=== PATIENT | male | born 1975 | race Caucasian/White ===

== ENCOUNTER → 2019-06-20 17:19 | Outpatient (CLI) | payer BC, SELFPAY ==
[2019-06-20 17:47] LABS: Basophils % 0.6 % (0.1-2.0); Eosinophils # 0.1 K/mm3 (0.0-0.4); Eosinophils % 1.3 % (0.1-12.0); Hematocrit 49.1 % (42.0-52.0); Hemoglobin 16.2 g/dL (14.1-18.0); Lymphocytes # 1.6 K/mm3 (0.7-4.5); Lymphocytes % 22.2 % (10-50); Mean Corpuscular Hemoglobin 30.7 pg (27.0-31.2); Mean Corpuscular Volume 93.1 fl (80-94); Mean Platelet Volume 8.1 fl (7.4-10.4); Monocytes # 0.3 K/mm3 (0.1-1.0); Monocytes % 3.6 % (1.7-9.3); Neutrophils # 5.3 K/mm3 (1.8-7.8); Neutrophils % 72.4 % (37.0-80.0); Platelet Count 306 K/mm3 (142-424); Red Blood Count 5.27 M/mm3 (4.60-6.20); Red Cell Distribution Width 12.4 % (11.5-17.5); White Blood Count 7.3 K/mm3 (4.8-10.8)
[2019-06-20 19:05] LABS: Glucose 86 mg/dL (74-106); Sodium 136 mmol/L (136-145)
[2019-06-20 19:19] LABS: Alanine Aminotransferase 36 U/L (12-78); Albumin Level 4.7 gm/dL (3.4-5.0); Albumin/Globulin Ratio 1.4 (1.1-1.8); Anion Gap 14.4 mEq/L (5-15); Aspartate Amino Transferase 16 U/L (15-37); Bilirubin,Total 0.4 mg/dL (0.2-1.0); Blood Urea Nitrogen 16 mg/dL (7-18); Calcium 9.2 mg/dL (8.5-10.1); Carbon Dioxide 27 mmol/L (21.0-32.0); Chloride 99 mmol/L (98-107); Chol/HDL Ratio 5.6 (1-3.5); Cholesterol 230 mg/dL (140-200); Creatinine,Serum 1.17 mg/dL (0.70-1.30); Estimated Glomerular Filt Rate 68 ml/min (>60); GFR (African American) 83 ML/MIN (>60); Globulin 3.4 gm/dl (1.3-3.2); HDL Cholesterol 41 mg/dL (27-67); LDL Cholesterol 135 mg/dL (0-130); Potassium 4.4 mmoL/L (3.5-5.1); Thyroid Stimulating Hormone 1.28 uIU/ml (0.358-3.740); Total Protein,Serum 8.1 gm/dL (6.4-8.2); Triglycerides 268 mg/dL (30-200); VLDL Cholesterol 54 mg/dL (0-40)
[2019-06-20 19:36] LABS: Alkaline Phosphatase 73 U/L (46-116); Free T4 (Free Thyroxine) 1.04 ng/dl (0.76-1.46)
== END ==
PROVIDERS: Visit Provider Emergency Medicine
DX: R53.83 Other fatigue (principal); Z79.899 Other long term (current) drug therapy
CPT/HCPCS: 80053; 80061; 82652; 84439; 84443; 85025

== ENCOUNTER → 2019-07-24 10:19 | Outpatient (CLI) | payer BC, SELFPAY ==
[2019-07-24 10:25] LABS: MANUAL DIFFERENTIAL MANUAL DIFFERENTIAL (MANUAL DIFF)
[2019-07-24 11:02] LABS: Basophils # 0.1 K/mm3 (0-0.2); Basophils % 0.7 % (0.1-2.0); Eosinophils # 0.1 K/mm3 (0.0-0.4); Eosinophils % 1.9 % (0.1-12.0); Hematocrit 43.8 % (42.0-52.0); Hemoglobin 14.6 g/dL (14.1-18.0); Lymphocytes # 1.5 K/mm3 (0.7-4.5); Lymphocytes % 19.8 % (10-50); Mean Corpuscular HGB Conc 33.4 g/dL (31.8-35.4); Mean Corpuscular Hemoglobin 31.2 pg (27.0-31.2); Mean Corpuscular Volume 93.6 fl (80-94); Monocytes # 0.4 K/mm3 (0.1-1.0); Monocytes % 5.2 % (1.7-9.3); Neutrophils # 5.4 K/mm3 (1.8-7.8); Neutrophils % 72.5 % (37.0-80.0); Platelet Count 256 K/mm3 (142-424); Red Blood Count 4.68 M/mm3 (4.60-6.20); Red Cell Distribution Width 13.6 % (11.5-17.5); White Blood Count 7.4 K/mm3 (4.8-10.8)
[2019-07-24 12:12] LABS: Eosinophils % 1 % (0-3); Lymphocytes % 14 % (10-50); Monocytes % 9 % (2-9); Neutrophils % 76 % (42-76); Platelet Estimate Normal; RBC Morphology Normal; Total Cells Counted 100
[2019-07-26 18:10] LABS: Testosterone, Total, LC/MS 321.2 ng/dL (264.0-916.0); Testosterone,Free 10.2 pg/mL (6.8-21.5)
== END ==
PROVIDERS: Visit Provider Urology
DX: R79.89 Other specified abnormal findings of blood chemistry (principal)
CPT/HCPCS: 36415; 84402; 84403; 85007; 85014; 85018; 85048; 85049

== ENCOUNTER → 2019-07-28 10:04 | Outpatient (POV) | payer BC, SELFPAY ==
[2019-07-28 10:22] VITALS: BP 138/83; PULSE 86; RESP 18; O2SAT 99; BMI 31.4
--- NOTE | 2019-07-28 12:58 | HMH.PMCON ---
Assessment and Plan (1) DDD (degenerative disc disease), thoracic Current visit: No Status: Chronic Category: Medical Code(s): M51.34 - Other intervertebral disc degeneration, thoracic region - Assessment and plan all Dx Assessment and Plan for all problems:: We will order an updated MRI to determine pathology. He has been instructed to call the office if he has any issues prior to his next appointment. At his next appointment we will go over his MRI. Dr. Thurman has reviewed this note and agrees with this plan of care. This note was dictated using voice recognition software and may contain errors or omissions HPI - Data of Consult Consult date: 07/28/19 Requesting Physician: Belia Schaeffer APRN Primary Care Provider: Kelechi So MD - Consult Narrative Reason for consult: Thoracic back pain History of present illness: Mr. Wesley is a 44 year old male who presents today to discuss his thoracic back pain. Patient has had quite a lot of back pain for quite some time. He was seen in [place] [facility] over 10 years ago where he states he got an RFA. He states it was extremely painful and did not return. Patient does not have a recent MRI. Patient states that the pain radiates into his chest and into his sternum. Patient states is burning and aching in nature. Patient has done physical therapy in the past. Patient has tried and failed medication therapies as well. Has had this pain for over a year. CC: Belia Schaeffer APRN [facility] History I have reviewed the patient's past medical history: Yes Medical History: Reports:: Anxiety, Depression, Gastroesophageal Reflux Disease(GERD), Hyperlipidemia, Hypertension *Have you ever received a pneumonia vaccine?: Yes *Have you received a flu vaccine this season?: Yes Other Medical History: Reports: Arthritis, Other Other Surgeries: Yes: No Previous Surgery Amputation: No Fractures: No - *Social History Smoking Status: Never smoker Alcohol Intake: never Substance Use Type: former substance user *Occupational Status:: other Housing: house Household Members: other *Travel in the last 8 weeks: None - Psychiatric History Pschychiatric History:: Reports:: Anxiety, Depression Family Hx:: Unable to obtain Review of Systems - Review of Systems ROS General: no recent weight change, no fever, no sleep disturbances Respiratory: no cough, no shortness of air, no recurring pulmonary infections Cardiovascular/Peripheral Vascular: No chest pain, No palpitations, no edema, no shortness of breath. Gastrointestinal: no new onset incontinence, normal bowel movements reported Genitourinary: no new onset incontinence Musculoskeletal: Back pain Psychiatric: normal mood/ affect Neurological: [denies new onset weakness in extremities], [denies new onset balance issues] Meds Home Medications Medication Instructions Recorded Confirmed Type bupropion HCl 150 mg 24 hr tablet, 450 mg PO DAILY #90 tab 06/20/19 07/24/19 Rx extended release gabapentin 800 mg tablet 800 mg PO QID #120 tab 06/20/19 07/24/19 Rx quetiapine 300 mg tablet 300 mg PO QHS #30 tab 06/20/19 07/24/19 Rx omeprazole 20 mg capsule,delayed 20 mg PO DAILY #90 cap 06/23/19 07/24/19 Rx release atorvastatin 10 mg tablet 10 mg PO DAILY #90 tab 06/30/19 07/24/19 Rx bupropion HCl 300 mg 24 hr tablet, 300 mg PO DAILY tab 07/14/19 07/24/19 History extended release Allergies Allergy/AdvReac Type Severity Reaction Status Date / Time SULFA (SULFONAMIDE) Allergy Severe Rash Uncoded 07/24/19 09:54 Objective Vital signs: Pulse Resp BP Pulse Ox 86 18 138/83 99 07/28/19 10:22 07/28/19 10:22 07/28/19 10:22 07/28/19 10:22 Narrative: Physical Exam General: Alert and oriented x3, no acute distress, pleasant and cooperative, [on room air] Lungs: Resps E/U, Symmetrical chest expansion, Eyes: PERRL Musculoskeletal: Flexion and extension of thoracic spine s
== END ==
PROVIDERS: PCP Emergency Medicine; Visit Provider Clinical Nurse Specialist Family Health
DX: M51.34 Other intervertebral disc degeneration, thoracic region (principal)
CPT/HCPCS: 99202

== ENCOUNTER → 2019-08-06 12:39 | Outpatient (CLI) | payer BC, SELFPAY ==
--- NOTE | 2019-08-06 12:42 | MR_ITS ---
PROCEDURE: MR THORACIC SPINE WO CON CLINICAL INDICATION: BACK PAIN Mid and low back pain COMPARISON: No exams were available for comparison TECHNIQUE: Routine multiplanar multi echo sequences are performed without gadolinium enhancement. FINDINGS: There is normal alignment. No fracture or dislocation is evident. No significant degenerative change. There is slight decrease in height anteriorly of T11 but no abnormal bone marrow signal intensity consistent with chronic or developmental change. There is slight decrease in the disc space at T4-T5 and T5-T6 and T6-T7. There is small right paracentral disc protrusion at T7-T8 with minimal flattening of the cord at this area. The spinal cord has an unremarkable appearance. Incidental note is made of bilateral renal cysts. There is a left paravertebral osteophyte at T10-T11. IMPRESSION: Small right paracentral disc protrusion at T7-T8 with minimal flattening of the cord at this level. Mild degenerative changes Dictated by: Tom Mendez MD 08/07/2019 11:15 Electronically signed by Tom Mendez MD in [place] 08/07/2019 11:15
== END ==
PROVIDERS: PCP Emergency Medicine; Visit Provider Clinical Nurse Specialist Family Health
DX: M54.6 Pain in thoracic spine (principal)
CPT/HCPCS: 72146

== ENCOUNTER → 2019-08-19 10:36 | Outpatient (POV) | payer BC, SELFPAY ==
[2019-08-19 10:46] VITALS: BP 175/78; PULSE 78; RESP 18; O2SAT 99; BMI 31.8
--- NOTE | 2019-08-19 10:57 | HMH.PAINSOAP ---
[facility] Pain Management SOAP Note Subjective:: Patient is a pleasant 44-year-old white male who presents today for follow-up. Patient had an MRI of his thoracic spine which showed a bulging disc at the T7-T8 level. It is also shows a flattening of the spinal cord in this area. We discussed options including surgical consultation and epidural injections. Patient is interested in trying an epidural injection prior to making any decisions. I do believe that would be beneficial he is not on any blood thinners. Patient has tried and failed anti-inflammatories. He rates his pain today a 7 out of 10. ROS General: no recent weight change, no fever, no sleep disturbances Respiratory: no cough, no shortness of air, no recurring pulmonary infections Cardiovascular/Peripheral Vascular: No chest pain, No palpitations, no edema, no shortness of breath. Gastrointestinal: no new onset incontinence, normal bowel movements reported Genitourinary: no new onset incontinence Musculoskeletal: Thoracic back pain Psychiatric: normal mood/ affect Neurological: [denies new onset weakness in extremities], [denies new onset balance issues] Objective:: Physical Exam General: Alert and oriented x3, no acute distress, pleasant and cooperative, [on room air] Lungs: Resps E/U, Symmetrical chest expansion, Eyes: PERRL Musculoskeletal: Flexion and extension of thoracic spine somewhat guarded secondary to pain, deep tendon reflexes normal, strength in upper and lower extremities [5/5], antalgic gait noted Neurological: speech clear, electronic publications specialist equal, no gross sensory deficits Assessment:: Degenerative disc disease thoracic spine with bulging disc and radiculopathy Plan:: We will set up a T7-T8 thoracic epidural steroid injection for the patient. Given his symptomology I do believe it would be beneficial. We will give him some Flexeril 10 mg 1 p.o. 3 times daily just [address] Thurman has reviewed this note and agrees with this plan of care. This note was dictated using voice recognition software and may contain errors or omissions [facility] History I have reviewed the patient's past medical history: Yes Medical History: Reports:: Anxiety, Depression, Gastroesophageal Reflux Disease(GERD), Hyperlipidemia, Hypertension *Have you ever received a pneumonia vaccine?: Yes *Have you received a flu vaccine this season?: Yes Other Medical History: Reports: Arthritis, Other Other Surgeries: Yes: No Previous Surgery Amputation: No Fractures: No - *Social History Smoking Status: Never smoker Alcohol Intake: never Substance Use Type: former substance user *Occupational Status:: other Housing: house Household Members: other *Travel in the last 8 weeks: None - Psychiatric History Pschychiatric History:: Reports:: Anxiety, Depression Family Hx:: No significant family history
== END ==
PROVIDERS: PCP Emergency Medicine; Visit Provider Clinical Nurse Specialist Family Health
DX: M51.14 Intervertebral disc disorders with radiculopathy, thoracic region (principal)
CPT/HCPCS: 99212

== ENCOUNTER 2019-09-12 10:03 | Day surgery (SDC) | payer BC, SELFPAY ==
[2019-09-12 10:23] VITALS: BP 155/98; PULSE 75; RESP 18; TEMP 36.6; O2SAT 96; BMI 31.8
[2019-09-12 10:45] VITALS: BP 132/84; PULSE 73; RESP 18; O2SAT 98
[2019-09-12 10:46] VITALS: BP 135/87; PULSE 75; RESP 18; O2SAT 98
--- NOTE | 2019-09-12 10:55 | HMH.PMPROC ---
- Procedure Date: 09/12/19 Time: 10:55 Anesthesiologist:: Atul Thurman MD Complications:: None Pre-procedure Diagnosis:: Degenerative disc disease of the thoracic spine with bulging disc and thoracic radiculopathy symptoms Post-procedure Diagnosis:: Same Indications for Procedure:: This patient is a pleasant 44-year-old white male who we have been treating for mid back pain with thoracic radiculopathy symptoms. He does have a bulging disc at T7-T8. He has severe pain in his mid back which goes up into his neck. Also it radiates between his shoulder blades. We will plan on a thoracic epidural steroid injection today to see if this will help with his pain symptoms. He has severe pain which is affecting activities of daily living. Is affecting his functionality. We will do an injection today to keep him out of the emergency room and off oral opioids. Procedure Details:: Thoracic epidural steroid injection Form consent was obtained and the risk and benefits of the procedure were explained to the patient. Patient was taken to the procedure room. The back was prepped using ChloraPrep. The skin and subcutaneous tissues were anesthetized using lidocaine. A 17-gauge epidural needle was inserted and advanced into the T7-T8 interspace. After confirmation of needle placement in the epidural space with dye we injected 2 mL lidocaine 1.5% and Depo-Medrol 80 mg into the lumbar epidural space. Patient tolerated the procedure well with no complications. Plan and Disposition:: We will follow-up with him in 2 weeks. Will reevaluate symptoms at that time.
[2019-09-12 11:01] VITALS: BP 160/95; PULSE 75; RESP 18; O2SAT 96
== END 2019-09-12 11:02 | disposition home or self-care (01) ==
LOC: SC.PAINP 10:04
PROVIDERS: PCP Emergency Medicine; Visit Provider Anesthesiology
DX: M51.14 Intervertebral disc disorders with radiculopathy, thoracic region (principal); Z79.899 Other long term (current) drug therapy; Z88.2 Allergy status to sulfonamides
CPT/HCPCS: 62321; J1040; Q9966

== ENCOUNTER → 2019-09-29 12:55 | Outpatient (POV) | payer BC, SELFPAY ==
[2019-09-29 13:09] VITALS: BP 157/98; PULSE 85; RESP 18; TEMP 36.8; O2SAT 99; BMI 31.4
--- NOTE | 2019-09-29 14:28 | HMH.PAINSOAP ---
[facility] Pain Management SOAP Note Subjective:: Patient is a 44-year-old white male who we are treating for generalized pain along with significant thoracic radiculopathy. Patient states he has had back problems since he was 18. Patient is frustrated today because he states he does not know what is wrong with him. 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 Patient has tested negative for rheumatoid arthritis. Patient has not been tested for any kind of infectious diseases such as Lyme disease. Patient states that every joint in his body hurts he has swelling. Patient has quite a bit of thoracic pain radiating into his intercostal areas. Patient had a thoracic epidural which he stated felt like it just missed the loren . Patient states it would have been better if it was more angled to the right. Patient and I talked about transforaminal epidural injections this may be of benefit to him however I do feel that potentially there is more to explore in regards to his pain what is seen on his MRI. I discussed with him that we could start doing physical therapy to strengthen his core muscles and help alleviate some of his lower back pain I also discussed the potential neurological and rheumatological consultation. If this is not beneficial to him he may benefit from some cognitive behavioral therapy. Patient's not on any anticoagulation therapy. ROS General: no recent weight change, no fever, no sleep disturbances Respiratory: no cough, no shortness of air, no recurring pulmonary infections Cardiovascular/Peripheral Vascular: No chest pain, No palpitations, no edema, no shortness of breath. Gastrointestinal: no new onset incontinence, normal bowel movements reported Genitourinary: no new onset incontinence Musculoskeletal: Back pain, generalized joint pain Psychiatric: Anxious Neurological: [denies new onset weakness in extremities], [denies new onset balance issues] Objective:: Physical Exam General: Alert and oriented x3, no acute distress, pleasant and cooperative, [on room air] Lungs: Resps E/U, Symmetrical chest expansion, Eyes: PERRL Musculoskeletal: Flexion and extension of thoracic spine somewhat guarded secondary to pain, deep tendon reflexes normal, strength in upper and lower extremities [5/5], [abnormal gait noted] Neurological: speech clear, ticket worker equal, no gross sensory deficits Assessment:: Degenerative disc disease thoracic spine with thoracic radiculopathy, generalized joint pain Plan:: We will schedule a rightT7-T8 transforaminal injection for the patient to see if this is beneficial. We will also set him up with physical therapy for core strengthening we will also set him up with a consultation to a animal behaviourist and a neurologist. We specifically discussed risk factors for Covid-19 including age, heart or lung disease, diabetes, immunosuppression and travel. We also discussed that NSAIDs may worsen Covid-19 infection symptoms and that they should not be used to treat Covid-19 symptoms. Patient was also informed that corticosteroids in any form oral or injectable will decrease immune response and may increase risk of Covid-[address] Thurman has reviewed this patient's chart and this note and agrees with plan of care. Patient has been instructed to call the office if they have any issues prior to the next appointment. [facility] History I have reviewed the patient's past medical history: Yes Medical History: Reports:: Anxiety, Depression, Gastroesophageal Reflux Disease(GERD), Hyperlipidemia, Hypertension Denies:: Cancer, Diabetes Mellitus Type 2, Seizures *Have you ever received a pneumonia vaccine?: Yes *Have you received a flu vaccine this season?: Yes Other Medical History: Reports: Arthritis, Other Other Surgeries: Yes: No Previous Surgery Amputation: No Fractures: No - *Social History Smoking Status: Never smoker Alcoho
== END ==
PROVIDERS: PCP Emergency Medicine; Visit Provider Clinical Nurse Specialist Family Health
DX: M51.14 Intervertebral disc disorders with radiculopathy, thoracic region (principal); M25.50 Pain in unspecified joint
CPT/HCPCS: 99212

== ENCOUNTER → 2019-10-06 10:09 | Outpatient (CLI) | payer BC, SELFPAY ==
[2019-10-07 08:56] LABS: Covid-19 Nasal PCR Sendout Lex NOT DETECTED
--- NOTE | 2019-10-07 09:52 | PC.NURSE ---
Attempted to reach patient on both phone numbers listed, no answer, no voicemail set up. Did notify ELDA Murillo in pain management of negative results, and that pt was attempted to be reached.
== END ==
PROVIDERS: Visit Provider Anesthesiology
DX: Z03.818 Encounter for observation for suspected exposure to other biological agents ruled out (principal)
CPT/HCPCS: U0003

== ENCOUNTER 2019-10-06 14:00 | Outpatient (RCR) | payer BC, SELFPAY | END 2019-10-06 14:05 | disposition home or self-care (01) | LOC: PT 14:00 | PROVIDERS: Visit Provider Clinical Nurse Specialist Family Health | DX: M54.5 Low back pain (principal) | CPT/HCPCS: 97010; 97012; 97014; 97033; 97110; 97140; 97163; G0283 ==

== ENCOUNTER 2019-10-08 07:45 | Day surgery (SDC) | payer BC, SELFPAY ==
[2019-10-08 11:19] VITALS: BP 174/84; PULSE 82; RESP 18; TEMP 36.9; O2SAT 99; BMI 31.4
--- NOTE | 2019-10-08 11:54 | P.PCN_ITS ---
- Procedure Date: 10/08/19 Time: 11:55 Anesthesiologist:: Atul Thurman MD Complications:: None Pre-procedure Diagnosis:: Degenerative disc disease of thoracic spine with thoracic radiculopathy symptoms to the right side Post-procedure Diagnosis:: Same Indications for Procedure:: Patient is a pleasant 44-year-old white male who we are treating for mid back pain with thoracic radiculopathy symptoms to the right. Most of his pain is in the mid back radiating to the right. We will do an epidural steroid injection directed towards the right to see if this will help with his pain symptoms. Because of the risk of pneumothorax we will not do a transforaminal epidural steroid injection. Procedure Details:: Thoracic epidural steroid injection under fluoroscopy Informed consent was obtained risk and benefits of the procedure were explained to the patient. Patient was taken to the procedure room. Back was prepped using ChloraPrep. The skin and subcutaneous tissues were anesthetized using lidocaine. I placed a 17-gauge epidural needle and advanced into the T7-T8 interspace. After confirmation of needle placement in the epidural space at T7- T8 towards the right with dye. We injected 2 mL's lidocaine 1.5% and Depo- Medrol 80 mg into the epidural space. Patient tolerated the procedure well with no complications. Plan and Disposition:: We will follow-up with him in 2 weeks. Will reevaluate his symptoms at that time.
[2019-10-08 11:57] VITALS: BP 165/85; PULSE 85; RESP 18; TEMP 36.6
[2019-10-08 11:58] VITALS: BP 165/89; PULSE 89; RESP 18
[2019-10-08 12:08] VITALS: BP 169/97; PULSE 76; RESP 18; O2SAT 99
== END 2019-10-08 12:10 | disposition home or self-care (01) ==
LOC: SC.PAINP 07:47
PROVIDERS: PCP Emergency Medicine; Visit Provider Anesthesiology
DX: M51.14 Intervertebral disc disorders with radiculopathy, thoracic region (principal)
CPT/HCPCS: 62321; J1040; Q9966

== ENCOUNTER → 2019-10-20 14:29 | Outpatient (POV) | payer BC, SELFPAY ==
[2019-10-20 14:46] VITALS: BP 178/93; PULSE 101; RESP 18; TEMP 36.8; O2SAT 99; BMI 32.1
--- NOTE | 2019-10-21 08:22 | HMH.PAINSOAP ---
[facility] Pain Management SOAP Note Subjective:: Patient is a pleasant 44-year-old white male who we are treating for mid back pain with thoracic radiculopathy symptoms to the right. Patient states that after his second thoracic epidural steroid injection he did much better. Patient states he can tell the doctor Cuca was able to angle the medication to the right side. Patient states that he is having continual joint pain. He is not on any anti-inflammatories. We discussed a vehicle assembly inspector at his last visit he is going to pursue this. Patient states he has had all the symptoms since he was a child ROS General: no recent weight change, no fever, no sleep disturbances Respiratory: no cough, no shortness of air, no recurring pulmonary infections Cardiovascular/Peripheral Vascular: No chest pain, No palpitations, no edema, no shortness of breath. Gastrointestinal: no new onset incontinence, normal bowel movements reported Genitourinary: no new onset incontinence Musculoskeletal: Back pain Psychiatric: Anxious Neurological: [denies new onset weakness in extremities], [denies new onset balance issues] Objective:: Physical Exam General: Alert and oriented x3, no acute distress, pleasant and cooperative, [on room air] Lungs: Resps E/U, Symmetrical chest expansion, Eyes: PERRL Musculoskeletal: Flexion and extension of thoracic spine somewhat guarded secondary to pain, deep tendon reflexes normal, strength in upper and lower extremities [5/5], normal gait noted Neurological: speech clear, lease picker equal, no gross sensory deficits Assessment:: Degenerative disc disease thoracic spine thoracic radiculopathy. Plan:: We will repeat his T7-T8 epidural steroid injection. We will also start him on diclofenac 75 mg 1 p.o. twice daily. I will follow-up with him after this reassess his symptoms at that time he has been instructed to call the office if he has any issues prior to his next appointment. Dr. Thurman has reviewed this note and agrees with this plan of care. This note was dictated using voice recognition software and may contain errors or omissions [facility] History I have reviewed the patient's past medical history: Yes Medical History: Reports:: Anxiety, Depression, Gastroesophageal Reflux Disease(GERD), Hyperlipidemia, Hypertension, MRSA Denies:: Cancer, Diabetes Mellitus Type 1, Diabetes Mellitus Type 2, Seizures *Have you ever received a pneumonia vaccine?: Yes *Have you received a flu vaccine this season?: Yes Other Medical History: Reports: Arthritis, Other Other Surgeries: Yes: No Previous Surgery Amputation: No Fractures: No - *Social History Smoking Status: Current some day smoker Alcohol Intake: never Substance Use Type: former substance user *Occupational Status:: other Housing: house Household Members: other *Travel in the last 8 weeks: None - Psychiatric History Pschychiatric History:: Reports:: Anxiety, Depression Family Hx:: No significant family history
== END ==
PROVIDERS: PCP Emergency Medicine; Visit Provider Clinical Nurse Specialist Family Health
DX: M51.14 Intervertebral disc disorders with radiculopathy, thoracic region (principal)
CPT/HCPCS: 99212

== ENCOUNTER 2019-12-12 09:14 | Day surgery (SDC) | payer BC, SELFPAY ==
[2019-12-12 09:37] VITALS: BP 153/65; PULSE 90; RESP 18; TEMP 37; O2SAT 98; BMI 30.7
[2019-12-12 10:04] VITALS: BP 108/80; PULSE 77; RESP 18
[2019-12-12 10:06] VITALS: BP 110/82; PULSE 75; RESP 18; O2SAT 99
--- NOTE | 2019-12-12 10:13 | HMH.PMPROC ---
- Procedure Date: 12/12/19 Time: 10:13 Anesthesiologist:: Atul Thurman MD Complications:: None Pre-procedure Diagnosis:: Degenerative disc disease of the thoracic spine with thoracic radiculopathy Post-procedure Diagnosis:: Same Indications for Procedure:: Patient is a pleasant 44-year-old white male who we are treating for mid back pain with thoracic radiculopathy symptoms to the right. He has had 2 thoracic epidural steroid injections. This is given him good relief however temporary. He presents for a third thoracic epidural steroid injection today. Most of his pain is in the cervical thoracic region with radiation to the right. Procedure Details:: Thoracic epidural Informed consent was obtained and the risk and benefits of the procedure was explained to the patient. Patient was taken to the procedure room. The back was prepped using ChloraPrep. C-arm fluoroscopy was used to view the thoracic spine. The skin and subcutaneous tissues were anesthetized using lidocaine. I placed a 17-gauge Touhy epidural needle into the T7-T8 interspace. I advanced using [id number] to air and fluoroscopic guidance until the epidural space was reached. Confirmation of needle placement in the epidural space was with dye. After this we injected 1 mL lidocaine 1.5% and Depo-Medrol 80 mg. The patient tolerated the procedure well with no complication. Plan and Disposition:: We will follow-up with him in 2 weeks. We will reevaluate his symptoms. Given his symptomology in the cervical thoracic region with radiation to the right I believe he would be a good candidate for spinal cord stimulator trial. I believe he would benefit from a [employer] system with DTM stimulation. Leads need to be in the lower cervical upper thoracic region to help with cervical thoracic pain.
[2019-12-12 10:20] VITALS: BP 149/95; PULSE 74; RESP 18; O2SAT 98
== END 2019-12-12 10:20 | disposition home or self-care (01) ==
LOC: SC.PAINP 09:15
PROVIDERS: PCP Emergency Medicine; Visit Provider Anesthesiology
DX: M51.14 Intervertebral disc disorders with radiculopathy, thoracic region (principal); I10 Essential (primary) hypertension; E11.9 Type 2 diabetes mellitus without complications; K21.9 Gastro-esophageal reflux disease without esophagitis; F41.9 Anxiety disorder, unspecified; F32.9 Major depressive disorder, single episode, unspecified; G43.909 Migraine, unspecified, not intractable, without status migrainosus; Z79.899 Other long term (current) drug therapy
CPT/HCPCS: 62321; J1040; Q9966

== ENCOUNTER → 2019-12-29 11:18 | Outpatient (POV) | payer BC, SELFPAY ==
[2019-12-29 11:42] VITALS: BP 144/88; PULSE 85; RESP 18; TEMP 36.9; O2SAT 98; BMI 30.7
--- NOTE | 2019-12-29 12:09 | HMH.PAINSOAP ---
[facility] Pain Management SOAP Note Subjective:: Patient is a 44-year-old white male who presents today for follow-up after a thoracic epidural at T7-T8. Patient says his pain is a 7 out of 10 today. He has had 2 thoracic epidural steroid injections in the past which have given him good relief, however temporary. His last injection was his third injection and he says that it did give him relief for only 2 days. He says he did get approximately 60% relief with the injection. Patient did discuss with Dr. Thurman at the previous visit undergoing [employer] DTM stimulation, however, the patient says that he would like to undergo a lumbar MRI before proceeding with implanted device. He says that he has pain in his neck and his low back. He says that he has not had any imaging of his lumbar spine. Patient says that he would also like to proceed with possible injective therapy in his lumbar spine before undergoing implanted devices. The patient is asking for an anti-inflammatory as well as muscle relaxer today. He says these have given him relief in the past. Review of Systems General: No recent weight changes, no fever, no sleep disturbances Respiratory: No cough, no shortness of air, no recurring pulmonary infections Cardiovascular/peripheral vascular: No chest pain, no palpitations, no edema, no shortness of breath Gastrointestinal: No new onset incontinence, normal bowel movements reported Genitourinary: No new onset incontinence Musculoskeletal: Back pain, mid back pain, low back pain Psychiatric: Normal mood/affect Neurological: [Denies weakness in extremities], [denies balance issues] Objective:: Physical exam General: Alert and oriented x3, no acute distress, pleasant and cooperative, [on room air] Lungs: Respirations even and unlabored, symmetrical chest expansion Eyes: PERRL Musculoskeletal: Flexion and extension of cervical, thoracic, lumbar spine somewhat guarded secondary to pain, deep tendon reflexes normal, strength in upper and lower extremities [5/5], normal gait noted Neurological: Speech clear, triage nurse equal, no gross sensory deficit Assessment:: Degenerative disc disease sick spine with thoracic radiculopathy symptoms, neck pain, low back pain, bilateral leg pain Plan:: We will proceed with an MRI of his lumbar spine. Patient would prefer to have imaging before proceeding with any further care. We will order him Flexeril 10 mg 1 tab p.o. 3 times daily. We will also order him diclofenac 5 mg 1 tablet p.o. twice daily. He says he is taking high doses of ibuprofen. I have educated him thoroughly that he cannot continue other anti-inflammatories. Patient does need to review his other medications with his primary care provider before proceeding with the anti-inflammatories. Patient says that he will discuss it with his primary care provider. We will see him back in the clinic after his MRI discuss further plan of care. He has been instructed to contact clinic if he has any concerns before his next appointment. The patient and I specifically discussed risk factors for COVID19. These risks include, but are not limited to age greater than 60, heart or lung disease, diabetes, immunosuppression, and travel. We also discussed NSAIDs may worsen COVID19 infection or symptoms. Patient should not use NSAIDs to treat COVID19 signs or symptoms. Patient was also informed that any type of corticosteroid of any form (oral or injection) will decrease the patient's immune system response and may increase the likelihood of COVID19 infection [address] symptoms[address] Thurman has reviewed this note and agrees with this plan of care. This note was dictated using voice recognition software and make contain errors or omissions. [facility] History I have reviewed the patient's past medical history: Yes Medical History: Reports:: Anxiety, Depression, Gastroesophageal Reflux Disease(GERD), Hyperlipidemia, Hypertension Denies:: Cancer, Diabetes Mellitus Type 1,
== END ==
PROVIDERS: PCP Emergency Medicine; Visit Provider Clinical Nurse Specialist Family Health
DX: M51.14 Intervertebral disc disorders with radiculopathy, thoracic region (principal); M54.2 Cervicalgia; M54.5 Low back pain; M79.605 Pain in left leg; M79.604 Pain in right leg
CPT/HCPCS: 99212

== ENCOUNTER → 2020-01-02 09:27 | Outpatient (CLI) | payer BC, SELFPAY ==
--- NOTE | 2020-01-02 09:30 | MR_ITS ---
PROCEDURE: MR LUMBAR SPINE WO CON CLINICAL INDICATION: BACK PAIN Bilateral low back pain, bilateral leg pain COMPARISON: And numbness TECHNIQUE: Standard multiplanar multiecho sequences are performed without contrast. 3-D MIP and myelographic images are also rendered and reviewed FINDINGS: There is straightening of the lumbar lordosis. The spinal cord ends at the T12-L1 level. L1-L2: Unremarkable. L2-L3: Unremarkable. L3-L4: Minimal bulging disc with mild facet and ligamentum hypertrophy with mild bilateral lateral recess and foraminal narrowing. L4-5: Mild concentric bulging disc with mild to moderate facet and ligamentum hypertrophy with mild bilateral lateral recess narrowing left greater than right and mild to moderate left foraminal narrowing and mild right foraminal narrowing. L5-S1: Mild concentric bulging disc with a small broad based central disc protrusion which is very slightly eccentric toward the left along with [id number] facet and ligamentum hypertrophy. There is mild left lateral recess narrowing, mild to moderate right foraminal narrowing, [id number] left foraminal narrowing. Incidental note is made of multiple renal cysts which are incompletely imaged. IMPRESSION: 1. L3-L4: Minimal bulging disc with mild facet and ligamentum hypertrophy with mild bilateral lateral recess and foraminal narrowing. The 2. L4-5: Mild concentric bulging disc with mild to moderate facet and ligamentum hypertrophy with mild bilateral lateral recess narrowing left greater than right and mild to moderate left foraminal narrowing and mild right foraminal narrowing. 3. L5-S1: Mild concentric bulging disc with a small broad based central disc protrusion which is very slightly eccentric toward the left along with lhvq-yv-[id number] facet and ligamentum hypertrophy. There is mild left lateral recess narrowing, mild to moderate right foraminal narrowing, [id number] left foraminal narrowing. 4. No extruded herniated disc or canal stenosis Dictated by: Tom Mendez MD 01/05/2020 09:49 Electronically signed by Tom Mendez MD in [place] 01/05/2020 09:49
== END ==
PROVIDERS: PCP Emergency Medicine; Visit Provider Clinical Nurse Specialist Family Health
DX: M54.5 Low back pain (principal)
CPT/HCPCS: 72148; 76376

== ENCOUNTER → 2020-01-08 13:55 | Outpatient (POV) | payer BC, SELFPAY ==
[2020-01-08 14:08] VITALS: BP 125/61; PULSE 85; RESP 18; O2SAT 99; BMI 31.5
--- NOTE | 2020-01-08 15:15 | HMH.PAINSOAP ---
[facility] Pain Management SOAP Note Subjective:: Patient is a 44-year-old white male who presents today for follow-up after an MRI. His been treated for neck, mid back pain, and low back pain with radiation into his bilateral lower extremities. He has undergone epidural steroid injections. Patient says the relief he does get is only temporary. He says he gets approximately 3% % relief with these injections. He says he only gets up to 2 days of relief. He complains of pain into his bilateral shoulders as well as his mid back and low back area. He says that it causes him to have difficulty with breathing due to the pain. Patient is very anxious during his assessment today. He does admit that he has a history of severe anxiety and does see a psychiatrist for his anxiety. Patient says he has had the pain for many years and has not gotten any relief. He also reports to be having temperature changes and color changes to his right lower extremity. He says this is new onset for him. He says that the injections do not relieve this symptom. Patient has tried physical therapy with no relief. He has also tried ice and heat therapies and has taken diclofenac with no relief. He is asking for different type of anti-inflammatory to see if this can give him some relief. He says he has taken prednisone in the past which did not give him relief. He rates his pain an 8 out of 10 today. Review of Systems General: No recent weight changes, no fever, no sleep disturbances Respiratory: No cough, no shortness of air, no recurring pulmonary infections Cardiovascular/peripheral vascular: No chest pain, no palpitations, no edema, no shortness of breath Gastrointestinal: No new onset incontinence, normal bowel movements reported Genitourinary: No new onset incontinence Musculoskeletal: Intermittent neck pain, intermittent mid back pain, chronic low back pain with numbness and tingling in his bilateral lower extremities with temperature and color changes Psychiatric: Normal mood/affect Neurological: [Denies weakness in extremities], [denies balance issues] Objective:: Physical exam General: Alert and oriented x3, no acute distress, pleasant and cooperative, [on room air] Lungs: Respirations even and unlabored, symmetrical chest expansion Eyes: PERRL Musculoskeletal: Flexion and extension of lumbar spine somewhat guarded secondary to pain, deep tendon reflexes normal, strength in upper and lower extremities [5/5], [abnormal gait noted] Neurological: Speech clear, sampler tester equal, no gross sensory deficit Assessment:: Degenerative disc disease lumbar spine with lumbar radiculopathy symptoms, degenerative disc disease thoracic spine with thoracic radiculopathy symptoms, neck pain Plan:: Patient I did discuss his MRI today. Patient has undergone a psychological evaluation and was deemed an appropriate candidate for implanted devices. Currently seeking approval for spinal cord stimulator with [employer]. Given his symptoms and his imaging, the patient would likely benefit from spinal cord stimulation. We will plan to see the patient back in the clinic for his spinal cord stimulator trial to reassess his symptoms. He is not on any anticoagulation therapy. The patient has tried and failed conservative therapies of physical therapy, injections, ice and heat and anti-inflammatories. I have advised him to stop taking diclofenac and we will place him on Mobic 7.5 mg 1 tablet p.o. daily. Patient is now having autonomic symptoms of his lower extremities. Patient has been instructed to contact the clinic if he has any concerns before his spinal cord stimulator trial. The patient and I specifically discussed risk factors for COVID19. These risks include, but are not limited to age greater than 60, heart or lung disease, diabetes, immunosuppression, and travel. We also discussed NSAIDs may worsen COVID19 infection or symptoms. Patient should not use NSAIDs to treat COVI
== END ==
PROVIDERS: PCP Emergency Medicine; Visit Provider Clinical Nurse Specialist Family Health
DX: M51.16 Intervertebral disc disorders with radiculopathy, lumbar region (principal); M51.14 Intervertebral disc disorders with radiculopathy, thoracic region; M54.2 Cervicalgia
CPT/HCPCS: 99212

== ENCOUNTER 2020-01-23 12:32 | Emergency (ER) | payer BC, SELFPAY ==
[2020-01-23 12:34] VITALS: BP 146/98; PULSE 90; RESP 18; TEMP 36.6; O2SAT 95; BMI 30.7
--- NOTE | 2020-01-23 13:11 | HMH.EDGENADL ---
ED Disposition Clinical Impression: Cutaneous abscess Qualifiers: Site of cutaneous abscess: buttock Qualified Code(s): L02.31 - Cutaneous abscess of buttock Disposition: Home, Self-Care Condition on Discharge: Good Instructions: DI for Incision and Drainage of a Skin Abscess, DI for Skin Abscess Additional Instructions: Additional instructions for ABSCESS: Day one and two: Remove the bandage and shower the area, leaving the packing in place. Gently blot dry. Apply a bandage. Day three: Follow-up with primary care physician on 01/26/2020 as already scheduled. Have packing removed at that time and have culture results checked. Return to the emergency department if increasing pain, swelling, redness, red streaks or fever greater than 101 degrees. Prescriptions: clindamycin HCL [Clindamycin HCl 300mg Cap] 300 mg PO Q6 #28 cap Transmission Status: Pending to [facility] Referrals: Kelechi So MD [Primary Care Provider] - - Critical Care Critical Care Time: No Attestation: On 01/23/20, the high probability of a clinically significant, sudden or life threatening deterioration of the following system(s) required my full and direct attention, intervention and personal management. The time I documented below is in addition to time spent performing reported procedures but includes the following listed in this critical care notation. Medical Decision Making - Denis Inquiry Pt receiving controlled substance: No Denis was queried for this patient: Yes Reference #:: [id number] Comment: 45 norco on 01/12/20 Vital Signs: 01/23/20 12:34 Temperature 98 F Temperature Source Oral Pulse Rate [Right] 90 Respiratory Rate 18 Blood Pressure [Right Arm] 146/98 H Blood Pressure Mean [Right Arm] 114 02 Sat by Pulse Oximetry 95 Orders (Tests/Meds): ED MEDICATIONS Discontinued Medications Generic Name Dose Route Start Last Admin Trade Name Freq PRN Reason Stop Dose Admin Lidocaine/Epinephrine 10 ml 01/23/20 13:33 01/23/20 13:35 Lidocaine 1% W/Epi 1:100,000 20ml Vial SQ 01/23/20 13:34 10 ml ONCE ONE Administration General Adult HPI - General Chief complaint: Skin/Abscess/Foreign Body Stated complaint: right side boil Time Seen by Provider: 01/23/20 13:11 Mode of Arrival: Ambulatory Limitations: No Limitations Description of Symptoms (Recalled from ER Triage Doc. by RN): States he has a boil on his right buttocks, denies fever or drainage from the area. - History of Present Illness HPI narrative: Complains of a boil on his right buttock for a month. He poked it once with a needle and got a small amount of pus out. No fever or drainage. He gives himself injections of testosterone in his buttocks, thinks this is a possible source of infection. - Related Data Home Medications Medication Instructions Recorded Confirmed anastrozole 1 mg tablet 1 mg PO ONCE tab 08/15/19 01/12/20 polyethylene glycol 3350 17 17 g PO DAILY g 08/15/19 01/12/20 gram/dose oral powder testosterone cypionate 200 mg/mL 200 mg IM QWEEK ml 08/15/19 01/12/20 intramuscular oil Cyclobenzaprine HCl [Flexeril 10mg 10 mg PO TID 09/12/19 01/12/20 tablet] buPROPion HCL [Bupropion Xl] 450 mg PO DAILY 09/12/19 01/12/20 Diclofenac Sodium [Diclofenac 75mg 75 mg PO BID 12/12/19 01/12/20 Tab] Omeprazole See Rx Instructions .ROUTE .COMPLEX 12/12/19 01/12/20 Previous Rx's Medication Instructions Recorded gabapentin 800 mg tablet 800 mg PO QID #120 tab 11/12/19 tadalafil 20 mg tablet 20 mg PO DAILY PRN #14 tab 11/12/19 bupropion HCl 300 mg 24 hr tablet, 300 mg PO DAILY #90 tab 12/04/19 extended release atorvastatin 10 mg tablet 10 mg PO DAILY #90 tab 12/25/19 Meloxicam 7.5 mg PO DAILY 30 Days #30 tab 01/08/20 hydrocodone 5 mg-acetaminophen 325 1 tab PO TID #45 tab 01/12/20 mg tablet quetiapine 300 mg tablet See Rx Instructions .ROUTE 01/12/20 .COMPLEX #90 unspecified clindamycin HC
[2020-01-23 14:05] VITALS: BP 145/87; PULSE 89; RESP 17; TEMP 36.8; O2SAT 100
== END 2020-01-23 14:06 | disposition home or self-care (01) ==
PROVIDERS: Emergency Provider Emergency Medicine; PCP Emergency Medicine
DX: L02.31 Cutaneous abscess of buttock (principal); F41.8 Other specified anxiety disorders; E78.5 Hyperlipidemia, unspecified; K21.9 Gastro-esophageal reflux disease without esophagitis; I10 Essential (primary) hypertension
CPT/HCPCS: 10060; 87070; 87077; 87186; 87205; 96372; 99282

== ENCOUNTER → 2020-01-29 11:00 | Outpatient (CLI) | payer BC, SELFPAY ==
[2020-01-29 11:17] LABS: Basophils % 0.6 % (0.1-2.0); Eosinophils # 0.2 K/mm3 (0.0-0.4); Eosinophils % 3.4 % (0.1-12.0); Hematocrit 44.5 % (42.0-52.0); Lymphocytes # 1.7 K/mm3 (0.7-4.5); Lymphocytes % 33.6 % (10-50); Mean Corpuscular Hemoglobin 32.7 pg (27.0-31.2); Mean Corpuscular Volume 90.8 fl (80-94); Mean Platelet Volume 7.7 fl (7.4-10.4); Monocytes # 0.2 K/mm3 (0.1-1.0); Neutrophils # 2.9 K/mm3 (1.8-7.8); Neutrophils % 58.3 % (37.0-80.0); Platelet Count 190 K/mm3 (142-424); Red Cell Distribution Width 12.6 % (11.5-17.5)
[2020-01-29 12:27] LABS: Alanine Aminotransferase 31 U/L (12-78); Albumin Level 4.6 g/dl (3.5-5.0); Alkaline Phosphatase 62 U/L (38-126); Aspartate Amino Transferase 43 U/L (17-59); Bilirubin,Direct 0.1 mg/dl (0.0-0.4); Bilirubin,Indirect 0.5 mg/dL (0.0-0.9); Bilirubin,Total 0.6 mg/dl (0.2-1.3); Bilirubin,Unconjugated 0.5 mg/dL (0.0-1.1); Total Protein,Serum 7.3 g/dl (6.3-8.2)
[2020-01-30 10:26] LABS: Estradiol 24.3 pg/mL (7.6-42.6)
[2020-02-01 11:03] LABS: Testosterone, Total, LC/MS 727.6 ng/dL (264.0-916.0); Testosterone,Free 13.9 pg/mL (6.8-21.5)
== END ==
PROVIDERS: Visit Provider Urology
DX: E34.9 Endocrine disorder, unspecified (principal)
CPT/HCPCS: 36415; 80076; 82670; 84402; 84403; 85025

== ENCOUNTER → 2020-02-12 09:17 | Outpatient (CLI) | payer BC, SELFPAY ==
[2020-02-12 10:12] LABS: Basophils # 0.1 K/mm3 (0-0.2); Basophils % 0.9 % (0.1-2.0); Eosinophils # 0.2 K/mm3 (0.0-0.4); Eosinophils % 3.8 % (0.1-12.0); Hematocrit 47.4 % (42.0-52.0); Hemoglobin 17.2 g/dL (14.1-18.0); Lymphocytes % 34.7 % (10-50); Mean Corpuscular HGB Conc 36.4 g/dL (31.8-35.4); Mean Corpuscular Hemoglobin 32.6 pg (27.0-31.2); Mean Corpuscular Volume 89.8 fl (80-94); Mean Platelet Volume 8.1 fl (7.4-10.4); Monocytes # 0.4 K/mm3 (0.1-1.0); Monocytes % 6.3 % (1.7-9.3); Neutrophils # 3.1 K/mm3 (1.8-7.8); Neutrophils % 54.4 % (37.0-80.0); Platelet Count 220 K/mm3 (142-424); Red Blood Count 5.29 M/mm3 (4.60-6.20); Red Cell Distribution Width 12.8 % (11.5-17.5); White Blood Count 5.7 K/mm3 (4.8-10.8)
[2020-02-12 10:49] LABS: Chloride 105 mmol/L (98-107)
[2020-02-12 10:50] LABS: Potassium 4.9 mmoL/L (3.5-5.1); Sodium 141 mmol/L (136-145)
[2020-02-12 10:53] LABS: Anion Gap 14.9 mEq/L (5-15); Blood Urea Nitrogen 23 mg/dl (9-20); Calcium 9.7 mg/dl (8.4-10.2); Carbon Dioxide 26 mmol/L (22.0-30.0); Estimated Glomerular Filt Rate 66 ml/min (>60); GFR (African American) 80 ML/MIN (>60); Glucose 86 mg/dl (74-100)
[2020-02-12 11:48] LABS: Coronavirus 19 IgG Antibody Negative (Negative); Coronavirus 19 IgM Antibody Negative (Negative)
== END ==
PROVIDERS: Visit Provider Clinical Nurse Specialist Family Health
DX: Z01.818 Encounter for other preprocedural examination (principal); Z01.84 Encounter for antibody response examination
CPT/HCPCS: 36415; 80048; 85025; 86328

== ENCOUNTER 2020-02-13 09:45 | Day surgery (SDC) | payer BC, SELFPAY ==
[2020-02-11 12:29] VITALS: BMI 31.4
[2020-02-13] VITALS (7 sets, daily range): BP systolic 119–138; BP diastolic 57–90; PULSE 82–95; RESP 18; TEMP 36.6–36.8; O2SAT 92–95
--- NOTE | 2020-02-13 10:34 | HMH.ANESCL ---
[facility] Anesthesia Checklist - Structural Data Admitted From: Home Planned Operative Procedure/s: nerve stim trial Consent for Planned Operative Procedure(s) Verified: Yes - Additional verifications Anesthesia Reactions: No Hx Blood Transfusions: No - Airway Assessment C-Spine Mobility Assessed: Yes TMJ Mobility Assessed: Yes Dentition: Good Dentition - Neurological Assessment Level of Consciousness: Awake, Alert, Appropriate - Anesthesia Plan Anesthesia Risk discussed: Yes Anesthesia Plan: Verified ASA Class: II Anesthesia Type: MAC [facility] History I have reviewed the patient's past medical history: Yes Medical History: Reports:: Anxiety, Depression, Gastroesophageal Reflux Disease(GERD), Hyperlipidemia, Hypertension Denies:: Cancer, Diabetes Mellitus Type 1, Diabetes Mellitus Type 2, Internal Pacemaker, MRSA, Seizures *Have you ever received a pneumonia vaccine?: No *Have you received a flu vaccine this season?: No Other Medical History: Reports: Arthritis, Other Anesthesia experience/problems:: none Other Surgeries: Yes: No Previous Surgery. No: Pacemaker Amputation: No Fractures: No - *Social History Last grade of school completed: 5th or 6th Smoking Status: Never smoker Tobacco Type: cigarettes # Packs/Day (cigarettes): 1 Alcohol Intake: never Substance Use Type: former substance user *Occupational Status:: other Housing: house Household Members: other *Travel in the last 8 weeks: None - Psychiatric History Pschychiatric History:: Reports:: Anxiety, Depression Family Hx:: No significant family history
--- NOTE | 2020-02-13 13:58 | HMH.OPNOTE ---
Date of procedure: 02/13/20 Surgeon:: Atul Thurman MD
--- NOTE | 2020-02-13 14:00 | HMH.OPNOTE ---
Date of procedure: 02/13/20 Pre-op Diagnosis:: Degenerative disc disease of lumbar spine with lumbar radiculopathy symptoms Post-op Diagnosis:: Same Procedure performed:: Spinal cord stimulator trial with epidural lead placement x2 Surgeon:: Atul Thurman MD PHOTOGRAPHER:: Carlos Ga Anesthesia: MAC Estimated blood loss (mL): 1 Clinical Note:: This patient is a pleasant 44-year-old white male who we are treating for low back pain with lumbar radiculopathy symptoms. He is failed all previous conservative therapy including physical therapy, injections, oral medications. He only has temporary relief. He does have some temperature changes and color changes in his right lower extremity. He has CRPS type II symptoms with autonomic symptoms. We will do a spinal cord stimulator trial with epidural lead placement x2 today. He is also had a successful psychological evaluation. Operative findings:: None Operative note:: Informed consent was obtained and the risk and benefits of the procedure was explained to the patient. The patient was taken to the operating room placed prone on the procedure table. The patient was prepped and draped in sterile fashion. C-arm fluoroscopy was used to view the lumbar spine. The skin and subcutaneous tissues were anesthetized using lidocaine. A 17-gauge epidural needle was inserted and advanced into the L2-L3 interspace. After confirmation of needle placement in the epidural space stimulating lead was inserted and advanced very easily to the T8-T9 interspace. Lead placement was checked in AP and lateral views. A second needle was then inserted and advanced again into the L2-L3 interspace. Again after confirmation of needle placement in the epidural space a stimulator lead was inserted and advanced again very easily to the T9-T10 interspace. Both of these leads were staggered. Again this lead was checked in AP and lateral views. The needles and stylets were removed. The leads were secured in place. The patient was taken to recovery in stable condition. Patient tolerated the procedure well with no complications. Patient was programmed by the [employer] kiosk sales representative with good relief of pain symptoms. Patient was placed on DTM programming Patient was discharged home neurologically intact and with good relief of pain symptoms. Plan and disposition: We will follow-up with this patient in 3 days for reprogramming. We will follow-up in 1 week for lead pull. If the patient has any problems or questions they are to call us in the pain clinic. Condition: stable Disposition: PACU Complications:: None
== END 2020-02-13 14:40 | disposition home or self-care (01) ==
LOC: OR 09:46
PROVIDERS: PCP Emergency Medicine; Visit Provider Anesthesiology
PROC: (CPT 63650; principal; 2020-02-13 11:00)
DX: M51.16 Intervertebral disc disorders with radiculopathy, lumbar region (principal); I10 Essential (primary) hypertension; E78.5 Hyperlipidemia, unspecified; F41.9 Anxiety disorder, unspecified; F32.9 Major depressive disorder, single episode, unspecified; K21.9 Gastro-esophageal reflux disease without esophagitis; M19.90 Unspecified osteoarthritis, unspecified site; F19.11 Other psychoactive substance abuse, in remission; Z88.2 Allergy status to sulfonamides; Z79.899 Other long term (current) drug therapy
CPT/HCPCS: 63650 ×2; 96374; C1897; J3370

== ENCOUNTER → 2020-02-19 13:23 | Outpatient (POV) | payer BC, SELFPAY ==
[2020-02-19 13:39] VITALS: BP 132/77; PULSE 74; RESP 18; TEMP 36.8; O2SAT 98; BMI 30.7
--- NOTE | 2020-02-19 14:49 | HMH.PAINSOAP ---
[facility] Pain Management SOAP Note Subjective:: Patient is a 44-year-old male who presents today for follow-up. He is being treated for chronic low back pain with lumbar radiculopathy symptoms as well as CRPS type II symptoms in his right lower extremity. Patient has been undergoing a spinal cord stimulator trial with [employer]. Patient is here today to have the leads removed and discuss a further plan of care. Patient says he did not get any relief during the trial. Patient is erratic during the conversation today. He is profusely sweating and is having difficulty concentrating during the conversation. Patient appears to be very nervous. He says that his pain is severe today. He says it is worse during the trial of than before undergoing the trial. He rates his pain a 9 out of 10. Patient says that he has been started on oral medications by his primary care provider and is not interested in pursuing spinal cord stimulation. Patient says he is willing, however, to undergo further injective therapy if Dr. thurman does deem this as appropriate. He would like to see Dr. spann at his next visit to discuss a further plan of care. Patient says his pain is in his low back with radiation into his lower extremities worse in the right leg. Review of Systems General: No recent weight changes, no fever, no sleep disturbances Respiratory: No cough, no shortness of air, no recurring pulmonary infections Cardiovascular/peripheral vascular: No chest pain, no palpitations, no edema, no shortness of breath Gastrointestinal: No new onset incontinence, normal bowel movements reported Genitourinary: No new onset incontinence Musculoskeletal: Low back pain, bilateral lower extremity pain worse in the right leg with autonomic changes to the right leg Psychiatric: Normal mood/affect Neurological: [Denies weakness in extremities], [denies balance issues] Objective:: Physical exam General: Alert and oriented x3, no acute distress, pleasant and cooperative, [on room air] Lungs: Respirations even and unlabored, symmetrical chest expansion Eyes: PERRL Musculoskeletal: Flexion and extension of lumbar spine somewhat guarded secondary to pain, deep tendon reflexes normal, strength in upper and lower extremities [5/5], [abnormal gait noted] Neurological: Speech clear, package line relief operator equal, no gross sensory deficit Assessment:: Degenerative disc disease lumbar spine with lumbar radiculopathy symptoms, CRPS type II right lower extremity Plan:: Unfortunately, the patient did not get any relief during the spinal cord stimulator trial. He does not want to proceed with implant. He would like to discuss a further plan of care with Dr. Thurman specifically. Patient says he is willing to continue with injective therapy. Dr. So has given the patient oral medications at this time which seem to be beneficial for his pain. We will schedule him to follow-up with Dr. NICOLE You. He has been instructed to contact the clinic if he has any concerns before his next appointment. The patient and I specifically discussed risk factors for COVID19. These risks include, but are not limited to age greater than 60, heart or lung disease, diabetes, immunosuppression, and travel. We also discussed NSAIDs may worsen COVID19 infection or symptoms. Patient should not use NSAIDs to treat COVID19 signs or symptoms. Patient was also informed that any type of corticosteroid of any form (oral or injection) will decrease the patient's immune system response and may increase the likelihood of COVID19 [address] Thurman has reviewed this note and agrees with this plan of care. This note was dictated using voice recognition software and make contain errors or omissions. [facility] History I have reviewed the patient's past medical history: Yes Medical History: Reports:: Anxiety, Depression, Gastroesophageal Reflux Disease(GERD), Hyperlipidemia, Hypertension Denies:: Cancer, Diabetes Mellitus Type 1, Di
== END ==
PROVIDERS: PCP Emergency Medicine; Visit Provider Clinical Nurse Specialist Family Health
DX: M51.16 Intervertebral disc disorders with radiculopathy, lumbar region (principal); G57.71 Causalgia of right lower limb
CPT/HCPCS: 99212

== ENCOUNTER 2020-03-09 11:08 | Emergency (ER) | payer BC, SELFPAY ==
[2020-03-09 11:38] VITALS: BP 144/74; PULSE 87; RESP 19; TEMP 36.8; O2SAT 98; BMI 31.4
--- NOTE | 2020-03-09 11:45 | HMH.EDUTC ---
[facility] [place] Disposition Clinical Impression: Low back pain Qualifiers: Chronicity: acute Back pain laterality: right Sciatica presence: with sciatica Sciatica laterality: sciatica of right side Qualified Code(s): M54.41 - Lumbago with sciatica, right side Disposition: Home, Self-Care Condition on Discharge: Good Instructions: Low Back Pain, DI for Low Back Pain Additional Instructions: Go home and rest. No heavy lifting. No twisting. Take the oral medications as directed. Don't start the oral steroids (medrol dose pack) until tomorrow, since you had the shots in here today. Follow up with your regular doctor. GO TO THE ER FOR ANY WORSENING SYMPTOMS OR CONCERN, ESPECIALLY BOWEL OR BLADDER ISSUES, SADDLE AREA NUMBNESS, FEVER, ETC Prescriptions: methylPREDNISolone [Medrol] 4 mg PO DIRECTED 6 Days #21 tab.ds.pk Transmission Status: Received by [facility] Referrals: Kelechi So MD [Primary Care Provider] - Time of Disposition: 12:30 Medical Decision Making - Medical Records Medical records reviewed: No: I reviewed the patient's medical records. - Denis Inquiry Pt receiving controlled substance: No Vital Signs: 03/09/20 11:38 03/09/20 12:32 Temperature 98.2 F 98.2 F Temperature Source Oral Pulse Rate 87 Pulse Rate [Right Brachial] 87 Respiratory Rate 19 19 Blood Pressure 144/74 H Blood Pressure [Right Arm] 144/74 H Blood Pressure Mean [Right Arm] 97 Blood Pressure Source [Right Arm] Automatic Cuff Blood Pressure Position [Right Arm] Sitting 02 Sat by Pulse Oximetry 98 Oxygen Delivery Method Room Air Orders (Tests/Meds): ED MEDICATIONS Discontinued Medications Generic Name Dose Route Start Last Admin Trade Name Freq PRN Reason Stop Dose Admin Ketorolac Tromethamine 60 mg 03/09/20 11:50 03/09/20 12:03 Ketorolac 60mg/2ml Vial IM 03/09/20 11:51 60 mg ONCE ONE Administration Methylprednisolone Sodium Succinate 125 mg 03/09/20 11:50 03/09/20 12:03 Methylprednisolone Sod Succ 125mg Vial IM 03/09/20 11:51 125 mg ONCE ONE Administration [facility] [place] HPI - General Stated complaint: AO 03/09/20 back pain Time Seen by Provider: 03/09/20 11:45 Mode of Arrival: Ambulatory Source of Information: Patient Limitations: No Limitations Description of Symptoms (Recalled from Triage Doc. by RN): PATIENT C/O LOWER BACK PAIN AFTER INJURING IT TURNING TO GET SOMETHING OUT OF THE FRIDGE HEENT Symptoms (Recalled from RN notes): No Resp Symptoms (Recalled from RN notes): No Skin Symptoms (Recalled from RN notes): No MS Symptoms (Recalled from RN notes): Yes Functional Status (Recalled from RN notes): WNL - History of Present Illness Provider Complaint: He c/o low back pain since yesterday. He has a history of back pain. He denies any recent injury. - Related Data Home Medications Medication Instructions Recorded Confirmed anastrozole 1 mg tablet 1 mg PO ONCE tab 08/15/19 02/23/20 polyethylene glycol 3350 17 17 g PO DAILY g 08/15/19 02/23/20 gram/dose oral powder testosterone cypionate 200 mg/mL 200 mg IM QWEEK ml 08/15/19 02/23/20 intramuscular oil Cyclobenzaprine HCl [Flexeril 10mg 10 mg PO TID 09/12/19 02/23/20 tablet] buPROPion HCL [Bupropion Xl] 450 mg PO DAILY 09/12/19 02/23/20 Atorvastatin Calcium [Lipitor 10mg 10 mg PO DAILY 02/13/20 02/23/20 Tab] Meloxicam 7.5 mg PO DAILY 02/13/20 02/23/20 Quetiapine Fumarate See Rx Instructions .ROUTE .COMPLEX 02/13/20 02/23/20 Previous Rx's Medication Instructions Recorded tadalafil 20 mg tablet 20 mg PO DAILY PRN #14 tab 11/12/19 gabapentin 800 mg tablet 800 mg PO QID #120 tab 02/18/20 bupropion HCl 300 mg 24 hr tablet, 300 mg PO DAILY #90 tab 02/23/20 extended release hydrocodone 10 mg-acetaminophen 1 tab PO TID PRN #90 tab 02/23/20 325 mg tablet omeprazole 20 mg capsule,delayed See Rx Instructions .ROUTE 02/23/20 release .COMPLEX #90 cap methylPREDNISolone [Medrol] 4 mg PO
[2020-03-09 12:32] VITALS: BP 144/74; PULSE 87; RESP 19; TEMP 36.8; O2SAT 98
== END 2020-03-09 12:35 | disposition home or self-care (01) ==
PROVIDERS: Emergency Provider Nurse Practitioner Family; PCP Emergency Medicine
DX: M54.41 Lumbago with sciatica, right side (principal); F41.8 Other specified anxiety disorders; K21.9 Gastro-esophageal reflux disease without esophagitis; E78.5 Hyperlipidemia, unspecified; I10 Essential (primary) hypertension; Z79.899 Other long term (current) drug therapy; Z88.2 Allergy status to sulfonamides
CPT/HCPCS: 96372; 99202

== ENCOUNTER 2020-04-06 11:45 | Emergency (ER) | payer BC, SELFPAY ==
[2020-04-06 12:05] VITALS: BP 145/85; PULSE 90; RESP 20; TEMP 36.7; O2SAT 96; BMI 30.7
--- NOTE | 2020-04-06 13:27 | HMH.EDUTC ---
[facility] [place] Impression: Abscess or cellulitis of chest wall Laceration of toe Qualifiers: Encounter type: initial encounter Toe: lesser toe Damage to nail status: without damage Foreign body presence: without foreign body Laterality: left Qualified Code(s): S91.115A - Laceration without foreign body of left lesser toe(s) without damage to nail, initial encounter Disposition: Home, Self-Care Condition on Discharge: Good Instructions: How to Care for a Laceration After Repair, DI for Laceration Repair Additional Instructions: Keep the wound clean and dry. Keep a dressing on it if you aregoing to be getting it dirty. Watch the for signs of infection, such as redness, swelling, drainage, fever. etc. Take tylenol or ibuprofen for pain. Follow up with your regular doctor. Return in 10 days to have the sutures removed. GO TO THE ER FOR ANY WORSENING SYMPTOMS OR CONCERNS. WATCH THE WOUND CLOSELY FOR ANY SIGNS OF INFECTION. THE TIPS OF TOES DON'T GET THE BEST BLOOD FLOW USUALLY, SO THEY CAN GET INFECTED EASILY. MAKE SURE YOU LOOK AT THE WOUND AT LEAST ONCE A DAY TO CHECK FOR WORSENING REDNESS, DRAINAGE, SWELLING, ETC. IF YOU HAVE ANY CONCERNS, PLEASE RETURN HERE OR GO TO YOUR REGULAR DOCTOR Prescriptions: Doxycycline Hyclate [Doxycycline 100mg Capsule] 100 mg PO Q12 10 Days #20 cap Transmission Status: Received by [facility] cephALEXin [Keflex 500mg Cap] 500 mg PO Q6H 10 Days #40 cap Transmission Status: Received by [facility] Referrals: Kelechi So MD [Primary Care Provider] - Time of Disposition: 13:34 Medical Decision Making - Medical Records Medical records reviewed: No: I reviewed the patient's medical records. - Denis Inquiry Pt receiving controlled substance: No Vital Signs: 04/06/20 12:05 04/06/20 13:32 Temperature 98.1 F 98.1 F Temperature Source Oral Pulse Rate 90 Pulse Rate [Right Brachial] 90 Respiratory Rate 20 20 Blood Pressure 145/85 H Blood Pressure [Right Arm] 145/85 H Blood Pressure Mean [Right Arm] 105 Blood Pressure Source [Right Arm] Automatic Cuff Blood Pressure Position [Right Arm] Sitting 02 Sat by Pulse Oximetry 96 Oxygen Delivery Method Room Air Orders (Tests/Meds): ED MEDICATIONS Discontinued Medications Generic Name Dose Route Start Last Admin Trade Name Adia PRN Reason Stop Dose Admin Ceftriaxone Sodium 1 gm 04/06/20 12:58 04/06/20 13:04 Ceftriaxone 1gm Vial IM 04/06/20 12:59 1 gm ONCE ONE Administration Protocol Lidocaine HCl 0 ml 04/06/20 12:58 04/06/20 13:04 Lidocaine 1% 5ml Pf Vial IM 04/06/20 12:59 2.1 ml ONCE ONE Administration Tetanus/Reduced Diphtheria/Acell Pertussis 0.5 ml 04/06/20 12:42 04/06/20 12:57 Tet/Diphth/Pert-Adult 0.5ml Syringe IM 04/06/20 12:43 0.5 ml .ONCE ONE Administration [facility] [place] - General Stated complaint: AO 04/05/20 lt foot lac Time Seen by Provider: 04/06/20 12:10 Mode of Arrival: Ambulatory Source of Information: Patient Limitations: No Limitations Description of Symptoms (Recalled from Triage Doc. by RN): PATIENT C/O LACERATION TO SECOND LEFT TOE AFTER KICKING AN AX YESTERDAY. ALSO C/O KNOT TO LEFT CHEST HEENT Symptoms (Recalled from RN notes): No Resp Symptoms (Recalled from RN notes): No Skin Symptoms (Recalled from RN notes): Yes MS Symptoms (Recalled from RN notes): No Functional Status (Recalled from RN notes): WNL - History of Present Illness Provider Complaint: He states that he got out of bed this morning and accidentily stepped on an axe that he had been sharpening last night. He has a laceration on the bottom on his 2nd toe on his left foot. He is not sure if his tetanus immunization is up to date. - Related Data Home Medications Medication Instructions Recorded Confirmed anastrozole 1 mg tablet 1 mg PO ONCE tab 08/15/19 03/19/20 polyethylene glycol 3350 17 17 g PO DAILY g 08/15/19 1
[2020-04-06 13:32] VITALS: BP 145/85; PULSE 90; RESP 20; TEMP 36.7; O2SAT 96
== END 2020-04-06 13:40 | disposition home or self-care (01) ==
PROVIDERS: Emergency Provider Nurse Practitioner Family; PCP Emergency Medicine
DX: S91.115A Laceration without foreign body of left lesser toe(s) without damage to nail, initial encounter (principal); L02.213 Cutaneous abscess of chest wall; W22.8XXA Striking against or struck by other objects, initial encounter; Y92.017 Garden or yard in single-family (private) house as the place of occurrence of the external cause; Z23 Encounter for immunization; F41.8 Other specified anxiety disorders; I10 Essential (primary) hypertension; E78.5 Hyperlipidemia, unspecified; K21.9 Gastro-esophageal reflux disease without esophagitis; Z79.899 Other long term (current) drug therapy
CPT/HCPCS: 12002; 90471; 90715; 96372; 99202

== ENCOUNTER → 2020-07-16 16:05 | Outpatient (CLI) | payer BC, SELFPAY ==
[2020-07-16 16:39] LABS: Basophils % 0.4 % (0.1-2.0); Eosinophils # 0.1 K/mm3 (0.0-0.4); Eosinophils % 1.1 % (0.1-12.0); Hemoglobin 14.7 g/dL (14.1-18.0); Lymphocytes # 1.5 K/mm3 (0.7-4.5); Lymphocytes % 25.7 % (10-50); Mean Corpuscular HGB Conc 33.5 g/dL (31.8-35.4); Mean Corpuscular Hemoglobin 30.6 pg (27.0-31.2); Mean Corpuscular Volume 91.3 fl (80-94); Mean Platelet Volume 8.2 fl (7.4-10.4); Monocytes # 0.4 K/mm3 (0.1-1.0); Neutrophils # 3.9 K/mm3 (1.8-7.8); Neutrophils % 66.8 % (37.0-80.0); Platelet Count 203 K/mm3 (142-424); Red Blood Count 4.82 M/mm3 (4.60-6.20); Red Cell Distribution Width 13.1 % (11.5-17.5); White Blood Count 5.8 K/mm3 (4.8-10.8)
[2020-07-16 17:11] LABS: Alanine Aminotransferase 42 U/L (12-78); Albumin Level 4.4 g/dl (3.5-5.0); Alkaline Phosphatase 56 U/L (38-126); Aspartate Amino Transferase 48 U/L (17-59); Bilirubin,Direct 0.1 mg/dl (0.0-0.4); Bilirubin,Indirect 0.3 mg/dL (0.0-0.9); Bilirubin,Total 0.4 mg/dl (0.2-1.3); Bilirubin,Unconjugated 0.3 mg/dL (0.0-1.1); Total Protein,Serum 7.3 g/dl (6.3-8.2)
[2020-07-20 15:37] LABS: Testosterone, Total, LC/MS 938.4 ng/dL (264.0-916.0); Testosterone,Free 22.6 pg/mL (6.8-21.5)
== END ==
PROVIDERS: Visit Provider Urology
DX: R79.89 Other specified abnormal findings of blood chemistry (principal)
CPT/HCPCS: 36415; 80076; 84402; 84403; 85025

== ENCOUNTER → 2020-08-19 14:55 | Outpatient (CLI) | payer BC, SELFPAY ==
[2020-08-19 16:18] LABS: Coronavirus 19 IgG Antibody Negative (Negative); Coronavirus 19 IgM Antibody Negative (Negative)
== END ==
PROVIDERS: Visit Provider Urology
DX: Z01.818 Encounter for other preprocedural examination (principal); Z30.2 Encounter for sterilization; Z20.822 Contact with and (suspected) exposure to COVID-19
CPT/HCPCS: 86328

== ENCOUNTER 2020-08-20 07:53 | Day surgery (SDC) | payer BC, SELFPAY ==
[2020-08-19 14:22] VITALS: BMI 30.4
[2020-08-20 08:23] VITALS: BP 146/89; PULSE 95; RESP 18; TEMP 36.3; O2SAT 97
[2020-08-20 10:00] VITALS: BP 158/77; PULSE 72; RESP 18; TEMP 36.4; O2SAT 97
--- NOTE | 2020-08-20 14:10 | P.OP_ITS ---
Date of procedure: 08/20/20 Pre-op Diagnosis:: Sterilization Post-op Diagnosis:: Sterilization Procedure performed:: Vasectomy Surgeon:: Tra Mead MD Anesthesia: local Estimated blood loss (mL): 1 Clinical Note:: 45-year-old white male presents for sterilization under local anesthetic today. Previous consultation has been performed and we went over the postoperative in structions again today prior to procedure. Operative findings:: Scrotal exam normal, testicles within normal limits. Procedure went well without complication Operative note:: Patient taken to the vasectomy suite after informed consent was obtained. On the stretcher he was prepped and draped in the standard surgical fashion. Scrotal examination was performed and there is no evidence of abnormalities. The left vas was palpated and brought up gently to the midline raphae. Local anesthetic was placed under the skin and in and around the left vas and in the line of incision. Incision was then made for 2 cm in the midline raphae. The vas was grasped with a tenaculum and brought up through the incision. The basal sheath was incised and the vas proper was dissected from its investing tissue. 1 clip was placed distally and 2 clips were placed proximally. A 1 cm segment was excised and the ends of the vas were cauterized. Hemostasis achieved of the surrounding structures and the vas was dropped back into the hemiscrotum. The identical procedure was performed on the patient's right side. The right side was brought up through the same midline incision. The right side went uneventfully as well. The right vas was dropped back into the hemiscrotum and a 3-0 chromic placed in the skin to close the incision in a horizontal mattress fashion. Compression dressing applied. Patient tolerated procedure well there were no complications. Condition: stable Disposition: same day Specimens:: Vas segments were removed but not sent Complications:: None
== END 2020-08-20 10:20 | disposition home or self-care (01) ==
LOC: OUTP 07:54
PROVIDERS: PCP Emergency Medicine; Visit Provider Urology
PROC: (CPT 55250; principal; 2020-08-20 09:00)
DX: Z30.2 Encounter for sterilization (principal); E29.1 Testicular hypofunction; F41.9 Anxiety disorder, unspecified; K21.9 Gastro-esophageal reflux disease without esophagitis; I10 Essential (primary) hypertension; E78.5 Hyperlipidemia, unspecified; R56.9 Unspecified convulsions; Z88.2 Allergy status to sulfonamides
CPT/HCPCS: 55250

== ENCOUNTER 2020-09-27 22:12 | Emergency (ER) | payer BC, SELFPAY ==
[2020-09-27 22:32] VITALS: BP 169/89; PULSE 121; RESP 18; TEMP 36.7; O2SAT 97; BMI 29.8
--- NOTE | 2020-09-27 22:45 | HMH.EDWNDL ---
ED Disposition Clinical Impression: Laceration of finger Qualifiers: Encounter type: initial encounter Finger: middle finger Damage to nail status: without damage Foreign body presence: without foreign body Laterality: left Qualified Code(s): S61.213A - Laceration without foreign body of left middle finger without damage to nail, initial encounter Disposition: Home, Self-Care Condition on Discharge: Good Instructions: DI for Laceration Repair Additional Instructions: sutures out 10 days and recheck if needed Referrals: Kelechi So MD [Primary Care Provider] - - Critical Care Critical Care Time: No Attestation: On 09/27/20, the high probability of a clinically significant, sudden or life threatening deterioration of the following system(s) required my full and direct attention, intervention and personal management. The time I documented below is in addition to time spent performing reported procedures but includes the following listed in this critical care notation. Medical Decision Making - Medical Records Medical records reviewed: Yes: I reviewed the patient's medical records. - Denis Inquiry Pt receiving controlled substance: No Vital Signs: 09/27/20 22:32 Temperature 98.1 F Temperature Source Oral Pulse Rate [Right Brachial] 121 H Respiratory Rate 18 Blood Pressure [Right Arm] 169/89 H Blood Pressure Mean [Right Arm] 115 Blood Pressure Source [Right Arm] Automatic Cuff Blood Pressure Position [Right Arm] Sitting 02 Sat by Pulse Oximetry 97 Oxygen Delivery Method Room Air Wound/Laceration HPI - General Chief Complaint: Wound/Laceration Stated Complaint: AO cut L finger on razor Time Seen by Provider: 09/27/20 22:40 Mode of Arrival: Family Vehicle Source of Information: Patient, Medical Record Limitations: No Limitations Description of Symptoms (Recalled from ER Triage Doc. by RN): laceration to middle finger from a material cutter - History of Present Illness HPI narrative: laceration lt middle finger with carpet knife Onset (ago): hour(s) Extremity Location: Left: hand Place: home Patient tetanus UTD: Yes Context: sharp object use Associated symptoms: none - Related Data Home Medications Medication Instructions Recorded Confirmed anastrozole 1 mg tablet 1 mg PO ONCE tab 08/15/19 09/27/20 testosterone cypionate 200 mg/mL 200 mg IM QWEEK ml 08/15/19 09/27/20 intramuscular oil Acyclovir [Zovirax 400mg tablet] 400 mg PO BID 08/19/20 09/27/20 Atorvastatin Calcium [Lipitor 10mg See Rx Instructions .ROUTE .COMPLEX 08/19/20 09/27/20 Tab] Omeprazole See Rx Instructions .ROUTE .COMPLEX 08/19/20 09/27/20 Quetiapine Fumarate See Rx Instructions .ROUTE .COMPLEX 08/19/20 09/27/20 buPROPion HCL [Wellbutrin XL] See Rx Instructions .ROUTE .COMPLEX 08/19/20 09/27/20 Mupirocin [Centany] 1 applic TOPICAL BID 09/27/20 09/27/20 lisinopriL [Lisinopril] See Rx Instructions .ROUTE .COMPLEX 09/27/20 09/27/20 tadalafiL [Alyq] See Rx Instructions .ROUTE .COMPLEX 09/27/20 09/27/20 Previous Rx's Medication Instructions Recorded gabapentin 800 mg tablet 800 mg PO QID #120 tab 04/21/20 hydrocodone 10 mg-acetaminophen 1 tab PO TID PRN #90 tab 04/21/20 325 mg tablet cyclobenzaprine 10 mg tablet 10 mg PO TID #90 tab 06/30/20 Allergies Allergy/AdvReac Type Severity Reaction Status Date / Time Sulfa (Sulfonamide Allergy Verified 08/19/20 14:27 Antibiotics) [facility] History - Hepatitis A Screen Drug use history?: No High risk sexual behaviors?: No History of sexually transmitted infection?: No Currently employed?: No Childcare worker?: No Do you have indoor plumbing?: Yes Do you have electricity?: Yes Attestation statement:: This patient has been screened for Hepatitis A risk factors. I have reviewed the patient's past medical history: Yes Medical History: Reports:: Anxiety, Depression, Gastroesophageal Reflux Disease(GERD), Hyperlipidemia, Hypertension, MRSA Denies:
[2020-09-27 23:11] VITALS: BP 134/98; PULSE 118; RESP 18; TEMP 36.7; O2SAT 99
== END 2020-09-27 23:13 | disposition home or self-care (01) ==
PROVIDERS: Emergency Provider Emergency Medicine; PCP Emergency Medicine
DX: S61.213A Laceration without foreign body of left middle finger without damage to nail, initial encounter (principal); W26.0XXA Contact with knife, initial encounter; Y92.9 Unspecified place or not applicable; I10 Essential (primary) hypertension; F41.8 Other specified anxiety disorders; K21.9 Gastro-esophageal reflux disease without esophagitis; E78.5 Hyperlipidemia, unspecified
CPT/HCPCS: 12001; 99282

== ENCOUNTER 2020-10-24 19:05 | Emergency (ER) | payer SELFPAY ==
[2020-10-24] VITALS (7 sets, daily range): BP systolic 114–146; BP diastolic 75–106; PULSE 81–111; RESP 16–20; TEMP 36.8–37.3; O2SAT 95–98; BMI 27.8
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
--- NOTE | 2020-10-24 21:23 | PC.NURSE ---
MD So on the phone with
--- NOTE | 2020-10-24 21:35 | PC.NURSE ---
MD So s/w Dr. Crouch at
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
--- NOTE | 2020-10-24 22:07 | PC.NURSE ---
called report to ER charge nurse, Dami Valencia RN
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
== END 2020-10-24 22:46 | disposition short-term general hospital (02) ==
PROVIDERS: Emergency Provider Emergency Medicine; PCP Emergency Medicine
DX: S12.100A Unspecified displaced fracture of second cervical vertebra, initial encounter for closed fracture (principal); V43.52XA Car driver injured in collision with other type car in traffic accident, initial encounter; Y92.413 State road as the place of occurrence of the external cause
CPT/HCPCS: 70450; 71045; 72125; 72128; 72131; 96365; 96366; 96375; 99291; J2405

== ENCOUNTER → 2020-11-10 13:26 | Outpatient (CLI) | payer BC, SELFPAY ==
[2020-11-10 17:14] LABS: Amphetamine/Metha Screen,Urine Negative ng/ml (<1000); Barbiturates Screen,Urine Negative ng/ml (<200)
[2020-11-10 17:16] LABS: Benzodiazepines Screen,Urine Negative ng/ml (<200)
[2020-11-10 17:17] LABS: Cannabinoid Screen,Urine Negative ng/ml (<50); Cocaine Screen,Urine Negative ng/ml (<300)
[2020-11-10 17:18] LABS: Methadone Screen,Urine Negative ng/ml (<300)
[2020-11-10 17:19] LABS: Opiate Screen,Urine Positive ng/ml (<300); Phencyclidine Screen,Urine Negative ng/ml (<25)
== END ==
PROVIDERS: Visit Provider Emergency Medicine
DX: Z79.899 Other long term (current) drug therapy (principal)
CPT/HCPCS: 80305

== ENCOUNTER 2020-12-02 16:08 | Outpatient (RCR) | payer BC, SELFPAY | END 2020-12-02 16:10 | disposition home or self-care (01) | LOC: PT 16:08 | PROVIDERS: PCP Emergency Medicine; Visit Provider Orthopaedic Surgery | DX: M54.6 Pain in thoracic spine (principal); M54.5 Low back pain | CPT/HCPCS: 97010; 97014; 97140; 97163; G0283 ==

== ENCOUNTER → 2020-12-13 12:43 | Outpatient (CLI) | payer BC, SELFPAY ==
[2020-12-13 13:17] LABS: Basophils % 0.3 % (0.1-2.0); Eosinophils # 0.1 K/mm3 (0.0-0.4); Eosinophils % 0.8 % (0.1-12.0); Hematocrit 45.6 % (42.0-52.0); Hemoglobin 16.1 g/dL (14.1-18.0); Lymphocytes % 12.7 % (10-50); Mean Corpuscular HGB Conc 35.3 g/dL (31.8-35.4); Mean Corpuscular Hemoglobin 31.9 pg (27.0-31.2); Mean Corpuscular Volume 90.3 fl (80-94); Mean Platelet Volume 7.9 fl (7.4-10.4); Monocytes # 0.3 K/mm3 (0.1-1.0); Monocytes % 3.4 % (1.7-9.3); Neutrophils # 6.2 K/mm3 (1.8-7.8); Neutrophils % 82.9 % (37.0-80.0); Platelet Count 248 K/mm3 (142-424); Red Blood Count 5.05 M/mm3 (4.60-6.20); White Blood Count 7.5 K/mm3 (4.8-10.8)
[2020-12-13 14:08] LABS: Prothrombin Time 10.7 seconds (10.1-12.5)
[2020-12-13 18:00] LABS: Alanine Aminotransferase 45 U/L (12-78); Albumin Level 4.6 g/dl (3.5-5.0); Albumin/Globulin Ratio 1.6 (1.1-1.8); Alkaline Phosphatase 58 U/L (38-126); Anion Gap 17.2 mEq/L (5-15); Aspartate Amino Transferase 47 U/L (17-59); Bilirubin,Total 0.5 mg/dl (0.2-1.3); Blood Urea Nitrogen 23 mg/dl (9-20); Calcium 9.1 mg/dl (8.4-10.2); Carbon Dioxide 26 mmol/L (22.0-30.0); Chloride 104 mmol/L (98-107); Estimated Glomerular Filt Rate 66 ml/min (>60); GFR (African American) 80 ML/MIN (>60); Globulin 2.8 g/dL (1.3-3.2); Glucose 88 mg/dl (74-100); Potassium 4.2 mmoL/L (3.5-5.1); Sodium 143 mmol/L (136-145); Total Protein,Serum 7.4 g/dl (6.3-8.2)
[2020-12-14 06:05] LABS: Hep A Ab, IgM Negative (Negative); Hepatitis B Core Antibody IgM Negative (Negative); Hepatitis B Surface Antigen Negative (Negative); Hepatitis C Antibody <0.1 s/co ratio (0.0-0.9)
== END ==
PROVIDERS: Visit Provider Surgery
DX: Z01.812 Encounter for preprocedural laboratory examination (principal); Z11.52 Encounter for screening for COVID-19; K40.90 Unilateral inguinal hernia, without obstruction or gangrene, not specified as recurrent
CPT/HCPCS: 36415; 80053; 80074; 85025; 85610; U0003

== ENCOUNTER 2020-12-14 07:17 | Day surgery (SDC) | payer BC, SELFPAY ==
[2020-12-08 15:51] VITALS: BMI 29.2
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
[2020-12-14 07:43] VITALS: BP 175/100; PULSE 94; RESP 18; TEMP 36.6; O2SAT 99
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
== END 2020-12-14 08:16 | disposition home or self-care (01) ==
LOC: OR 07:18
PROVIDERS: PCP Emergency Medicine; Visit Provider Surgery
PROC: (CPT 49650; principal; 2020-12-14 08:30)
DX: K40.90 Unilateral inguinal hernia, without obstruction or gangrene, not specified as recurrent (principal); Z53.8 Procedure and treatment not carried out for other reasons
CPT/HCPCS: 49650; 96374

== ENCOUNTER → 2021-01-10 14:30 | Outpatient (CLI) | payer BC, SELFPAY ==
[2021-01-15 04:02] LABS: Testosterone, Total, LC/MS 1197.5 ng/dL (264.0-916.0); Testosterone,Free 26.2 pg/mL (6.8-21.5)
== END ==
PROVIDERS: Visit Provider Urology
DX: Z01.812 Encounter for preprocedural laboratory examination (principal); Z11.52 Encounter for screening for COVID-19; R97.20 Elevated prostate specific antigen [PSA]
CPT/HCPCS: 36415; 84402; 84403; U0003

== ENCOUNTER 2021-01-11 06:38 | Day surgery (SDC) | payer BC, SELFPAY ==
[2021-01-07 14:52] VITALS: BMI 29.2
[2021-01-11] VITALS (12 sets, daily range): BP systolic 118–179; BP diastolic 57–98; PULSE 80–97; RESP 12–18; TEMP 36.2–43; O2SAT 96–99
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
--- NOTE | 2021-01-11 09:26 | P.PN_ITS ---
[facility] Anesthesia Checklist - Structural Data Admitted From: Home Planned Operative Procedure/s: bilat inguinal hernia rpr Consent for Planned Operative Procedure(s) Verified: Yes - Additional verifications Anesthesia Reactions: Yes (PT STATES HE WAKE UP PULLING STUFF OFF) Hx Blood Transfusions: No Blood Transfusion Reaction: No - Airway Assessment C-Spine Mobility Assessed: Yes TMJ Mobility Assessed: Yes Dentition: Good Dentition - Neurological Assessment Level of Consciousness: Awake, Alert, Appropriate - Anesthesia Plan Anesthesia Risk discussed: Yes Anesthesia Plan: Verified ASA Class: II Anesthesia Type: General [facility] History I have reviewed the patient's past medical history: Yes Medical History: Reports:: Anxiety, Asthma, Depression, Gastroesophageal Reflux Disease(GERD), Hyperlipidemia, Hypertension, MRSA, Renal Disease Denies:: Cancer, Chronic Obstructive Pulmonary Disease (COPD), Diabetes Mellitus Type 1, Diabetes Mellitus Type 2, Internal Pacemaker, Seizures *Have you ever received a pneumonia vaccine?: No *Have you received a flu vaccine this season?: No Other Medical History: Reports: Arthritis, Other. Denies: Blood Transfusion Reaction Anesthesia experience/problems:: none Other Surgeries: Yes: No Previous Surgery. No: Pacemaker Amputation: No Fractures: No - *Social History Last grade of school completed: 5th or 6th Smoking Status: Never smoker # Packs/Day (cigarettes): 1 Alcohol Intake: never Substance Use Type: former substance user *Occupational Status:: disabled Housing: house Household Members: spouse *Travel in the last 8 weeks: None - Psychiatric History Pschychiatric History:: Reports:: Anxiety, Depression Family Hx:: No significant family history
--- NOTE | 2021-01-11 09:27 | P.PN_ITS ---
[facility] Anesthesia Record Part I Intake, IV Amount: 2,000 Estimated blood loss (mL): 0 Urine output (mL): 400 Blood Pressure: 175/86 SaO2: 96 Pulse Rate: 94 Respiratory Rate: 12 Temperature: 97.8 F Patient is:: Awake, Stable Stable to PACU at:: 09:25
[2021-01-11 09:35] LABS: Microscopic,Cath URINE MICROSCOPIC (MICROSCOPIC)
[2021-01-11 09:58] LABS: Appearance,Urine/Cath CLEAR (Clear); Bilirubin,Cath Negative (Negative); Blood, Urine/Cath Negative (Negative); Color,Urine/Cath YELLOW (Yellow); Glucose,Urine/Cath (UA) Negative (Negative); Ketones,Urine/Cath Negative (Negative); Leukocyte Esterase,Cath Negative (Negative); Nitrate,Cath Negative (Negative); PH,Urine/Cath 5.5 (5.0-8.5); Protein,Urine/Cath Negative (Negative); Urobilinogen,Cath 0.2 EU/dl (0.2)
[2021-01-11 10:25] LABS: RBC,Urine/Cath Occasional # /hpf (0-3); Squamous Epithelial Ur./Cath Occasional #/hpf (0-5)
--- NOTE | 2021-01-11 12:00 | SUR.PHASEI ---
0925- pt to pacu via stretcher. Report received from Tyra DHALIWAL and Aziza SCHROEDER. Pt is sleeping comfortably in bed. Difficulty arousing. Pt stated pre op I have a lot of trouble when waking up . Respirations are easy and unlabored.VSS. 0930-pt awake but not alert. Eyes will open but dilated. Pt twitches arms and legs. Tyra DHALIWAL and Arthur SCHROEDER @ bs. No new orders received. 0940-Pt continues to twitch in bed. Pt is arousable but not alert. Opening eyes and looking around but not awake. VSS. 0945-Pt arousing and more of pt baseline. Talking and able to answer comands. VSS.
[2021-01-12 11:02] VITALS: BP 118/57; PULSE 91; TEMP 36.4
--- NOTE | 2021-01-12 11:02 | HMH.ANESII ---
[facility] Anesthesia Record Part II Discharge Time: 10:00 Destination: Surgical Day Care (OP Surgery) PACU nurse assessment reviewed?: Yes Patient Condition:: Good Anesthesia Complications:: None Swallowing reflex intact?: Yes Cyanosis?: No Blood Pressure: 118/57 Pulse Rate: 91 Temperature: 97.6 F Mental Status: Alert & Oriented Pain level:: 0 Nausea and/or vomitting:: None Intake, IV Amount: 0
== END 2021-01-11 10:47 | disposition home or self-care (01) ==
LOC: OR 06:40
PROVIDERS: PCP Emergency Medicine; Visit Provider Surgery
PROC: (CPT 49650; principal; 2021-01-11 07:30)
DX: K40.20 Bilateral inguinal hernia, without obstruction or gangrene, not specified as recurrent (principal); K66.0 Peritoneal adhesions (postprocedural) (postinfection); M51.34 Other intervertebral disc degeneration, thoracic region; F31.89 Other bipolar disorder; F41.9 Anxiety disorder, unspecified; J45.909 Unspecified asthma, uncomplicated; F32.9 Major depressive disorder, single episode, unspecified; K21.9 Gastro-esophageal reflux disease without esophagitis; E78.5 Hyperlipidemia, unspecified; I10 Essential (primary) hypertension; Z86.14 Personal history of Methicillin resistant Staphylococcus aureus infection; N28.9 Disorder of kidney and ureter, unspecified
CPT/HCPCS: 49650; 81001; 96374; C1781; J2405; J2710

== ENCOUNTER → 2021-01-21 15:32 | Outpatient (CLI) | payer BC, SELFPAY ==
[2021-01-21 17:15] LABS: Amphetamine/Metha Screen,Urine Negative ng/ml (<1000); Barbiturates Screen,Urine Negative ng/ml (<200)
[2021-01-21 17:16] LABS: Benzodiazepines Screen,Urine Negative ng/ml (<200); Cannabinoid Screen,Urine Negative ng/ml (<50)
[2021-01-21 17:17] LABS: Cocaine Screen,Urine Negative ng/ml (<300)
[2021-01-21 17:18] LABS: Methadone Screen,Urine Negative ng/ml (<300); Opiate Screen,Urine Positive ng/ml (<300)
[2021-01-21 17:19] LABS: Phencyclidine Screen,Urine Negative ng/ml (<25)
== END ==
PROVIDERS: Visit Provider Emergency Medicine
DX: Z79.899 Other long term (current) drug therapy (principal)
CPT/HCPCS: 80305

== ENCOUNTER 2021-01-29 19:18 | Emergency (ER) | payer BC, SELFPAY ==
[2021-01-29 19:21] VITALS: BP 158/85; PULSE 101; RESP 16; TEMP 37.2; O2SAT 98; BMI 29.9
[2021-01-29 21:03] LABS: Basophils % 0.3 % (0.1-2.0); Eosinophils % 0.4 % (0.1-12.0); Hematocrit 42.2 % (42.0-52.0); Hemoglobin 14.6 g/dL (14.1-18.0); Lymphocytes # 1.1 K/mm3 (0.7-4.5); Lymphocytes % 13.9 % (10-50); Mean Corpuscular HGB Conc 34.5 g/dL (31.8-35.4); Mean Corpuscular Hemoglobin 32.2 pg (27.0-31.2); Mean Corpuscular Volume 93.2 fl (80-94); Mean Platelet Volume 7.7 fl (7.4-10.4); Monocytes # 0.4 K/mm3 (0.1-1.0); Monocytes % 5.4 % (1.7-9.3); Neutrophils # 6.4 K/mm3 (1.8-7.8); Platelet Count 235 K/mm3 (142-424); Red Blood Count 4.53 M/mm3 (4.60-6.20); Red Cell Distribution Width 12.7 % (11.5-17.5); White Blood Count 8.1 K/mm3 (4.8-10.8)
[2021-01-29 21:05] LABS: Chloride 103 mmol/L (98-107); Potassium 4.1 mmoL/L (3.5-5.1); Sodium 140 mmol/L (136-145)
[2021-01-29 21:08] LABS: Anion Gap 14.1 mEq/L (5-15); Blood Urea Nitrogen 23 mg/dl (9-20); Calcium 9.3 mg/dl (8.4-10.2); Carbon Dioxide 27 mmol/L (22.0-30.0); Creatinine Clearance Estimated 109 mL/min (50-200); Estimated Glomerular Filt Rate 66 ml/min (>60); GFR (African American) 80 ML/MIN (>60); Glucose 109 mg/dl (74-100)
--- NOTE | 2021-01-29 21:09 | CT_ITS ---
PROCEDURE INFORMATION: Exam: CT Abdomen And Pelvis With Contrast Exam date and time: 01/29/2021 9:09 PM Age: 45 years old Clinical indication: Pain; Other: Inguinal lt side knot; Prior surgery; Surgery date: 1-6 months; Surgery type: 3 weeks ago inguinal hernia repair; Patient HX: PT felt pulling and C/O of a lt knot above pubic region TECHNIQUE: Imaging protocol: Computed tomography of the abdomen and pelvis with contrast. Radiation optimization: All CT scans at this facility use at least one of these dose optimization techniques: automated exposure control; mA and/or kV adjustment per patient size (includes targeted exams where dose is matched to clinical indication); or iterative reconstruction. Contrast material: ISOVUE; Contrast volume: 75 ml; Contrast route: IV; COMPARISON: CT LUMBAR SPINE WO CON 10/24/2020 7:49 PM FINDINGS: Lungs: Bibasilar dependent changes. Liver: No suspicious mass. Gallbladder and bile ducts: No calcified stones. No ductal dilation. Pancreas: No ductal dilation. No peripancreatic inflammatory changes. Spleen: Unremarkable. Adrenal glands: No mass. Kidneys and ureters: Bilateral renal cysts and too small to characterize hypodensities. No hydronephrosis. Stomach and bowel: Large amount of stool in the colon. Nonobstructive bowel gas pattern. Appendix: Unremarkable appendix. Intraperitoneal space: No free air. No ascites. Vasculature: No abdominal aortic aneurysm. Lymph nodes: No enlarged lymph nodes. Urinary bladder: Unremarkable as visualized. Reproductive: The prostate is prominent in size. The patient is probably status post vasectomy. Bones/joints: No suspicious osseous lesion. No acute fracture. Soft tissues: Minimally prominent left inguinal canal containing small amount of fluid. IMPRESSION: Minimally prominent left inguinal canal containing small amount of fluid. No acute findings otherwise. COMMENTS: Consistent with the [employer]'s Incidental Findings Committee white paper (J Am Cassie Radiol 2018): Any incidental renal lesion less than 1 cm or classified as too small to characterize, or any incidental cystic renal lesion characterized as simple-appearing, is likely benign. No follow-up imaging is recommended for these lesions per consensus recommendations based on imaging criteria.
[2021-01-29 21:28] VITALS: BP 129/78; PULSE 102; O2SAT 94
[2021-01-29 21:30] VITALS: BP 130/68; PULSE 85; O2SAT 97
[2021-01-29 22:00] VITALS: BP 122/70; PULSE 84; O2SAT 96
[2021-01-29 22:30] VITALS: BP 131/63; PULSE 87; O2SAT 96
[2021-01-30] VITALS: PULSE 94; O2SAT 95
--- NOTE | 2021-01-30 00:35 | HMH.EDGENADL ---
ED Disposition Clinical Impression: Inguinal bulge Disposition: Home, Self-Care Condition on Discharge: Good Instructions: DI for Chronic Pain -- Adult Referrals: Kelechi So MD [Primary Care Provider] - - Critical Care Critical Care Time: No Attestation: On 01/29/21, the high probability of a clinically significant, sudden or life threatening deterioration of the following system(s) required my full and direct attention, intervention and personal management. The time I documented below is in addition to time spent performing reported procedures but includes the following listed in this critical care notation. Medical Decision Making - Denis Inquiry Pt receiving controlled substance: No Vital Signs: 01/29/21 19:21 01/29/21 21:28 01/29/21 21:30 Temperature 99.0 F Temperature Source Oral Pulse Rate 102 H 85 Pulse Rate [Left Radial] 101 H Respiratory Rate 16 Blood Pressure 129/78 130/68 Blood Pressure [Right Arm] 158/85 H Blood Pressure Mean [Right Arm] 109 Blood Pressure Source [Right Arm] Automatic Cuff Blood Pressure Position [Right Arm] Sitting 02 Sat by Pulse Oximetry 98 94 L 97 Oxygen Delivery Method Room Air 01/29/21 22:00 01/29/21 22:30 01/30/21 00:00 Temperature Temperature Source Pulse Rate 84 87 94 H Pulse Rate [Left Radial] Respiratory Rate Blood Pressure 122/70 131/63 Blood Pressure [Right Arm] Blood Pressure Mean [Right Arm] Blood Pressure Source [Right Arm] Blood Pressure Position [Right Arm] 02 Sat by Pulse Oximetry 96 96 95 Oxygen Delivery Method 01/30/21 01:03 Temperature 98.3 F Temperature Source Temporal Artery Scan Pulse Rate 20 L Pulse Rate [Left Radial] Respiratory Rate 16 Blood Pressure 126/83 Blood Pressure [Right Arm] Blood Pressure Mean [Right Arm] Blood Pressure Source [Right Arm] Blood Pressure Position [Right Arm] 02 Sat by Pulse Oximetry Oxygen Delivery Method Room Air - Lab Data Lab Results 01/29/21 20:47: WBC 8.1, RBC 4.53 L, Hgb 14.6, Hct 42.2, MCV 93.2, MCH 32.2 H, MCHC 34.5, RDW 12.7, Plt Count 235, MPV 7.7, Neut % (Auto) 80.0, Lymph % (Auto) 13.9, [place] % (Auto) 5.4, Eos % (Auto) 0.4, Baso % (Auto) 0.3, Neut # (Auto) 6.4, Lymph # (Auto) 1.1, [place] # (Auto) 0.4, Eos # (Auto) 0.0, Baso # (Auto) 0.0 01/29/21 20:47: Sodium 140, Potassium 4.1, Chloride 103, Carbon Dioxide 27, Anion Gap 14.1, BUN 23 H, Creatinine 1.20, Estimated Creat Clear 109, Estimated GFR 66, Est GFR ( Amer) 80, Glucose 109 H, Calcium 9.3 Result diagrams: 01/29/21 20:47 01/29/21 20:47 Orders (Tests/Meds): ED MEDICATIONS Discontinued Medications Generic Name Dose Route Start Last Admin Trade Name Freq PRN Reason Stop Dose Admin Iopamidol 75 ml 01/29/21 23:22 01/29/21 23:23 Iopamidol-370 (76%);100ml Bottle IV 01/29/21 23:23 75 ml ONCE ONE Administration Morphine Sulfate 4 mg 01/29/21 21:10 01/29/21 21:25 Morphine 4mg/Ml Syringe IV 01/29/21 21:11 4 mg ONCE ONE Administration Ondansetron HCl 4 mg 01/29/21 21:23 01/29/21 21:25 Ondansetron 4mg/2ml Vial IV 01/29/21 21:24 4 mg ONCE ONE Administration Sodium Chloride 10 ml 01/29/21 23:22 01/29/21 23:23 Sodium Chloride 0.9% 10ml Syr (Rad Only) IV 02/28/21 23:21 10 ml NEEDED PRN Administration Maintain IV Site Medical Decision Narrative: Patient is a 45-year-old male presented to the emergency department for pain. Differential diagnosis includes incarcerated hernia, strangulated hernia, appendicitis, gastritis, among others. Given the CBC, CMP were ordered, CT abdomen pelvis with contrast was ordered to further assess for the patient's inguinal pain. Patient was given morphine, Zofran and fluids. CBC and CMP were not significantly altered. Patient UA was not consistent with a urinary tract infection. CT of the abdomen pelvis showed mild amount of fluid, but no bowel in the inguinal canal, patient had imp
[2021-01-30 01:03] VITALS: BP 126/83; PULSE 20; RESP 16; TEMP 36.8; O2SAT 98
== END 2021-01-30 01:07 | disposition home or self-care (01) ==
PROVIDERS: Emergency Provider Emergency Medicine; PCP Emergency Medicine
DX: R19.09 Other intra-abdominal and pelvic swelling, mass and lump (principal); R10.32 Left lower quadrant pain; I10 Essential (primary) hypertension; E78.5 Hyperlipidemia, unspecified; F41.8 Other specified anxiety disorders; K21.9 Gastro-esophageal reflux disease without esophagitis; Z79.899 Other long term (current) drug therapy
CPT/HCPCS: 74177; 80048; 85025; 96374; 96375; 99283; J2405; Q9967

== ENCOUNTER 2021-04-16 19:52 | Emergency (ER) | payer BC, SELFPAY ==
[2021-04-16 20:00] VITALS: BP 136/91; PULSE 101; RESP 19; TEMP 37; O2SAT 99; BMI 28.5
--- NOTE | 2021-04-16 20:20 | HMH.EDUTC ---
[facility] Disposition Clinical Impression: Impetigo Disposition: Home, Self-Care Condition on Discharge: Good Instructions: DI for Impetigo Additional Instructions: contact precautions wash with soap and water take all antibiotics do not use peroxide return if worsen or do not improve Prescriptions: Amoxicillin [Amoxicillin 500mg Tab] 500 mg PO BID 10 Days #20 tab Transmission Status: Pending to [facility] Mupirocin [Bactroban 2% Ointment 22gm tube] 1 applicatio TP BID 14 Days #1 gm Transmission Status: Pending to [facility] Referrals: Kelechi So MD [Primary Care Provider] - Time of Disposition: 20:26 Medical Decision Making - Denis Inquiry Pt receiving controlled substance: No Orders (Tests/Meds): ED MEDICATIONS Discontinued Medications Generic Name Dose Route Start Last Admin Trade Name Freq PRN Reason Stop Dose Admin Amoxicillin 500 mg 04/16/21 20:19 Amoxicillin 500mg Capsule PO 04/16/21 20:20 ONCE ONE [facility] HPI - General Chief complaint: Urgent Treatment Center Stated complaint: face rash Time Seen by Provider: 04/16/21 20:20 Mode of Arrival: Ambulatory Source of Information: Patient Limitations: No Limitations - History of Present Illness Provider Complaint: 46 yr old male presnets for scab areas and open sores that have crusted over after the pus pocket opens for 4 days. pt states he has tried everything and they keep spreading - Related Data Home Medications Medication Instructions Recorded Confirmed anastrozole 1 mg tablet 1 mg PO ONCE tab 08/15/19 02/04/21 testosterone cypionate 200 mg/mL 200 mg IM QWEEK ml 08/15/19 02/04/21 intramuscular oil Previous Rx's Medication Instructions Recorded gabapentin 800 mg tablet 800 mg PO QID #120 tab 04/21/20 atorvastatin 10 mg tablet 10 mg PO DAILY #90 tab 01/21/21 cyclobenzaprine 10 mg tablet 10 mg PO TID #90 tab 01/21/21 lisinopril 10 mg tablet See Rx Instructions .ROUTE 01/21/21 .COMPLEX #90 tab loratadine-pseudoephedrine ER 10 1 tab PO DAILY #30 tab 01/21/21 mg-240 mg tablet,extended [id number] omeprazole 20 mg capsule,delayed See Rx Instructions .ROUTE 01/21/21 release .COMPLEX #90 cap quetiapine 300 mg tablet See Rx Instructions .ROUTE 01/21/21 .COMPLEX #90 tab tadalafil (pulm. hypertension) 20 See Rx Instructions .ROUTE 01/21/21 mg tablet (pulmonary hypertension) .COMPLEX #30 tab prednisone 20 mg tablet 20 mg PO BID #10 tab 01/28/21 acyclovir 400 mg tablet 400 mg PO BID 15 Days #30 tab 02/10/21 bupropion HCl 300 mg 24 hr tablet, See Rx Instructions .ROUTE 04/05/21 extended release .COMPLEX #90 tab Amoxicillin [Amoxicillin 500mg Tab] 500 mg PO BID 10 Days #20 tab 04/16/21 Mupirocin [Bactroban 2% Ointment 1 applicatio TP BID 14 Days #1 gm 04/16/21 22gm tube] Allergies Allergy/AdvReac Type Severity Reaction Status Date / Time Sulfa (Sulfonamide Allergy Severe low WBCs Verified 02/04/21 14:04 Antibiotics) [facility] History - Hepatitis A Screen Attestation statement:: This patient has been screened for Hepatitis A risk factors. I have reviewed the patient's past medical history: Yes Medical History: Reports:: Anxiety, Asthma, Depression, Gastroesophageal Reflux Disease(GERD), Hyperlipidemia, Hypertension, MRSA, Renal Disease Denies:: Cancer, Chronic Obstructive Pulmonary Disease (COPD), Diabetes Mellitus Type 1, Diabetes Mellitus Type 2, Internal Pacemaker, Seizures Other Medical History: Reports: Arthritis, Other. Denies: Blood Transfusion Reaction Other Surgeries: Yes: No Previous Surgery, Hernia Repair. No: Pacemaker Amputation: No Fractures: No - Social History Smoking Status: Never smoker # Packs/Day (cigarettes): 1 Alcohol Intake: never Substance Use Type: denies use Occupational Status: disabled Housing: house Household Members: spouse - Psychiatric History Pschychiatric History:: Reports:: Anxiety, Depression Family Hx:: No significan
[2021-04-16 20:28] VITALS: BP 136/91; PULSE 101; RESP 19; TEMP 37; O2SAT 99
== END 2021-04-16 20:32 | disposition home or self-care (01) ==
PROVIDERS: Emergency Provider Nurse Practitioner Family; PCP Emergency Medicine
DX: L01.00 Impetigo, unspecified (principal); K21.9 Gastro-esophageal reflux disease without esophagitis; F41.8 Other specified anxiety disorders; E78.5 Hyperlipidemia, unspecified; Z79.899 Other long term (current) drug therapy
CPT/HCPCS: 99202; G0463

== ENCOUNTER 2021-05-15 10:36 | Emergency (ER) | payer BC, SELFPAY ==
[2021-05-15 12:00] VITALS: BP 149/98; PULSE 121; RESP 21; TEMP 37; O2SAT 97; BMI 29.8
--- NOTE | 2021-05-15 12:18 | HMH.EDUTC ---
[facility] [place] Impression: Low back pain Qualifiers: Chronicity: unspecified Back pain laterality: unspecified Sciatica presence: without sciatica Qualified Code(s): M54.50 - Low back pain, unspecified Disposition: Home, Self-Care Condition on Discharge: Good Additional Instructions: *Ibuprofen kaur 6 hours with meal as needed for pain/inflammation if your doctor has said you can take it *Remember you had a Toradol shot in the clinic today, which is similar to Motrin so do not take any for the next 8hrs *Not additional anti-inflammatory like motrin, aleve, advil with the above amount of ibuprofen. You can still take Tylenol every 4 hours as needed if you need something else for pain Take your prescribed pain medication as prescribed *Ice 20 minutes every 2 hours for the first 48 hours after the initial injury followed by moist heat every 20 minutes 3-4 times a day to affected area *Muscle relaxer every 8 hours as needed for muscle spasms but remember, it WILL cause drowsiness You cannot take it and drive, operate machinery or care for small children. *Keep this area active, no movement leads to more stiffness, However take it easy and avoid heavy lifting pushing or pulling *Follow up with you family doctor if no improvement for further treatment Prescriptions: Cyclobenzaprine HCl [Flexeril 10mg tablet] 10 mg PO Q8HP PRN #30 tab PRN Reason: Muscle Spasm Transmission Status: Pending to [facility] methylPREDNISolone [Medrol 4mg tab] 4 mg PO DIRECTED #21 tab Transmission Status: Pending to [facility] Referrals: Kelechi So MD [Primary Care Provider] - As needed Time of Disposition: 12:37 Medical Decision Making - Denis Inquiry Pt receiving controlled substance: No Denis was queried for this patient: No Vital Signs: 05/15/21 12:00 Temperature 98.6 F Temperature Source Oral Pulse Rate [Right Brachial] 121 H Respiratory Rate 21 Blood Pressure [Right Arm] 149/98 H Blood Pressure Mean [Right Arm] 115 Blood Pressure Source [Right Arm] Automatic Cuff Blood Pressure Position [Right Arm] Sitting 02 Sat by Pulse Oximetry 97 Oxygen Delivery Method Room Air Medical Decision Narrative: Medication discussed with pharmacy [facility] [place] - General Stated complaint: lower back pain, no accident Time Seen by Provider: 05/15/21 12:18 Mode of Arrival: Ambulatory Source of Information: Patient Limitations: No Limitations Description of Symptoms (Recalled from Triage Doc. by RN): PATIENT C/O LOWER BACK PAIN SINCE SUNDAY AFTER PICKING UP A DOG. HE REPORTS HISTORY OF BACK PAIN, BUT STATES IT GOT WORSE ON SUNDAY HEENT Symptoms (Recalled from RN notes): No Resp Symptoms (Recalled from RN notes): No Skin Symptoms (Recalled from RN notes): No MS Symptoms (Recalled from RN notes): Yes Functional Status (Recalled from RN notes): WNL - History of Present Illness Provider Complaint: Patient states that he bent over a few days ago and threw his back out States that he has chronic lower back issues States that he has tried over the counter medication and it hasnt helped and had a few flexeril left and has taken them but now he is out Denies loss of control of bowel or bladder and denies falling - Related Data Home Medications Medication Instructions Recorded Confirmed anastrozole 1 mg tablet 1 mg PO ONCE tab 08/15/19 02/04/21 testosterone cypionate 200 mg/mL 200 mg IM QWEEK ml 08/15/19 02/04/21 intramuscular oil Previous Rx's Medication Instructions Recorded gabapentin 800 mg tablet 800 mg PO QID #120 tab 04/21/20 atorvastatin 10 mg tablet 10 mg PO DAILY #90 tab 01/21/21 cyclobenzaprine 10 mg tablet 10 mg PO TID #90 tab 01/21/21 lisinopril 10 mg tablet See Rx Instructions .ROUTE 01/21/21 .COMPLEX #90 tab quetiapine 300 mg tablet See Rx Instructions .ROUTE 01/21/21 .COMPLEX #90 tab tadalafil (pulm. hypertension) 20 See Rx Instructions .ROUTE 01/21/21 mg tablet (pulmonary hypertens
[2021-05-15 12:43] VITALS: BP 149/98; PULSE 121; RESP 21; TEMP 37; O2SAT 97
== END 2021-05-15 12:47 | disposition home or self-care (01) ==
PROVIDERS: Emergency Provider Nurse Practitioner; PCP Emergency Medicine
DX: M54.50 Low back pain, unspecified (principal); X50.0XXA Overexertion from strenuous movement or load, initial encounter; Y92.9 Unspecified place or not applicable; F41.8 Other specified anxiety disorders; K21.9 Gastro-esophageal reflux disease without esophagitis; I10 Essential (primary) hypertension; E78.5 Hyperlipidemia, unspecified
CPT/HCPCS: 96372; 99202; G0463

== ENCOUNTER 2021-05-20 13:11 | Emergency (ER) | payer BC, SELFPAY ==
--- NOTE | 2021-05-20 13:38 | PC.NURSE ---
went out to check on pt he has two puncture wounds from a dog bite pt in no distress , bleeding controlled
[2021-05-20 15:27] VITALS: BP 0/0; PULSE 0; RESP 0; TEMP -17.7; TEMP 0
--- NOTE | 2021-05-20 15:28 | PC.NURSE ---
Went to lobby to get pt, not present in lobby
== END 2021-05-20 15:31 | disposition left against medical advice (07) ==
PROVIDERS: Emergency Provider Emergency Medicine; PCP Emergency Medicine
DX: Z53.21 Procedure and treatment not carried out due to patient leaving prior to being seen by health care provider (principal); S61.432A Puncture wound without foreign body of left hand, initial encounter; W54.0XXA Bitten by dog, initial encounter
CPT/HCPCS: 99211

== ENCOUNTER → 2021-07-14 14:18 | Outpatient (CLI) | payer BC, SELFPAY ==
[2021-07-14 14:24] LABS: MANUAL DIFFERENTIAL MANUAL DIFFERENTIAL (MANUAL DIFF)
[2021-07-14 15:01] LABS: Basophils % 0.5 % (0.1-2.0); Eosinophils # 0.1 K/mm3 (0.0-0.4); Eosinophils % 1.1 % (0.1-12.0); Hematocrit 48.3 % (42.0-52.0); Hemoglobin 16.3 g/dL (14.1-18.0); Lymphocytes # 1.4 K/mm3 (0.7-4.5); Lymphocytes % 14.8 % (10-50); Mean Corpuscular HGB Conc 33.8 g/dL (31.8-35.4); Mean Corpuscular Hemoglobin 31.9 pg (27.0-31.2); Mean Corpuscular Volume 94.4 fl (80-94); Mean Platelet Volume 7.6 fl (7.4-10.4); Monocytes # 0.4 K/mm3 (0.1-1.0); Monocytes % 4.1 % (1.7-9.3); Neutrophils # 7.6 K/mm3 (1.8-7.8); Neutrophils % 79.6 % (37.0-80.0); Platelet Count 286 K/mm3 (142-424); Red Blood Count 5.12 M/mm3 (4.60-6.20); Red Cell Distribution Width 12.6 % (11.5-17.5); White Blood Count 9.5 K/mm3 (4.8-10.8)
[2021-07-14 17:35] LABS: Lymphocytes % 16 % (10-50); Monocytes % 1 % (2-9); Neutrophils % 81 % (42-76); Platelet Estimate Normal; RBC Morphology Normal; Total Cells Counted 100
[2021-07-14 17:37] LABS: Alanine Aminotransferase 110 U/L (12-78); Alkaline Phosphatase 48 U/L (38-126); Aspartate Amino Transferase 152 U/L (17-59); Bilirubin,Direct 0.2 mg/dl (0.0-0.4); Bilirubin,Indirect 0.4 mg/dL (0.0-0.9); Bilirubin,Total 0.6 mg/dl (0.2-1.3); Bilirubin,Unconjugated 0.4 mg/dL (0.0-1.1); Total Protein,Serum 7.2 g/dl (6.3-8.2)
[2021-07-22 19:17] LABS: Testosterone, Total, LC/MS 904.2 ng/dL (264.0-916.0); Testosterone,Free 21.9 pg/mL (6.8-21.5)
== END ==
PROVIDERS: PCP Emergency Medicine; Visit Provider Urology
DX: E29.1 Testicular hypofunction (principal)
CPT/HCPCS: 36415; 80076; 84402; 84403; 85007; 85014; 85018; 85048; 85049

== ENCOUNTER → 2021-07-21 10:30 | Outpatient (CLI) | payer BC, SELFPAY | PROVIDERS: PCP Emergency Medicine; Visit Provider Student in an Organized Health Care Education/Training Program | DX: G47.33 Obstructive sleep apnea (adult) (pediatric) (principal); R06.83 Snoring | CPT/HCPCS: 95806 ==

== ENCOUNTER → 2021-09-24 13:58 | Outpatient (CLI) | payer BC, SELFPAY ==
--- NOTE | 2021-09-24 14:40 | ECG_ITS ---
APPROVED REPORT Exam: Resting ECG HR:93 bpm ECG Measurements Heart Rate 93 AXES ME 136 P 59 QRSd 89 QRS 56 QT 314 T 51 QTc 365 Conclusion SINUS RHYTHM INDETERMINATE AXIS NORMAL ECG UNCONFIRMED REPORT Electronically signed by : Lobito Soto MD 09/25/2021 15:11:07
[2021-09-24 15:40] LABS: Basophils # 0.1 K/mm3 (0-0.2); Basophils % 1.9 % (0.1-2.0); Eosinophils # 0.1 K/mm3 (0.0-0.4); Eosinophils % 1.9 % (0.1-12.0); Hematocrit 49.1 % (42.0-52.0); Hemoglobin 16.6 g/dL (14.1-18.0); Lymphocytes # 1.5 K/mm3 (0.7-4.5); Lymphocytes % 20.5 % (10-50); Mean Corpuscular HGB Conc 33.8 g/dL (31.8-35.4); Mean Corpuscular Hemoglobin 32.1 pg (27.0-31.2); Monocytes # 0.4 K/mm3 (0.1-1.0); Monocytes % 5.6 % (1.7-9.3); Neutrophils % 70.2 % (37.0-80.0); Platelet Count 290 K/mm3 (142-424); Red Blood Count 5.17 M/mm3 (4.60-6.20); Red Cell Distribution Width 13.4 % (11.5-17.5); White Blood Count 7.1 K/mm3 (4.8-10.8)
[2021-09-24 15:47] LABS: Chloride 106 mmol/L (98-107)
[2021-09-24 15:48] LABS: Potassium 3.9 mmoL/L (3.5-5.1); Sodium 140 mmol/L (136-145)
[2021-09-24 15:50] LABS: Blood Urea Nitrogen 29 mg/dl (9-20); Estimated Glomerular Filt Rate 66 ml/min (>60); GFR (African American) 80 ML/MIN (>60)
[2021-09-24 15:51] LABS: Anion Gap 13.9 mEq/L (5-15); Calcium 9.1 mg/dl (8.4-10.2); Carbon Dioxide 24 mmol/L (22.0-30.0); Glucose 80 mg/dl (74-100)
== END ==
PROVIDERS: PCP Emergency Medicine; Visit Provider Student in an Organized Health Care Education/Training Program
DX: Z01.818 Encounter for other preprocedural examination (principal); Z11.52 Encounter for screening for COVID-19; R07.0 Pain in throat; G47.33 Obstructive sleep apnea (adult) (pediatric)
CPT/HCPCS: 36415; 80048; 85025; 93005; C9803; U0003; U0005

== ENCOUNTER 2021-09-27 08:09 | Day surgery (SDC) | payer BC, SELFPAY ==
[2021-09-22 10:55] VITALS: BMI 31.4
[2021-09-27] VITALS (13 sets, daily range): BP systolic 129–171; BP diastolic 72–105; PULSE 66–90; RESP 12–22; TEMP 36.4–38; O2SAT 93–100
--- NOTE | 2021-09-27 11:39 | P.PN_ITS ---
[facility] Anesthesia Checklist - Patient Identification Patient Identification: Arm Band - Structural Data Admitted From: Home Planned Operative Procedure/s: Tonsillectomy, Uvulopalatopharyngoplasty Consent for Planned Operative Procedure(s) Verified: Yes Verified Documents: Surgical Consent, History and Physical - NPO Status Verified Time NPO: 00:00 - Additional verifications Anesthesia Reactions: Yes (PT STATES HE WAKE UP PULLING STUFF OFF) Hx Blood Transfusions: No Blood Transfusion Reaction: No - Airway Assessment C-Spine Mobility Assessed: Yes (mp1) TMJ Mobility Assessed: Yes Dentition: Good Dentition - Neurological Assessment Level of Consciousness: Awake, Alert - Anesthesia Plan Anesthesia Risk discussed: Yes Anesthesia Plan: Verified ASA Class: II Anesthesia Type: General [facility] History I have reviewed the patient's past medical history: Yes Medical History: Reports:: Anxiety, Asthma, Depression, Gastroesophageal Reflux Disease(GERD), Hyperlipidemia, Hypertension, MRSA, Renal Disease, Seizures Denies:: Cancer, Chronic Obstructive Pulmonary Disease (COPD), Diabetes Mellitus Type 1, Diabetes Mellitus Type 2, Internal Pacemaker *Have you ever received a pneumonia vaccine?: No *Have you received a flu vaccine this season?: No Other Medical History: Reports: Arthritis, Other. Denies: Blood Transfusion Reaction Anesthesia experience/problems:: nac Other Surgeries: Yes: Hernia Repair. No: Pacemaker Amputation: No Fractures: No - *Social History Last grade of school completed: 5th or 6th Smoking Status: Never smoker # Packs/Day (cigarettes): 1 Alcohol Intake: never Substance Use Type: denies use *Occupational Status:: unemployed Housing: house Household Members: spouse *Travel in the last 8 weeks: None - Psychiatric History Pschychiatric History:: Reports:: Anxiety, Depression Family Hx:: Cancer, Coronary Artery Disease, Kidney Disease
--- NOTE | 2021-09-27 14:34 | HMH.OPNOTE ---
Date of procedure: 09/27/21 Pre-op Diagnosis:: Obstructive sleep apnea Post-op Diagnosis:: same Procedure performed:: tonsillectomy, uvulopalatalpharyngoplasty Surgeon:: Bruce Reno MD Anesthesia: SYBIL Estimated blood loss (mL): 10 Operative findings:: 2+ tonsils enlarged uvula Operative note:: Patient was brought to the OR in a supine position and general anesthesia was induced. Patient was prepped and draped in usual fashion. He was suspended with a Alyce Abiodun mouthgag. Palate was elevated with a red rubber catheter. Mirror examination revealed no significant adenoid tissue. Patient had 2+ endophytic tonsils bilaterally. There is no palatal cleft. First starting on the right and then on the left his tonsils were excised with Bovie cautery. Hemostasis was then achieved with suction cautery. I then turned towards the palatoplasty portion of the procedure. 2% lidocaine with epinephrine 1-100,000 was injected into the soft palate. Patient had a very thickened and elongated uvula. The distal third of it was truncated. I then excised the mucosa from the inferior aspect of the distal soft palate/uvula. I debulked a significant amount of minor salivary tissue that was causing the uvula/palate to be hypertrophied. I then sutured anterior and laterally the edges of the truncated uvula back onto the soft palate with a series of Vicryl and chromic sutures in a AP palatoplasty fashion. I then reapproximated his tonsillar pillars in the superior half. I then examined again with the adenoid mirror and it did appear he had reasonable closure of his palate against the posterior oropharyngeal wall. His mouth were then irrigated out. Stomach was suctioned with an OG tube. Marcaine so tonsils were placed in the remaining tonsillar fossa's for topical anesthetic. Condition: stable Disposition: PACU Complications:: none
--- NOTE | 2021-09-27 14:54 | P.PN_ITS ---
[facility] Anesthesia Record Part I Intake, IV Amount: 1,500 Estimated blood loss (mL): 0 Urine output (mL): 0 Blood Pressure: 130/85 SaO2: 98 Pulse Rate: 90 Respiratory Rate: 12 Temperature: 98.4 F Patient is:: Awake, Stable Stable to PACU at:: 14:45
--- NOTE | 2021-09-28 08:11 | HMH.ANESII ---
[facility] Anesthesia Record Part II Discharge Time: 15:25 Destination: Home PACU nurse assessment reviewed?: Yes Patient Condition:: Good Anesthesia Complications:: None Swallowing reflex intact?: Yes Cyanosis?: No Blood Pressure: 171/103 Pulse Rate: 81 Temperature: 98.4 F Mental Status: Alert & Oriented Pain level:: 10 Nausea and/or vomitting:: None Intake, IV Amount: 0
[2021-09-28 08:12] VITALS: BP 171/103; PULSE 81; TEMP 36.9
== END 2021-09-27 16:45 | disposition home or self-care (01) ==
LOC: OR 08:10
PROVIDERS: PCP Emergency Medicine; Visit Provider Student in an Organized Health Care Education/Training Program
PROC: (CPT 42145; principal; 2021-09-27 09:15)
DX: G47.33 Obstructive sleep apnea (adult) (pediatric) (principal); J35.1 Hypertrophy of tonsils; K13.79 Other lesions of oral mucosa; J45.909 Unspecified asthma, uncomplicated; K21.9 Gastro-esophageal reflux disease without esophagitis; E78.5 Hyperlipidemia, unspecified; I10 Essential (primary) hypertension; R56.9 Unspecified convulsions; F41.9 Anxiety disorder, unspecified; F32.A Depression, unspecified; Z86.14 Personal history of Methicillin resistant Staphylococcus aureus infection
CPT/HCPCS: 42145; 42826; J2405; J2710

== ENCOUNTER 2021-09-29 16:59 | Emergency (ER) | payer BC, SELFPAY ==
[2021-09-29 17:01] VITALS: BP 161/100; PULSE 114; RESP 20; TEMP 36.6; O2SAT 96; BMI 31.5
--- NOTE | 2021-09-29 17:01 | PC.NURSE ---
ELDA Hidalgo at
--- NOTE | 2021-09-29 17:04 | PC.NURSE ---
ED MD at
--- NOTE | 2021-09-29 17:14 | HMH.EDGENADL ---
ED Disposition Clinical Impression: Post-operative pain Disposition: Home, Self-Care Condition on Discharge: Good Instructions: DI for Postoperative Pain Additional Instructions: follow up ENT as scheduled, return here for worse Referrals: Kelechi So MD [Primary Care Provider] - - Critical Care Critical Care Time: No Attestation: On 09/29/21, the high probability of a clinically significant, sudden or life threatening deterioration of the following system(s) required my full and direct attention, intervention and personal management. The time I documented below is in addition to time spent performing reported procedures but includes the following listed in this critical care notation. Medical Decision Making - Medical Records Medical records reviewed: Yes: I reviewed the patient's medical records. - Denis Inquiry Pt receiving controlled substance: No Vital Signs: 09/29/21 17:01 09/29/21 17:49 09/29/21 18:10 Temperature 97.9 F Temperature Source Oral Pulse Rate 100 H 98 H Pulse Rate [Radial] 114 H Respiratory Rate 20 Blood Pressure 140/91 H 134/81 Blood Pressure [Right Arm] 161/100 H Blood Pressure Mean [Right Arm] 120 Blood Pressure Source Automatic Cuff Automatic Cuff Blood Pressure Position Sitting Sitting Blood Pressure Position [Right Arm] Sitting 02 Sat by Pulse Oximetry 96 94 L 93 L Oxygen Delivery Method Room Air Room Air Room Air - Lab Data Lab Results 09/29/21 17:25: WBC 10.9 H, RBC 4.97, Hgb 16.2, Hct 46.4, MCV 93.3, MCH 32.5 H, MCHC 34.9, RDW 13.1, Plt Count 241, MPV 8.1, Neut % (Auto) 92.6 H, Lymph % (Auto) 4.4 L, [place] % (Auto) 2.2, Eos % (Auto) 0.4, Baso % (Auto) 0.4, Neut # (Auto) 10.1 H, Lymph # (Auto) 0.5 L, [place] # (Auto) 0.2, Eos # (Auto) 0.0, Baso # (Auto) 0.0, Total Counted 100, Neutrophils % (Manual) 94 H, Lymphocytes % (Manual) 4 L, Monocytes % (Manual) 2, Platelet Estimate Normal, RBC Morphology Normal 09/29/21 17:25: Sodium 137, Potassium 4.5, Chloride 102, Carbon Dioxide 25, Anion Gap 14.5, BUN 27 H, Creatinine 1.10, Estimated Creat Clear 121, Estimated GFR 73, Est GFR ( Amer) 88, Glucose 143 H, Calcium 9.5, Total Bilirubin 0.6, AST 30, ALT 37, Alkaline Phosphatase 66, Total Protein 7.1, Albumin 4.4, Globulin 2.7, Albumin/Globulin Ratio 1.6 Result diagrams: 09/29/21 17:25 09/29/21 17:25 Orders (Tests/Meds): ED MEDICATIONS Generic Name Dose Route Start Last Admin Trade Name Freq PRN Reason Stop Dose Admin Lactated Ringer's 1,000 mls @ 999 mls/hr 09/29/21 17:15 09/29/21 17:42 Lactated Ringer's 1000 Ml Bag IV 09/29/21 18:15 999 mls/hr .Q1H1M MARTHA Administration Discontinued Medications Generic Name Dose Route Start Last Admin Trade Name Freq PRN Reason Stop Dose Admin Hydromorphone HCl 0.5 mg 09/29/21 17:41 09/29/21 17:42 Hydromorphone 2mg/Ml Syringe IV 09/29/21 17:42 0.5 mg ONCE ONE Administration Metoprolol Tartrate 50 mg 09/29/21 17:13 09/29/21 18:19 Metoprolol Tartrate 50mg Tablet PO 09/29/21 17:14 Not Given ONCE ONE Medical Decision Narrative: 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[employer] ENT says to reassure pt , take pain meds, f/u in office General Adult HPI - General Stated complaint: throat Surg [id number] Time Seen by Provider: 09/29/21 17:14 - History of Present Illness HPI narrative: 2 days post op soft palate/uvula surgery, now with pain not resolved, hoarse voice, concerned about sutures coming out Onset (ago): day(s) Radiation: non-radiation Severity: moderate Severity scale (1-10): 8 Quality: aching Consistency: constant Relieving factors: none Exacerbating factors: none Associated symptoms: denies other symptoms - Related Data Home Medications Medication Instructions Recorded Confirmed anastrozole 1 mg tablet 1 mg PO ONCE tab 08/15/19 09/22/21 testosterone cypionate 200 mg/mL 200 mg IM QWEEK ml 08/15/19 09/22/21 intramuscular oil hydrocodone 10 mg-acetaminophen 1 ta
--- NOTE | 2021-09-29 17:41 | PC.NURSE ---
Dr. Katz on phone with Dr. Roque who is rayon winder for ENT with Dr. Armando michele
[2021-09-29 17:46] LABS: Basophils % 0.4 % (0.1-2.0); Chloride 102 mmol/L (98-107); Eosinophils % 0.4 % (0.1-12.0); Hematocrit 46.4 % (42.0-52.0); Hemoglobin 16.2 g/dL (14.1-18.0); Lymphocytes # 0.5 K/mm3 (0.7-4.5); Lymphocytes % 4.4 % (10-50); Mean Corpuscular HGB Conc 34.9 g/dL (31.8-35.4); Mean Corpuscular Hemoglobin 32.5 pg (27.0-31.2); Mean Corpuscular Volume 93.3 fl (80-94); Mean Platelet Volume 8.1 fl (7.4-10.4); Monocytes # 0.2 K/mm3 (0.1-1.0); Monocytes % 2.2 % (1.7-9.3); Neutrophils # 10.1 K/mm3 (1.8-7.8); Neutrophils % 92.6 % (37.0-80.0); Platelet Count 241 K/mm3 (142-424); Potassium 4.5 mmoL/L (3.5-5.1); Red Blood Count 4.97 M/mm3 (4.60-6.20); Red Cell Distribution Width 13.1 % (11.5-17.5); Sodium 137 mmol/L (136-145); White Blood Count 10.9 K/mm3 (4.8-10.8)
[2021-09-29 17:49] VITALS: BP 140/91; PULSE 100; O2SAT 94
[2021-09-29 17:49] LABS: Alanine Aminotransferase 37 U/L (12-78); Albumin Level 4.4 g/dl (3.5-5.0); Albumin/Globulin Ratio 1.6 (1.1-1.8); Alkaline Phosphatase 66 U/L (38-126); Anion Gap 14.5 mEq/L (5-15); Aspartate Amino Transferase 30 U/L (17-59); Bilirubin,Total 0.6 mg/dl (0.2-1.3); Blood Urea Nitrogen 27 mg/dl (9-20); Carbon Dioxide 25 mmol/L (22.0-30.0); Creatinine Clearance Estimated 121 mL/min (50-200); Estimated Glomerular Filt Rate 73 ml/min (>60); GFR (African American) 88 ML/MIN (>60); Globulin 2.7 g/dL (1.3-3.2); Total Protein,Serum 7.1 g/dl (6.3-8.2)
[2021-09-29 17:50] LABS: Calcium 9.5 mg/dl (8.4-10.2); Glucose 143 mg/dl (74-100)
[2021-09-29 17:52] LABS: MANUAL DIFFERENTIAL MANUAL DIFFERENTIAL (MANUAL DIFF)
--- NOTE | 2021-09-29 17:52 | PC.NURSE ---
Dr. Katz speaking with patient at
[2021-09-29 18:10] VITALS: BP 134/81; PULSE 98; O2SAT 93
[2021-09-29 18:13] LABS: Lymphocytes % 4 % (10-50); Monocytes % 2 % (2-9); Neutrophils % 94 % (42-76); Platelet Estimate Normal; RBC Morphology Normal; Total Cells Counted 100
[2021-09-29 18:31] VITALS: BP 134/75; PULSE 88; RESP 16; TEMP 36.6; O2SAT 98
== END 2021-09-29 18:32 | disposition home or self-care (01) ==
PROVIDERS: Emergency Provider Emergency Medicine; PCP Emergency Medicine
DX: G89.18 Other acute postprocedural pain (principal); I10 Essential (primary) hypertension; K21.9 Gastro-esophageal reflux disease without esophagitis; E78.5 Hyperlipidemia, unspecified; N28.9 Disorder of kidney and ureter, unspecified; M19.90 Unspecified osteoarthritis, unspecified site; G40.909 Epilepsy, unspecified, not intractable, without status epilepticus; J45.909 Unspecified asthma, uncomplicated; F32.A Depression, unspecified; F41.9 Anxiety disorder, unspecified; Z79.52 Long term (current) use of systemic steroids; Z79.899 Other long term (current) drug therapy; Z88.2 Allergy status to sulfonamides; Z82.49 Family history of ischemic heart disease and other diseases of the circulatory system; Z80.9 Family history of malignant neoplasm, unspecified; Z84.1 Family history of disorders of kidney and ureter
CPT/HCPCS: 80053; 85007; 85025; 96361; 96374; 96375; 99284

== ENCOUNTER 2021-11-11 21:21 | Emergency (ER) | payer BC, SELFPAY ==
[2021-11-11 21:22] VITALS: BP 148/105; PULSE 94; RESP 22; TEMP 37.3; O2SAT 100; BMI 30.7
--- NOTE | 2021-11-11 21:30 | HMH.EDGENADL ---
ED Disposition Clinical Impression: Viral URI with cough Disposition: Home, Self-Care Condition on Discharge: Good Instructions: Cough Additional Instructions: Continue to do [id number] treatments with the exception of the cough medicine prescribed. You should not drive or operate machinery with this medication as it can make you very drowsy. Follow-up with your primary care or return to the ER for any new or worsening symptoms. Use the albuterol inhaler provided every 4 hours 4 puffs for shortness of breath. Prescriptions: Promethazine/Dextromethorphan [Promethazine-Dm Solution] 10 ml PO Q8 PRN 4 Days #120 ml PRN Reason: Cough Transmission Status: Pending to [facility] Referrals: Kelechi So MD [Primary Care Provider] - - Critical Care Critical Care Time: No Attestation: On 11/11/21, the high probability of a clinically significant, sudden or life threatening deterioration of the following system(s) required my full and direct attention, intervention and personal management. The time I documented below is in addition to time spent performing reported procedures but includes the following listed in this critical care notation. Medical Decision Making - Medical Records Medical records reviewed: Yes: I reviewed the patient's medical records. - Denis Inquiry Pt receiving controlled substance: No Vital Signs: 11/11/21 21:22 11/11/21 22:00 Temperature 99.1 F Temperature Source Oral Pulse Rate 91 H Pulse Rate [Right] 94 H Respiratory Rate 22 Blood Pressure 176/110 H Blood Pressure [Right Arm] 148/105 H Blood Pressure Mean [Right Arm] 119 Blood Pressure Source [Right Arm] Automatic Cuff 02 Sat by Pulse Oximetry 100 97 Oxygen Delivery Method Room Air - Lab Data Lab Results 11/11/21 21:45: SARS-CoV-2 (PCR) Not detected, Influenza A Untype (PCR) Not detected, Influenza Type B (PCR) Not detected Orders (Tests/Meds): ED MEDICATIONS Discontinued Medications Generic Name Dose Route Start Last Admin Trade Name Freq PRN Reason Stop Dose Admin Albuterol Sulfate 4 puff 11/11/21 21:38 11/11/21 21:49 Albuterol-Hfa 90mcg/Puff Inhaler 8gm IH 11/11/21 21:39 4 puff ONCE ONE Administration Benzonatate 100 mg 11/11/21 21:38 11/11/21 21:45 Benzonatate 100mg Capsule PO 11/11/21 21:39 100 mg ONCE ONE Administration Miscellaneous 1 unit 11/11/21 21:37 11/11/21 21:49 Aerochamber/Optihaler MC 11/11/21 21:38 1 unit ONCE ONE Administration - Radiology Data #1 Image(s): Chest Image Reviewed: Yes I have reviewed radiologist's interpretation Preliminary Findings: Normal/NAD Medical Decision Narrative: 46-year-old male who presents with symptoms of a viral upper respiratory infection. Mild coughing morning productive cough consistent with postnasal drainage. He does have a history of asthma and is mildly prolonged was given an albuterol inhaler 4 puffs and will take the remainder of the inhaler at home. Tested for flu and COVID which were negative. He is not hypoxic and examination stable and well-appearing and will be discharged home in good condition. General Adult HPI - General Stated complaint: SOB,Cough,congestion,CHEATHAM Time Seen by Provider: 11/11/21 21:30 Mode of Arrival: Ambulatory Source of Information: Patient - History of Present Illness HPI narrative: 46-year-old male who presents with 5 days of sinus congestion with significant postnasal drainage. Patient starting to feel shortness of breath particularly in the mornings when he wakes up with significant coughing. He does have a distant asthma history but has not been on medication for years. He denies fevers chills or body aches and states that cough is only productive in the mornings. He is use Mucinex as well as other [id number] Medications. - Related Data Home Medications Medication Instructions Recorded Confirmed testosterone cypionate 200 mg/mL 200
--- NOTE | 2021-11-11 21:31 | XR_ITS ---
PROCEDURE INFORMATION: Exam: XR Chest Exam date and time: 11/11/2021 9:42 PM Age: 46 years old Clinical indication: Cough and shortness of breath; Additional info: Dyspnea, cough, congestion TECHNIQUE: Imaging protocol: XR of the chest. Views: 1 view. COMPARISON: CR XR CHEST PORTABLE 10/24/2020 9:50 PM FINDINGS: Lungs: No consolidation. Pleural spaces: No pneumothorax. Heart/Mediastinum: No cardiomegaly. Bones/joints: No acute abnormality. IMPRESSION: No acute findings.
[2021-11-11 21:47] LABS: Coronavirus 19, PCR Not Detected (NotDetected); Influenza A, PCR Not Detected (NotDetected); Influenza B, PCR Not Detected (NotDetected)
[2021-11-11 22:00] VITALS: BP 176/110; PULSE 91; O2SAT 97
[2021-11-11 22:24] VITALS: BP 158/96; PULSE 91; RESP 20; TEMP 37.1; O2SAT 100
== END 2021-11-11 22:32 | disposition home or self-care (01) ==
PROVIDERS: Emergency Provider Student in an Organized Health Care Education/Training Program; PCP Emergency Medicine
DX: J06.9 Acute upper respiratory infection, unspecified (principal); Z79.899 Other long term (current) drug therapy; Z88.2 Allergy status to sulfonamides; J44.9 Chronic obstructive pulmonary disease, unspecified; K21.9 Gastro-esophageal reflux disease without esophagitis; F41.9 Anxiety disorder, unspecified; E78.5 Hyperlipidemia, unspecified; I10 Essential (primary) hypertension; N28.9 Disorder of kidney and ureter, unspecified; F32.A Depression, unspecified; R56.9 Unspecified convulsions; Z86.14 Personal history of Methicillin resistant Staphylococcus aureus infection
CPT/HCPCS: 71045; 94640; 99283; C9803; U0003; U0005

== ENCOUNTER 2021-11-17 20:20 | Emergency (ER) | payer OTHER, BC, SELFPAY ==
[2021-11-17 20:22] VITALS: BP 146/98; PULSE 103; RESP 19; TEMP 36.7; O2SAT 97; BMI 27.8
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
--- NOTE | 2021-11-17 20:35 | PC.NURSE ---
Pt changed into dry gown, non-skid socks, and dry sheets.
[2021-11-17 20:41] LABS: Basophils # 0.1 K/mm3 (0-0.2); Basophils % 1.4 % (0.1-2.0); Eosinophils # 0.1 K/mm3 (0.0-0.4); Eosinophils % 1.7 % (0.1-12.0); Hematocrit 47.2 % (42.0-52.0); Hemoglobin 16.5 g/dL (14.1-18.0); Lymphocytes # 1.9 K/mm3 (0.7-4.5); Lymphocytes % 23.2 % (10-50); Mean Corpuscular Volume 91.4 fl (80-94); Monocytes # 0.5 K/mm3 (0.1-1.0); Monocytes % 6.1 % (1.7-9.3); Neutrophils # 5.6 K/mm3 (1.8-7.8); Neutrophils % 67.7 % (37.0-80.0); Platelet Count 340 K/mm3 (142-424); Red Blood Count 5.17 M/mm3 (4.60-6.20); White Blood Count 8.3 K/mm3 (4.8-10.8)
[2021-11-17 20:45] LABS: Microscopic, Urine URINE MICROSCOPIC (MICROSCOPIC)
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
[2021-11-17 20:49] LABS: Alanine Aminotransferase 66 U/L (12-78); Albumin Level 4.5 g/dl (3.5-5.0); Albumin/Globulin Ratio 1.5 (1.1-1.8); Alkaline Phosphatase 68 U/L (38-126); Anion Gap 15.9 mEq/L (5-15); Aspartate Amino Transferase 48 U/L (17-59); Bilirubin,Total 0.4 mg/dl (0.2-1.3); Blood Urea Nitrogen 24 mg/dl (9-20); Calcium 9.3 mg/dl (8.4-10.2); Carbon Dioxide 24 mmol/L (22.0-30.0); Chloride 103 mmol/L (98-107); Creatinine Clearance Estimated 101 mL/min (50-200); Estimated Glomerular Filt Rate 66 ml/min (>60); GFR (African American) 80 ML/MIN (>60); Globulin 3.1 g/dL (1.3-3.2); Glucose 90 mg/dl (74-100); Potassium 3.9 mmoL/L (3.5-5.1); Sodium 139 mmol/L (136-145); Total Protein,Serum 7.6 g/dl (6.3-8.2)
[2021-11-17 20:52] LABS: Appearance,Urine CLEAR (Clear); Bilirubin,Urine Negative (Negative); Blood, Urine Negative (Negative); Color,Urine YELLOW (Yellow); Glucose,Urine (UA) Negative (Negative); Ketones,Urine Negative (Negative); Leukocyte Esterase,Urine Negative (Negative); Nitrate,Urine Negative (Negative); PH,Urine 7.5 (5.0-8.5); Protein,Urine Negative (Negative); Specific Gravity, Urine 1.015 (1.005-1.030); Urobilinogen,Urine 0.2 EU/dl (0.2)
[2021-11-17 20:54] LABS: C-Reactive Protein 3.1 mg/L (0-4)
[2021-11-17 21:08] LABS: Procalcitonin 0.079 ng/mL (0.0-2.0)
[2021-11-17 21:16] LABS: Bacteria,Urine Trace /lpf
[2021-11-17 21:31] VITALS: BP 148/96; PULSE 90; O2SAT 97
[2021-11-17 21:33] LABS: Erythrocyte Sedimentation Rate 30 mm/hr (0-15)
[2021-11-17 22:12] VITALS: BP 154/85; PULSE 87; RESP 20; TEMP 36.8; O2SAT 98
== END 2021-11-17 22:18 | disposition home or self-care (01) ==
PROVIDERS: Emergency Provider Emergency Medicine; PCP Emergency Medicine
DX: S16.1XXA Strain of muscle, fascia and tendon at neck level, initial encounter (principal); S39.012A Strain of muscle, fascia and tendon of lower back, initial encounter; I10 Essential (primary) hypertension; N28.9 Disorder of kidney and ureter, unspecified; K21.9 Gastro-esophageal reflux disease without esophagitis; E78.5 Hyperlipidemia, unspecified; M19.90 Unspecified osteoarthritis, unspecified site; G40.909 Epilepsy, unspecified, not intractable, without status epilepticus; J45.909 Unspecified asthma, uncomplicated; F41.9 Anxiety disorder, unspecified; Z79.52 Long term (current) use of systemic steroids; Z79.899 Other long term (current) drug therapy; Z88.2 Allergy status to sulfonamides; Z86.14 Personal history of Methicillin resistant Staphylococcus aureus infection; Z82.49 Family history of ischemic heart disease and other diseases of the circulatory system; Z84.1 Family history of disorders of kidney and ureter; Z80.9 Family history of malignant neoplasm, unspecified; V48.0XXA Car driver injured in noncollision transport accident in nontraffic accident, initial encounter; Y92.410 Unspecified street and highway as the place of occurrence of the external cause
CPT/HCPCS: 70450; 71045; 72125; 72128; 72131; 72170; 80053; 81001; 84145; 85025; 85651; 86140; 96361; 96374; 99285

== ENCOUNTER → 2022-01-12 15:06 | Outpatient (CLI) | payer BC, SELFPAY ==
[2022-01-12 15:11] LABS: MANUAL DIFFERENTIAL MANUAL DIFFERENTIAL (MANUAL DIFF)
[2022-01-12 16:20] LABS: Basophils # 0.1 K/mm3 (0-0.2); Basophils % 0.7 % (0.1-2.0); Eosinophils # 0.3 K/mm3 (0.0-0.4); Eosinophils % 3.6 % (0.1-12.0); Hematocrit 50.7 % (42.0-52.0); Hemoglobin 16.5 g/dL (14.1-18.0); Lymphocytes # 1.4 K/mm3 (0.7-4.5); Lymphocytes % 18.4 % (10-50); Mean Corpuscular HGB Conc 32.5 g/dL (31.8-35.4); Mean Corpuscular Hemoglobin 31.3 pg (27.0-31.2); Mean Corpuscular Volume 96.4 fl (80-94); Mean Platelet Volume 8.1 fl (7.4-10.4); Monocytes # 0.4 K/mm3 (0.1-1.0); Monocytes % 5.4 % (1.7-9.3); Neutrophils # 5.4 K/mm3 (1.8-7.8); Neutrophils % 71.9 % (37.0-80.0); Platelet Count 223 K/mm3 (142-424); Red Blood Count 5.26 M/mm3 (4.60-6.20); Red Cell Distribution Width 13.5 % (11.5-17.5); White Blood Count 7.5 K/mm3 (4.8-10.8)
[2022-01-12 16:50] LABS: Alanine Aminotransferase 36 U/L (12-78); Albumin Level 4.2 g/dl (3.5-5.0); Alkaline Phosphatase 71 U/L (38-126); Aspartate Amino Transferase 33 U/L (17-59); Bilirubin,Direct 0.2 mg/dl (0.0-0.4); Bilirubin,Indirect 0.1 mg/dL (0.0-0.9); Bilirubin,Total 0.3 mg/dl (0.2-1.3); Bilirubin,Unconjugated 0.1 mg/dL (0.0-1.1); Total Protein,Serum 6.8 g/dl (6.3-8.2)
[2022-01-12 19:07] LABS: Eosinophils % 3 % (0-3); Lymphocytes % 20 % (10-50); Monocytes % 4 % (2-9); Neutrophils % 73 % (42-76); Platelet Estimate Normal; RBC Morphology Normal; Total Cells Counted 100
[2022-01-18 11:23] LABS: Testosterone, Total, LC/MS 904.5 ng/dL (264.0-916.0)
== END ==
PROVIDERS: PCP Emergency Medicine; Visit Provider Urology
DX: E29.1 Testicular hypofunction (principal)
CPT/HCPCS: 36415; 80076; 84402; 84403; 85007; 85014; 85018; 85048; 85049

== ENCOUNTER 2022-02-05 15:08 | Emergency (ER) | payer BC, SELFPAY ==
[2022-02-05 16:20] VITALS: BP 186/107; PULSE 105; RESP 20; TEMP 36.7; O2SAT 98; BMI 27.8
--- NOTE | 2022-02-05 16:37 | EXP.UTC ---
Discharge Plan Disposition Patient Disposition: Home, Self-Care Condition: Good Prescriptions Prescriptions: New methylprednisolone [Medrol (Chema)] 4 mg tablets,dose pack See Rx Instructions .Route .COMPLEX 6 Days Qty: 21 0RF Rx Instructions: taper pack; No Action testosterone cypionate 200 mg/mL oil 200 mg IM QWEEK gabapentin 800 mg tablet 800 mg PO QID Qty: 120 0RF bupropion HCl 300 mg tablet extended release 24 hr See Rx Instructions .Route .COMPLEX Qty: 90 0RF Rx Instructions: TAKE 1 TABLET BY MOUTH ONCE DAILY FOR DEPRESSION lisinopril 10 mg tablet See Rx Instructions .Route .COMPLEX Qty: 90 0RF Rx Instructions: TAKE ONE TABLET BY MOUTH EVERY DAY omeprazole 20 mg capsule,delayed release(DR/EC) See Rx Instructions .Route .COMPLEX Qty: 90 0RF Rx Instructions: TAKE 1 CAPSULE BY MOUTH ONCE DAILY FOR ACID REFLUX quetiapine 300 mg tablet See Rx Instructions .Route .COMPLEX Qty: 90 0RF Rx Instructions: TAKE ONE TABLET BY MOUTH AT BEDTIME FOR ANXIETY tadalafil (pulm. hypertension) 20 mg tablet See Rx Instructions .Route .COMPLEX Qty: 30 0RF Rx Instructions: TAKE ONE TABLET BY MOUTH EVERY DAY NEEDED 30 MINUTES BEFORE SEXUAL ACTIVITY testosterone cypionate 200 mg/mL oil 200 mg IM WEEKLY Qty: 4 2RF methylprednisolone [Medrol (Chema)] 4 mg tablets,dose pack See Rx Instructions PO PER PKG DIR Qty: 21 0RF Rx Instructions: PO PER PKG DIR loratadine-pseudoephedrine [Allergy Relief,Nasal Decongest] 10-240 mg tablet extended release 24 hr See Rx Instructions .ROUTE .COMPLEX Qty: 30 0RF Dose Instruction: TAKE ONE TABLET BY MOUTH EVERY DAY Rx Instructions: TAKE ONE TABLET BY MOUTH EVERY DAY cyclobenzaprine 10 MG tablet 10 mg PO Q8HP PRN (Reason: Muscle Spasm) Qty: 30 0RF ondansetron HCl 4 MG tablet 4 mg PO TIDP PRN (Reason: Nausea) Qty: 10 0RF lidocaine HCl 15 ML/UDC solution 5 ml MM TID PRN (Reason: Sore Throat) Qty: 100 1RF Rx Instructions: swish and spit 5 ml three times a day oxycodone 10 MG tablet 10 mg PO TID Referrals Follow up/Referrals: Kelechi So MD [Primary Care Provider] - See instructions Activity Restrictions/Add. Instructions Additional Instructions/Restrictions: Start oral steriods tomorrow Continue taking your prescribed medications as prescribed Return if needed Straight to ER if any life threatening symptoms Clinical Impressions Clinical Impression: Low back pain Discharge ED Provider: Sandra Ghotra [facility] HPI General Stated complaint: Back pain Time Seen by Provider: 02/05/22 16:37 History of Present Illness Provider Complaint: Patient states that he has chronic back pain States that he has been taking his pain meds like he is prescribed and when this happens he has to come in and get a steriod shot and some oral steriods to help clear it up States that today he felt it coming on so he wanted to come in and get a shot of steriod and some oral to help denies loss of control of bowel or bladder Related Data Home Medications Medication Instructions Recorded Confirmed testosterone cypionate 200 mg/mL 200 mg IM QWEEK Supplement 08/15/19 01/12/22 intramuscular oil oxycodone 10 mg tablet 10 mg PO TID pain clinic 11/11/21 01/12/22 Previous Rx's Medication Instructions Recorded gabapentin 800 mg tablet 800 mg PO QID Pain #120 tabs 04/21/20 cyclobenzaprine 10 mg tablet 10 mg PO Q8HP PRN Muscle Spasm #30 05/15/21 tabs lidocaine HCl 2 % mucosal solution 5 ml mucous membrane TID PRN Sore 09/27/21 Throat #100 mL ondansetron HCl 4 mg tablet 4 mg PO TIDP PRN Nausea #10 tabs 09/27/21 bupropion HCl 300 mg 24 hr tablet, See Rx Instructions .Route 12/06/21 extended release .COMPLEX mood #90 tabs lisinopril 10 mg tablet See Rx Instructions .Route 12/06/21 .COMPLEX bp #90 tabs omeprazole 20 mg capsule,delayed See Rx Instructions .Route 0
[2022-02-05 17:06] VITALS: BP 186/107; PULSE 105; RESP 20; TEMP 36.7; O2SAT 98
== END 2022-02-05 17:09 | disposition home or self-care (01) ==
PROVIDERS: Emergency Provider Nurse Practitioner; PCP Emergency Medicine
DX: M54.50 Low back pain, unspecified (principal)
CPT/HCPCS: 96372; 99212; G0463

== ENCOUNTER 2022-06-26 18:05 | Emergency (ER) | payer BC, SELFPAY ==
--- NOTE | 2022-06-26 18:44 | EXP.UTC ---
Discharge Plan Disposition Patient Disposition: Home, Self-Care Condition: Good Prescriptions Prescriptions: New mupirocin 2 % ointment 1 applic topical TID 7 Days Qty: 22 0RF doxycycline hyclate [doxycycline hyclate] 100 mg capsule 100 mg PO Q12 10 Days Qty: 20 0RF prednisone [prednisone] 20 mg tablet 20 mg PO BID 5 Days Qty: 10 0RF hydroxyzine pamoate [Vistaril] 25 mg capsule 25 mg PO TID PRN (Reason: itching) Qty: 20 0RF No Action testosterone cypionate 200 mg/mL oil 200 mg IM QWEEK gabapentin 800 mg tablet 800 mg PO QID Qty: 120 0RF methocarbamol 750 mg tablet 750 mg PO Q8H lisinopril 10 mg tablet See Rx Instructions .Route .COMPLEX Qty: 90 0RF Rx Instructions: TAKE ONE TABLET BY MOUTH EVERY DAY testosterone cypionate 200 mg/mL oil 200 mg IM WEEKLY Qty: 4 2RF quetiapine 300 mg tablet See Rx Instructions .ROUTE .COMPLEX Qty: 90 0RF Dose Instruction: TAKE ONE TABLET BY MOUTH AT BEDTIME FOR ANXIETY Rx Instructions: TAKE ONE TABLET BY MOUTH AT BEDTIME FOR ANXIETY bupropion HCl 300 mg tablet extended release 24 hr See Rx Instructions .ROUTE .COMPLEX Qty: 90 0RF Dose Instruction: TAKE 1 TABLET BY MOUTH ONCE DAILY FOR DEPRESSION Rx Instructions: TAKE 1 TABLET BY MOUTH ONCE DAILY FOR DEPRESSION prednisone 20 mg tablet See Rx Instructions .Route .COMPLEX Qty: 15 0RF Rx Instructions: Take 1 tablet twice daily for 5 days, then Take 1 tablet daily for 5 days; tadalafil (pulm. hypertension) 20 mg tablet See Rx Instructions .ROUTE .COMPLEX Qty: 30 0RF Dose Instruction: TAKE ONE TABLET BY MOUTH EVERY DAY NEEDED 30 MINUTES BEFORE SEXUAL ACTIVITY Rx Instructions: TAKE ONE TABLET BY MOUTH EVERY DAY NEEDED 30 MINUTES BEFORE SEXUAL ACTIVITY omeprazole 20 mg capsule,delayed release(DR/EC) See Rx Instructions .ROUTE .COMPLEX Qty: 90 0RF Dose Instruction: TAKE 1 CAPSULE BY MOUTH ONCE DAILY FOR ACID REFLUX Rx Instructions: TAKE 1 CAPSULE BY MOUTH ONCE DAILY FOR ACID REFLUX Allergy Relief,Nasal Decongest 10-240 mg tablet extended release 24 hr See Rx Instructions .ROUTE .COMPLEX Qty: 30 0RF Dose Instruction: TAKE 1 TABLET BY MOUTH ONCE DAILY Rx Instructions: TAKE 1 TABLET BY MOUTH ONCE DAILY ondansetron HCl 4 MG tablet 4 mg PO TIDP PRN (Reason: Nausea) Qty: 10 0RF oxycodone 10 MG tablet 10 mg PO TID Referrals Follow up/Referrals: Kelechi So MD [Primary Care Provider] - See instructions Activity Restrictions/Add. Instructions Additional Instructions/Restrictions: Take the medications as directed. Use the topical mupirocin (bactroban) as directed. Follow up with your regular doctor. GO TO THE ER FOR ANY WORSENING SYMPTOMS Clinical Impressions Clinical Impression: Folliculitis Instructions Patient Instructions: Folliculitis, DI for Folliculitis Discharge ED Provider: Daniel Lomax [facility] General Stated complaint: sores on face Time Seen by Provider: 06/26/22 18:44 History of Present Illness Provider Complaint: He states that for the past 1 week he has developed scabbed areas Related Data Home Medications Medication Instructions Recorded Confirmed testosterone cypionate 200 mg/mL 200 mg IM QWEEK Supplement 08/15/19 01/12/22 intramuscular oil oxycodone 10 mg tablet 10 mg PO TID pain clinic 11/11/21 01/12/22 methocarbamol 750 mg tablet 750 mg PO Q8H 05/09/22 Previous Rx's Medication Instructions Recorded gabapentin 800 mg tablet 800 mg PO QID Pain #120 tabs 04/21/20 ondansetron HCl 4 mg tablet 4 mg PO TIDP PRN Nausea #10 tabs 09/27/21 lisinopril 10 mg tablet See Rx Instructions .Route 12/06/21 .COMPLEX bp #90 tabs testosterone cypionate 200 mg/mL 200 mg IM WEEKLY #4 mL 02/09/22 intramuscular oil quetiapine 300 mg tablet See Rx Instructions .Route 04/03/22 .COMPLEX #90 tabs bupropion HCl 300 mg
[2022-06-26 18:45] VITALS: BP 149/91; PULSE 86; RESP 20; TEMP 36.7; O2SAT 96; BMI 29.9
[2022-06-26 19:37] VITALS: BP 149/91; PULSE 86; RESP 20; TEMP 36.7; O2SAT 96
== END 2022-06-26 19:37 | disposition home or self-care (01) ==
PROVIDERS: Emergency Provider Nurse Practitioner Family; PCP Emergency Medicine
DX: L73.8 Other specified follicular disorders; B95.7 Other staphylococcus as the cause of diseases classified elsewhere; Z16.11 Resistance to penicillins
CPT/HCPCS: 87070; 87077; 87186; 87205; 99212; 99213; G0463

== ENCOUNTER 2022-07-16 23:53 | Emergency (ER) | payer BC, SELFPAY ==
[2022-07-16 23:54] VITALS: BP 152/86; PULSE 78; RESP 17; TEMP 36.8; O2SAT 99; BMI 29.2
[2022-07-17 01:00] LABS: Basophils # 0.1 K/mm3 (0-0.2); Basophils % 0.7 % (0.1-2.0); Chloride 102 mmol/L (98-107); Eosinophils # 0.1 K/mm3 (0.0-0.4); Hematocrit 49.1 % (42.0-52.0); Hemoglobin 16.8 g/dL (14.1-18.0); Lymphocytes # 1.5 K/mm3 (0.7-4.5); Lymphocytes % 23.3 % (10-50); Mean Corpuscular HGB Conc 34.1 g/dL (31.8-35.4); Mean Corpuscular Hemoglobin 30.7 pg (27.0-31.2); Mean Platelet Volume 7.3 fl (7.4-10.4); Monocytes # 0.4 K/mm3 (0.1-1.0); Monocytes % 5.7 % (1.7-9.3); Neutrophils # 4.5 K/mm3 (1.8-7.8); Neutrophils % 68.3 % (37.0-80.0); Platelet Count 245 K/mm3 (142-424); Potassium 4.1 mmoL/L (3.5-5.1); Red Blood Count 5.46 M/mm3 (4.60-6.20); Sodium 137 mmol/L (136-145); White Blood Count 6.5 K/mm3 (4.8-10.8)
[2022-07-17 01:02] LABS: Blood Urea Nitrogen 28 mg/dl (9-20); Creatinine Clearance Estimated 114 mL/min (50-200); Estimated Glomerular Filt Rate 72 ml/min (>60); GFR (African American) 88 ML/MIN (>60)
[2022-07-17 01:03] LABS: Alanine Aminotransferase 46 U/L (12-78); Albumin Level 4.5 g/dl (3.5-5.0); Albumin/Globulin Ratio 1.6 (1.1-1.8); Alkaline Phosphatase 52 U/L (38-126); Anion Gap 8.1 mEq/L (5-15); Aspartate Amino Transferase 64 U/L (17-59); Bilirubin,Total 0.6 mg/dl (0.2-1.3); Calcium 9.1 mg/dl (8.4-10.2); Carbon Dioxide 31 mmol/L (22.0-30.0); Globulin 2.8 g/dL (1.3-3.2); Glucose 115 mg/dl (74-100); Total Protein,Serum 7.3 g/dl (6.3-8.2)
[2022-07-17 01:08] LABS: C-Reactive Protein 0.8 mg/L (0-4)
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
[2022-07-17 01:35] LABS: Erythrocyte Sedimentation Rate 4 mm/hr (0-15)
[2022-07-17 01:43] VITALS: BP 135/86; PULSE 78; RESP 18; TEMP 36.6; O2SAT 99
[2022-07-17 03:08] LABS: Procalcitonin 0.058 ng/mL (0.0-2.0)
== END 2022-07-17 01:43 | disposition home or self-care (01) ==
PROVIDERS: Emergency Provider Emergency Medicine; PCP Emergency Medicine
DX: L03.211 Cellulitis of face (principal); L03.221 Cellulitis of neck; F41.8 Other specified anxiety disorders; J45.909 Unspecified asthma, uncomplicated; K21.9 Gastro-esophageal reflux disease without esophagitis; E78.5 Hyperlipidemia, unspecified; I10 Essential (primary) hypertension; G43.909 Migraine, unspecified, not intractable, without status migrainosus; F17.210 Nicotine dependence, cigarettes, uncomplicated
CPT/HCPCS: 80053; 84145; 85025; 85651; 86140; 96365; 99285

== ENCOUNTER 2022-08-14 15:09 | Emergency (ER) | payer BC, SELFPAY ==
[2022-08-14 15:20] VITALS: BP 135/81; PULSE 94; RESP 18; TEMP 37.1; O2SAT 98; BMI 27.8
--- NOTE | 2022-08-14 15:47 | EXP.UTC ---
Discharge Plan Disposition Patient Disposition: Home, Self-Care Condition: Good Prescriptions Prescriptions: New prednisone 20 mg tablet 20 mg PO BID 5 Days Qty: 10 0RF No Action testosterone cypionate 200 mg/mL oil 200 mg IM QWEEK gabapentin 800 mg tablet 800 mg PO QID Qty: 120 0RF methocarbamol 750 mg tablet 750 mg PO Q8H lisinopril 10 mg tablet See Rx Instructions .Route .COMPLEX Qty: 90 0RF Rx Instructions: TAKE ONE TABLET BY MOUTH EVERY DAY testosterone cypionate 200 mg/mL oil 200 mg IM WEEKLY Qty: 4 2RF prednisone 20 mg tablet See Rx Instructions .Route .COMPLEX Qty: 15 0RF Rx Instructions: Take 1 tablet twice daily for 5 days, then Take 1 tablet daily for 5 days; tadalafil (pulm. hypertension) 20 mg tablet See Rx Instructions .ROUTE .COMPLEX Qty: 30 0RF Dose Instruction: TAKE ONE TABLET BY MOUTH EVERY DAY NEEDED 30 MINUTES BEFORE SEXUAL ACTIVITY Rx Instructions: TAKE ONE TABLET BY MOUTH EVERY DAY NEEDED 30 MINUTES BEFORE SEXUAL ACTIVITY omeprazole 20 mg capsule,delayed release(DR/EC) See Rx Instructions .ROUTE .COMPLEX Qty: 90 0RF Dose Instruction: TAKE 1 CAPSULE BY MOUTH ONCE DAILY FOR ACID REFLUX Rx Instructions: TAKE 1 CAPSULE BY MOUTH ONCE DAILY FOR ACID REFLUX Allergy Relief,Nasal Decongest 10-240 mg tablet extended release 24 hr See Rx Instructions .ROUTE .COMPLEX Qty: 30 0RF Dose Instruction: TAKE 1 TABLET BY MOUTH ONCE DAILY Rx Instructions: TAKE 1 TABLET BY MOUTH ONCE DAILY bupropion HCl 300 mg tablet extended release 24 hr See Rx Instructions .ROUTE .COMPLEX Qty: 90 0RF Dose Instruction: TAKE 1 TABLET BY MOUTH ONCE DAILY FOR DEPRESSION Rx Instructions: TAKE 1 TABLET BY MOUTH ONCE DAILY FOR DEPRESSION quetiapine 300 mg tablet See Rx Instructions .ROUTE .COMPLEX Qty: 90 0RF Dose Instruction: TAKE ONE TABLET BY MOUTH AT BEDTIME FOR ANXIETY Rx Instructions: TAKE ONE TABLET BY MOUTH AT BEDTIME FOR ANXIETY methylprednisolone [Medrol (Chema)] 4 mg tablets,dose pack See Rx Instructions PO PER PKG DIR Qty: 21 0RF Rx Instructions: PO PER PKG DIR ondansetron HCl 4 MG tablet 4 mg PO TIDP PRN (Reason: Nausea) Qty: 10 0RF oxycodone 10 MG tablet 10 mg PO TID mupirocin 2 % ointment 1 applic topical TID 7 Days Qty: 22 0RF doxycycline hyclate [doxycycline hyclate] 100 mg capsule 100 mg PO Q12 10 Days Qty: 20 0RF prednisone [prednisone] 20 mg tablet 20 mg PO BID 5 Days Qty: 10 0RF hydroxyzine pamoate [Vistaril] 25 mg capsule 25 mg PO TID PRN (Reason: itching) Qty: 20 0RF minocycline 100 mg Capsule 100 mg PO BID Qty: 20 0RF clindamycin HCl 300 mg capsule 300 mg PO Q8H 10 Days Qty: 30 0RF Referrals Follow up/Referrals: Kelechi So MD [Primary Care Provider] - See instructions Activity Restrictions/Add. Instructions Additional Instructions/Restrictions: Start Oral steriods tomorrow Follow up with your Family Doctor if no improvement or any worsening of symptoms Return if needed Straight to ER if any life threatening symptoms Clinical Impressions Clinical Impression: Back pain Qualifiers: Back pain location: back pain in unspecified location Back pain laterality: unspecified Instructions Patient Instructions: DI for Chronic Pain -- Adult, DI for Muscle Spasm Discharge ED Provider: Sandra Ghotra [facility] General Stated complaint: Back pain, no accident Mode of Arrival: Ambulatory Source of Information: Patient Limitations: No Limitations Time Seen by Provider: 08/14/22 15:47 Description of Symptoms (Recalled from Triage Doc. by RN): PATIENT C/O BACK PAIN X 4 DAYS, NO KNOWN INJURY. HEENT Symptoms (Recalled from RN notes): No Resp Symptoms (Recalled from RN notes): No Skin Symptoms (Recalled from RN notes): No MS Symptoms (Recalled from RN notes): Yes Functional Status (Recalled fr
[2022-08-14 16:35] VITALS: BP 128/74; PULSE 66; RESP 17; TEMP 36.6
== END 2022-08-14 16:38 | disposition home or self-care (01) ==
PROVIDERS: Emergency Provider Nurse Practitioner; PCP Emergency Medicine
DX: M62.830 Muscle spasm of back (principal); M54.50 Low back pain, unspecified
CPT/HCPCS: 96372; 99212; 99214; G0463

== ENCOUNTER 2022-09-24 13:09 | Emergency (ER) | payer OTHER, SELFPAY ==
[2022-09-24] VITALS (7 sets, daily range): BP systolic 130–168; BP diastolic 75–102; PULSE 74–89; RESP 18–20; TEMP 36.7–36.8; O2SAT 95–100; BMI 27.8
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
--- NOTE | 2022-09-24 13:25 | PC.NURSE ---
PT TO CT
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
--- NOTE | 2022-09-24 14:10 | PC.NURSE ---
Cervical CT reported to be negative. CCollar removed at this time
--- NOTE | 2022-09-24 14:50 | PC.NURSE ---
DR NGUYEN AT BEDSIDE TO UPDATE PT
--- NOTE | 2022-09-24 15:18 | PC.NURSE ---
PT MEDICATED PER EMAR, WATER GIVEN. CALL LIGHT WITHIN REACH. NO NEEDS AT THIS TIME
== END 2022-09-24 15:55 | disposition home or self-care (01) ==
PROVIDERS: Emergency Provider Emergency Medicine; PCP Emergency Medicine
DX: S16.1XXA Strain of muscle, fascia and tendon at neck level, initial encounter; F17.200 Nicotine dependence, unspecified, uncomplicated; V49.40XA Driver injured in collision with unspecified motor vehicles in traffic accident, initial encounter; S06.0X9A Concussion with loss of consciousness of unspecified duration, initial encounter
CPT/HCPCS: 70450; 71045; 72125; 72128; 72131; 72170; 96374; 96375; 99284; 99285; J2405

== ENCOUNTER 2022-10-05 11:05 | Outpatient (RCR) | payer OTHER, SELFPAY ==
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
== END 2022-10-05 11:10 | disposition home or self-care (01) ==
LOC: PT 11:05
PROVIDERS: Visit Provider Emergency Medicine
DX: M54.2 Cervicalgia (principal); M54.50 Low back pain, unspecified; V89.2XXA Person injured in unspecified motor-vehicle accident, traffic, initial encounter
CPT/HCPCS: 97163

== ENCOUNTER → 2022-10-05 14:21 | Outpatient (CLI) | payer OTHER, SELFPAY ==
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
== END ==
LOC: RAD 14:21
PROVIDERS: PCP Emergency Medicine; Visit Provider Emergency Medicine
DX: M54.2 Cervicalgia (principal); M54.50 Low back pain, unspecified; V89.2XXA Person injured in unspecified motor-vehicle accident, traffic, initial encounter
CPT/HCPCS: 72141; 72148; 76376

== ENCOUNTER → 2022-10-17 14:47 | Outpatient (CLI) | payer OTHER, SELFPAY ==
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
== END ==
LOC: RAD 14:47
PROVIDERS: PCP Emergency Medicine; Visit Provider Emergency Medicine
DX: M25.552 Pain in left hip (principal); M54.9 Dorsalgia, unspecified; M54.50 Low back pain, unspecified; V89.2XXA Person injured in unspecified motor-vehicle accident, traffic, initial encounter
CPT/HCPCS: 72146; 73721

== ENCOUNTER 2022-11-12 14:32 | Emergency (ER) | payer BC, SELFPAY ==
[2022-11-12 14:55] VITALS: BP 149/96; PULSE 91; RESP 18; TEMP 37.1; O2SAT 98; BMI 24.3
--- NOTE | 2022-11-12 15:20 | EXP.UTC ---
Discharge Plan Disposition Patient Disposition: Home, Self-Care Condition: Good Prescriptions Prescriptions: New cephalexin [cephalexin] 500 mg tablet 500 mg PO BID 7 Days Qty: 14 0RF mupirocin 2 % ointment 1 applic topical BID 7 Days Qty: 22 1RF No Action methylprednisolone [Medrol (Chema)] 4 mg tablets,dose pack See Rx Instructions PO PER PKG DIR Qty: 21 0RF Rx Instructions: PO PER PKG DIR lidocaine 5 % adhesive patch,medicated 1 patch topical DAILY Qty: 30 0RF Rx Instructions: leave on most painful area for up to 12 hrs diclofenac sodium 1 % gel 2 g topical QID Qty: 100 0RF Rx Instructions: apply to single elbow, wrist or hand; for hand includes palm/fingers/back of hand gabapentin 800 mg tablet 800 mg PO QID Qty: 120 0RF methocarbamol 750 mg tablet 750 mg PO Q8H hydrocodone-acetaminophen 10-325 mg tablet 1 tab PO anastrozole 1 mg tablet 1 mg PO lidocaine 5 % adhesive patch,medicated 1 patch topical DAILY Qty: 30 0RF Rx Instructions: leave on most painful area for up to 12 hrs diclofenac sodium 1 % gel 2 g topical QID Qty: 100 0RF Rx Instructions: apply to single elbow, wrist or hand; for hand includes palm/fingers/back of hand bupropion HCl 450 mg tablet extended release 24 hr See Rx Instructions .ROUTE .COMPLEX Qty: 90 0RF Dose Instruction: TAKE 1 TABLET BY MOUTH ONCE DAILY FOR DEPRESSION Rx Instructions: TAKE 1 TABLET BY MOUTH ONCE DAILY FOR DEPRESSION quetiapine 400 mg tablet 400 mg PO DAILY Qty: 90 0RF tadalafil (pulm. hypertension) 20 mg tablet See Rx Instructions .ROUTE .COMPLEX Qty: 30 0RF Dose Instruction: TAKE ONE TABLET BY MOUTH EVERY DAY NEEDED 30 MINUTES BEFORE SEXUAL ACTIVITY Rx Instructions: TAKE ONE TABLET BY MOUTH EVERY DAY NEEDED 30 MINUTES BEFORE SEXUAL ACTIVITY omeprazole 20 mg capsule,delayed release(DR/EC) See Rx Instructions .ROUTE .COMPLEX Qty: 90 0RF Dose Instruction: TAKE 1 CAPSULE BY MOUTH ONCE DAILY FOR ACID REFLUX Rx Instructions: TAKE 1 CAPSULE BY MOUTH ONCE DAILY FOR ACID REFLUX Allergy Relief,Nasal Decongest 10-240 mg tablet extended release 24 hr See Rx Instructions .ROUTE .COMPLEX Qty: 30 0RF Dose Instruction: TAKE 1 TABLET BY MOUTH ONCE DAILY Rx Instructions: TAKE 1 TABLET BY MOUTH ONCE DAILY lisinopril 10 mg tablet See Rx Instructions .Route .COMPLEX Qty: 90 0RF Rx Instructions: TAKE ONE TABLET BY MOUTH EVERY DAY testosterone cypionate 200 mg/mL oil 200 mg IM WEEKLY Qty: 4 2RF hydroxyzine pamoate [Vistaril] 25 mg capsule 25 mg PO TID PRN (Reason: itching) Qty: 20 0RF Referrals Follow up/Referrals: Kelechi So MD [Primary Care Provider] - See instructions Activity Restrictions/Add. Instructions Additional Instructions/Restrictions: do not scratch areas wash with soap and water apply cream follow up with pcp Clinical Impressions Clinical Impression: Impetigo Instructions Patient Instructions: DI for Impetigo Discharge ED Provider: Kapil ([facility] [place] General Stated complaint: Rash on neck and face Mode of Arrival: Ambulatory Source of Information: Patient Limitations: No Limitations Time Seen by Provider: 11/12/22 15:20 Description of Symptoms (Recalled from Triage Doc. by RN): PATIENT C/O ITCHY SORES ALL OVER BODY HEENT Symptoms (Recalled from RN notes): No Resp Symptoms (Recalled from RN notes): No Skin Symptoms (Recalled from RN notes): Yes MS Symptoms (Recalled from RN notes): No Functional Status (Recalled from RN notes): WNL History of Present Illness Provider Complaint: 47 yr old male presents for sores. pt states it started 4 days ago with a sun burn and he started scratching it. pt states that he scratched it so hard he left open sores. pt states they seem to be spreading Related Data Home Medications Medication Instruc
[2022-11-12 15:32] VITALS: BP 149/96; PULSE 91; RESP 18; TEMP 37.1; O2SAT 98
== END 2022-11-12 15:37 | disposition home or self-care (01) ==
PROVIDERS: Emergency Provider Nurse Practitioner Family; PCP Emergency Medicine
DX: L01.00 Impetigo, unspecified (principal); F17.210 Nicotine dependence, cigarettes, uncomplicated; I10 Essential (primary) hypertension; E78.5 Hyperlipidemia, unspecified; J45.909 Unspecified asthma, uncomplicated; K21.9 Gastro-esophageal reflux disease without esophagitis; F41.9 Anxiety disorder, unspecified; F32.A Depression, unspecified
CPT/HCPCS: 99212; 99214; G0463

== ENCOUNTER 2022-11-23 17:00 | Outpatient (RCR) | payer OTHER, SELFPAY ==
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
== END 2022-11-23 17:05 | disposition home or self-care (01) ==
LOC: PT 17:00
PROVIDERS: PCP Emergency Medicine; Visit Provider Emergency Medicine
DX: M54.9 Dorsalgia, unspecified (principal); M54.6 Pain in thoracic spine
CPT/HCPCS: 97010; 97110; 97163

== ENCOUNTER 2022-12-13 09:59 | Emergency (ER) | payer BC, SELFPAY ==
[2022-12-13 10:10] VITALS: BP 152/90; PULSE 91; RESP 18; TEMP 36.7; O2SAT 98; BMI 27.1
--- NOTE | 2022-12-13 10:25 | EXP.UTC ---
Discharge Plan Disposition Patient Disposition: Home, Self-Care Condition: Good Prescriptions Prescriptions: New prednisone [prednisone] 20 mg tablet 20 mg PO BID 5 Days Qty: 10 0RF No Action methylprednisolone [Medrol (Chema)] 4 mg tablets,dose pack See Rx Instructions PO PER PKG DIR Qty: 21 0RF Rx Instructions: PO PER PKG DIR lidocaine 5 % adhesive patch,medicated 1 patch topical DAILY Qty: 30 0RF Rx Instructions: leave on most painful area for up to 12 hrs diclofenac sodium 1 % gel 2 g topical QID Qty: 100 0RF Rx Instructions: apply to single elbow, wrist or hand; for hand includes palm/fingers/back of hand gabapentin 800 mg tablet 800 mg PO QID Qty: 120 0RF methocarbamol 750 mg tablet 750 mg PO Q8H hydrocodone-acetaminophen 10-325 mg tablet 1 tab PO anastrozole 1 mg tablet 1 mg PO bupropion HCl 450 mg tablet extended release 24 hr See Rx Instructions .ROUTE .COMPLEX Qty: 90 0RF Dose Instruction: TAKE 1 TABLET BY MOUTH ONCE DAILY FOR DEPRESSION Rx Instructions: TAKE 1 TABLET BY MOUTH ONCE DAILY FOR DEPRESSION quetiapine 400 mg tablet 400 mg PO DAILY Qty: 90 0RF omeprazole 20 mg capsule,delayed release(DR/EC) See Rx Instructions .ROUTE .COMPLEX Qty: 90 0RF Dose Instruction: TAKE 1 CAPSULE BY MOUTH ONCE DAILY FOR ACID REFLUX Rx Instructions: TAKE 1 CAPSULE BY MOUTH ONCE DAILY FOR ACID REFLUX lisinopril 10 mg tablet See Rx Instructions .Route .COMPLEX Qty: 90 0RF Rx Instructions: TAKE ONE TABLET BY MOUTH EVERY DAY testosterone cypionate 200 mg/mL oil 200 mg IM WEEKLY Qty: 4 2RF Allergy Relief,Nasal Decongest 10-240 mg tablet extended release 24 hr See Rx Instructions .ROUTE .COMPLEX Qty: 30 0RF Dose Instruction: TAKE 1 TABLET BY MOUTH ONCE DAILY Rx Instructions: TAKE 1 TABLET BY MOUTH ONCE DAILY tadalafil (pulm. hypertension) 20 mg tablet See Rx Instructions .ROUTE .COMPLEX Qty: 30 0RF Dose Instruction: TAKE ONE TABLET BY MOUTH EVERY DAY NEEDED 30 MINUTES BEFORE SEXUAL ACTIVITY Rx Instructions: TAKE ONE TABLET BY MOUTH EVERY DAY NEEDED 30 MINUTES BEFORE SEXUAL ACTIVITY hydroxyzine pamoate [Vistaril] 25 mg capsule 25 mg PO TID PRN (Reason: itching) Qty: 20 0RF cephalexin [cephalexin] 500 mg tablet 500 mg PO BID 7 Days Qty: 14 0RF mupirocin 2 % ointment 1 applic topical BID 7 Days Qty: 22 1RF Referrals Follow up/Referrals: Kelechi So MD [Primary Care Provider] - See instructions Activity Restrictions/Add. Instructions Additional Instructions/Restrictions: Start oral steriods tomorrow *Ibuprofen kaur 6 hours with meal as needed for pain/inflammation *Remember you had a Toradol shot in the clinic today, which is similar to Motrin so do not take any for the next 8-10 hours *Not additional anti-inflammatory like motrin, aleve, advil with the above amount of ibuprofen. You can still take Tylenol every 4 hours as needed if you need something else for pain *Ice 20 minutes every 2 hours for the first 48 hours after the initial injury followed by moist heat every 20 minutes 3-4 times a day to affected area *Muscle relaxer as prescribed as needed for muscle spasms but remember, it WILL cause drowsiness You cannot take it and drive, operate machinery or care for small children. *Keep this area active, no movement leads to more stiffness, However take it easy and avoid heavy lifting pushing or pulling *Follow up with you family doctor if no improvement for further treatment Clinical Impressions Clinical Impression: Back pain Qualifiers: Back pain location: back pain in unspecified location Chronicity: chronic Back pain laterality: unspecified Qualified Code(s): M54.9 - Dorsalgia, unspecified Instructions Patient Instructions: DI for Low Back Pain, DI for Chronic Pain -- Adult, DI for Thoracic Back Pain Discharge ED Pro
[2022-12-13 10:34] VITALS: BP 152/90; PULSE 91; RESP 18; TEMP 36.7; O2SAT 98
== END 2022-12-13 10:50 | disposition home or self-care (01) ==
PROVIDERS: Emergency Provider Nurse Practitioner; PCP Emergency Medicine
DX: M54.9 Dorsalgia, unspecified (principal); F17.210 Nicotine dependence, cigarettes, uncomplicated; I10 Essential (primary) hypertension; E78.5 Hyperlipidemia, unspecified; J45.909 Unspecified asthma, uncomplicated; F41.9 Anxiety disorder, unspecified; F32.A Depression, unspecified
CPT/HCPCS: 96372; 99212; 99214; G0463

== ENCOUNTER → 2022-12-25 08:54 | Outpatient (CLI) | payer BC, SELFPAY ==
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
== END ==
PROVIDERS: PCP Emergency Medicine; Visit Provider Specialist
DX: G44.309 Post-traumatic headache, unspecified, not intractable (principal); V89.2XXA Person injured in unspecified motor-vehicle accident, traffic, initial encounter
CPT/HCPCS: 70553; 95806; A9576

== ENCOUNTER 2023-02-26 19:15 | Emergency (ER) | payer BC, SELFPAY ==
[2023-02-26 19:20] VITALS: BP 136/89; PULSE 96; RESP 18; TEMP 36.6; O2SAT 100; BMI 27.1
[2023-02-26 19:34] VITALS: BP 136/89; PULSE 96; RESP 18; TEMP 36.6; O2SAT 100
--- NOTE | 2023-02-26 19:46 | EXP.UTC ---
Discharge Plan Disposition Patient Disposition: Home, Self-Care Condition: Good Prescriptions Prescriptions: New minocycline 100 mg capsule 100 mg PO Q12H 10 Days Qty: 20 0RF clindamycin HCl 300 mg capsule 300 mg PO TID 10 Days Qty: 30 0RF mupirocin 2 % ointment 1 applic topical TID 14 Days Qty: 22 1RF Rx Instructions: apply to lesions as directed ondansetron 4 mg tablet,disintegrating 4 mg PO Q8H PRN (Reason: nausea and vomiting) Qty: 6 0RF No Action lidocaine 5 % adhesive patch,medicated 1 patch topical DAILY Qty: 30 0RF Rx Instructions: leave on most painful area for up to 12 hrs gabapentin 800 mg tablet 800 mg PO QID Qty: 120 0RF methocarbamol 750 mg tablet 750 mg PO Q8H anastrozole 1 mg tablet 1 mg PO .COMPLEX Rx Instructions: 1 mg orally weekly; hydrocodone-acetaminophen 10-325 mg tablet 1 tab PO QID Nurtec ODT 75 mg tablet,disintegrating 75 mg PO Q OTHER DAY testosterone cypionate 200 mg/mL oil 200 mg IM WEEKLY Qty: 4 2RF Allergy Relief,Nasal Decongest 10-240 mg tablet extended release 24 hr See Rx Instructions .ROUTE .COMPLEX Qty: 30 0RF Dose Instruction: TAKE 1 TABLET BY MOUTH ONCE DAILY Rx Instructions: TAKE 1 TABLET BY MOUTH ONCE DAILY tadalafil (pulm. hypertension) 20 mg tablet See Rx Instructions .ROUTE .COMPLEX Qty: 30 0RF Dose Instruction: TAKE ONE TABLET BY MOUTH EVERY DAY NEEDED 30 MINUTES BEFORE SEXUAL ACTIVITY Rx Instructions: TAKE ONE TABLET BY MOUTH EVERY DAY NEEDED 30 MINUTES BEFORE SEXUAL ACTIVITY omeprazole 20 mg capsule,delayed release(DR/EC) See Rx Instructions .ROUTE .COMPLEX Qty: 90 0RF Dose Instruction: TAKE 1 CAPSULE BY MOUTH ONCE DAILY FOR ACID REFLUX Rx Instructions: TAKE 1 CAPSULE BY MOUTH ONCE DAILY FOR ACID REFLUX bupropion HCl 300 mg tablet extended release 24 hr See Rx Instructions .ROUTE .COMPLEX Qty: 90 0RF Dose Instruction: TAKE 1 TABLET ONCE DAILY FOR DEPRESSION WITH 150MG TABLET TO EQUAL 450MG DAILY Rx Instructions: TAKE 1 TABLET ONCE DAILY FOR DEPRESSION WITH 150MG TABLET TO EQUAL 450MG DAILY quetiapine 400 mg tablet See Rx Instructions .ROUTE .COMPLEX Qty: 90 0RF Dose Instruction: TAKE 1 TABLET BY MOUTH ONCE DAILY Rx Instructions: TAKE 1 TABLET BY MOUTH ONCE DAILY Referrals Follow up/Referrals: Kelechi So MD [Primary Care Provider] - See instructions Activity Restrictions/Add. Instructions Additional Instructions/Restrictions: *Start antibiotic(s) immediately and be sure to take as ordered for the FULL length of time although you may be feeling better or start to see improvement in the next 24-48 hours *Monitor closely. Outlined redness so that you can monitor easier. Follow up immediately for new or worsening symptoms including but not limited to redness, swelling, streaking from site fever or chills. *Use topical medication as prescribed *Never squeeze or pop these on your own. and do not pick at sores Seek immediate medical attention next time this occurs *Monitor Temp. Tylenol every 4 hours as needed and ibuprofen every 6 hours as needed (as long as your primary care doctor has told you that it is ok to take both. For fever, aches, pain. ER if no less that 101 despite Tylenol and ibuprofen ?Follow up with your family doctor/primary care physician in the next 48-72 hours if no improvement Straight to ER if any worsening of symptoms Clinical Impressions Clinical Impression: Cellulitis Qualifiers: Site of cellulitis: unspecified site Qualified Code(s): L03.90 - Cellulitis, unspecified Instructions Patient Instructions: Cellulitis, Clindamycin, Minocycline Discharge ED Provider: Sandra Ghotra [facility] General Stated complaint: staff infection Mode of Arrival: Ambulatory Source of Information: Patient Limitations: No Limitations Time Seen by Provider: 02/26/23
== END 2023-02-26 20:22 | disposition home or self-care (01) ==
PROVIDERS: Emergency Provider Nurse Practitioner; PCP Emergency Medicine
DX: L03.114 Cellulitis of left upper limb (principal); L03.113 Cellulitis of right upper limb; L03.115 Cellulitis of right lower limb; L03.116 Cellulitis of left lower limb; B96.89 Other specified bacterial agents as the cause of diseases classified elsewhere; F17.210 Nicotine dependence, cigarettes, uncomplicated; J45.909 Unspecified asthma, uncomplicated; I10 Essential (primary) hypertension; E78.5 Hyperlipidemia, unspecified; K21.9 Gastro-esophageal reflux disease without esophagitis; F41.9 Anxiety disorder, unspecified; F32.A Depression, unspecified
CPT/HCPCS: 87070; 87077; 87186; 87205; 99212; 99214; G0463

== ENCOUNTER → 2023-03-06 14:56 | Outpatient (CLI) | payer BC, SELFPAY | PROVIDERS: PCP Emergency Medicine; Visit Provider Specialist | DX: R13.10 Dysphagia, unspecified (principal) ==

== ENCOUNTER → 2023-03-13 11:10 | Outpatient (CLI) | payer BC, SELFPAY ==
--- NOTE | 2023-03-13 11:12 | FL_ITS ---
FINAL REPORT CLINICAL HISTORY: . 149.04 DAP 1.31 time dyspagia FINDINGS: MODIFIED BARIUM SWALLOW History: Dysphagia. FINDINGS: Fluoroscopy was provided for the speech pathologist to evaluate the swallowing mechanism. The patient was given several different consistencies of barium while the swallow was visualized fluoroscopically. The report of the speech pathologist should be consulted prior to making dietary decisions. Fluoro time: 11 minute 31 seconds DAP: 149.04 uGy.m2 IMPRESSION: Modified barium swallow under fluoroscopic guidance. Please see the report of the speech pathologist for more detail. Films reviewed , interpreted and dictated by Dr. Gutierrez. Transcribed by Rodrick Adhikari PA-C. Reviewed, Interpreted and Dictated by Bryant Gutierrez III, MD Transcribed by JANELLE Thibodeaux Authenticated and [facility]
--- NOTE | 2023-03-13 13:22 | HMH.SLMBS2 ---
Speech & Language Evaluation Speech/Language Mod Barium Swallow Start: 03/13/23 13:08 Freq: once Status: Complete Protocol: Document 03/13/23 13:08 JUANA (Rec: 03/13/23 13:22 JUANA [id number]) General Information General Current Food Consistancy Regular,Thin Liquids Dentition Good Dentition Oxygen Status Room Air Patient Orientation Person,Place,Time,Situation Ability to Follow Directions Excellent Communication Ability No Impairment Voice Voice Quality Normal Voice Pitch Normal Voice Loudness Normal MBS Recommendations Diet Dietary Recommendations Regular,Thin Liquids Treatment/Strategies Strategy/Precaution Recommend Sitting Upright (90 deg), Double Swallow,Small Bites and Sips,Alternate Liquids/Solids Referrals/Other Recommended Referrals ENT Consult Mod Barium Swallow Impressions Summary and Impressions Oral Phase Summary Oral prepatory and oral transit phases of the swallow appear to be WFL. Mr. Wesley demonstrates adequate mastication, manipulation, and transfer of all bolus consistencies within the oral phase. His primary concern reported during patient interview was feeling dry foods getting stuck and difficulty breathing. Pharyngeal Phase Impression Mild Impairment Pharyngeal Phase Summary There was noted to a mild impairment to the pharyngeal phase of Mr. Wesley's swallow 2 ' trace residue found in the valleculae with consecutive sips of a thin liquid with a straw, which led to trace penetration which was cleared with a prompted cough. During mechanical soft and regular solid trials there was jewel residual found in the vallecular space which required a subsequent effortful swallow to clear, this residual was also found to be cleared when given a puree or liquid wash of solids . During trials of solids ( m
== END ==
PROVIDERS: PCP Emergency Medicine; Visit Provider Specialist
DX: R13.10 Dysphagia, unspecified (principal); G47.33 Obstructive sleep apnea (adult) (pediatric)
CPT/HCPCS: 70371; 92611

== ENCOUNTER → 2023-04-09 15:07 | Outpatient (CLI) | payer BC, SELFPAY ==
--- NOTE | 2023-04-09 15:32 | XR_ITS ---
FINAL REPORT CLINICAL HISTORY: Nocturnal hypoxia COMPARISON: 09/24/2022 FINDINGS: 2 views of the chest were obtained . The heart is normal in size. The mediastinum is within normal limits. Nodular density is seen projecting over a mid thoracic vertebral body which may be within the left lower lobe. Lungs are otherwise clear. There is no effusion or pneumothorax. Osseous structures are unremarkable. IMPRESSION: Possible left lower lobe nodule. Recommend short-term follow-up or chest CT for further evaluation. Reviewed, Interpreted and Dictated by Ayana Bangura MD Transcribed by Dee Celis Authenticated and [facility]
== END ==
PROVIDERS: PCP Emergency Medicine; Visit Provider Specialist
DX: G47.34 Idiopathic sleep related nonobstructive alveolar hypoventilation (principal); Z72.0 Tobacco use
CPT/HCPCS: 71046

== ENCOUNTER → 2023-04-24 08:06 | Outpatient (CLI) | payer BC, SELFPAY ==
--- NOTE | 2023-04-24 | CA_ITS ---
APPROVED REPORT Exam: Exercise Treadmill Technologist: Talisha Nogueira Ht: 6 ft 0 in Wt: 198 lbs BSA: 2.12 m2 HR: 85 bpm BP: 160/97 mmHg Rhythm: NSR Indications: Chest pain, Shortness of Air Medical History Medications: Omeprazole,,,,, Lidocaine,,,,, Gabapentin,,,,, Famotidine,,,,, BuPROPION,,,,, Quetiapine,,,,, Methocarbamol,,,,, ONdansetron,,,,, ANASTROZOLE,,,,, TAdalafil,,,,, Hydrocodone-Acetaminophen,,,,, Testosterone Cypionate,,,,, Stress Test Details Test: Andrés HR Resting HR: 96 bpm Max Heart Rate (APMHR): 174 bpm Max HR Achieved: 169 bpm Target HR (85% APMHR): 148 bpm % of APMHR: 97 Recovery HR: 118 bpm HR response to stress: Normal HR response to stress BP Resting BP: 160.0/97.0 mmHg Max BP: 180.0/92.0 mmHg Recovery BP: 131.0/82.0 mmHg BP response to stress: Normal blood pressure response to stress. ECG Resting ECG: Sinus rhythm Stress EC.[address] depression Arrhythmia: None Recovery ECG: Return to baseline within 3 minutes of recovery Recovery Arrhythmia: None Clinical Exercise duration: 11:31 min Highest Stage Achieved: Exercise capacity: 12.8 METs Overall Exercise Capacity for Age: Average Stress ECG Conclusion The patient was able to exercise for a total of 11 minutes, 31 seconds. He achieved a total of 12.8 METS. He has average exercise capacity compared to age and sex matched peers. He has normal HR and BP response to exercise. Symptoms: Dyspnea, Chest pressure Arrhythmias/Ectopy: None ST-T Changes: 0.[address] depression. Conclusion: Average exercise capacity. Normal EKG response to exercise. Myoview images reported separately. Test Summary REST . . . . . . . Sitting REST 03:13 0.0 0.0 96 . 160/ 97 . . Stage 1 01:00 10.0 1.7 102 . . . . Stage 1 02:00 10.0 1.7 107 . . . . Stage 1 03:00 10.0 1.7 112 . 155/ 80 . . Stage 2 01:00 12.0 2.5 115 . . . . Stage 2 02:00 12.0 2.5 124 . . . . Stage 2 03:00 12.0 2.5 122 . 170/ 90 . . Stage 3 01:00 14.0 3.4 136 . . . . Stage 3 02:00 14.0 3.4 135 . . . . Stage 3 03:00 14.0 3.4 138 . 180/ 92 . . Stage 4 01:00 16.0 4.2 153 . . . . Stage 4 . . . . . . . Myoview Injected Stage 4 02:00 16.0 4.2 161 . . . . Stage 4 02:31 16.0 4.2 167 . . . Stop exercise at 11:31 RECOVERY 01:00 0.0 0.0 155 . 150/ 87 . . RECOVERY 02:00 0.0 0.0 140 . 150/ 87 . . RECOVERY 03:00 0.0 0.0 132 . 150/ 87 . . RECOVERY 04:00 0.0 0.0 125 . 155/ 87 . . RECOVERY 05:00 0.0 0.0 126 . 162/ 81 . . RECOVERY 06:00 0.0 0.0 118 . 143/ 80 . . RECOVERY 07:00 0.0 0.0 122 . 143/ 80 . . RECOVERY 07:28 0.0 0.0 117 . 131/ 82 . . Electronically signed by : Alida Escalante MD 04/25/2023 12:37:41
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
[2023-04-24 11:30] VITALS: PULSE 83; PULSE 90
== END ==
PROVIDERS: PCP Emergency Medicine; Visit Provider Nurse Practitioner Family
DX: R06.02 Shortness of breath (principal); R07.9 Chest pain, unspecified
CPT/HCPCS: 78452; 93017; 93018; 94060; 94640; 94726; 94727; 94729; A9502

== ENCOUNTER 2023-05-22 14:18 | Emergency (ER) | payer BC, SELFPAY ==
[2023-05-22 15:05] VITALS: BP 147/95; PULSE 103; RESP 18; TEMP 36.9; O2SAT 97; BMI 27.8
--- NOTE | 2023-05-22 16:02 | EXP.UTC ---
Discharge Plan Disposition Patient Disposition: Home, Self-Care Condition: Good Prescriptions Prescriptions: New methylprednisolone [Medrol (Chema)] 4 mg tablets,dose pack See Rx Instructions .ROUTE .COMPLEX 6 Days Qty: 21 0RF Rx Instructions: 4 mg orally ;Medrol dose taper chema No Action lidocaine 5 % adhesive patch,medicated 1 patch topical DAILY Qty: 30 0RF Rx Instructions: leave on most painful area for up to 12 hrs gabapentin 800 mg tablet 800 mg PO QID Qty: 120 0RF methocarbamol 750 mg tablet 750 mg PO Q8H anastrozole 1 mg tablet 1 mg PO .COMPLEX Rx Instructions: 1 mg orally weekly; hydrocodone-acetaminophen 10-325 mg tablet 1 tab PO QID famotidine 20 mg tablet 40 mg PO HS Qty: 30 2RF omeprazole 20 mg capsule,delayed release(DR/EC) 40 mg PO DAILY Qty: 90 0RF testosterone cypionate 200 mg/mL oil 200 mg IM WEEKLY Qty: 4 2RF tadalafil 20 mg tablet See Rx Instructions .ROUTE .COMPLEX Qty: 30 0RF Dose Instruction: TAKE ONE TABLET BY MOUTH EVERY DAY NEEDED 30 MINUTES BEFORE SEXUAL ACTIVITY Rx Instructions: TAKE ONE TABLET BY MOUTH EVERY DAY NEEDED 30 MINUTES BEFORE SEXUAL ACTIVITY lorata-dine D 10-240 mg tablet extended release 24 hr See Rx Instructions .ROUTE .COMPLEX Qty: 30 0RF Dose Instruction: TAKE 1 TABLET BY MOUTH ONCE DAILY Rx Instructions: TAKE 1 TABLET BY MOUTH ONCE DAILY bupropion HCl 300 mg tablet extended release 24 hr See Rx Instructions .ROUTE .COMPLEX Qty: 90 0RF Dose Instruction: TAKE 1 TABLET ONCE DAILY FOR DEPRESSION WITH 150MG TABLET TO EQUAL 450MG DAILY Rx Instructions: TAKE 1 TABLET ONCE DAILY FOR DEPRESSION WITH 150MG TABLET TO EQUAL 450MG DAILY quetiapine 400 mg tablet See Rx Instructions .ROUTE .COMPLEX Qty: 90 0RF Dose Instruction: TAKE 1 TABLET BY MOUTH ONCE DAILY Rx Instructions: TAKE 1 TABLET BY MOUTH ONCE DAILY Referrals Follow up/Referrals: Sae Winchester DO [Primary Care Provider] - See instructions Clinical Impressions Clinical Impression: Back pain Qualifiers: Back pain location: thoracic back pain Chronicity: acute Back pain laterality: bilateral Qualified Code(s): M54.6 - Pain in thoracic spine Instructions Patient Instructions: DI for Chronic Pain -- Adult, DI for Thoracic Back Pain Discharge ED Provider: Kayleigh Sharma [facility] HPI General Stated complaint: back pain Mode of Arrival: Ambulatory Source of Information: Patient Limitations: No Limitations Time Seen by Provider: 05/22/23 16:02 Description of Symptoms (Recalled from Triage Doc. by RN): Pts states back is inflamed and hurting he comes once a month for shots to help the pain . HEENT Symptoms (Recalled from RN notes): Yes Resp Symptoms (Recalled from RN notes): No Skin Symptoms (Recalled from RN notes): No MS Symptoms (Recalled from RN notes): No Functional Status (Recalled from RN notes): n/a History of Present Illness Provider Complaint: Pt relates that he has DDD and will have to come in for shots about monthly. He states that he typically gets a steroid shot and an anti-inflammatory and reports his last was 2 months ago. He reports going to the pain clinic for her regular medication. Related Data Home Medications Medication Instructions Recorded Confirmed methocarbamol 750 mg tablet 750 mg PO Q8H 05/09/22 05/22/23 anastrozole 1 mg tablet 1 mg PO .COMPLEX 12/18/22 05/22/23 hydrocodone 10 mg-acetaminophen 1 tab PO QID 12/18/22 05/22/23 325 mg tablet Previous Rx's Medication Instructions Recorded gabapentin 800 mg tablet 800 mg PO QID Pain #120 tabs 04/21/20 testosterone cypionate 200 mg/mL 200 mg IM WEEKLY #4 mL 02/09/22 intramuscular oil lidocaine 5 % topical patch 1 patch topical DAILY #30 ea 11/01/22 tadalafil 20 mg tablet See Rx Instructions .Route 03/21/23 .COMPLEX #30 tabs loratadine-pseudoephedrine ER 10 See Rx Instructions .
[2023-05-22 16:51] VITALS: BP 147/95; PULSE 103; RESP 18; TEMP 36.9; O2SAT 97
== END 2023-05-22 16:51 | disposition home or self-care (01) ==
PROVIDERS: Emergency Provider Nurse Practitioner Family; PCP Internal Medicine
DX: M54.6 Pain in thoracic spine (principal); F17.210 Nicotine dependence, cigarettes, uncomplicated; K21.9 Gastro-esophageal reflux disease without esophagitis; I10 Essential (primary) hypertension; E78.5 Hyperlipidemia, unspecified; J45.909 Unspecified asthma, uncomplicated
CPT/HCPCS: 96372; 99212; 99214; G0463

== ENCOUNTER 2023-09-10 16:43 | Emergency (ER) | payer BC, SELFPAY ==
[2023-09-10 16:43] VITALS: BP 160/105; PULSE 105; RESP 18; TEMP 36.6; O2SAT 96; BMI 27.1
--- NOTE | 2023-09-10 16:48 | ED_ITS ---
<Statement entered by Nina Calvert MD - 09/10/23 22:23> I was consulted by the CHINMAY, and we discussed the complexity of the problems being addressed. I approved the treatment and management plan for this patient's care in the emergency department, thus performing a substantive portion of the medical decision making. Nina Calvert MD, RADHA, FACEP Discharge Plan Disposition Patient Disposition: Home, Self-Care Condition: Good Prescriptions Prescriptions: New ciprofloxacin HCl [Cipro] 500 mg tablet 500 mg PO BID Qty: 20 0RF doxycycline hyclate 100 mg tablet 100 mg PO BID 10 Days Qty: 20 0RF No Action lidocaine 5 % adhesive patch,medicated 1 patch topical DAILY Qty: 30 0RF Rx Instructions: leave on most painful area for up to 12 hrs gabapentin 800 mg tablet 800 mg PO QID Qty: 120 0RF methocarbamol 750 mg tablet 750 mg PO Q8H anastrozole 1 mg tablet 1 mg PO .COMPLEX Rx Instructions: 1 mg orally weekly; hydrocodone-acetaminophen 10-325 mg tablet 1 tab PO QID famotidine 20 mg tablet 40 mg PO HS Qty: 30 2RF omeprazole 20 mg capsule,delayed release(DR/EC) 40 mg PO DAILY Qty: 90 0RF testosterone cypionate 200 mg/mL oil 200 mg IM WEEKLY Qty: 4 2RF lorata-dine D 10-240 mg tablet extended release 24 hr See Rx Instructions .ROUTE .COMPLEX Qty: 30 0RF Dose Instruction: TAKE 1 TABLET BY MOUTH ONCE DAILY Rx Instructions: TAKE 1 TABLET BY MOUTH ONCE DAILY quetiapine 400 mg tablet See Rx Instructions .ROUTE .COMPLEX Qty: 90 0RF Dose Instruction: TAKE 1 TABLET BY MOUTH ONCE DAILY Rx Instructions: TAKE 1 TABLET BY MOUTH ONCE DAILY tadalafil 20 mg tablet See Rx Instructions .ROUTE .COMPLEX Qty: 30 0RF Dose Instruction: TAKE ONE TABLET BY MOUTH EVERY DAY NEEDED 30 MINUTES BEFORE SEXUAL ACTIVITY Rx Instructions: TAKE ONE TABLET BY MOUTH EVERY DAY NEEDED 30 MINUTES BEFORE SEXUAL ACTIVITY bupropion HCl 150 mg tablet extended release 24 hr See Rx Instructions .ROUTE .COMPLEX Qty: 90 0RF Dose Instruction: TAKE 1 TABLET ONCE DAILY FOR DEPRESSION WITH 300MG TABLET TO EQUAL 450MG DAILY Rx Instructions: TAKE 1 TABLET ONCE DAILY FOR DEPRESSION WITH 300MG TABLET TO EQUAL 450MG DAILY methylprednisolone [Medrol (Chema)] 4 mg tablets,dose pack See Rx Instructions .ROUTE .COMPLEX 6 Days Qty: 21 0RF Rx Instructions: 4 mg orally ;Medrol dose taper chema Referrals Follow up/Referrals: Russell Baker APRN [Primary Care Provider] - See instructions Activity Restrictions/Add. Instructions Additional Instructions/Restrictions: Please take all of your antibiotics as prescribed. Follow-up with your PCP or return to ER for any redness, drainage, swelling, change in sensation or increasing pain. Clinical Impressions Clinical Impression: Puncture wound of skin from metal nail Discharge ED Provider: Nina Calvert General Adult HPI General Chief complaint: Wound/Laceration Stated complaint: step of nail with left foot Time Seen by Provider: 09/10/23 16:48 History of Present Illness HPI narrative: Patient presents for evaluation after stepping on a nail just prior to arrival. Patient states that he stepped on a nail that was nail through a piece of wood. He was wearing rubber soled shoes. He did not see in which direction that the nail punctured his foot but entered at the medial aspect of the left first MCP joint proximal to the joint. Patient states that the nail was yonatan . Related Data Home Medications Medication Instructions Recorded Confirmed methocarbamol 750 mg tablet 750 mg PO Q8H 05/09/22 05/22/23 anastrozole 1 mg tablet 1 mg PO .COMPLEX 12/18/22 05/22/23 hydrocodone 10 mg-acetaminophen 1 tab PO QID 12/18/22 05/22/23 325 mg tablet Previous Rx's Medication Instructions Recorded gabapentin 800 mg tablet 800 mg PO QID Pain #120 tabs 04/21/20 testosterone cypionate 200 mg/mL 200 mg IM WEEKLY #4 mL 02/09/22 intramuscular oil lidocaine 5 % topical patch 1 patch topical DAILY #30 ea 11/01/22 loratadine-pseudoephedrine ER 10 See Rx Instructions .Route 03/29/23 mg-240 mg tablet,extended .COMPLEX #30 tabs [id number] (lorata-dine D) famotidine 20 mg tablet 40 mg (2 x 20 mg) PO HS #30 tabs 04/04/23 omeprazole 20 mg capsule,delayed 40 mg (2 x 20 mg) PO DAILY #90 caps 04/04/23 release quetiapine 400 mg tablet See Rx Instructions .Route 04/18/23 .COMPLEX #90 tabs methylprednisolone 4 mg tablets in See Rx Instructions .Route 05/22/23 a dose pack (Medrol (Chema)) .COMPLEX 6 days #21 tabs tadalafil 20 mg tablet See Rx Instructions .Route 08/14/23 .COMPLEX #30 tabs bupropion HCl 150 mg 24 hr tablet, See Rx Instructions .Route 09/06/23 extended release .COMPLEX #90 tabs ciprofloxacin HCl 500 mg tablet 500 mg PO BID #20 tabs 09/10/23 (Cipro) doxycycline hyclate 100 mg tablet 100 mg PO BID 10 days #20 tabs 09/10/23 Allergies Allergy/AdvReac Type Severity Reaction Status Date / Time Sulfa (Sulfonamide Allergy Severe low WBCs Verified 05/22/23 15:35 Antibiotics) [facility] Disclaimer: The information contained in this section may have been updated after the patient was seen, as this information can be updated by other users. Medical History Anxiety Asthma Depression History of gastroesophageal reflux (GERD) Hyperlipidemia Hypertension Migraine Family History Other Cancer FHx: mental illness Heart attack Stroke Social History Smoking Status: Never smoker alcohol intake: never substance use type: denies use current occupational status: unemployed Travel in the last 8 weeks: None household members: significant other housing: house marital status: single current occupational exposures/hazards: No caffeine: Yes ROS Obtained: Yes Systems reviewed as appropriate & no additional complaints except as documented Physical Exam General General appearance: alert and in no apparent distress Respiratory Respiratory exam: Present normal lung sounds bilaterally; Absent respiratory distress Cardiovascular Cardiovascular exam: Present regular rate and normal rhythm Neurological Exam Neurological exam: Present alert and oriented X3 Other Other exam information: Patient has a puncture wound at the lateral aspect of the left foot just proximal to the MCP joint. No bony deformity noted. No hematoma noted. Patient is neurovascular intact distally. Patient is actively bleeding. Medical Decision Making Medical Records Medical records reviewed: Yes I reviewed the patient's medical records. Denis Inquiry Pt receiving controlled substance: No Vital Signs: 09/10/23 16:43 Temperature 97.8 F Temperature Source Oral Pulse Rate [Radial] 105 H Respiratory Rate 18 Blood Pressure [Right Arm] 160/105 H Blood Pressure Mean [Right Arm] 123 Blood Pressure Source [Right Arm] Automatic Cuff Blood Pressure Position [Right Arm] Sitting 02 Sat by Pulse Oximetry 96 Oxygen Delivery Method Room Air Orders (Tests/Meds): ED MEDICATIONS Generic Name Dose Route Start Last Admin Trade Name Freq PRN Reason Stop Dose Admin Doxycycline Hyclate 100 mg 09/10/23 17:15 Doxycycline Hycl 100 Mg Tablet PO 09/10/23 17:16 ONCE ONE Discontinued Medications Generic Name Dose Route Start Last Admin Trade Name Freq PRN Reason Stop Dose Admin Acetaminophen 1,000 mg 09/10/23 16:56 Acetaminophen 500mg Tab PO 09/10/23 16:57 ONCE ONE Ketorolac Tromethamine 30 mg 09/10/23 16:56 Ketorolac 30mg/Ml Vial IM 09/10/23 16:57 ONCE ONE Levofloxacin 750 mg 09/10/23 16:54 Levofloxacin 750 Mg Tablet PO 09/10/23 16:55 ONCE ONE ORDERS Category Date Time Status Foot XR left 2 views [XR foot LT 2V] Stat Exams 09/10/23 16:50 Ordered Medical Decision Narrative: In summary patient is a 48-year-old male who presents to the emergency department for evaluation of tapping on a yonatan nail. Patient is hemodynamically stable upon arrival, afebrile. Physical exam is remarkable for puncture wound proximal to the MCP joint medially of the left foot. No bony deformity noted or palpated. Differential diagnosis includes fracture versus joint involvement versus neurovascular injury versus tendinous injury etc. Initial workup will be conducted with plain film x-rays. Initial interventions include irrigation and scrubbing of the wound aggressively, Toradol and Tylenol, Levaquin, and doxycycline. Initial workup reviewed by me shows BMI informal interpretation no acute fracture. Given this appropriate for discharge with prescriptions for Cipro and doxycycline. Risk of worsening infection explained to the patient including osteomyelitis. Patient verbalized understanding and agreement. Critical Care Critical Care Time Critical Care Time: No
--- NOTE | 2023-09-10 16:50 | XR_ITS ---
PROCEDURE INFORMATION: Exam: XR Left Foot Exam date and time: 09/10/2023 4:54 PM Age: 48 years old Clinical indication: Injury or trauma; Other: Stepped on nail; Puncture; Foot; Left; With foreign body; Additional info: Bird nail puncture to first mcp TECHNIQUE: Imaging protocol: Radiologic exam of the left foot. Views: 1 or 2 views. COMPARISON: No relevant prior studies available. FINDINGS: Bones/joints: Normal. No acute fracture identified. No foreign body evident. Soft tissues: Normal. IMPRESSION: No acute findings.
--- NOTE | 2023-09-10 17:00 | PC.NURSE ---
RAD at BS
[2023-09-10] MEDS: levoFLOXacin 750 MG TABLET PO (17:11)
[2023-09-10] MEDS: KETOROLAC 30MG/ML VIAL 30 MG IM (17:11)
[2023-09-10] MEDS: DOXYCYCLINE HYCL 100 MG TABLET PO (17:11)
[2023-09-10] MEDS: ACETAMINOPHEN 500MG TAB 1000 MG PO (17:11)
--- NOTE | 2023-09-10 17:14 | PC.NURSE ---
Jose M MCMAHON at BS to update pt on POC
[2023-09-10 17:23] VITALS: BP 160/105; PULSE 105; RESP 18; TEMP 36.6; O2SAT 96
== END 2023-09-10 17:24 | disposition home or self-care (01) ==
PROVIDERS: Emergency Provider Student in an Organized Health Care Education/Training Program; PCP Nurse Practitioner Family
DX: S91.332A Puncture wound without foreign body, left foot, initial encounter (principal); I10 Essential (primary) hypertension; E78.5 Hyperlipidemia, unspecified; K21.9 Gastro-esophageal reflux disease without esophagitis; W45.0XXA Nail entering through skin, initial encounter
CPT/HCPCS: 73620; 96372; 99283

== ENCOUNTER 2023-10-02 14:00 | Emergency (ER) | payer BC, SELFPAY ==
[2023-10-02 14:10] VITALS: BP 145/84; PULSE 89; RESP 18; TEMP 36.8; O2SAT 97; BMI 27.8
--- NOTE | 2023-10-02 14:18 | ED_ITS ---
Discharge Plan Disposition Patient Disposition: Home, Self-Care Condition: Good Prescriptions Prescriptions: New clindamycin HCl 300 mg capsule 300 mg PO Q8H Qty: 30 0RF methylprednisolone 4 mg Tablets,Dose Pack 4 mg PO DIRECTED 6 Days Qty: 21 0RF Rx Instructions: Take 1 pack as directed for 6 days No Action lidocaine 5 % adhesive patch,medicated 1 patch topical DAILY Qty: 30 0RF Rx Instructions: leave on most painful area for up to 12 hrs bupropion HCl 300 mg tablet extended release 24 hr PO lisinopril 10 mg tablet 10 mg PO DAILY Qty: 30 2RF famotidine 40 mg tablet 40 mg PO DAILY Qty: 90 2RF lorata-dine D 10-240 mg tablet extended release 24 hr See Rx Instructions .ROUTE .COMPLEX Qty: 30 3RF Dose Instruction: TAKE 1 TABLET BY MOUTH ONCE DAILY Rx Instructions: TAKE 1 TABLET BY MOUTH ONCE DAILY quetiapine 400 mg tablet See Rx Instructions .ROUTE .COMPLEX Qty: 90 2RF Dose Instruction: TAKE 1 TABLET BY MOUTH ONCE DAILY Rx Instructions: TAKE 1 TABLET BY MOUTH ONCE DAILY gabapentin 800 mg tablet 800 mg PO QID Qty: 120 0RF methocarbamol 750 mg tablet 750 mg PO Q8H anastrozole 1 mg tablet 1 mg PO .COMPLEX Rx Instructions: 1 mg orally weekly; hydrocodone-acetaminophen 10-325 mg tablet 1 tab PO QID omeprazole 20 mg capsule,delayed release(DR/EC) 40 mg PO DAILY Qty: 90 0RF testosterone cypionate 200 mg/mL oil 200 mg IM WEEKLY Qty: 4 2RF tadalafil 20 mg tablet See Rx Instructions .ROUTE .COMPLEX Qty: 30 0RF Dose Instruction: TAKE ONE TABLET BY MOUTH EVERY DAY NEEDED 30 MINUTES BEFORE SEXUAL ACTIVITY Rx Instructions: TAKE ONE TABLET BY MOUTH EVERY DAY NEEDED 30 MINUTES BEFORE SEXUAL ACTIVITY bupropion HCl 150 mg tablet extended release 24 hr See Rx Instructions .ROUTE .COMPLEX Qty: 90 0RF Dose Instruction: TAKE 1 TABLET ONCE DAILY FOR DEPRESSION WITH 300MG TABLET TO EQUAL 450MG DAILY Rx Instructions: TAKE 1 TABLET ONCE DAILY FOR DEPRESSION WITH 300MG TABLET TO EQUAL 450MG DAILY ciprofloxacin HCl [Cipro] 500 mg tablet 500 mg PO BID Qty: 20 0RF doxycycline hyclate 100 mg tablet 100 mg PO BID 10 Days Qty: 20 0RF Referrals Follow up/Referrals: Klaber,Russell, STORE DETECTIVE [Primary Care Provider] - See instructions Activity Restrictions/Add. Instructions Additional Instructions/Restrictions: Drink plenty of fluids. Take tylenol or ibuprofen for pain or fever. Take the medications as directed. Follow up with your regular doctor. GO TO THE ER FOR ANY WORSENING SYMPTOMS Clinical Impressions Clinical Impression: Folliculitis Instructions Patient Instructions: Clindamycin, Methylprednisolone, Folliculitis, DI for Folliculitis Discharge ED Provider: Daniel Lomax [facility] [place] HPI General Stated complaint: possible skin infection on chest Time Seen by Provider: 10/02/23 14:18 History of Present Illness Provider Complaint: He states that he has multiple scabbed areas on his chest and abdomen. These symptoms began around 4 days ago. He denies any fever/chills. He denies that he is a diabetic Related Data Home Medications Medication Instructions Recorded Confirmed methocarbamol 750 mg tablet 750 mg PO Q8H 05/09/22 09/13/23 anastrozole 1 mg tablet 1 mg PO .COMPLEX 12/18/22 09/13/23 hydrocodone 10 mg-acetaminophen 1 tab PO QID 12/18/22 09/13/23 325 mg tablet bupropion HCl 300 mg 24 hr tablet, mg PO 09/13/23 09/13/23 extended release Previous Rx's Medication Instructions Recorded gabapentin 800 mg tablet 800 mg PO QID Pain #120 tabs 04/21/20 testosterone cypionate 200 mg/mL 200 mg IM WEEKLY #4 mL 02/09/22 intramuscular oil lidocaine 5 % topical patch 1 patch topical DAILY #30 ea 11/01/22 omeprazole 20 mg capsule,delayed 40 mg (2 x 20 mg) PO DAILY #90 caps 04/04/23 release tadalafil 20 mg tablet See Rx Instructions .Route 08/14/23 .COMPLEX #30 tabs bupropion HCl 150 mg 24 hr tablet, See Rx Instructions .Route 09/06/23 extended release .COMPLEX #90 tabs ciprofloxacin HCl 500 mg tablet 500 mg PO BID #20 tabs 09/10/23 (Cipro) doxycycline hyclate 100 mg tablet 100 mg PO BID 10 days #20 tabs 09/10/23 famotidine 40 mg tablet 40 mg PO DAILY #90 tabs 09/13/23 lisinopril 10 mg tablet 10 mg PO DAILY #30 tabs 09/13/23 loratadine-pseudoephedrine ER 10 See Rx Instructions .Route 09/13/23 mg-240 mg tablet,extended .COMPLEX #30 tabs [id number] (lorata-dine D) quetiapine 400 mg tablet See Rx Instructions .Route 09/13/23 .COMPLEX #90 tabs clindamycin HCl 300 mg capsule 300 mg PO Q8H #30 caps 10/02/23 methylprednisolone 4 mg tablets in 4 mg PO DIRECTED 6 days #21 tabs 10/02/23 a dose pack Allergies Allergy/AdvReac Type Severity Reaction Status Date / Time Sulfa (Sulfonamide Allergy Severe low WBCs Verified 10/02/23 14:31 Antibiotics) [facility] Disclaimer: The information contained in this section may have been updated after the patient was seen, as this information can be updated by other users. Medical History (Updated 10/02/23 @ 14:57 by Daniel Lomax APRN) Depression Anxiety History of gastroesophageal reflux (GERD) Migraine Asthma Hyperlipidemia Family History Other Cancer FHx: mental illness Heart attack Stroke Social History Smoking Status: Never smoker alcohol intake: never substance use type: denies use current occupational status: unemployed Travel in the last 8 weeks: None household members: significant other housing: house marital status: single current occupational exposures/hazards: No caffeine: Yes ROS Obtained: Yes All systems reviewed & no additional complaints except as documented Constitutional Constitutional: Denies chills and Denies fever(s) Eyes Eyes: Denies eye discharge ENT Ears, Nose, Mouth, and Throat: Denies dizziness, Denies otalgia and Denies sore throat Cardiovascular Cardiovascular: Denies chest pain Respiratory Respiratory: Denies shortness of breath, Denies chest congestion, Denies cough, Denies stridor and Denies wheezing Gastrointestinal Gastrointestingal: Denies nausea or vomiting Musculoskeletal Musculoskeletal: Reports system reviewed and no additional complaints, except as documented and Denies arthralgias Integumentary/Breasts Skin/Breast: Reports as per HPI, Reports redness and Reports rash Neurologic Neurologic: Denies dizziness and Denies paresthesias Allergic/Immunologic Allergic/Immunologic: Denies wheezing Physical Exam General General appearance: alert and in no apparent distress Head Head exam: atraumatic, normocephalic and normal inspection Eye Eye exam: Present normal appearance, PERRL and EOMI ENT ENT exam: Present normal exam, normal oropharynx, mucous membranes moist, TM's normal bilaterally and normal external ear exam Neck Neck exam: Present normal inspection, full ROM and trachea midline; Absent meningismus or lymphadenopathy Chest Chest inspection: Present normal inspection and symmetric chest wall rise; Absent tenderness Respiratory Respiratory exam: Present normal lung sounds bilaterally; Absent respiratory distress Cardiovascular Cardiovascular exam: Present regular rate and normal rhythm; Absent JVD Abdominal Exam Abdominal exam: Present soft and normal bowel sounds; Absent distention, tenderness or guarding Extremities Exam Extremities exam: Present normal inspection, full ROM and normal capillary refill; Absent calf tenderness Back Exam Back exam: Present normal inspection; Absent tenderness Neurological Exam Neurological exam: Present alert and oriented X3 Psychiatric Psychiatric exam: Present normal affect and normal mood Skin Skin exam: Present other (He has multiple small crusted lesions on his abdomen and chest. there is some mild erythema noted, no induration, no drainage.) Lymphatic Lymphatic Findings: no adenopathy Medical Decision Making Medical Records Medical records reviewed: No I reviewed the patient's medical records. Denis Inquiry Pt receiving controlled substance: No
[2023-10-02 15:02] VITALS: BP 145/84; PULSE 89; RESP 18; TEMP 36.8; O2SAT 97
== END 2023-10-02 15:02 | disposition home or self-care (01) ==
PROVIDERS: Emergency Provider Nurse Practitioner Family; PCP Nurse Practitioner Family
DX: L73.9 Follicular disorder, unspecified (principal)
CPT/HCPCS: 99212; 99214; G0463

== ENCOUNTER 2023-10-20 19:05 | Emergency (ER) | payer BC, SELFPAY ==
[2023-10-20 19:17] VITALS: BP 125/92; PULSE 100; RESP 18; TEMP 37.1; O2SAT 98; BMI 26.4
--- NOTE | 2023-10-20 19:32 | PC.NURSE ---
md at bedside at this time
--- NOTE | 2023-10-20 19:33 | XR_ITS ---
PROCEDURE INFORMATION: Exam: XR right Hand Exam date and time: 10/20/2023 7:34 PM Age: 48 years old Clinical indication: Injury or trauma; Other: Sharp object puncture; Hand; Right; Additional info: R hypothenar trauma TECHNIQUE: Imaging protocol: Radiologic exam of the left hand. Views: 3 or more views. Total images: 3 COMPARISON: No relevant prior studies available. FINDINGS: Bones/joints: No acute fracture or joint dislocation. No concerning bone lesions or calcifications. Joint spaces are well maintained. Soft tissues: No radiopaque foreign body. Suspect mild soft tissue swelling hypothenar region. IMPRESSION: 1. No acute osseous abnormality. 2. No radiopaque foreign body. 3. Mild soft tissue swelling hypothenar region.
--- NOTE | 2023-10-20 19:35 | ED_ITS ---
Discharge Plan Disposition Patient Disposition: Home, Self-Care Chief Complaint: Wound/Laceration Prescriptions Prescriptions: No Action lidocaine 5 % adhesive patch,medicated 1 patch topical DAILY Qty: 30 0RF Rx Instructions: leave on most painful area for up to 12 hrs bupropion HCl 300 mg tablet extended release 24 hr PO lisinopril 10 mg tablet 10 mg PO DAILY Qty: 30 2RF famotidine 40 mg tablet 40 mg PO DAILY Qty: 90 2RF lorata-dine D 10-240 mg tablet extended release 24 hr See Rx Instructions .ROUTE .COMPLEX Qty: 30 3RF Dose Instruction: TAKE 1 TABLET BY MOUTH ONCE DAILY Rx Instructions: TAKE 1 TABLET BY MOUTH ONCE DAILY quetiapine 400 mg tablet See Rx Instructions .ROUTE .COMPLEX Qty: 90 2RF Dose Instruction: TAKE 1 TABLET BY MOUTH ONCE DAILY Rx Instructions: TAKE 1 TABLET BY MOUTH ONCE DAILY gabapentin 800 mg tablet 800 mg PO QID Qty: 120 0RF methocarbamol 750 mg tablet 750 mg PO Q8H anastrozole 1 mg tablet 1 mg PO .COMPLEX Rx Instructions: 1 mg orally weekly; hydrocodone-acetaminophen 10-325 mg tablet 1 tab PO QID omeprazole 20 mg capsule,delayed release(DR/EC) 40 mg PO DAILY Qty: 90 0RF testosterone cypionate 200 mg/mL oil 200 mg IM WEEKLY Qty: 4 2RF tadalafil 20 mg tablet See Rx Instructions .ROUTE .COMPLEX Qty: 30 0RF Dose Instruction: TAKE ONE TABLET BY MOUTH EVERY DAY NEEDED 30 MINUTES BEFORE SEXUAL ACTIVITY Rx Instructions: TAKE ONE TABLET BY MOUTH EVERY DAY NEEDED 30 MINUTES BEFORE SEXUAL ACTIVITY bupropion HCl 150 mg tablet extended release 24 hr See Rx Instructions .ROUTE .COMPLEX Qty: 90 0RF Dose Instruction: TAKE 1 TABLET ONCE DAILY FOR DEPRESSION WITH 300MG TABLET TO EQUAL 450MG DAILY Rx Instructions: TAKE 1 TABLET ONCE DAILY FOR DEPRESSION WITH 300MG TABLET TO EQUAL 450MG DAILY ciprofloxacin HCl [Cipro] 500 mg tablet 500 mg PO BID Qty: 20 0RF doxycycline hyclate 100 mg tablet 100 mg PO BID 10 Days Qty: 20 0RF clindamycin HCl 300 mg capsule 300 mg PO Q8H Qty: 30 0RF methylprednisolone 4 mg Tablets,Dose Pack 4 mg PO DIRECTED 6 Days Qty: 21 0RF Rx Instructions: Take 1 pack as directed for 6 days Referrals Follow up/Referrals: Russell Baker APRN [Primary Care Provider] - See instructions Activity Restrictions/Add. Instructions Additional Instructions/Restrictions: At this time is felt you are safe to be discharged home. If signs or symptoms of infection such as streaking redness and pus draining from the wound please present immediately for evaluation. Otherwise please follow-up with your family doctor in 10 days to assess if sutures are ready to be removed. Do not submerge your hand in water throughout this course however it is okay to shower. Clinical Impressions Clinical Impression: Hand laceration Instructions Patient Instructions: DI for Laceration Repair Discharge ED Provider: Sea Sandoval General Adult HPI General Chief complaint: Wound/Laceration Stated complaint: AO 10/19, right hand lac Time Seen by Provider: 10/20/23 19:09 Mode of Arrival: Ambulatory Source of Information: Patient Limitations: No Limitations Description of Symptoms (Recalled from ER Triage Doc. by RN): pt to ed with wound to right hand. pt states he tripped and caught himself on a wall and when he did a steel lock went into his hand. pt is utd on tetanus History of Present Illness HPI narrative: Patient is a 48-year-old left-handed individual who presents emergency department for evaluation of trauma to his right hand. Patient is up-to-date on his tetanus vaccine. He slipped and caught himself with his right hand on a wall where the blunt end of a steel lock went into his hypothenar eminence. He presents here for continued evaluation, no other traumatic complaints at this time. Related Data Home Medications Medication Instructions Recorded Confirmed methocarbamol 750 mg tablet 750 mg PO Q8H 05/09/22 09/13/23 anastrozole 1 mg tablet 1 mg PO .COMPLEX 12/18/22 09/13/23 hydrocodone 10 mg-acetaminophen 1 tab PO QID 12/18/22 09/13/23 325 mg tablet bupropion HCl 300 mg 24 hr tablet, mg PO 09/13/23 09/13/23 extended release Previous Rx's Medication Instructions Recorded gabapentin 800 mg tablet 800 mg PO QID Pain #120 tabs 04/21/20 testosterone cypionate 200 mg/mL 200 mg IM WEEKLY #4 mL 02/09/22 intramuscular oil lidocaine 5 % topical patch 1 patch topical DAILY #30 ea 11/01/22 omeprazole 20 mg capsule,delayed 40 mg (2 x 20 mg) PO DAILY #90 caps 04/04/23 release tadalafil 20 mg tablet See Rx Instructions .Route 08/14/23 .COMPLEX #30 tabs bupropion HCl 150 mg 24 hr tablet, See Rx Instructions .Route 09/06/23 extended release .COMPLEX #90 tabs ciprofloxacin HCl 500 mg tablet 500 mg PO BID #20 tabs 09/10/23 (Cipro) doxycycline hyclate 100 mg tablet 100 mg PO BID 10 days #20 tabs 09/10/23 famotidine 40 mg tablet 40 mg PO DAILY #90 tabs 09/13/23 lisinopril 10 mg tablet 10 mg PO DAILY #30 tabs 09/13/23 loratadine-pseudoephedrine ER 10 See Rx Instructions .Route 09/13/23 mg-240 mg tablet,extended .COMPLEX #30 tabs [id number] (lorata-dine D) quetiapine 400 mg tablet See Rx Instructions .Route 09/13/23 .COMPLEX #90 tabs clindamycin HCl 300 mg capsule 300 mg PO Q8H #30 caps 10/02/23 methylprednisolone 4 mg tablets in 4 mg PO DIRECTED 6 days #21 tabs 10/02/23 a dose pack Allergies Allergy/AdvReac Type Severity Reaction Status Date / Time Sulfa (Sulfonamide Allergy Severe low WBCs Verified 10/02/23 14:31 Antibiotics) [facility] Disclaimer: The information contained in this section may have been updated after the patient was seen, as this information can be updated by other users. Medical History (Updated 10/20/23 @ 20:51 by Sea Sandoval MD) Depression Anxiety History of gastroesophageal reflux (GERD) Migraine Asthma Hyperlipidemia Family History Other Cancer FHx: mental illness Heart attack Stroke Social History Smoking Status: Current every day smoker alcohol intake: never substance use type: denies use current occupational status: unemployed Travel in the last 8 weeks: None household members: significant other housing: house marital status: single current occupational exposures/hazards: No caffeine: Yes ROS Obtained: Yes Systems reviewed as appropriate & no additional complaints except as documented Physical Exam General General appearance: alert and in no apparent distress Head Head exam: atraumatic and normocephalic Eye Eye exam: Present EOMI ENT ENT exam: Present mucous membranes moist Neck Neck exam: Present normal inspection Chest Chest inspection: Present normal inspection and symmetric chest wall rise Respiratory Respiratory exam: Absent respiratory distress Cardiovascular Cardiovascular exam: Present regular rate and normal rhythm Extremities Exam Extremities exam: Present other (Puncture wound that is oozing blood over the right hypothenar eminence. Distally neurovascularly intact in all digits of the right hand. Extension flexion abduction and adduction in the CMC, MCP, PIP, DIP joints preserved in the right hand.) Neurological Exam Neurological exam: Present alert Psychiatric Psychiatric exam: Present normal affect Skin Skin exam: Present warm and dry Medical Decision Making Denis Inquiry Pt receiving controlled substance: No Vital Signs: 10/20/23 19:17 Temperature 98.7 F Temperature Source Oral Pulse Rate [Right Radial] 100 H Respiratory Rate 18 Blood Pressure [Left Arm] 125/92 H Blood Pressure Mean [Left Arm] 103 Blood Pressure Source [Left Arm] Automatic Cuff Blood Pressure Position [Left Arm] Sitting 02 Sat by Pulse Oximetry 98 Oxygen Delivery Method Room Air Orders (Tests/Meds): ED MEDICATIONS Discontinued Medications Generic Name Dose Route Start Last Admin Trade Name Freq PRN Reason Stop Dose Admin Cocaine HCl 1 ml 10/20/23 19:33 10/20/23 19:38 Cocaine 4% Topical Soln 4ml Bottle TP 10/20/23 19:34 1 ml ONCE ONE Administration Epinephrine HCl 1 mg 10/20/23 19:33 10/20/23 19:38 Epinephrine 1 Mg/Ml Ampul TP 10/20/23 19:34 1 mg ONCE ONE Administration Lidocaine HCl 1 ml 10/20/23 19:33 10/20/23 19:38 Lidocaine 2% Urojet 10ml TP 10/20/23 19:34 1 ml ONCE ONE Administration ORDERS Category Date Time Status Hand XR left minimum 3 views [XR hand LT min 3V] Stat Exams 10/20/23 19:33 Taken Medical Decision Narrative: In summary patient is a 48-year-old male with past medical history described above who presents emergency department for evaluation of trauma to his right hand. Patient was hemodynamically stable nontoxic-appearing upon arrival, afebrile. Tetanus is up-to-date. Plain film will be obtained screening for fracture and foreign body and then wound will undergo primary repair. X-ray informally and visualized by me, no acute displaced fracture or retained foreign body. Patient underwent primary repair with success and is appropriate for discharge at this time. Procedure: Procedure performed by Sea Sandoval. Procedure performed laceration repair. Wound was cleaned with Hibiclens. Using 4-0 Prolene simple interrupted sutures were placed to close the wound on the right hyperthenar eminence. Number placed was 4. Patient tolerated the procedure well with topical lidocaine, there were no immediate complications. Critical Care Critical Care Time Critical Care Time: No
[2023-10-20] MEDS: EPINEPHrine 1 MG/ML AMPUL TP (19:38)
[2023-10-20] MEDS: COCAINE 4% TOPICAL SOLN 4ML BOTTLE 1 ML TP (19:38)
[2023-10-20] MEDS: LIDOCAINE 2% UROJET 10ML TP (19:38)
[2023-10-20] MEDS: BACITRACIN OINT 0.9GM UDP 1 EACH TP (20:56)
[2023-10-20 20:59] VITALS: BP 143/91; PULSE 99; RESP 18; TEMP 36.7; O2SAT 98
== END 2023-10-20 21:02 | disposition home or self-care (01) ==
PROVIDERS: Emergency Provider Emergency Medicine; PCP Nurse Practitioner Family
DX: S61.411A Laceration without foreign body of right hand, initial encounter (principal); F17.210 Nicotine dependence, cigarettes, uncomplicated; W26.8XXA Contact with other sharp object(s), not elsewhere classified, initial encounter
CPT/HCPCS: 12001; 73130; 99283

== ENCOUNTER 2023-11-23 17:19 | Emergency (ER) | payer BC, SELFPAY ==
--- NOTE | 2023-11-23 17:31 | XR_ITS ---
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 Views: 3 or more views. COMPARISON: No relevant prior studies available. FINDINGS: Bones/joints: No acute fracture or malalignment. Soft tissues: Distal long finger soft tissue injury. No radiopaque soft tissue foreign body. IMPRESSION: Distal long finger soft tissue injury. No radiopaque soft tissue foreign body. No acute osseous findings.
--- NOTE | 2023-11-23 17:45 | EXP.UTC ---
Discharge Plan Disposition Patient Disposition: Home, Self-Care Condition: Good Prescriptions Prescriptions: New cephalexin 500 mg capsule 500 mg PO Q8H 7 Days Qty: 21 0RF No Action lidocaine 5 % adhesive patch,medicated 1 patch topical DAILY Qty: 30 0RF Rx Instructions: leave on most painful area for up to 12 hrs bupropion HCl 300 mg tablet extended release 24 hr PO lisinopril 10 mg tablet 10 mg PO DAILY Qty: 30 2RF famotidine 40 mg tablet 40 mg PO DAILY Qty: 90 2RF lorata-dine D 10-240 mg tablet extended release 24 hr See Rx Instructions .ROUTE .COMPLEX Qty: 30 3RF Dose Instruction: TAKE 1 TABLET BY MOUTH ONCE DAILY Rx Instructions: TAKE 1 TABLET BY MOUTH ONCE DAILY quetiapine 400 mg tablet See Rx Instructions .ROUTE .COMPLEX Qty: 90 2RF Dose Instruction: TAKE 1 TABLET BY MOUTH ONCE DAILY Rx Instructions: TAKE 1 TABLET BY MOUTH ONCE DAILY gabapentin 800 mg tablet 800 mg PO QID Qty: 120 0RF methocarbamol 750 mg tablet 750 mg PO Q8H anastrozole 1 mg tablet 1 mg PO .COMPLEX Rx Instructions: 1 mg orally weekly; hydrocodone-acetaminophen 10-325 mg tablet 1 tab PO QID omeprazole 20 mg capsule,delayed release(DR/EC) 40 mg PO DAILY Qty: 90 0RF testosterone cypionate 200 mg/mL oil 200 mg IM WEEKLY Qty: 4 2RF tadalafil 20 mg tablet See Rx Instructions .ROUTE .COMPLEX Qty: 30 0RF Dose Instruction: TAKE ONE TABLET BY MOUTH EVERY DAY NEEDED 30 MINUTES BEFORE SEXUAL ACTIVITY Rx Instructions: TAKE ONE TABLET BY MOUTH EVERY DAY NEEDED 30 MINUTES BEFORE SEXUAL ACTIVITY bupropion HCl 150 mg tablet extended release 24 hr See Rx Instructions .ROUTE .COMPLEX Qty: 90 0RF Dose Instruction: TAKE 1 TABLET ONCE DAILY FOR DEPRESSION WITH 300MG TABLET TO EQUAL 450MG DAILY Rx Instructions: TAKE 1 TABLET ONCE DAILY FOR DEPRESSION WITH 300MG TABLET TO EQUAL 450MG DAILY ciprofloxacin HCl [Cipro] 500 mg tablet 500 mg PO BID Qty: 20 0RF doxycycline hyclate 100 mg tablet 100 mg PO BID 10 Days Qty: 20 0RF clindamycin HCl 300 mg capsule 300 mg PO Q8H Qty: 30 0RF methylprednisolone 4 mg Tablets,Dose Pack 4 mg PO DIRECTED 6 Days Qty: 21 0RF Rx Instructions: Take 1 pack as directed for 6 days Referrals Follow up/Referrals: Russell Baker APRN [Primary Care Provider] - See instructions Activity Restrictions/Add. 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 Tetanus updated last month following a different laceration. Onset (ago): hour(s) (3) Location: left and upper extremity Relieving factors: none Exacerbating factors: none Associated symptoms: denies other symptoms Treatments prior to arrival: none Related Data Home Medications Medication Instructions Recorded Confirmed methocarbamol 750 mg tablet 750 mg PO Q8H 05/09/22 09/13/23 anastrozole 1 mg tablet 1 mg PO .COMPLEX 12/18/22 09/13/23 hydrocodone 10 mg-acetaminophen 1 tab PO QID 12/18/22 09/13/23 325 mg tablet bupropion HCl 300 mg 24 hr tablet, mg PO 09/13/23 09/13/23 extended release Previous Rx's Medication Instructions Recorded gabapentin 800 mg tablet 800 mg PO QID Pain #120 tabs 04/21/20 testosterone cypionate 200 mg/mL 200 mg IM WEEKLY #4 mL 02/09/22 intramuscular oil lidocaine 5 % topical patch 1 patch topical DAILY #30 ea 11/01/22 omeprazole 20 mg capsule,delayed 40 mg (2 x 20 mg) PO DAILY #90 caps 04/04/23 release tadalafil 20 mg tablet See Rx Instructions .Route 08/14/23 .COMPLEX #30 tabs bupropion HCl 150 mg 24 hr tablet, See Rx Instructions .Route 09/06/23 extended release .COMPLEX #90 tabs ciprofloxacin HCl 500 mg tablet 500 mg PO BID #20 tabs 09/10/23 (Cipro) doxycycline hyclate 100 mg tablet 100 mg PO BID 10 days #20 tabs 09/10/23 famotidine 40 mg tablet 40 mg PO DAILY #90 tabs 09/13/23 lisinopril 10 mg tablet 10 mg PO DAILY #30 tabs 09/13/23 loratadine-pseudoephedrine ER 10 See Rx Instructions .Route 09/13/23 mg-240 mg tablet,extended .COMPLEX #30 tabs [id number] (lorata-dine D) quetiapine 400 mg tablet See Rx Instructions .Route 09/13/23 .COMPLEX #90 tabs clindamycin HCl 300 mg capsule 300 mg PO Q8H #30 caps 10/02/23 methylprednisolone 4 mg tablets in 4 mg PO DIRECTED 6 days #21 tabs 10/02/23 a dose pack cephalexin 500 mg capsule 500 mg PO Q8H 7 days #21 caps 11/23/23 Allergies Allergy/AdvReac Type Severity Reaction Status Date / Time Sulfa (Sulfonamide Allergy Severe low WBCs Verified 10/02/23 14:31 Antibiotics) [facility] Disclaimer: The information contained in this section may have been updated after the patient was seen, as this information can be updated by other users. Medical History (Updated 11/23/23 @ 18:35 by JANELLE Slade) Depression Anxiety History of gastroesophageal reflux (GERD) Migraine Asthma Hyperlipidemia Family History Other Cancer FHx: mental illness Heart attack Stroke Social History Smoking Status: Current every day smoker alcohol intake: never substance use type: denies use current occupational status: unemployed Travel in the last 8 weeks: None household members: significant other housing: house marital status: single current occupational exposures/hazards: No caffeine: Yes ROS Obtained: Yes All systems reviewed & no additional complaints except as documented Integumentary/Breasts Skin/Breast: Reports as per HPI Physical Exam General General appearance: alert and in no apparent distress Respiratory Respiratory exam: Present normal lung sounds bilaterally; Absent respiratory distress Cardiovascular Cardiovascular exam: Present regular rate and normal rhythm; Absent JVD Extremities Exam Extremities exam: Present full ROM and normal capillary refill; Absent calf tenderness Expanded Upper Extremity Exam Left: Hand exam: Present laceration Neurological Exam Neurological exam: Present alert and oriented X3 Psychiatric Psychiatric exam: Present normal affect and normal mood Skin Skin exam: Present warm, dry, intact and normal color Lymphatic Lymphatic Findings: no adenopathy Medical Decision Making Denis Inquiry Pt receiving controlled substance: No Orders (Tests/Meds): ORDERS Category Date Time Status Hand XR left minimum 3 views [XR hand LT min 3V] Stat Exams 11/23/23 17:31 Taken Procedures Laceration Laceration 1: Site: finger Side (If applicable): left Size (cm): 2.0 Description: flap Depth: simple, single layer Local Anesthetic: lidocaine 1% Amount of anesthesia used (mL): 2.0 Pre-repair: wound explored, irrigated extensively and extensive debridement Skin layer closed with: nylon Size (cm): 3-0 Number of sutures: 2 Technique: simple, interrupted
[2023-11-23 17:56] VITALS: BP 135/80; PULSE 109; RESP 18; TEMP 36.9; O2SAT 98; BMI 28.5
[2023-11-23] MEDS: LIDOCAINE 1% 20ML MDV 20 ML IJ (18:22)
--- NOTE | 2023-11-23 18:37 | EXP.UTC ---
Discharge Plan Disposition Patient Disposition: Home, Self-Care Condition: Good Prescriptions Prescriptions: New cephalexin 500 mg capsule 500 mg PO Q8H 7 Days Qty: 21 0RF No Action lidocaine 5 % adhesive patch,medicated 1 patch topical DAILY Qty: 30 0RF Rx Instructions: leave on most painful area for up to 12 hrs bupropion HCl 300 mg tablet extended release 24 hr PO lisinopril 10 mg tablet 10 mg PO DAILY Qty: 30 2RF famotidine 40 mg tablet 40 mg PO DAILY Qty: 90 2RF lorata-dine D 10-240 mg tablet extended release 24 hr See Rx Instructions .ROUTE .COMPLEX Qty: 30 3RF Dose Instruction: TAKE 1 TABLET BY MOUTH ONCE DAILY Rx Instructions: TAKE 1 TABLET BY MOUTH ONCE DAILY quetiapine 400 mg tablet See Rx Instructions .ROUTE .COMPLEX Qty: 90 2RF Dose Instruction: TAKE 1 TABLET BY MOUTH ONCE DAILY Rx Instructions: TAKE 1 TABLET BY MOUTH ONCE DAILY gabapentin 800 mg tablet 800 mg PO QID Qty: 120 0RF methocarbamol 750 mg tablet 750 mg PO Q8H anastrozole 1 mg tablet 1 mg PO .COMPLEX Rx Instructions: 1 mg orally weekly; hydrocodone-acetaminophen 10-325 mg tablet 1 tab PO QID omeprazole 20 mg capsule,delayed release(DR/EC) 40 mg PO DAILY Qty: 90 0RF testosterone cypionate 200 mg/mL oil 200 mg IM WEEKLY Qty: 4 2RF tadalafil 20 mg tablet See Rx Instructions .ROUTE .COMPLEX Qty: 30 0RF Dose Instruction: TAKE ONE TABLET BY MOUTH EVERY DAY NEEDED 30 MINUTES BEFORE SEXUAL ACTIVITY Rx Instructions: TAKE ONE TABLET BY MOUTH EVERY DAY NEEDED 30 MINUTES BEFORE SEXUAL ACTIVITY bupropion HCl 150 mg tablet extended release 24 hr See Rx Instructions .ROUTE .COMPLEX Qty: 90 0RF Dose Instruction: TAKE 1 TABLET ONCE DAILY FOR DEPRESSION WITH 300MG TABLET TO EQUAL 450MG DAILY Rx Instructions: TAKE 1 TABLET ONCE DAILY FOR DEPRESSION WITH 300MG TABLET TO EQUAL 450MG DAILY ciprofloxacin HCl [Cipro] 500 mg tablet 500 mg PO BID Qty: 20 0RF doxycycline hyclate 100 mg tablet 100 mg PO BID 10 Days Qty: 20 0RF clindamycin HCl 300 mg capsule 300 mg PO Q8H Qty: 30 0RF methylprednisolone 4 mg Tablets,Dose Pack 4 mg PO DIRECTED 6 Days Qty: 21 0RF Rx Instructions: Take 1 pack as directed for 6 days Referrals Follow up/Referrals: Russell Baker APRN [Primary Care Provider] - See instructions Activity Restrictions/Add. Instructions Additional Instructions/Restrictions: Keep clean and dry Monitor for signs of infection Remove stitches in 10 days Take antibiotics until gone Clinical Impressions Clinical Impression: Laceration of finger Qualifiers: Encounter type: initial encounter Finger: middle finger Damage to nail status: without damage Foreign body presence: without foreign body Laterality: left Qualified Code(s): S61.213A - Laceration without foreign body of left middle finger without damage to nail, initial encounter Instructions Patient Instructions: DI for Laceration Repair -- Simple Discharge ED Provider: Crystal An [facility] [place] HPI General Stated complaint: AO 11/23/23 1500 Laceration left middle finger Mode of Arrival: Ambulatory Source of Information: Patient Time Seen by Provider: 11/23/23 18:00 Description of Symptoms (Recalled from Triage Doc. by RN): pt presents with a lac to his middle finger that happened around 1400. pt states he was using a emery grinder on metal when he cut his finger. pt is UTD on his tetnus vaccine. HEENT Symptoms (Recalled from RN notes): No Resp Symptoms (Recalled from RN notes): No Skin Symptoms (Recalled from RN notes): Yes MS Symptoms (Recalled from RN notes): No Functional Status (Recalled from RN notes): wnl History of Present Illness Onset (ago): hour(s) (3) Location: left and upper extremity Relieving factors: none Exacerbating factors: none Associated symptoms: denies other symptoms Treatments prior to arrival: none Related Data Home Medications Medication Instructions Recorded Confirmed methocarbamol 750 mg tablet 750 mg PO Q8H 05/09/22 09/13/23 anastrozole 1 mg tablet 1 mg PO .COMPLEX 12/18/22 09/13/23 hydrocodone 10 mg-acetaminophen 1 tab PO QID 12/18/22 09/13/23 325 mg tablet bupropion HCl 300 mg 24 hr tablet, mg PO 09/13/23 09/13/23 extended release Previous Rx's Medication Instructions Recorded gabapentin 800 mg tablet 800 mg PO QID Pain #120 tabs 04/21/20 testosterone cypionate 200 mg/mL 200 mg IM WEEKLY #4 mL 02/09/22 intramuscular oil lidocaine 5 % topical patch 1 patch topical DAILY #30 ea 11/01/22 omeprazole 20 mg capsule,delayed 40 mg (2 x 20 mg) PO DAILY #90 caps 04/04/23 release tadalafil 20 mg tablet See Rx Instructions .Route 08/14/23 .COMPLEX #30 tabs bupropion HCl 150 mg 24 hr tablet, See Rx Instructions .Route 09/06/23 extended release .COMPLEX #90 tabs ciprofloxacin HCl 500 mg tablet 500 mg PO BID #20 tabs 09/10/23 (Cipro) doxycycline hyclate 100 mg tablet 100 mg PO BID 10 days #20 tabs 09/10/23 famotidine 40 mg tablet 40 mg PO DAILY #90 tabs 09/13/23 lisinopril 10 mg tablet 10 mg PO DAILY #30 tabs 09/13/23 loratadine-pseudoephedrine ER 10 See Rx Instructions .Route 09/13/23 mg-240 mg tablet,extended .COMPLEX #30 tabs [id number] (lorata-dine D) quetiapine 400 mg tablet See Rx Instructions .Route 09/13/23 .COMPLEX #90 tabs clindamycin HCl 300 mg capsule 300 mg PO Q8H #30 caps 10/02/23 methylprednisolone 4 mg tablets in 4 mg PO DIRECTED 6 days #21 tabs 10/02/23 a dose pack cephalexin 500 mg capsule 500 mg PO Q8H 7 days #21 caps 11/23/23 Allergies Allergy/AdvReac Type Severity Reaction Status Date / Time Sulfa (Sulfonamide Allergy Severe low WBCs Verified 10/02/23 14:31 Antibiotics) Worker's Comp Is this a Worker's Comp case?: No [facility] Disclaimer: The information contained in this section may have been updated after the patient was seen, as this information can be updated by other users. Medical History (Updated 11/23/23 @ 18:35 by JANELLE Slade) Depression Anxiety History of gastroesophageal reflux (GERD) Migraine Asthma Hyperlipidemia Family History Other Cancer FHx: mental illness Heart attack Stroke Social History Smoking Status: Current every day smoker alcohol intake: never substance use type: denies use current occupational status: unemployed Travel in the last 8 weeks: None household members: significant other housing: house marital status: single current occupational exposures/hazards: No caffeine: Yes ROS Obtained: Yes All systems reviewed & no additional complaints except as documented Physical Exam General General appearance: alert and in no apparent distress Respiratory Respiratory exam: Present normal lung sounds bilaterally Cardiovascular Cardiovascular exam: Present regular rate Neurological Exam Neurological exam: Present alert and oriented X3 Medical Decision Making Denis Inquiry Pt receiving controlled substance: No Vital Signs: 11/23/23 17:56 Temperature 98.4 F Temperature Source Oral Pulse Rate [Left] 109 H Respiratory Rate 18 Blood Pressure [Right Arm] 135/80 Blood Pressure Mean [Right Arm] 98 Blood Pressure Source [Right Arm] Automatic Cuff Blood Pressure Position [Right Arm] Sitting 02 Sat by Pulse Oximetry 98 Oxygen Delivery Method Room Air Orders (Tests/Meds): ED MEDICATIONS Generic Name Dose Route Start Last Admin Trade Name Freq PRN Reason Stop Dose Admin Lidocaine HCl 20 ml 11/23/23 18:18 11/23/23 18:22 Lidocaine 1% 20ml Mdv IJ 11/23/23 18:19 20 ml ONCE ONE Administration ORDERS Category Date Time Status Hand XR left minimum 3 views [XR hand LT min 3V] Stat Exams 11/23/23 17:31 Taken Procedures Laceration Laceration 1: Site: finger Side (If applicable): left Size (cm): 2 Description: flap Depth: simple, single layer Local Anesthetic: lidocaine 1% Amount of anesthesia used (mL): 2.0 Pre-repair: wound explored, irrigated extensively, deep structures intact and extensive debridement Skin layer closed with: nylon Size (cm): 3-0 Number of sutures: 2 Technique: simple, interrupted
[2023-11-23 18:51] VITALS: BP 135/80; PULSE 109; RESP 18; TEMP 36.9
== END 2023-11-23 18:56 | disposition home or self-care (01) ==
PROVIDERS: Emergency Provider Physician Assistant; PCP Nurse Practitioner Family
DX: S61.213A Laceration without foreign body of left middle finger without damage to nail, initial encounter (principal); W31.1XXA Contact with metalworking machines, initial encounter
CPT/HCPCS: 12001; 73130; 99213; 99214; G0463

== ENCOUNTER 2024-01-13 20:33 | Emergency (ER) | payer BC, SELFPAY ==
[2024-01-13 20:35] VITALS: BP 157/108; PULSE 87; RESP 18; TEMP 36.7; O2SAT 99; BMI 27.8
--- NOTE | 2024-01-13 20:47 | XR_ITS ---
PROCEDURE INFORMATION: Exam: XR Right Foot Exam date and time: 01/13/2024 8:55 PM Age: 48 years old Clinical indication: Swelling, leg or foot; Additional info: Swelling, redness, pain TECHNIQUE: Imaging protocol: Radiologic exam of the right foot. Views: 3 or more views. COMPARISON: No relevant prior studies available. FINDINGS: Bones/joints: No acute fracture. No dislocation. No definite cortical destruction. Soft tissues: Mild soft tissue swelling. IMPRESSION: Mild soft tissue swelling. Clinical correlation is needed.
--- NOTE | 2024-01-13 20:56 | HMH.EDGENADL ---
Discharge Plan Disposition Patient Disposition: Home, Self-Care Chief Complaint: Skin/Abscess/Foreign Body Prescriptions Prescriptions: No Action lidocaine 5 % adhesive patch,medicated 1 patch topical DAILY Qty: 30 0RF Rx Instructions: leave on most painful area for up to 12 hrs lisinopril 10 mg tablet 10 mg PO DAILY Qty: 30 2RF famotidine 40 mg tablet 40 mg PO DAILY Qty: 90 2RF lorata-dine D 10-240 mg tablet extended release 24 hr See Rx Instructions .ROUTE .COMPLEX Qty: 30 3RF Dose Instruction: TAKE 1 TABLET BY MOUTH ONCE DAILY Rx Instructions: TAKE 1 TABLET BY MOUTH ONCE DAILY quetiapine 400 mg tablet See Rx Instructions .ROUTE .COMPLEX Qty: 90 2RF Dose Instruction: TAKE 1 TABLET BY MOUTH ONCE DAILY Rx Instructions: TAKE 1 TABLET BY MOUTH ONCE DAILY gabapentin 800 mg tablet 800 mg PO QID Qty: 120 0RF methocarbamol 750 mg tablet 750 mg PO Q8H anastrozole 1 mg tablet 1 mg PO .COMPLEX Rx Instructions: 1 mg orally weekly; hydrocodone-acetaminophen 10-325 mg tablet 1 tab PO QID omeprazole 20 mg capsule,delayed release(DR/EC) 40 mg PO DAILY Qty: 90 0RF testosterone cypionate 200 mg/mL oil 200 mg IM WEEKLY Qty: 4 2RF bupropion HCl 150 mg tablet extended release 24 hr See Rx Instructions .ROUTE .COMPLEX Qty: 90 0RF Dose Instruction: TAKE 1 TABLET ONCE DAILY FOR DEPRESSION WITH 300MG TABLET TO EQUAL 450MG DAILY Rx Instructions: TAKE 1 TABLET ONCE DAILY FOR DEPRESSION WITH 300MG TABLET TO EQUAL 450MG DAILY bupropion HCl 300 mg tablet extended release 24 hr See Rx Instructions .ROUTE .COMPLEX Qty: 90 0RF Dose Instruction: TAKE 1 TABLET BY MOUTH ONCE DAILY FOR DEPRESSION WITH 150MG TABLET TO EQUAL 450MG DAILY Rx Instructions: TAKE 1 TABLET BY MOUTH ONCE DAILY FOR DEPRESSION WITH 150MG TABLET TO EQUAL 450MG DAILY tadalafil (pulm. hypertension) 20 mg tablet See Rx Instructions .ROUTE .COMPLEX Qty: 30 0RF Dose Instruction: TAKE ONE TABLET BY MOUTH EVERY DAY NEEDED 30 MINUTES BEFORE SEXUAL ACTIVITY Rx Instructions: TAKE ONE TABLET BY MOUTH EVERY DAY NEEDED 30 MINUTES BEFORE SEXUAL ACTIVITY ciprofloxacin HCl [Cipro] 500 mg tablet 500 mg PO BID Qty: 20 0RF doxycycline hyclate 100 mg tablet 100 mg PO BID 10 Days Qty: 20 0RF clindamycin HCl 300 mg capsule 300 mg PO Q8H Qty: 30 0RF methylprednisolone 4 mg Tablets,Dose Pack 4 mg PO DIRECTED 6 Days Qty: 21 0RF Rx Instructions: Take 1 pack as directed for 6 days cephalexin 500 mg capsule 500 mg PO Q8H 7 Days Qty: 21 0RF Referrals Follow up/Referrals: Russell Baker APRN [Primary Care Provider] - See instructions Activity Restrictions/Add. Instructions Additional Instructions/Restrictions: At this time it was felt you are safe to be discharged home. If new or worsening symptoms please do not hesitate to return the emergency department. The antibiotics I gave you today will last for 7 days. It may get slightly worse over the next 24 hours however if you have redness that continues to spread up your leg or any new signs or symptoms present here for continued evaluation. Clinical Impressions Clinical Impression: Cellulitis Instructions Patient Instructions: DI for Skin Abscess Print Language Print Language: Yemeni Discharge ED Provider: Sea Sandoval General Adult HPI General Chief complaint: Skin/Abscess/Foreign Body Stated complaint: red bump on RT foot Time Seen by Provider: 01/13/24 20:40 Mode of Arrival: Ambulatory Source of Information: Patient Limitations: No Limitations Description of Symptoms (Recalled from ER Triage Doc. by RN): Patient reports that he thought that he was bit by something on his right foot approximately 3 days ago. He reports that it became reddened and swollen within 24 hours. Patient reports that the swelling and redness have remained the same since this time, but pain has increased with weight bearing to 5/10. Pain is minimal at rest. Patient denies fevers, chills, nausea. History of Present Illness HPI narrative: Patient is a 48-year-old male with no pertinent, immunities who presents to the emergency department for evaluation of foot redness. Onset was acute, over the last 3 days. Patient was wearing his boots, does not particularly remember any trauma and since then he has had redness over the dorsal aspect of his foot that is warm. He has had some discomfort with bearing weight however he is able to still bear weight. He thinks that this originated from a bug bite on the dorsal aspect of his foot. No other acute complaints at this time Related Data Home Medications ?Medication ?Instructions ?Recorded ?Confirmed methocarbamol 750 mg tablet 750 mg PO Q8H 05/09/22 09/13/23 anastrozole 1 mg tablet 1 mg PO .COMPLEX 12/18/22 09/13/23 hydrocodone 10 mg-acetaminophen 1 tab PO QID 12/18/22 09/13/23 325 mg tablet Previous Rx's ?Medication ?Instructions ?Recorded gabapentin 800 mg tablet 800 mg PO QID Pain #120 tabs 04/21/20 testosterone cypionate 200 mg/mL 200 mg IM WEEKLY #4 mL 02/09/22 intramuscular oil lidocaine 5 % topical patch 1 patch topical DAILY #30 ea 11/01/22 omeprazole 20 mg capsule,delayed 40 mg (2 x 20 mg) PO DAILY #90 caps 04/04/23 release bupropion HCl 150 mg 24 hr tablet, See Rx Instructions .Route 09/06/23 extended release .COMPLEX #90 tabs ciprofloxacin HCl 500 mg tablet 500 mg PO BID #20 tabs 09/10/23 (Cipro) doxycycline hyclate 100 mg tablet 100 mg PO BID 10 days #20 tabs 09/10/23 famotidine 40 mg tablet 40 mg PO DAILY #90 tabs 09/13/23 lisinopril 10 mg tablet 10 mg PO DAILY #30 tabs 09/13/23 loratadine-pseudoephedrine ER 10 See Rx Instructions .Route 09/13/23 mg-240 mg tablet,extended .COMPLEX #30 tabs [id number] (lorata-dine D) quetiapine 400 mg tablet See Rx Instructions .Route 09/13/23 .COMPLEX #90 tabs clindamycin HCl 300 mg capsule 300 mg PO Q8H #30 caps 10/02/23 methylprednisolone 4 mg tablets in 4 mg PO DIRECTED 6 days #21 tabs 10/02/23 a dose pack cephalexin 500 mg capsule 500 mg PO Q8H 7 days #21 caps 11/23/23 bupropion HCl 300 mg 24 hr tablet, See Rx Instructions .Route 12/10/23 extended release .COMPLEX #90 tabs tadalafil (pulm. hypertension) 20 See Rx Instructions .Route 12/10/23 mg tablet (pulmonary hypertension) .COMPLEX #30 tabs Allergies Allergy/AdvReac Type Severity Reaction Status Date / Time Sulfa (Sulfonamide Allergy Severe low WBCs Verified 10/02/23 14:31 Antibiotics) [facility] Disclaimer: The information contained in this section may have been updated after the patient was seen, as this information can be updated by other users. Medical History (Updated 01/13/24 @ 21:43 by Sea Sandoval MD) Depression Anxiety History of gastroesophageal reflux (GERD) Migraine Asthma Hyperlipidemia Family History Other Cancer FHx: mental illness Heart attack Stroke Social History Smoking Status: Never smoker alcohol intake: never substance use type: denies use current occupational status: unemployed Travel in the last 8 weeks: None household members: significant other housing: house marital status: single current occupational exposures/hazards: No caffeine: Yes ROS Obtained: Yes Systems reviewed as appropriate & no additional complaints except as documented Physical Exam General General appearance: alert and in no apparent distress Head Head exam: atraumatic and normocephalic Eye Eye exam: Present PERRL ENT ENT exam: Present mucous membranes moist Neck Neck exam: Present normal inspection Chest Chest inspection: Present normal inspection and symmetric chest wall rise Respiratory Respiratory exam: Absent respiratory distress Cardiovascular Cardiovascular exam: Present regular rate and normal rhythm Abdominal Exam Abdominal exam: Present soft Extremities Exam Extremities exam: Present other (Palpable dorsal pedal pulse on the right, distal capillary refill preserved, there is erythema and warmth over the dorsal aspect of his right foot. It does not track up his extremity. No crepitus) Neurological Exam Neurological exam: Present alert Psychiatric Psychiatric exam: Present normal affect Skin Skin exam: Present warm and dry Medical Decision Making Denis Inquiry Pt receiving controlled substance: No Vital Signs: 01/13/24 20:35 Temperature 98.1 F Temperature Source Oral Pulse Rate [Left Radial] 87 Respiratory Rate 18 Blood Pressure [Left Arm] 157/108 H Blood Pressure Mean [Left Arm] 124 Blood Pressure Source [Left Arm] Automatic Cuff Blood Pressure Position [Left Arm] Sitting 02 Sat by Pulse Oximetry 99 Oxygen Delivery Method Room Air Orders (Tests/Meds): ED MEDICATIONS Discontinued Medications Generic Name Dose Route Start Last Admin Trade Name Freq PRN Reason Stop Dose Admin Dalbavancin 1,500 mg/ Dextrose 250 mls @ 500 mls/hr 01/13/24 20:54 01/13/24 21:26 IV 01/13/24 20:55 500 mls/hr ONCE ONE Administration ORDERS Category Date Time Status Foot XR right minimum 3 views [XR foot RT min 3V] Stat Exams 01/13/24 20:47 Taken Medical Decision Narrative: In summary patient is a 48-year-old male past medical history described above presents emergency department for evaluation of foot redness. Patient is hemodynamically stable nontoxic-appearing upon arrival, afebrile. Differential includes fracture, cellulitis, among others. Workup will be conducted with plain film. After fractures excluded dalbavancin will be given for presumed soft tissue infection. I do not have any concern for sepsis as he is well-appearing, afebrile without tachycardia therefore hematologic labs were considered but will be deferred. X-ray informally inter by me, no acute displaced fracture. Given this infection is likely an Dalvance and was administered and patient was discharged. Patient was given return precautions. Critical Care Critical Care Time Critical Care Time: No
[2024-01-13] MEDS: DALBAVANCIN HCL 1,500 MG in DEXTROSE 5 % IN WATER 250 ML 500 MG IV (21:26)
[2024-01-13 21:57] VITALS: BP 158/89; PULSE 78; RESP 18; TEMP 36.7; O2SAT 99
== END 2024-01-13 21:58 | disposition home or self-care (01) ==
PROVIDERS: Emergency Provider Emergency Medicine; PCP Nurse Practitioner Family
DX: L03.115 Cellulitis of right lower limb (principal)
CPT/HCPCS: 73630; 96374; 96375; 99284; J0875; J7060

== ENCOUNTER 2024-01-29 13:21 | Emergency (ER) | payer BC, SELFPAY ==
[2024-01-29 14:00] VITALS: BP 169/94; PULSE 84; RESP 18; TEMP 36.7; O2SAT 96; BMI 29.4
--- NOTE | 2024-01-29 14:14 | EXP.UTC ---
Discharge Plan Disposition Patient Disposition: Home, Self-Care Condition: Good Prescriptions Prescriptions: New lidocaine 4 % adhesive patch,medicated 1 patch topical DAILY PRN (Reason: pain) Qty: 10 0RF Rx Instructions: apply patch to area for 12 hours then remove and leave off for 12 hours methylprednisolone [Medrol (Chema)] 4 mg tablets,dose pack See Rx Instructions .Route .COMPLEX 6 Days Qty: 21 0RF Rx Instructions: taper pack; No Action anastrozole 1 mg tablet 1 mg PO DAILY (DME) BD Luer-Marichuy Syringe 3 mL 23 x 1 syringe MISCELLANEOUS omeprazole 40 mg capsule,delayed release(DR/EC) 40 mg PO DAILY gabapentin 800 mg tablet 800 mg PO DAILY testosterone cypionate 200 mg/mL oil 200 mg IM MONTHLY bupropion HCl 300 mg tablet extended release 24 hr 300 mg PO DAILY Referrals Follow up/Referrals: Russell Bakre APRN [Primary Care Provider] - See instructions Activity Restrictions/Add. Instructions Additional Instructions/Restrictions: Take your prescribed pain medication for pain *Remember you had a Toradol shot in the clinic today, which is similar to Motrin so do not take any Motrin for the next 8-10 hours You was given lidocaine patches these may help with pain *Ice 20 minutes every 2 hours for the first 48 hours after the initial injury followed by moist heat every 20 minutes 3-4 times a day to affected area *Muscle relaxer every as you was prescribed as needed for muscle spasms but remember, it WILL cause drowsiness You cannot take it and drive, operate machinery or care for small children. *Keep this area active, no movement leads to more stiffness, However take it easy and avoid heavy lifting pushing or pulling *Follow up with you family doctor if no improvement for further treatment Start oral steriod tomorrow Over the counter Biofreeze may help with pain Clinical Impressions Clinical Impression: Low back pain Qualifiers: Chronicity: unspecified Back pain laterality: midline Sciatica presence: unspecified whether sciatica present Qualified Code(s): M54.50 - Low back pain, unspecified Stand Alone Forms Stand Alone Forms: Work/School Release Instructions Patient Instructions: Low Back Pain, DI for Low Back Pain, Lidocaine Transdermal Patch Print Language Print Language: Georgian Discharge ED Provider: Sandra Ghotra [facility] General Stated complaint: back and leg pain Mode of Arrival: Ambulatory Source of Information: Patient Limitations: No Limitations Time Seen by Provider: 01/29/24 14:14 Description of Symptoms (Recalled from Triage Doc. 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 and sometimes it causes his back to flare up States when he does this he comes in and gets a couple shots and steriod pack and it helps Denies loss of control of bowel or bladder Related Data Home Medications ?Medication ?Instructions ?Recorded ?Confirmed anastrozole 1 mg tablet 1 mg PO DAILY 01/29/24 01/29/24 bupropion HCl 300 mg 24 hr tablet, 300 mg PO DAILY 01/29/24 01/29/24 extended release gabapentin 800 mg tablet 800 mg PO DAILY 01/29/24 01/29/24 omeprazole 40 mg capsule,delayed 40 mg PO DAILY 01/29/24 01/29/24 release syringe with needle 3 mL 23 x 1 01/29/24 01/29/24 (BD Luer-Marichuy Syringe) testosterone cypionate 200 mg/mL 200 mg IM MONTHLY 01/29/24 01/29/24 intramuscular oil Previous Rx's ?Medication ?Instructions ?Recorded lidocaine 4 % topical patch 1 patch topical DAILY PRN pain #10 01/29/24 ea methylprednisolone 4 mg tablets in See Rx Instructions .R
[2024-01-29 14:47] VITALS: BP 145/80; PULSE 78; RESP 18; TEMP 36.8; O2SAT 99
== END 2024-01-29 14:48 | disposition home or self-care (01) ==
PROVIDERS: Emergency Provider Nurse Practitioner; PCP Nurse Practitioner Family
DX: M54.50 Low back pain, unspecified (principal); G89.29 Other chronic pain
CPT/HCPCS: 96372; 99212; 99214; G0463; J1885; J2919

== ENCOUNTER 2024-06-19 12:14 | Emergency (ER) | payer OTHER, SELFPAY ==
[2024-06-19 12:41] VITALS: BP 136/94; PULSE 69; RESP 20; TEMP 36.8; O2SAT 96; BMI 30.2
--- NOTE | 2024-06-19 12:49 | EXP.UTC ---
Discharge Plan Disposition Patient Disposition: Home, Self-Care Condition: Good Prescriptions Prescriptions: New acyclovir 400 mg tablet 400 mg PO TID 7 Days Qty: 21 0RF clindamycin HCl 300 mg capsule 300 mg PO Q8H Qty: 30 0RF mupirocin 2 % ointment 1 applic topical TID 7 Days Qty: 22 2RF methylprednisolone 4 mg Tablets,Dose Pack 4 mg PO DIRECTED 6 Days Qty: 21 0RF Rx Instructions: Take 1 pack as directed for 6 days No Action tizanidine 4 mg capsule 4 mg PO HS PRN Vraylar 1.5 mg capsule 1.5 mg PO DAILY Qty: 30 3RF ketoconazole 2 % cream 1 applic topical BID Qty: 30 0RF bupropion HCl 300 mg tablet extended release 24 hr See Rx Instructions .ROUTE .COMPLEX Qty: 90 0RF Dose Instruction: TAKE 1 TABLET BY MOUTH ONCE DAILY FOR DEPRESSION WITH 150MG TABLET TO EQUAL 450MG DAILY Rx Instructions: TAKE 1 TABLET BY MOUTH ONCE DAILY FOR DEPRESSION WITH 150MG TABLET TO EQUAL 450MG DAILY tadalafil 20 mg tablet 20 mg PO DAILY PRN (Reason: sexual activity) Qty: 30 2RF anastrozole 1 mg tablet 1 mg PO DAILY (DME) BD Luer-Marichuy Syringe 3 mL 23 x 1 syringe MISCELLANEOUS omeprazole 40 mg capsule,delayed release(DR/EC) 40 mg PO DAILY gabapentin 800 mg tablet 800 mg PO DAILY testosterone cypionate 200 mg/mL oil 200 mg IM MONTHLY lidocaine 4 % adhesive patch,medicated 1 patch topical DAILY PRN (Reason: pain) Qty: 10 0RF Rx Instructions: apply patch to area for 12 hours then remove and leave off for 12 hours Referrals Follow up/Referrals: Russell Baker APRN [Primary Care Provider] - See instructions Activity Restrictions/Add. Instructions Additional Instructions/Restrictions: Keep the affected areas as clean and dry you can. Follow up with your regular doctor. Take the antibiotics as directed and apply the topical antibiotics to the affected areas as directed. Apply warm wet compresses to the affected area on your right upper arm three or four times per day for the next few days. GO TO THE ER FOR ANY WORSENING SYMPTOMS Clinical Impressions Clinical Impression: Herpesviral vesicular dermatitis, Cellulitis Instructions Patient Instructions: Cellulitis, DI for Cold Sores, Acyclovir, Clindamycin Print Language Print Language: Sinhala Discharge ED Provider: Daniel Lomax [facility] [place] HPI General Stated complaint: back pain-no acc,herpes flare up,inf on up R arm Mode of Arrival: Ambulatory Source of Information: Patient Time Seen by Provider: 06/19/24 12:49 Description of Symptoms (Recalled from Triage Doc. by RN): JOINT ACHY AND SWOLLEN ALL OVER, RASH ON HANDS AND ARM, HERPES FLARE UP AROUND MOUTH AREA HEENT Symptoms (Recalled from RN notes): Yes Resp Symptoms (Recalled from RN notes): No Skin Symptoms (Recalled from RN notes): Yes MS Symptoms (Recalled from RN notes): Yes Functional Status (Recalled from RN notes): HURTS TO WALK, SWOLLEN History of Present Illness Provider Complaint: He states that he has several complaints. He has a large fever blister on his upper lip that has been present for the past 4 days. In the past he has taken antiviral medications for these and it helped, so he is requesting to have medication prescribed for this. He also states that he has been having joint pain and malaise. He states that when he has an outbreak of a fever blister he usually has these symptoms with it. He also states that he has areas of redness on his right arm. He has a history of getting cellulitis. Related Data Home Medications ?Medication ?Instructions ?Recorded ?Confirmed anastrozole 1 mg tablet 1 mg PO DAILY 01/29/24 03/11/24 gabapentin 800 mg tablet 800 mg PO DAILY 01/29/24 03/11/24 omeprazole 40 mg capsule,delayed 40 mg PO DAILY 01/29/24 03/11/24 release syringe with needle 3 mL 23 x 1 01/29/24 03/11/24 (BD Luer-Marichuy Syringe) testosterone cypionate 200 mg/mL 200 mg IM MONTHLY 01/29/24 03/11/24 intramuscular oil tizanidine 4 mg capsule 4 mg PO HS PRN 03/11/24 03/11/24 Previous Rx's ?Medication ?Instructions ?Recorded lidocaine 4 % topical patch 1 patch topical DAILY PRN pain #10 01/29/24 ea cariprazine 1.5 mg capsule 1.5 mg PO DAILY #30 caps 03/11/24 (Vraylar) ketoconazole 2 % topical cream 1 applic topical BID #30 grams 03/11/24 bupropion HCl 300 mg 24 hr tablet, See Rx Instructions .Route 04/03/24 extended release .COMPLEX #90 tabs tadalafil 20 mg tablet 20 mg PO DAILY PRN sexual activity 05/30/24 #30 tabs acyclovir 400 mg tablet 400 mg PO TID 7 days #21 tabs 06/19/24 clindamycin HCl 300 mg capsule 300 mg PO Q8H #30 caps 06/19/24 methylprednisolone 4 mg tablets in 4 mg PO DIRECTED 6 days #21 tabs 06/19/24 a dose pack mupirocin 2 % topical ointment 1 applic topical TID 7 days #22 06/19/24 grams Allergies Allergy/AdvReac Type Severity Reaction Status Date / Time Sulfa (Sulfonamide Allergy Severe low WBCs Verified 03/11/24 16:20 Antibiotics) Worker's Comp Is this a Worker's Comp case?: No [facility] Disclaimer: The information contained in this section may have been updated after the patient was seen, as this information can be updated by other users. Medical History (Updated 06/19/24 @ 13:20 by Daniel Lomax APRN) History of gastroesophageal reflux (GERD) Family History Other Cancer FHx: mental illness Heart attack Stroke Social History Smoking Status: Never smoker alcohol intake: never substance use type: denies use current occupational status: unemployed Travel in the last 8 weeks: None household members: significant other housing: house marital status: single current occupational exposures/hazards: No caffeine: Yes Have you lived/traveled outside [place] in past 30 days?: No Contact w/someone who lives/traveled outside [place] past 30 days?: No Exposure to someone with infectious disease in past 14 days?: No Do you have a fever (greater than 100.4 F or 38 C)?: No Have you tested positive for COVID-19: No Exposed to someone with COVID-19 in past 14 days?: No Do you have a sore throat?: No Do you have a cough?: No Do you have any weakness?: No Do you have any diarrhea?: No Are you experiencing any unusual bleeding?: No Do you have any muscle aches/pain?: No Do you have any abdominal pain?: No Are you experiencing loss of taste or smell?: No ROS Obtained: Yes All systems reviewed & no additional complaints except as documented Constitutional Constitutional: Denies chills and Denies fever(s) Eyes Eyes: Denies eye discharge ENT Ears, Nose, Mouth, and Throat: Denies dizziness, Denies otalgia and Denies sore throat Cardiovascular Cardiovascular: Denies chest pain Respiratory Respiratory: Denies shortness of breath, Denies chest congestion, Denies cough, Denies stridor and Denies wheezing Gastrointestinal Gastrointestingal: Denies nausea or vomiting Musculoskeletal Musculoskeletal: Reports as per HPI and Reports arthralgias Integumentary/Breasts Skin/Breast: Reports as per HPI and Reports rash Neurologic Neurologic: Denies dizziness and Denies paresthesias Allergic/Immunologic Allergic/Immunologic: Denies wheezing Physical Exam General General appearance: alert and in no apparent distress Head Head exam: atraumatic, normocephalic and normal inspection Eye Eye exam: Present normal appearance, PERRL and EOMI ENT ENT exam: Present mucous membranes moist, TM's normal bilaterally and normal external ear exam Expanded ENT Exam Nose exam: Absent sinus tenderness Nasal speculum exam: Bilateral: normal Mouth exam: Present normal external inspection; Absent drooling Teeth exam: Present dental caries Throat exam: Present tonsillar erythema Neck Neck exam: Present normal inspection, full ROM and trachea midline; Absent meningismus or lymphadenopathy Chest Chest inspection: Present normal inspection and symmetric chest wall rise; Absent tenderness Respiratory Respiratory exam: Present normal lung sounds bilaterally; Absent respiratory distress Cardiovascular Cardiovascular exam: Present regular rate and normal rhythm; Absent JVD Abdominal Exam Abdominal exam: Present soft and normal bowel sounds; Absent distention, tenderness or guarding Extremities Exam Extremities exam: Present normal inspection, full ROM and normal capillary refill; Absent calf tenderness Back Exam Back exam: Present normal inspection; Absent tenderness Neurological Exam Neurological exam: Present alert and oriented X3 Psychiatric Psychiatric exam: Present normal affect and normal mood Skin Skin exam: Present rash (there is an area of vesicles noted just above his upper lip on the right side of his face. There are multiple areas of erythema on his right forearm. No open wounds and no drainage. ) Lymphatic Lymphatic Findings: no adenopathy Medical Decision Making Medical Records Medical records reviewed: No I reviewed the patient's medical records. Screening: Per USPSTF and CDC recommendations, given the prevalence of disease in our region, it is our hospital?s policy to screen for HIV and viral Hepatitis for all patients aged 18 and over and those with ongoing risk factors. Denis Inquiry Pt receiving controlled substance: No Vital Signs: 06/19/24 12:41 Temperature 98.3 F Temperature Source Oral Pulse Rate [Left Radial] 69 Respiratory Rate 20 Blood Pressure [Left Arm] 136/94 H Blood Pressure Mean [Left Arm] 108 02 Sat by Pulse Oximetry 96
[2024-06-19] MEDS: LIDOCAINE 1% 5ML PF VIAL IM (13:00)
[2024-06-19] MEDS: cefTRIAXone 1GM VIAL 1 GM IM (13:00)
[2024-06-19] MEDS: DEXAMETHASONE 4MG/ML 1ML VIAL 8 MG IM (13:01)
[2024-06-19 13:23] VITALS: BP 136/94; PULSE 69; RESP 20; TEMP 36.8
== END 2024-06-19 13:28 | disposition home or self-care (01) ==
PROVIDERS: Emergency Provider Nurse Practitioner Family; PCP Nurse Practitioner Family
DX: B00.1 Herpesviral vesicular dermatitis (principal)
CPT/HCPCS: 96372; 99213; G0381; J0696; J1100

== ENCOUNTER 2024-07-28 15:35 | Outpatient (CLI) | payer OTHER, SELFPAY ==
[2024-07-28 16:42] LABS: Alanine Aminotransferase 95 U/L (12-78); Albumin Level 4.3 g/dl (3.5-5.0); Alkaline Phosphatase 72 U/L (38-126); Aspartate Amino Transferase 52 U/L (17-59); Bilirubin,Direct 0.3 mg/dl (0.0-0.4); Bilirubin,Indirect 0.1 mg/dL (0.0-0.9); Bilirubin,Total 0.4 mg/dl (0.2-1.3); Bilirubin,Unconjugated 0.1 mg/dL (0.0-1.1); Total Protein,Serum 6.6 g/dl (6.3-8.2)
== END 2024-07-28 23:59 | disposition home or self-care (01) ==
PROVIDERS: PCP Nurse Practitioner Family; Visit Provider Nurse Practitioner
DX: B35.1 Tinea unguium (principal); L03.90 Cellulitis, unspecified
CPT/HCPCS: 36415; 80076; 87102; 87206; 87220

== ENCOUNTER 2024-11-05 09:28 | Outpatient (CLI) | payer OTHER, SELFPAY ==
[2024-11-05 10:28] LABS: Albumin Level 4.2 g/dl (3.5-5.0)
[2024-11-05 10:31] LABS: Alanine Aminotransferase 40 U/L (12-78); Alkaline Phosphatase 56 U/L (38-126); Aspartate Amino Transferase 33 U/L (17-59); Bilirubin,Direct 0.2 mg/dl (0.0-0.4); Bilirubin,Indirect 0.4 mg/dL (0.0-0.9); Bilirubin,Total 0.6 mg/dl (0.2-1.3); Bilirubin,Unconjugated 0.4 mg/dL (0.0-1.1); Total Protein,Serum 6.6 g/dl (6.3-8.2)
== END 2024-11-05 23:59 | disposition home or self-care (01) ==
LOC: LAB 09:29
PROVIDERS: PCP Nurse Practitioner Family; Visit Provider Nurse Practitioner
DX: B35.1 Tinea unguium (principal)
CPT/HCPCS: 36415; 80076

== ENCOUNTER 2024-11-15 22:29 | Emergency (ER) | payer OTHER, SELFPAY ==
--- OUTSIDE RECORDS SUMMARY | 2024-11-15 22:35 | XMS_ITS | Clinical Summary ---
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 Name Role Phone Unavailable Primary Care Provider Unavailabl e Allergies Active Allergy Reactions Criticality Noted Date Comments Sulfa (Sulfonamide Antibiotics) 09/2023 Medications No known medications Social History Tobacco Use Types Packs/Day Years Used Date Smoking Tobacco: Never Assessed Sex and Gender Information Value Date Recorded Sex Assigned at Not on file Legal Sex Male 5:36 PM CDT Gender Identity Not on file Sexual Orientation Not on file Last Filed Vital Signs Vital Sign Reading Time Taken Comments Blood Pressure 148/85 04/07/2024 3:38 AM EST Pulse 98 04/07/2024 3:38 AM EST Temperature 36.7 C (98 F) 04/07/2024 3:38 AM EST Respiratory Rate 20 04/07/2024 3:38 AM EST Oxygen Saturation 100% 04/07/2024 3:38 AM EST Inhaled Oxygen Concentration - - Weight 90.7 kg (200 lb) 04/07/2024 3:38 AM EST Height 180.3 cm (5' 11 ) 04/07/2024 3:38 AM EST Body Mass Index 27.89 04/07/2024 3:38 AM EST Plan of Treatment Health Maintenance Due Date Last Done Comments CT Colonography 1977 Colonoscopy 1977 Colorectal Cancer Screening 1977 FOBT/FIT 1977 Fit-DNA (Cologuard) 1977 Sigmoidoscopy 1977 Depression Screening (12+) 1989 Tobacco Cessation Counseling and Screening (12+) 1989 HIV Screening 1992 Hepatitis C Screening 1995 Lipid Panel 2012 COVID-19 VACCINE (2023-2 5 season) 2024 Influenza Vaccine (Season Ended) 2025 DTAP/TDAP/TD VACCINES (3 - T d or Tdap) 04/06/2030 04/06/2020, 12/17/2014 Pneumococcal Vaccine: 0-49 Years Aged Out No longer eligible b ased on patient's age to complete this topic Insurance
--- OUTSIDE RECORDS SUMMARY | 2024-11-15 22:35 | XMS_ITS | Referral Summary ---
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
--- OUTSIDE RECORDS SUMMARY | 2024-11-15 22:35 | XMS_ITS | Data Portability ---
Author Organization [facility] Address [address] [place] [address] Assessment No assessment recorded. Plan of Treatment Reminders Order Date Submit Date Provider Last Modified By Organization Details Last Modified Time Details Appointments OV EST 15 2024 01:30P M Tra Mead Jr, MD Not available Not available Not available Lab CBC [address] (Lab Registration) , [address] [place], [address], 07/17/2024 08:34:49 testoster one, free, serum 2024 025 [facility] (Lab Registration) , [address] [place], [address], 07/21/2024 05:08:34 testoster one, total, serum 2024 025 [facility] (Lab Registration) , [address] [place], [address], 07/17/2024 11:11:12 CBC [address] (Lab Registration) , [address] [place], [address], 01/04/2024 08:48:41 testoster one, free, serum 2023 024 [facility] (Lab Registration) , [address] [place], [address], 01/06/2024 14:10:07 PSA, serum or plasma 2023 024 [email or web address] [facility] (Lab Registration) , [address] [place] [address] [place], [address], 01/04/2024 08:48:41 testoster one, free + total, serum [email or web address] (Lab Registration) , [address] [place] [address] [place], [address], 06/20/2023 07:10:39 CBC 2023 024 [facility] (Lab Registration) , [address] [place] [address] [place], [address], 06/13/2023 16:00:47 testoster one, free + total, serum 2022 023 [facility] (Lab Registration) , [address] [place] [address] [place], [address], 12/03/2022 06:42:03 CBC [address] [facility] (Lab Registration) , [address] [place] [address] [place], [address], 12/04/2022 10:51:55 PSA, serum or plasma 2022 023 [facility] (Lab Registration) , [address] [place] [address] [place], [address], 11/28/2022 06:44:22 Referral None recorded. Procedures None recorded. Surgeries None recorded. Imaging None recorded. Medication Orders testoster one cypionate 200 mg/mL intramusc ular oil 2024 025 [facility], [address] [place] [address], [facility] [address], [address], 07/16/2024 13:48:54 anastrozo le 1 mg tablet 2024 025 [facility], [address] [place] [address], [address], [place], [address], 07/16/2024 13:48:52 testoster one cypionate 200 mg/mL intramusc ular oil 2023 024 [facility], [address] [place] [address], [address], [place], [address], 01/02/2024 13:13:19 anastrozo le 1 mg tablet 2023 024 [facility], [address] [place] [address], [address], [place], [address], 01/09/2024 10:27:19 testoster one cypionate 200 mg/mL intramusc ular oil 2023 024 [facility], [address] [place] [address], [address], [place], [address], 06/13/2023 13:18:45 anastrozo le 1 mg tablet 2023 024 [facility], [address] [place] [address], [address], [place], [address], 06/13/2023 13:18:46 testoster one cypionate 200 mg/mL intramusc ular oil 2022 023 [facility], [address] [place] [address], [address], [place], [address], 11/27/2022 14:43:19 anastrozo le 1 mg tablet 2022 023 [facility], [address] [place] [address], [address], [place], [address], 11/27/2022 15:13:41 testoster one cypionate 200 mg/mL intramusc ular oil 2021 022 [facility], [address] [place] [address], [address], [place], [address], 04/24/2022 10:39:40 anastrozo le 1 mg tablet 2021 022 [facility], [address] [facility], [address], [place], [address], 04/24/2022 10:39:41 Patient TargetsNo targets recorded. Patient InstructionsNo instructions recorded. Reason for Referral None Reported. Results Created Date Observation Date Name Description Value Unit Range Abnormal Flag Note LastModifiedBy Organization Detail LastModifiedTime 11/28/1911/27/2022 CBC NO DIFF (HEMO GRAM) WBC 5.21 K/uL 4.5-11 .5 Not Available [facility] (Pre-Op Clinic) [address] [place] [address] [place], [address], 11/27/2022 19:26:14 11/28/1911/27/2022 CBC NO DIFF (HEMO GRAM) RBC 5.04 M/uL 4.0-5. 4 Not Available [facility] (Pre-Op Clinic) [address] [place] [address] [place], [address], 11/27/2022 19:26:14 11/28/19 23 11/27/2022 CBC NO DIFF (HEMO GRAM) HGB 15.5 g/dL 14.0-1 8.0 Not Available [facility] (Pre-Op Clinic) [address] [place] [address] [place], [address], 11/27/2022 19:26:14 11/28/1911/27/2022 CBC NO DIFF (HEMO GRAM) HCT 44.2 % 40-54 Not Available [facility] (Pre-Op Clinic) [address] [place] [address] [place], [address], 11/27/2022 19:26:14 11/28/1911/27/2022 CBC NO DIFF (HEMO GRAM) MCV 87.7 fL 80.0-1 00.0 Not Available [facility] (Pre-Op Clinic) [address] [place] [address] [place], [address], 11/27/2022 19:26:14 11/28/1924 1111/27/2022 CBC NO DIFF (HEMO GRAM) MCH 30.8 pg 26.0-3 2.0 Not Available [facility] (Pre-Op Clinic) [address] [place] [address] [place], [address], 11/27/2022 19:26:14 11/28/19 23 11/27/2022 CBC NO DIFF (HEMO GRAM) MCHC 35.1 g/dL 32.0-3 6.0 Not Available [facility] (Pre-Op Clinic) [address] [place] [address] [place], [address], 11/27/2022 19:26:14 11/28/19 23 11/27/2022 CBC NO DIFF (HEMO GRAM) RDW 12.4 % 11.5-1 4.5 Not Available [facility] (Pre-Op [facility]) [address] [place] [address] [place], [address], 11/27/2022 19:26:14 11/28/19 23 11/27/2022 CBC NO DIFF (HEMO GRAM) platelet count 231 K/uL 142-42 4 Not Available [facility] (Pre-Op Clinic) [address] [place] [address] [place], [address], 11/27/2022 19:26:14 11/28/19 23 11/27/2022 CBC NO DIFF (HEMO GRAM) MPV 10.1 fL 6.8-10 .2 Not Available [facility] (Pre-Op Clinic) [address] [place] [address] [place], [address], 11/27/2022 19:26:14 11/28/19 23 11/27/2022 CBC NO DIFF (HEMO GRAM) note Unles s other darby noted testi ng perfo rmed at: [facility] [address] [place] [address] Ascencion case MD Not Available [facility] (Pre-Op Clinic) [address] [place] [address] [place], [address], 11/27/2022 19:26:14 11/28/19 23 11/27/2022 PROST ATE SPECI FIC AG (PSA) PSA 0.86 NG/mL 0.00-4 .00 Not Available [facility] (Pre-Op Clinic) [address] [place] [address] [place], [address], 11/27/2022 20:39:49 11/28/19 23 11/27/2022 PROST ATE SPECI FIC AG (PSA) note Unles s other darby noted testi ng perfo rmed at: [facility] [address] [place] [address] Ascencion case MD Not Available [facility] (Pre-Op Clinic) [address] [place] [address] [place], [address], 11/27/2022 20:39:49 11/28/19 23 11/27/2022 TESTO STERO NE, FREE AND TOTAL note Unles s other darby noted testi ng perfo rmed at: [facility] [address] [place] [address] Ascencion case MD Not Available [facility] (Pre-Op Clinic) [address] [place] [address] [place], [address], 12/03/2022 06:42:03 11/28/19 23 12/03/2022 TESTO STERO NE, FREE AND TOTAL testosterone , total 220 NG/dL 264-91 6 low Adult male refer ence inter marcos is based on a popul ation of healt hy [place] males (BMI <30) betwe en 19 and 39 years old. Zina collado et.al . EM 2017, 102;1 161-1 173. PMID: 67871 103. Adult male refer ence inter marcos is based on a popul ation of healt hy [place] males (BMI <30) betwe en 19 and 39 years old. Zina collado et.al . JCEM 2017, 102;1 161-1 173. PMID: 19443 103. Not Available [facility] (Pre-Op Clinic) [address] [place] [address] [place], [address], 12/03/2022 06:42:03 11/28/19 23 12/03/2022 TESTO STERO NE, FREE AND TOTAL testosterone , free (direct) 1.6 pg/mL 6.8-21 .5 low Perfo rmed at: - [facility] [address] [facility], [place] [address] Lab Direc tor: Obdulio hansen PhD, Phone : [phone] Perfo rmed at: - [facility] [address] [place] [address] Lab Direc tor: Josseline rust MD, Phone : [phone] Perfo rmed at: - [facility] n [address] [facility], [place] [address] Lab Direc tor: Obdulio hansen PhD, Phone : [phone] Perfo rmed at: - [facility] [address] [place] [phone] Lab Direc tor: Josseline rust MD, Phone : [phone] Not Available [facility] (Pre-Op Clinic) [address] [place] [address] [place], [address], 12/03/2022 06:42:03 06/13/19 24 06/13/2023 CBC AUTO NO DIFF (HEMO GRAM) WBC 5.5 10 4.5-11 .5 Not Available [facility] (Lab Registration) [address] [place], [address], 06/13/2023 16:00:47 06/13/19 24 06/13/2023 CBC AUTO NO DIFF (HEMO GRAM) RBC 5.47 10 4.25-5 .57 Not Available [facility] (Lab Registration) [address], [address], 06/13/2023 16:00:47 06/13/19 24 06/13/2023 CBC AUTO NO DIFF (HEMO GRAM) HGB 16.9 g/dL 13.5-1 7.2 Not Available [facility] (Lab Registration) [address] [place], [address], 06/13/2023 16:00:47 06/13/19 24 06/13/2023 CBC AUTO NO DIFF (HEMO GRAM) HCT 48.8 % 42.0-5 2.0 Not Available [facility] (Lab Registration) [address] [place], [address], 06/13/2023 16:00:47 06/13/19 24 06/13/2023 CBC AUTO NO DIFF (HEMO GRAM) MCV 89.2 fL 80-95 Not Available [facility] (Lab Registration) [address] [place], [address], 06/13/2023 16:00:47 06/13/19 24 06/13/2023 CBC AUTO NO DIFF (HEMO GRAM) MCH 30.9 pg 27.0-3 4.0 Not Available [facility] (Lab Registration) [address] [place], [address], 06/13/2023 16:00:47 06/13/19 24 06/13/2023 CBC AUTO NO DIFF (HEMO GRAM) MCHC 34.6 g/dL 32.0-3 6.0 Not Available [facility] (Lab Registration) [address] [place], [address], 06/13/2023 16:00:47 06/13/19 24 06/13/2023 CBC AUTO NO DIFF (HEMO GRAM) platelet count 165 10 150-45 0 Not Available [facility] (Lab Registration) [address] [place], [address], 06/13/2023 16:00:47 06/13/19 24 06/13/2023 CBC AUTO NO DIFF (HEMO GRAM) RDW 12.5 % 12.3-1 5.1 Not Available [facility] (Lab Registration) [address] [place], [address], 06/13/2023 16:00:47 06/13/19 24 06/13/2023 CBC AUTO NO DIFF (HEMO GRAM) MPV 11.5 fL 7.4-10 .4 high Not Available [facility] (Lab Registration) [address] , [place], [address], 06/13/2023 16:00:47 06/13/19 24 06/13/2023 CBC AUTO NO DIFF (HEMO GRAM) note Unles s other darby noted testi ng perfo rmed at: [facility] [address] [place] [address] [phone] Ascencion case MD CLIA: [id number] Not Available [facility] (Lab Registration) [address] , [place], [address], 06/13/2023 16:00:47 06/13/19 24 06/13/2023 TESTO STERO NE TOTAL note Unles s other darby noted testi ng perfo rmed at: [facility] [address] [place] [address] [phone] Ascencion case MD CLIA: [id number] Not Available [facility] (Lab Registration) [address] , [place], [address], 06/14/2023 12:15:19 06/13/19 24 06/14/2023 TESTO STERO NE TOTAL testosterone , serum 1150 NG/dL 264-91 6 high Adult male refer ence inter marcos is based on a popul ation of healt hy [place] males (BMI <30) betwe en 19 and 39 years old. Zina collado, et.al . JCEM 2017, 102;1 161-1 173. PMID: 62729 103. Perfo rmed at: CB [facility] [address], [place] [address] Lab Direc tor: Obdulio hansen PhD, Phone : [phone] Not Available [facility] (Lab Registration) [address] [place], [address], 06/14/2023 12:15:19 06/13/19 24 06/13/2023 TESTO STERO NE FREE note Unles s other darby noted testi ng perfo rmed at: [facility] [address] [place] [address] [phone] Ascencion case MD CLIA: [id number] Not Available [facility] (Lab Registration) [address] [place], [address], 06/23/2023 02:10:19 06/13/19 24 06/23/2023 TESTO STERO NE FREE free testosterone (direct) 21.1 pg/mL 6.8-21 .5 Perfo rmed at: - [facility] [place] [address] [facility] , [place] [address] Lab Direc tor: Josseline rust MD, Phone : [phone] Not Available [facility] (Lab Registration) [address] [place], [address], 06/23/2023 02:10:19 01/02/20 24 01/02/2024 CBC AUTO NO DIFF (HEMO GRAM) WBC 5.5 10 4.5-11 .5 Not Available [facility] (Lab Registration) [address] [place], [address], 01/02/2024 17:14:38 01/02/20 24 01/02/2024 CBC AUTO NO DIFF (HEMO GRAM) RBC 5.21 10 4.25-5 .57 Not Available [facility] (Lab Registration) [address] [place], [address], 01/02/2024 17:14:38 01/02/20 24 01/02/2024 CBC AUTO NO DIFF (HEMO GRAM) HGB 16.5 g/dL 13.5-1 7.2 Not Available [facility] (Lab Registration) [address] [place], [address], 01/02/2024 17:14:38 01/02/20 24 01/02/2024 CBC AUTO NO DIFF (HEMO GRAM) HCT 48.3 % 42.0-5 2.0 Not Available [facility] (Lab Registration) [address] [place], [address], 01/02/2024 17:14:38 01/02/20 24 01/02/2024 CBC AUTO NO DIFF (HEMO GRAM) MCV 92.7 fL 80-95 Not Available [facility] (Lab Registration) [address] [place], [address], 01/02/2024 17:14:38 01/02/20 24 01/02/2024 CBC AUTO NO DIFF (HEMO GRAM) MCH 31.7 pg 27.0-3 4.0 Not Available [facility] (Lab Registration) [address] [place], [address], 01/02/2024 17:14:38 01/02/20 24 01/02/2024 CBC AUTO NO DIFF (HEMO GRAM) MCHC 34.2 g/dL 32.0-3 6.0 Not Available [facility] (Lab Registration) [address] [place], [address], 01/02/2024 17:14:38 01/02/20 24 01/02/2024 CBC AUTO NO DIFF (HEMO GRAM) platelet count 214 10 150-45 0 Not Available [facility] (Lab Registration) [address] [place], [address], 01/02/2024 17:14:38 01/02/20 24 01/02/2024 CBC AUTO NO DIFF (HEMO GRAM) RDW 12.9 % 12.3-1 5.1 Not Available [facility] (Lab Registration) [address] [place], [address], 01/02/2024 17:14:38 01/02/20 24 01/02/2024 CBC AUTO NO DIFF (HEMO GRAM) MPV 10.8 fL 7.4-10 .4 high Not Available [facility] (Lab Registration) [address] [place], [address], 01/02/2024 17:14:38 01/02/20 24 01/02/2024 CBC AUTO NO DIFF (HEMO GRAM) note Unles s other darby noted testi ng perfo rmed at: [facility] [address] [place] [phone] Ascencion case MD CLIA: [id number] Not Available [facility] (Lab Registration) [address] [place], [address], 01/02/2024 17:14:38 01/02/20 24 01/02/2024 PROST ATE SPECI FIC AG (PSA) prostate specific Ag (PSA) 1.00 NG/mL 0.0-4. 0 Not Available [facility] (Lab Registration) [address], [place], [address], 01/02/2024 17:44:10 01/02/20 24 01/02/2024 PROST ATE SPECI FIC AG (PSA) note Unles s other darby noted testi ng perfo rmed at: [facility] [address] [place] [address] [phone] Ascencion case MD CLIA: [id number] Not Available [facility] (Lab Registration) [address] [place], [address], 01/02/2024 17:44:10 01/02/20 24 01/02/2024 TESTO STERO NE FREE note Unles s other darby noted testi ng perfo rmed at: [facility] [address] [place] [address] [phone] Ascencion case MD CLIA: [id number] Not Available [facility] (Lab Registration) [address] [place], [address], 01/06/2024 14:10:07 01/02/20 24 01/06/2024 TESTO STERO NE FREE free testosterone (direct) 8.7 pg/mL 6.8-21 .5 Perfo rmed at: [facility] [place] [address] [facility] , [place] [address] Lab Direc tor: Josseline rust MD, Phone : [phone] SENT TO REFER ENCE LAB Not Available [facility] (Lab Registration) [address] [place], [address], 01/06/2024 14:10:07 07/16/19 25 07/16/2024 CBC AUTO NO DIFF (HEMO GRAM) WBC 12.1 10 4.5-11 .5 high Not Available [facility] (Lab Registration) [address] [place], [address], 07/16/2024 16:03:59 07/16/19 25 07/16/2024 CBC AUTO NO DIFF (HEMO GRAM) RBC 5.22 10 4.25-5 .57 Not Available [facility] (Lab Registration) [address] [place], [address], 07/16/2024 16:03:59 07/16/19 25 07/16/2024 CBC AUTO NO DIFF (HEMO GRAM) HGB 16.3 g/dL 13.5-1 7.2 Not Available [facility] (Lab Registration) [address] [place], [address], 07/16/2024 16:03:59 07/16/19 25 07/16/2024 CBC AUTO NO DIFF (HEMO GRAM) HCT 47.5 % 42.0-5 2.0 Not Available [facility] (Lab Registration) [address] [place], [address], 07/16/2024 16:03:59 07/16/19 25 07/16/2024 CBC AUTO NO DIFF (HEMO GRAM) MCV 91.0 fL 80-95 Not Available [facility] (Lab Registration) [address] [place], [address], 07/16/2024 16:03:59 07/16/19 25 07/16/2024 CBC AUTO NO DIFF (HEMO GRAM) MCH 31.2 pg 27.0-3 4.0 Not Available [facility] (Lab Registration) [address] [place], [address], 07/16/2024 16:03:59 07/16/19 25 07/16/2024 CBC AUTO NO DIFF (HEMO GRAM) MCHC 34.3 g/dL 32.0-3 6.0 Not Available [facility] (Lab Registration) [address] [place], [address], 07/16/2024 16:03:59 07/16/19 25 07/16/2024 CBC AUTO NO DIFF (HEMO GRAM) platelet count 204 10 150-45 0 Not Available [facility] (Lab Registration) [address] [place], [address], 07/16/2024 16:03:59 07/16/19 25 07/16/2024 CBC AUTO NO DIFF (HEMO GRAM) RDW 12.6 % 12.3-1 5.1 Not Available [facility] (Lab Registration) [address] [place], [address], 07/16/2024 16:03:59 07/16/19 25 07/16/2024 CBC AUTO NO DIFF (HEMO GRAM) MPV 10.1 fL 7.4-10 .4 Not Available [facility] (Lab Registration) [address] [place], [address], 07/16/2024 16:03:59 07/16/19 25 07/16/2024 CBC AUTO NO DIFF (HEMO GRAM) note Unles s other darby noted testi ng perfo rmed at: [facility] [address] [place] [address] [phone] Ascencion case MD CLIA: [id number] Not Available [facility] (Lab Registration) [address] [place], [address], 07/16/2024 16:03:59 07/16/19 25 07/16/2024 TESTO STERO NE TOTAL note Unles s other darby noted testi ng perfo rmed at: [facility] [address] [place] [address] [phone] Ascencion case MD CLIA: [id number] Not Available [facility] (Lab Registration) [address] [place], [address], 07/17/2024 11:11:12 07/16/19 25 07/17/2024 TESTO STERO NE TOTAL testosterone , serum 264 NG/dL 264-91 6 Adult male refer ence inter marcos is based on a popul ation of healt hy [place] males (BMI <30) betwe en 19 and 39 years old. Zina collado, et.al . JCEM 2017, 102;1 161-1 173. PMID: 32980 103. Perfo rmed at: [facility] [address] [place], [place] [address] Lab Direc tor: Obdulio hansen PhD, Phone : [phone] Not Available [facility] (Lab Registration) [address] [place], [address], 07/17/2024 11:11:12 07/16/19 25 07/16/2024 TESTO STERO NE FREE note Unles s other darby noted testi ng perfo rmed at: [facility] [address] [place] [address] [phone] Ascencion case MD CLIA: [id number] Not Available [facility] (Lab Registration) [address], [address], 07/21/2024 05:08:34 07/16/19 25 07/21/2024 TESTO STERO NE FREE free testosterone (direct) 5.9 pg/mL 6.8-21 .5 low Perfo rmed at: BN [facility] [place] [address] , [place] [address] Lab Direc tor: Josseline rust MD, Phone : [phone] SENT TO REFER ENCE LAB Not Available [facility] (Lab Registration) [address], [place], [address], 07/21/2024 05:08:34 Result Notes None recorded. Medical Equipment None Reported. Allergies No known drug allergies Medications Name Sig Start Date Stop Date Status Note LastModified by Organization Details LastModified Time BD Luer-Marichuy Syringe 3 mL 23 x 1 DIRECTED WEEKLY active Not Available Not Available No t Available cyclobenzapr ine 10 mg tablet active Not Available Not Available Not Available anastrozole 1 mg tablet Take 0.5 tablets twice a week by oral route. active Not Available Not Available Not Available promethazine -DM 6.25 mg-15 mg/5 mL oral syrup active Not Available Not Available Not Available prednisone 10 mg tablet active Not Available Not Available Not Available doxycycline hyclate 100 mg capsule TAKE 1 CAPSULE BY MOUTH EVERY 12 HOURS FOR 10 DAYS active Not Available Not Available Not Available prednisolone sodium phosphate 15 mg/5 mL (3 mg/mL) oral solution active Not Available Not Available Not Available quetiapine 300 mg tablet active Not Available Not Available Not Available clindamycin HCl 300 mg capsule active Not Available Not Available Not Available atorvastatin 10 mg tablet active Not Available Not Available Not Available minocycline 100 mg capsule active Not Available Not Available Not Available ondansetron HCl 4 mg tablet active Not Available Not Available Not Available famotidine 40 mg tablet active Not Available Not Available Not Available prednisone 20 mg tablet TAKE 1 TABLET BY MOUTH TWICE DAILY FOR 5 DAYS active Not Available Not Available No t Available acyclovir 400 mg tablet active Not Available Not Available Not Available ciprofloxaci n 500 mg tablet active Not Available Not Available Not Available hydrocodone 10 mg-acetamino phen 325 mg tablet TAKE 1 TABLET BY MOUTH THREE TIMES DAILY active Not Available Not Available Not Available omeprazole 40 mg capsule,racquel yed release active Not Available Not Available Not Available ketorolac 10 mg tablet active Not Available Not Available No t Available terbinafine HCl 250 mg tablet active Not Available Not Available Not Available famotidine 20 mg tablet active Not Available Not Available Not Available methocarbamo l 750 mg tablet active Not Available Not Available Not Available gabapentin 800 mg tablet TAKE 1 TABLET BY MOUTH 4 TIMES DAILY active Not Available Not Available Not Available cephalexin 500 mg capsule TAKE 1 CAPSULE BY MOUTH TWICE DAILY FOR 7 DAYS active Not Available Not Available No t Available lisinopril 10 mg tablet active Not Available Not Available Not Available lidocaine 5 % topical patch active Not Available Not Available Not Available lidocaine HCl 2 % mucosal solution active Not Available Not Available Not Available omeprazole 20 mg capsule,racquel yed release active Not Available Not Available Not Available mupirocin 2 % topical ointment APPLY OINTMENT TOPICALLY TO AFFECTED AREA TWICE DAILY FOR 7 DAYS active Not Available Not Available No t Available testosterone cypionate 200 mg/mL intramuscula r oil Inject 1 mL every week by intramuscul ar route. active Not Available Not Available No t Available methylpredni solone 4 mg tablets in a dose pack active Not Available Not Available No t Available BD Luer-Marichuy Syringe 3 mL 18 x 1 1/2 USE WEEKLY DIRECTED 2024 active Not Available Not Available Not Avai lable ketoconazole 2 % topical cream active Not Available Not Available Not Available ondansetron 4 mg disintegrati ng tablet active Not Available Not Available No t Available doxycycline hyclate 100 mg tablet active Not Available Not Available No t Available hydroxyzine pamoate 25 mg capsule TAKE 1 CAPSULE BY MOUTH THREE TIMES DAILY NEEDED FOR ITCHING active Not Available Not Available Not Available bupropion HCl XL 300 mg 24 hr tablet, extended release active Not Available Not Available Not Available bupropion HCl XL 150 mg 24 hr tablet, extended release active Not Available Not Available Not Available quetiapine 400 mg tablet active Not Available Not Available Not Available lorata-dine D 10 mg-240 mg tablet,exten ded release TAKE ONE TABLET BY MOUTH EVERY DAY active Not Available Not Available No t Available diclofenac 1 % topical gel active Not Available Not Available Not Available naloxone 4 mg/actuation nasal spray active Not Available Not Available Not Available Vraylar 1.5 mg capsule active Not Available Not Available N ot Available Vitals Date Recorded Body height Body mass index (BMI) Body weight Body temperature Provider Name and Address Organization Details Last Updated DateTime 06/13/2023 180.34 cm 27.9 kg/m2 68533.47 g 98.2 [degF] Gricelda Means [facility] [place] 06/13/2023 10:55:08 Date Recorded Body height Body mass index (BMI) Body weight Body temperature Provider Name and Address Organization Details Last Updated DateTime 07/16/2024 180.34 cm 27.9 kg/m2 69758.47 g 98.3 [degF] Desiree Tobin [facility] [place] 07/16/2024 12:58:23 Date Recorded Body height Body mass index (BMI) Body weight Body temperature Provider Name and Address Organization Details Last Updated DateTime 01/02/2024 180.34 cm 27.9 kg/m2 55531.47 g 98.3 [degF] Gricelda Means [facility] [place] 01/02/2024 10:09:54 Date Recorded Body height Body mass index (BMI) Body weight Body temperature Provider Name and Address Organization Details Last Updated DateTime 04/24/2022 180.34 cm 27.9 kg/m2 10759.47 g 98 [degF] Rosaura West [facility] [place] 04/24/2022 08:51:18 Social History None recorded. Functional Status Question Answer Note LastModified by Organization D etails LastModified Time What is your level of alcohol consumption? None [email or web address] Information not available 04/24/2022 Mental Status None recorded. 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 He has been on intramuscu lar testostero ne for some time with good results. He continues on testostero ne 200 mg weekly. He is also on anastrozol e 0.5 mg twice a week. 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 He has been on intramuscu lar testostero ne for some time with good results. He continues on testostero ne 200 mg weekly. He is also on anastrozol e 0.5 mg twice a week. we will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
--- OUTSIDE RECORDS SUMMARY | 2024-11-15 22:35 | XMS_ITS | Clinical Summary ---
Author Organization Healthcare Address [address] [place] [address] Care Team Providers Care Gang Sawyer Name Role Phone Kelechi So MD Primary Care Provider + [phone] Family History Medical History Relation Name Comments Cardiac disorder Father Hypertension Father Kidney failure Father Hypertension Mother Other cancer Mother Relation Name Status Comments Father Mother Social History Tobacco Use Types Packs/Day Years Used Date Smoking Tobacco: Never Alcohol Use Standard Drinks/Week Comments No 0 (1 standard drink = 0.6 oz pur e alcohol) Sex and Gender Information Value Date Recorded Sex Assigned at Not on file Legal Sex Male 7:39 PM EDT Gender Identity Not on file Sexual Orientation Not on file Last Filed Vital Signs Vital Sign Reading Time Taken Comments Blood Pressure - - Pulse - - Temperature - - Respiratory Rate - - Oxygen Saturation - - Inhaled Oxygen Concentration - - Weight 97.1 kg (214 lb) 04/19/2015 1:05 PM EST Height 180.3 cm (5' 11 ) 04/19/2015 1:05 PM EST Body Mass Index 29.85 04/19/2015 1:05 PM EST Plan of Treatment Not on file Care Teams Gang Sawyer Relationship Specialty Start Date End Date Kelechi So MD [address] [place] [address] PCP - General 10/15/20
[2024-11-15 22:37] VITALS: BP 158/108; PULSE 133; RESP 20; TEMP 36.9; O2SAT 98; BMI 31.4
--- NOTE | 2024-11-15 23:01 | HMH.EDGENADL ---
Discharge Plan Disposition Patient Disposition: Home, Self-Care Prescriptions Prescriptions: No Action hydrocodone-acetaminophen 10-325 mg tablet 1 tab PO Q6H PRN ketoconazole 2 % cream 1 applic topical BID Qty: 30 0RF tizanidine 4 mg capsule 4 mg PO HS PRN mupirocin 2 % ointment 1 applic topical TID Qty: 22 0RF tadalafil 20 mg tablet 20 mg PO DAILY PRN (Reason: sexual activity) Qty: 30 2RF bupropion HCl 300 mg tablet extended release 24 hr See Rx Instructions .ROUTE .COMPLEX Qty: 90 2RF Dose Instruction: TAKE 1 TABLET BY MOUTH ONCE DAILY FOR DEPRESSION WITH 150MG TABLET TO EQUAL 450MG DAILY Rx Instructions: TAKE 1 TABLET BY MOUTH ONCE DAILY FOR DEPRESSION WITH 150MG TABLET TO EQUAL 450MG DAILY omeprazole 40 mg capsule,delayed release(DR/EC) 40 mg PO DAILY Qty: 90 2RF quetiapine 400 mg tablet See Rx Instructions .ROUTE .COMPLEX Qty: 90 2RF Dose Instruction: TAKE 1 TABLET BY MOUTH ONCE DAILY Rx Instructions: TAKE 1 TABLET BY MOUTH ONCE DAILY terbinafine HCl 250 mg tablet 250 mg PO DAILY Qty: 30 2RF ziprasidone HCl [Geodon] 20 mg capsule 20 mg PO BID Qty: 60 0RF Rx Instructions: give with food (meal/snack) anastrozole 1 mg tablet 1 mg PO DAILY (DME) BD Luer-Marichuy Syringe 3 mL 23 x 1 syringe MISCELLANEOUS gabapentin 800 mg tablet 800 mg PO DAILY testosterone cypionate 200 mg/mL oil 200 mg IM MONTHLY acyclovir 400 mg tablet 400 mg PO TID 7 Days Qty: 21 0RF mupirocin 2 % ointment 1 applic topical TID 7 Days Qty: 22 2RF Referrals Follow up/Referrals: Russell Baker APRN [Primary Care Provider, Family Practice] - See instructions Activity Restrictions/Add. Instructions Additional Instructions/Restrictions: Stitches to come out in 10 to 14 days. Take Tylenol 1000 mg every 6 hours (4 times daily) and ibuprofen 400 mg every 6 hours (4 times daily) as needed with food and water to prevent GI upset and kidney damage. Call your family doctor to establish care for this visit to the emergency department and schedule follow-up within 48 hours to ensure improvement. If you have any worsening of your condition or any other concerning signs or symptoms, return to the emergency department or your primary care doctor for further evaluation. Clinical Impressions Clinical Impression: Facial laceration Instructions Patient Instructions: DI for Laceration Repair Print Language Print Language: [place] Discharge ED Provider: Baldev Malone General Adult HPI General Chief complaint: Wound/Laceration Stated complaint: A/O 11-15 Fell and split head open Time Seen by Provider: 11/15/24 22:33 Mode of Arrival: Ambulatory Source of Information: Patient Description of Symptoms (Recalled from ER Triage Doc. by RN): patient states he was walking in the dark to his house when he tripped and hit his face. laceration to the bridge of his nose. bleeding controlled at this time. Denies blood thinner. History of Present Illness HPI narrative: Please note that above description of symptoms, in this electronic medical record under categorization of recalled from ER triage doctor by RN are reflective of an initial nursing assessment, however, is not reflective of my full history and physical exam that was personally taken and clarified. Consequentially, this preceding description of symptoms, which may include the patient's categorized chief complaint in the EMR, do not reflect my personal clinical impression, and the ultimate description of history of present illness and patient stated complaints should be deferred to this section of the note. Unless stated otherwise or congruent with this section of the note, additional signs, symptoms, or incongruence should be interpreted as inaccurate with my clinical impression. Related Data Home Medications ?Medication ?Instructions ?Recorded ?Confirmed anastrozole 1 mg tablet 1 mg PO DAILY 01/29/24 11/05/24 gabapentin 800 mg tablet 800 mg PO DAILY 01/29/24 11/05/24 syringe with needle 3 mL 23 x 1 01/29/24 11/05/24 (BD Luer-Marichuy Syringe) testosterone cypionate 200 mg/mL 200 mg IM MONTHLY 01/29/24 11/05/24 intramuscular oil tizanidine 4 mg capsule 4 mg PO HS PRN 03/11/24 11/05/24 hydrocodone 10 mg-acetaminophen 1 tab PO Q6H PRN 06/25/24 11/05/24 325 mg tablet Previous Rx's ?Medication ?Instructions ?Recorded tadalafil 20 mg tablet 20 mg PO DAILY PRN sexual activity 05/30/24 #30 tabs acyclovir 400 mg tablet 400 mg PO TID 7 days #21 tabs 06/19/24 mupirocin 2 % topical ointment 1 applic topical TID 7 days #22 06/19/24 grams bupropion HCl 300 mg 24 hr tablet, See Rx Instructions .Route 06/27/24 extended release .COMPLEX #90 tabs omeprazole 40 mg capsule,delayed 40 mg PO DAILY #90 caps 06/27/24 release quetiapine 400 mg tablet See Rx Instructions .Route 06/27/24 .COMPLEX #90 tabs ketoconazole 2 % topical cream 1 applic topical BID #30 grams 07/01/24 terbinafine HCl 250 mg tablet 250 mg PO DAILY #30 tabs 07/29/24 mupirocin 2 % topical ointment 1 applic topical TID #22 grams 10/07/24 ziprasidone HCl 20 mg capsule 20 mg PO BID #60 caps 11/04/24 (Geodon) Allergies Allergy/AdvReac Type Severity Reaction Status Date / Time Sulfa (Sulfonamide Allergy Severe low WBCs Verified 11/05/24 16:10 Antibiotics) [facility] Disclaimer: The information contained in this section may have been updated after the patient was seen, as this information can be updated by other users. Medical History History of gastroesophageal reflux (GERD) Family History Other Cancer FHx: mental illness Heart attack Stroke Social History Smoking Status: Never smoker alcohol intake: never substance use type: denies use current occupational status: unemployed Travel in the last 8 weeks?: None household members: significant other housing: house marital status: single current occupational exposures/hazards: No caffeine: Yes Have you lived/traveled outside US in past 30 days?: No Contact w/someone who lives/traveled outside US past 30 days?: No Exposure to someone with infectious disease in past 14 days?: No Do you have a fever (greater than 100.4 F or 38 C)?: No Have you tested positive for COVID-19?: No Exposed to someone with COVID-19 in past 14 days?: No Do you have a sore throat?: No Do you have a cough?: No Do you have any weakness?: No Do you have any diarrhea?: No Are you experiencing any unusual bleeding?: No Do you have any muscle aches/pain?: No Do you have any abdominal pain?: No Are you experiencing loss of taste or smell?: No Other Medical History Have you received the Flu Vaccine for this season: No Have you received the Pneumonia Vaccine: No ROS Obtained: Yes All systems reviewed & no additional complaints except as documented Physical Exam General General appearance: alert Head Head exam: normocephalic and other (1 cm laceration of the bridge of the nose) Eye Eye exam: Present normal appearance, PERRL and EOMI Neck Neck exam: Present normal inspection, full ROM and trachea midline Respiratory Respiratory exam: Absent respiratory distress, wheezes, stridor, accessory muscle use or prolonged expiratory phase Cardiovascular Cardiovascular exam: Present other (Pulses equal symmetric in upper and lower extremities) Abdominal Exam Abdominal exam: Present soft; Absent distention, tenderness or pulsatile mass Extremities Exam Extremities exam: Absent edema Neurological Exam Neurological exam: Present alert, oriented X3 and CN II-XII intact; Absent motor sensory deficit Skin Skin exam: Present warm and dry; Absent diaphoresis or erythema Medical Decision Making Medical Records Medical records reviewed: Yes I reviewed the patient's medical records. Screening: Per USPSTF and CDC recommendations, given the prevalence of disease in our region, it is our hospital?s policy to screen for HIV and viral Hepatitis for all patients aged 18 and over and those with ongoing risk factors. Denis Inquiry Pt receiving controlled substance: No Denis was queried for this patient: No Vital Signs: 11/15/24 22:37 Temperature 98.5 F Temperature Source Oral Pulse Rate [Left] 133 H Respiratory Rate 20 Blood Pressure [Right Arm] 158/108 H Blood Pressure Mean [Right Arm] 124 Blood Pressure Source [Right Arm] Automatic Cuff Blood Pressure Position [Right Arm] Sitting 02 Sat by Pulse Oximetry 98 Oxygen Delivery Method Room Air Medical Decision Narrative: 49-year-old male up-to-date on vaccinations presenting with facial laceration. States that he tripped because it was dark, did not have any light. Hit his face on something. Did not lose consciousness. Came directly to the emergency department. History obtained with patient. States that he is not currently having any pain. No difficulty breathing, vision changes, or any other concerns. On my exam, patient has 1 cm laceration overlying the bridge of the nose. It is hemostatic. He is able to breathe through it. No nasal septal hematoma. Otherwise atraumatic head. Because patient has uncomplicated laceration, irrigated extensively. Closed with 2 sutures. Discharged in hemodynamically stable condition Director Software disclaimer Much of this encounter note is an electronic risk compliance manager spoken language to printed text. Electronic risk compliance manager of the spoken language may permit errors. Although I have reviewed the note, some errors may still exist. Procedures Laceration Laceration 1: Site: face Size (cm): 1 Description: linear Depth: [id number] Local Anesthetic: bupivacaine 0.5% Amount of anesthesia used (mL): 2 Pre-repair: wound explored and irrigated extensively Skin layer closed with: nylon Size (cm): 4-0 Number of sutures: 2 Technique: simple, interrupted Critical Care Critical Care Time Critical Care Time: No
[2024-11-15 23:45] VITALS: BP 132/75; PULSE 110; RESP 18; TEMP 36.9; O2SAT 100
== END 2024-11-15 23:47 | disposition home or self-care (01) ==
PROVIDERS: Emergency Provider Emergency Medicine; PCP Nurse Practitioner Family
DX: S01.81XA Laceration without foreign body of other part of head, initial encounter (principal); W19.XXXA Unspecified fall, initial encounter
CPT/HCPCS: 12011; 99283

== ENCOUNTER 2025-03-05 21:39 | Emergency (ER) | payer OTHER, SELFPAY ==
[2025-03-05 21:48] VITALS: BP 178/111; PULSE 123; RESP 17; TEMP 37.1; O2SAT 97; BMI 29.0
[2025-03-05 21:55] VITALS: BP 194/106; PULSE 120; RESP 18; TEMP 37; O2SAT 97
--- NOTE | 2025-03-05 21:57 | ECG_ITS ---
APPROVED REPORT Exam: Resting ECG HR:117 bpm ECG Measurements Heart Rate 117 AXES MA 120 P 46 QRSd 96 QRS -24 QT 285 T 28 QTc 355 Conclusion SINUS TACHYCARDIA POSSIBLE LEFT ATRIAL ENLARGEMENT [-0.1mV P-WAVE IN V1/V2] BORDERLINE LEFT AXIS DEVIATION [QRS AXIS < -20] ABNORMAL RHYTHM ECG UNCONFIRMED REPORT Electronically signed by : DOMINGO SHELL, 03/05/2025 23:04:40
[2025-03-05 22:01] VITALS: BP 206/112; PULSE 120
--- OUTSIDE RECORDS SUMMARY | 2025-03-05 22:01 | XMS_ITS | Encounter Summary ---
Author Organization [facility] Address [address] [place] [address] Care Team Providers Care Plastic Sewer Name Role Phone Kelechi So MD Primary Care Provider [phone] Encounter Details Date Type Department Care Team (Late st Contact Info) Description 10/24/2020 Orders Only External Location [address] [place] [address] Lupe Grubbs MD [address] [place] [address] Social History Tobacco Use Types Packs/Day Years Used Date Smoking Tobacco: Never Alcohol Use Standard Drinks/Week Comments No 0 (1 standard drink = 0.6 oz pur e alcohol) Sex and Gender Information Value Date Recorded Sex Assigned at Not on file Legal Sex Male 7:39 PM EDT Gender Identity Not on file Sexual Orientation Not on file documented as of this encounter Plan of Treatment Not on file documented as of this encounter Procedures Procedure Name Priority Date/Time Associated Diagnosis Comments CT OUTSIDE IMAGES 10/24/2020 7:49 PM EDT documented in this encounter Results * CT OUTSIDE IMAGES (10/24/2020 7:49 PM EDT) Anatomical Region Laterality Modality Computed Tomogra phy 10/24/2020 7:49 PM EDT us Lupe Grubbs MD IMG CT PROCEDURES Final Result documented in this encounter Visit Diagnoses Not on filedocumented in this encounter Care Teams Plastic Sewer Relationship Specialty Start Date End Date Kelechi So MD [address] [place] [address] PCP - General 10/15/20 documented as of this encounter
--- OUTSIDE RECORDS SUMMARY | 2025-03-05 22:01 | XMS_ITS | Encounter Summary ---
Author Organization [facility] Address [address] [place] [address] Care Team Providers Care Civil Geotechnical Engineer Name Role Phone Kelechi So MD Primary Care Provider Encounter Details Date Type Department Care Team (Late st Contact Info) Description 12/30/2024 Orders Only External Location [address] [place] [id number] Provider, External Social History Tobacco Use Types Packs/Day Years Used Date Smoking Tobacco: Never Alcohol Use Standard Drinks/Week Comments No 0 (1 standard drink = 0.6 oz pur e alcohol) Sex and Gender Information Value Date Recorded Sex Assigned at Not on file Legal Sex Male 7:39 PM EDT Gender Identity Not on file Sexual Orientation Not on file documented as of this encounter Functional Status * Calculated C-SSRS Risk Score (Lifetime/Recent) Answer Date of Assessment Author High Risk 12/30/2024 8:52 PM EDT Nahid Jack ace, RN * Question Answer Date of Assessment Author 1. Wish to be (Past 1 Month) Yes 025 8:52 PM EDT Steffi Jack RN 2. Non-Specific Active Suici fernando Thoughts (Past 1 Month) No 12/30/2024 8:52 PM [place] Steffi Jack RN 3. Active Suicidal Ideation with any Methods (Not Plan) Without Intent to Act (Past 1 Month) No 12/30/2024 8:52 PM EDT Steffi Jack, R N 4. Active Suicidal Ideation with Some Intent to Act, Without Specific Plan (Past 1 Month) Yes 12/30/2024 8:52 PM EDT Steffi Jack, R N 5. Active Suicidal Ideation with Specific Plan and Intent (Past 1 Month) Yes 12/30/2024 8:52 PM EDT Steffi Jack, R N 6. Suicidal Behavior (Lifetime) No 8:52 PM EDT Steffi Jack RN documented as of this encounter Plan of Treatment Not on file documented as of this encounter Procedures Procedure Name Priority Date/Time Associated Diagnosis Comments CT OUTSIDE IMAGES 12/30/2024 6:31 PM EDT documented in this encounter Results * CT OUTSIDE IMAGES (12/30/2024 6:31 PM EDT) Anatomical Region Laterality Modality Computed Tomogra phy 12/30/2024 6:31 PM EDT External Provider IMG CT PROCEDURES Final Result documented in this encounter Visit Diagnoses Not on filedocumented in this encounter Care Teams Civil Geotechnical Engineer Relationship Specialty Start Date End Date Kelechi So MD [address] [place] [address] PCP - General 10/15/20 documented as of this encounter
--- OUTSIDE RECORDS SUMMARY | 2025-03-05 22:01 | XMS_ITS | Clinical Summary ---
Author Organization [facility] Address [address] [id number] Care Team Providers Care Physician Allergist Immunologist Name Role Phone Kelechi So MD Primary Care Provider [phone] Allergies No known active allergies Encounters Date Type Department Care Team Description 12/31/2024 Travel 12/30/2024 8:26 PM EDT - 12/31/2024 4:59 AM EDT Emergency [facility] [address] [place] [id number] June Butler MD Suicide attempt by hanging, initial encounter ([facility]) (Primary Dx) Discharge Disposition: Home or Self Care 12/30/2024 Travel 12/30/2024 Orders Only External Location [address] [place] [id number] Provider, External from Last 3 Months Family History Medical History Relation Name Comments [...] Sign Reading Time Taken Comments Blood Pressure 152/114 12/31/2024 4:48 AM EDT Pulse 101 12/31/2024 4:48 AM EDT Temperature 36.8 C (98.2 F) 12/31/2024 4:48 AM EDT Respiratory Rate 20 12/31/2024 4:48 AM EDT Oxygen Saturation 98% 12/31/2024 4:48 AM EDT Inhaled Oxygen Concentration - - Weight 95.3 kg (210 lb) 12/30/2024 8:31 PM EDT Height 180.3 cm (5' 11 ) 04/19/2015 1:05 PM EST Body Mass Index 29.29 04/19/2015 1:05 PM EST Plan of Treatment Health Maintenance Due Date Last Done Comments [facility]Depression Screening 1977 [facility]-Infant/Child/Adol SDOH Screenings 1977 [facility]-Obesity Intervention 1983 [facility]- SDOH Screenings 1995 [facility]-Adult SDOH Screenings 1995 [facility]-Hepatitis B Vaccines (1 of 3 - 19+ 3-dose series) 1996 CT Colonography 2022 Colonoscopy 2022 FIT-DNA 2022 FIT 2022 FOBT 2022 Sigmoidoscopy 2022 [facility]-Colorectal Cancer Screening 2022 [facility]-[id number]-91 Vaccine ( season) 2025 [facility]-Influenza Vaccine (#1) 2025 [facility]-Zoster Vaccines (1 of 2) 2027 [facility]-DTaP,Tdap,and Td Vaccine s (3 - Td or Tdap) 04/06/2030 04/06/2020, 12/17/2014 [facility]-HIV Screening Completed 12/30/2024, 03/16/2015 [facility]-Hepatitis C Screening Completed 2024, 11/17/2014 HPV Vaccines Aged Out No longer eligi ble based on patient's age to complete this topic [facility]-HIB Vaccines Aged Out No longer e ligible based on patient's age to complete this topic [facility]-Hepatitis A Vaccines Aged Out No longer eligible based on patient's age to complete this topic [facility]-IPV Vaccines Aged Out No longer e ligible based on patient's age to complete this topic [facility]-Pneumococcal Vaccine: Pediatrics (0 to 5 Years) and At-Risk Patients (6 to 49 Years) Aged Out No longer eligible b ased on patient's age to complete this topic [facility]-Rotavirus Vaccines Aged Out No lo nger eligible based on patient's age to complete this topic Procedures Procedure Name Priority Date/Time Associated Diagnosis Comments CT LUMBAR SPINE WO IV CONTRAST STAT 12/31/2024 12:[address] THORACIC SPINE WO IV CONTRAST STAT 12/31/2024 12:[address] CERVICAL SPINE WO IV CONTRAST STAT 12/31/2024 12:[address] ANGIO NECK STAT 12/31/2024 12:[address] ANGIO HEAD STAT 12/31/2024 12:[address] HEAD WO IV CONTRAST STAT 12:55 AM EDT ED HIV 1/2 ANTIBODY/ANTIGEN SCREEN WITH REFLEX TO HIV I/II DIFFERENTIATION STAT 12/30/2024 11:03 PM EDT ED PROTOCOL HIV 1/2 ANTIBODY/ANTIGEN SCREEN W/REFLEX TO HIV 1/2 ANTIBODY DIFFERENTIATION STAT 12/30/2024 11:03 PM EDT HEPATITIS C ANTIBODY - ED W/REFLEX TO HCV QUANT PCR STAT 12/30/2024 11:03 PM EDT TYPE AND SCREEN STAT 12/30/2024 11:03 PM EDT PROTHROMBIN TIME(PT) / INR STAT 12/30/2024 11:03 PM EDT CBC WITH AUTO DIFFERENTIAL STAT 12/30/2024 11:03 PM EDT COMPREHENSIVE METABOLIC PANEL, PLASMA STAT 12/30/2024 11:[address] OUTSIDE IMAGES 12/30/2024 6:3 1 PM EDT from Last 3 Months Results * CT Lumbar Spine wo IV Contrast (12/31/2024 12:55 AM EDT) Anatomical Region Laterality Modality Spine, L-spine Computed Tomogra phy Impressions 12/31/2024 1:26 AM EDT 1. No acute fracture or malalignment of the cervical spine. 2. No acute fracture or malalignment of the thoracic spine. 3. No acute fracture or malalignment of the lumbar spine. CRITICAL RESULT: No. COMMUNICATION: Per this written report. By electronically signing this report, I, the attending physician, attest that I have personally reviewed the images/data for the above examination(s) and agree with the final edited report. Drafted by Dami Schaeffer MD on 12/31/2024 1:07 AM Final report signed by Terry Ramirez MD on 12/31/2024 1:26 AM Narrative 12/31/2024 1:26 AM EDT CLINICAL INDICATION: SA by hanging, posterior cervical neck pain TECHNIQUE: Imaging of the entire cervical, thoracic, and lumbar spine was performed, using spiral technique, without contrast administration. Reformatted images in the coronal and sagittal planes were generated from the axial data set to facilitate diagnostic accuracy and/or surgical planning. Total DLP (Dose-Length Product): 3744.87 mGy.cm (accession [id number]), 3744.87 mGy.cm (accession [id number]), 3744.87 mGy.cm (accession [id number]). Please note: The reported value represents the total of one or more individual components during the CT acquisition on this date and at this time, and as such, the same value may appear in more than one CT report depending on the interpreting/reporting physicians. COMPARISON: CT total spine 10/25/2020 FINDINGS: Cervical Spine: Vertebrae: No acute fracture. Mild degenerative change of the mid cervical spine and the atlantoaxial interface. Alignment: Normal spinal alignment. Paraspinal Soft Tissues: No paraspinal hematoma. Lung Apices: No pneumothorax at the lung apices. Thoracic Spine: Vertebrae: No acute fracture. Moderate degenerative change and anterior bridging osteophytosis from T4 to T10 progress from comparison Alignment: Normal spinal alignment. Paraspinal Soft Tissues: No paraspinal hematoma. Lumbar Spine: Vertebrae: No acute fracture. Alignment: Normal spinal alignment. Paraspinal Soft Tissues: No paraspinal hematoma. Low density foci in bilateral kidneys likely represent cysts. Subcentimeter nephrolithiasis in the inferior pole left kidney. Procedure Note Terry Ramirez MD - 12/31/2024 CLINICAL INDICATION: SA by hanging, posterior cervical neck pain TECHNIQUE: Imaging of the entire cervical, thoracic, and lumbar spine was performed,using spiral technique, without contrast administration. Reformattedimages in the coronal and sagittal planes were generated from the axialdata set to facilitate diagnostic accuracy and/or surgical planning. Total DLP (Dose-Length Product): 3744.87 mGy.cm (accession [id number]),3744.87 mGy.cm (accession [id number]), 3744.87 mGy.cm (accession [id number]).Please note: The reported value represents the total of one or moreindividual components during the CT acquisition on this date and at thistime, and as such, the same value may appear in more than one CT reportdepending on the interpreting/reporting physicians. COMPARISON: CT total spine 10/25/2020 FINDINGS: Cervical Spine: Vertebrae: No acute fracture. Mild degenerative change of the mid cervicalspine and the atlantoaxial interface. Alignment: Normal spinal alignment. Paraspinal Soft Tissues: No paraspinal hematoma. Lung Apices: No pneumothorax at the lung apices. Thoracic Spine: Vertebrae: No acute fracture. Moderate degenerative change and anteriorbridging osteophytosis from T4 to T10 progress from comparison Alignment: Normal spinal alignment. Paraspinal Soft Tissues: No paraspinal hematoma. Lumbar Spine: Vertebrae: No acute fracture. Alignment: Normal spinal alignment. Paraspinal Soft Tissues: No paraspinal hematoma. Low density foci inbilateral kidneys likely represent cysts. Subcentimeter nephrolithiasis inthe inferior pole left kidney. IMPRESSION: 1. No acute fracture or malalignment of the cervical spine. 2. No acute fracture or malalignment of the thoracic spine. 3. No acute fracture or malalignment of the lumbar spine. CRITICAL RESULT: No. COMMUNICATION: Per this written report. By electronically signing this report, I, the attending physician, attestthat I have personally reviewed the images/data for the aboveexamination(s) and agree with the final edited report. Drafted by Dami Schaeffer MD on 12/31/2024 1:07 AM Final report signed by Terry Ramirez MD on 12/31/2024 1:26 AM us Fatmata Herbert IMG CT PROCEDURES Final Result * CT Thoracic Spine wo IV Contrast (12/31/2024 12:55 AM EDT) Anatomical Region Laterality Modality Spine, T-spine Computed Tomogra phy Impressions 12/31/2024 1:26 AM EDT 1. No acute fracture or malalignment of the cervical spine. 2. No acute fracture or malalignment of the thoracic spine. 3. No acute fracture or malalignment of the lumbar spine. CRITICAL RESULT: No. COMMUNICATION: Per this written report. By electronically signing this report, I, the attending physician, attest that I have personally reviewed the images/data for the above examination(s) and agree with the final edited report. Drafted by Dami Schaeffer MD on 12/31/2024 1:07 AM Final report signed by Terry Ramirez MD on 12/31/2024 1:26 AM Narrative 12/31/2024 1:26 AM EDT CLINICAL INDICATION: SA by hanging, posterior cervical neck pain TECHNIQUE: Imaging of the entire cervical, thoracic, and lumbar spine was performed, using spiral technique, without contrast administration. Reformatted images in the coronal and sagittal planes were generated from the axial data set to facilitate diagnostic accuracy and/or surgical planning. Total DLP (Dose-Length Product): 3744.87 mGy.cm (accession [id number]), 3744.87 mGy.cm (accession [id number]), 3744.87 mGy.cm (accession [id number]). Please note: The reported value represents the total of one or more individual components during the CT acquisition on this date and at this time, and as such, the same value may appear in more than one CT report depending on the interpreting/reporting physicians. COMPARISON: CT total spine 10/25/2020 FINDINGS: Cervical Spine: Vertebrae: No acute fracture. Mild degenerative change of the mid cervical spine and the atlantoaxial interface. Alignment: Normal spinal alignment. Paraspinal Soft Tissues: No paraspinal hematoma. Lung Apices: No pneumothorax at the lung apices. Thoracic Spine: Vertebrae: No acute fracture. Moderate degenerative change and anterior bridging osteophytosis from T4 to T10 progress from comparison Alignment: Normal spinal alignment. Paraspinal Soft Tissues: No paraspinal hematoma. Lumbar Spine: Vertebrae: No acute fracture. Alignment: Normal spinal alignment. Paraspinal Soft Tissues: No paraspinal hematoma. Low density foci in bilateral kidneys likely represent cysts. Subcentimeter nephrolithiasis in the inferior pole left kidney. Procedure Note Terry Ramirez MD - 12/31/2024 CLINICAL INDICATION: SA by hanging, posterior cervical neck pain TECHNIQUE: Imaging of the entire cervical, thoracic, and lumbar spine was performed,using spiral technique, without contrast administration. Reformattedimages in the coronal and sagittal planes were generated from the axialdata set to facilitate diagnostic accuracy and/or surgical planning. Total DLP (Dose-Length Product): 3744.87 mGy.cm (accession [id number]),3744.87 mGy.cm (accession [id number]), 3744.87 mGy.cm (accession [id number]).Please note: The reported value represents the total of one or moreindividual components during the CT acquisition on this date and at thistime, and as such, the same value may appear in more than one CT reportdepending on the interpreting/reporting physicians. COMPARISON: CT total spine 10/25/2020 FINDINGS: Cervical Spine: Vertebrae: No acute fracture. Mild degenerative change of the mid cervicalspine and the atlantoaxial interface. Alignment: Normal spinal alignment. Paraspinal Soft Tissues: No paraspinal hematoma. Lung Apices: No pneumothorax at the lung apices. Thoracic Spine: Vertebrae: No acute fracture. Moderate degenerative change and anteriorbridging osteophytosis from T4 to T10 progress from comparison Alignment: Normal spinal alignment. Paraspinal Soft Tissues: No paraspinal hematoma. Lumbar Spine: Vertebrae: No acute fracture. Alignment: Normal spinal alignment. Paraspinal Soft Tissues: No paraspinal hematoma. Low density foci inbilateral kidneys likely represent cysts. Subcentimeter nephrolithiasis inthe inferior pole left kidney. IMPRESSION: 1. No acute fracture or malalignment of the cervical spine. 2. No acute fracture or malalignment of the thoracic spine. 3. No acute fracture or malalignment of the lumbar spine. CRITICAL RESULT: No. COMMUNICATION: Per this written report. By electronically signing this report, I, the attending physician, attestthat I have personally reviewed the images/data for the aboveexamination(s) and agree with the final edited report. Drafted by Dami Scheaffer MD on 12/31/2024 1:07 AM Final report signed by Terry Ramirez MD on 12/31/2024 1:26 AM Fatmata Herbert IMG CT PROCEDURES Final Result * CT Cervical Spine wo IV Contrast (12/31/2024 12:55 AM EDT) Anatomical Region Laterality Modality Spine, C-spine Computed Tomogra phy Impressions 12/31/2024 1:26 AM EDT 1. No acute fracture or malalignment of the cervical spine. 2. No acute fracture or malalignment of the thoracic spine. 3. No acute fracture or malalignment of the lumbar spine. CRITICAL RESULT: No. COMMUNICATION: Per this written report. By electronically signing this report, I, the attending physician, attest that I have personally reviewed the images/data for the above examination(s) and agree with the final edited report. Drafted by Dami Schaeffer MD on 12/31/2024 1:07 AM Final report signed by Terry Ramirez MD on 12/31/2024 1:26 AM Narrative 12/31/2024 1:26 AM EDT CLINICAL INDICATION: SA by hanging, posterior cervical neck pain TECHNIQUE: Imaging of the entire cervical, thoracic, and lumbar spine was performed, using spiral technique, without contrast administration. Reformatted images in the coronal and sagittal planes were generated from the axial data set to facilitate diagnostic accuracy and/or surgical planning. Total DLP (Dose-Length Product): 3744.87 mGy.cm (accession [id number]), 3744.87 mGy.cm (accession [id number]), 3744.87 mGy.cm (accession [id number]). Please note: The reported value represents the total of one or more individual components during the CT acquisition on this date and at this time, and as such, the same value may appear in more than one CT report depending on the interpreting/reporting physicians. COMPARISON: CT total spine 10/25/2020 FINDINGS: Cervical Spine: Vertebrae: No acute fracture. Mild degenerative change of the mid cervical spine and the atlantoaxial interface. Alignment: Normal spinal alignment. Paraspinal Soft Tissues: No paraspinal hematoma. Lung Apices: No pneumothorax at the lung apices. Thoracic Spine: Vertebrae: No acute fracture. Moderate degenerative change and anterior bridging osteophytosis from T4 to T10 progress from comparison Alignment: Normal spinal alignment. Paraspinal Soft Tissues: No paraspinal hematoma. Lumbar Spine: Vertebrae: No acute fracture. Alignment: Normal spinal alignment. Paraspinal Soft Tissues: No paraspinal hematoma. Low density foci in bilateral kidneys likely represent cysts. Subcentimeter nephrolithiasis in the inferior pole left kidney. Procedure Note Terry Ramirez MD - 12/31/2024 CLINICAL INDICATION: SA by hanging, posterior cervical neck pain TECHNIQUE: Imaging of the entire cervical, thoracic, and lumbar spine was performed,using spiral technique, without contrast administration. Reformattedimages in the coronal and sagittal planes were generated from the axialdata set to facilitate diagnostic accuracy and/or surgical planning. Total DLP (Dose-Length Product): 3744.87 mGy.cm (accession [id number]),3744.87 mGy.cm (accession [id number]), 3744.87 mGy.cm (accession [id number]).Please note: The reported value represents the total of one or moreindividual components during the CT acquisition on this date and at thistime, and as such, the same value may appear in more than one CT reportdepending on the interpreting/reporting physicians. COMPARISON: CT total spine 10/25/2020 FINDINGS: Cervical Spine: Vertebrae: No acute fracture. Mild degenerative change of the mid cervicalspine and the atlantoaxial interface. Alignment: Normal spinal alignment. Paraspinal Soft Tissues: No paraspinal hematoma. Lung Apices: No pneumothorax at the lung apices. Thoracic Spine: Vertebrae: No acute fracture. Moderate degenerative change and anteriorbridging osteophytosis from T4 to T10 progress from comparison Alignment: Normal spinal alignment. Paraspinal Soft Tissues: No paraspinal hematoma. Lumbar Spine: Vertebrae: No acute fracture. Alignment: Normal spinal alignment. Paraspinal Soft Tissues: No paraspinal hematoma. Low density foci inbilateral kidneys likely represent cysts. Subcentimeter nephrolithiasis inthe inferior pole left kidney. IMPRESSION: 1. No acute fracture or malalignment of the cervical spine. 2. No acute fracture or malalignment of the thoracic spine. 3. No acute fracture or malalignment of the lumbar spine. CRITICAL RESULT: No. COMMUNICATION: Per this written report. By electronically signing this report, I, the attending physician, attestthat I have personally reviewed the images/data for the aboveexamination(s) and agree with the final edited report. Drafted by Dami Schaeffer MD on 12/31/2024 1:07 AM Final report signed by Terry Ramirez MD on 12/31/2024 1:26 AM Fatmata Springer Tj [facility]LE IMG CT PROCEDURES Final Result * CT Angio Neck (12/31/2024 12:55 AM EDT) Anatomical Region Laterality Modality Carotid Artery Computed Tomogra phy Impressions 12/31/2024 1:03 AM EDT 1. No acute intracranial abnormality. 2. Normal CTA of the head and neck without evidence of vascular injury. CRITICAL RESULT: No. COMMUNICATION: Per this written report. Drafted by Terry Ramirez MD on 12/31/2024 1:00 AM Final report signed by Terry Ramirez MD on 12/31/2024 1:03 AM Narrative 12/31/2024 1:03 AM EDT CLINICAL INDICATION: SA by hanging, posterior cervical neck pain TECHNIQUE: Routine contiguous axial CT images of the head were obtained without contrast administration. Contrast-enhanced CT angiogram of the head and neck was obtained after administration of intravenous iodinated contrast using 0.6 mm axial slice thickness with multiplanar reformations and maximum intensity projections. In addition, 3D images were created and reviewed. AI Utilization: Total DLP (Dose-Length Product): 3744.87 mGy.cm (accession [id number]), 3744.87 mGy.cm (accession [id number]), 3744.87 mGy.cm (accession [id number]). Please note: The reported value represents the total of one or more individual components during the CT acquisition on this date and at this time, and as such, the same value may appear in more than one CT report depending on the interpreting/reporting physicians. COMPARISON: None. FINDINGS: CT Head without: No acute intracranial abnormality. No evidence of acute hemorrhage or ischemia. No mass, mass effect, or midline displacement of structures. Normal ventricular size and configuration. Patent basal cisterns. No displaced or depressed calvarial fractures. The visualized paranasal sinuses and mastoid air cells are clear. CTA Head: There is normal vascular anatomy. There is no evidence of vascular injury, specifically no arterial stenosis, occlusion, dissection, or pseudoaneurysm. The intracranial venous structures are also fairly well opacified and appear unremarkable. CTA Neck: There is normal vascular anatomy. There is no evidence of vascular injury, specifically no arterial stenosis, occlusion, dissection, or pseudoaneurysm. There is 0% stenosis of the ICA origins by NASCET criteria. Procedure Note Terry Ramirez MD - 12/31/2024 CLINICAL INDICATION: SA by hanging, posterior cervical neck pain TECHNIQUE: Routine contiguous axial CT images of the head were obtained withoutcontrast administration. Contrast-enhanced CT angiogram of the head and neck was obtained afteradministration of intravenous iodinated contrast using 0.6 mm axial slicethickness with multiplanar reformations and maximum intensity projections.In addition, 3D images were created and reviewed. AI Utilization: Total DLP (Dose-Length Product): 3744.87 mGy.cm (accession [id number]),3744.87 mGy.cm (accession [id number]), 3744.87 mGy.cm (accession [id number]).Please note: The reported value represents the total of one or moreindividual components during the CT acquisition on this date and at thistime, and as such, the same value may appear in more than one CT reportdepending on the interpreting/reporting physicians. COMPARISON: None. FINDINGS: CT Head without: No acute intracranial abnormality. No evidence of acute hemorrhage orischemia. No mass, mass effect, or midline displacement of structures.Normal ventricular size and configuration. Patent basal cisterns. No displaced or depressed calvarial fractures. The visualized paranasalsinuses and mastoid air cells are clear. CTA Head: There is normal vascular anatomy. There is no evidence of vascular injury,specifically no arterial stenosis, occlusion, dissection, orpseudoaneurysm. The intracranial venous structures are also fairly wellopacified and appear unremarkable. CTA Neck: There is normal vascular anatomy. There is no evidence of vascular injury,specifically no arterial stenosis, occlusion, dissection, orpseudoaneurysm. There is 0% stenosis of the ICA origins by NASCETcriteria. IMPRESSION: 1. No acute intracranial abnormality. 2. Normal CTA of the head and neck without evidence of vascular injury. CRITICAL RESULT: No. COMMUNICATION: Per this written report. Drafted by Terry Ramirez MD on 12/31/2024 1:00 AM Final report signed by Terry Ramirez MD on 12/31/2024 1:03 AM Fatmata Herbert IMG CT PROCEDURES Final Result * CT Head wo IV Contrast (12/31/2024 12:55 AM EDT) Anatomical Region Laterality Modality Head Computed Tomogra phy Impressions 12/31/2024 1:03 AM EDT 1. No acute intracranial abnormality. 2. Normal CTA of the head and neck without evidence of vascular injury. CRITICAL RESULT: No. COMMUNICATION: Per this written report. Drafted by Terry Ramirez MD on 12/31/2024 1:00 AM Final report signed by Terry Ramirez MD on 12/31/2024 1:03 AM Narrative 12/31/2024 1:03 AM EDT CLINICAL INDICATION: SA by hanging, posterior cervical neck pain TECHNIQUE: Routine contiguous axial CT images of the head were obtained without contrast administration. Contrast-enhanced CT angiogram of the head and neck was obtained after administration of intravenous iodinated contrast using 0.6 mm axial slice thickness with multiplanar reformations and maximum intensity projections. In addition, 3D images were created and reviewed. AI Utilization: Total DLP (Dose-Length Product): 3744.87 mGy.cm (accession [id number]), 3744.87 mGy.cm (accession [id number]), 3744.87 mGy.cm (accession [id number]). Please note: The reported value represents the total of one or more individual components during the CT acquisition on this date and at this time, and as such, the same value may appear in more than one CT report depending on the interpreting/reporting physicians. COMPARISON: None. FINDINGS: CT Head without: No acute intracranial abnormality. No evidence of acute hemorrhage or ischemia. No mass, mass effect, or midline displacement of structures. Normal ventricular size and configuration. Patent basal cisterns. No displaced or depressed calvarial fractures. The visualized paranasal sinuses and mastoid air cells are clear. CTA Head: There is normal vascular anatomy. There is no evidence of vascular injury, specifically no arterial stenosis, occlusion, dissection, or pseudoaneurysm. The intracranial venous structures are also fairly well opacified and appear unremarkable. CTA Neck: There is normal vascular anatomy. There is no evidence of vascular injury, specifically no arterial stenosis, occlusion, dissection, or pseudoaneurysm. There is 0% stenosis of the ICA origins by NASCET criteria. Procedure Note Terry Ramirez MD - 12/31/2024 CLINICAL INDICATION: SA by hanging, posterior cervical neck pain TECHNIQUE: Routine contiguous axial CT images of the head were obtained withoutcontrast administration. Contrast-enhanced CT angiogram of the head and neck was obtained afteradministration of intravenous iodinated contrast using 0.6 mm axial slicethickness with multiplanar reformations and maximum intensity projections.In addition, 3D images were created and reviewed. AI Utilization: Total DLP (Dose-Length Product): 3744.87 mGy.cm (accession [id number]),3744.87 mGy.cm (accession [id number]), 3744.87 mGy.cm (accession [id number]).Please note: The reported value represents the total of one or moreindividual components during the CT acquisition on this date and at thistime, and as such, the same value may appear in more than one CT reportdepending on the interpreting/reporting physicians. COMPARISON: None. FINDINGS: CT Head without: No acute intracranial abnormality. No evidence of acute hemorrhage orischemia. No mass, mass effect, or midline displacement of structures.Normal ventricular size and configuration. Patent basal cisterns. No displaced or depressed calvarial fractures. The visualized paranasalsinuses and mastoid air cells are clear. CTA Head: There is normal vascular anatomy. There is no evidence of vascular injury,specifically no arterial stenosis, occlusion, dissection, orpseudoaneurysm. The intracranial venous structures are also fairly wellopacified and appear unremarkable. CTA Neck: There is normal vascular anatomy. There is no evidence of vascular injury,specifically no arterial stenosis, occlusion, dissection, orpseudoaneurysm. There is 0% stenosis of the ICA origins by NASCETcriteria. IMPRESSION: 1. No acute intracranial abnormality. 2. Normal CTA of the head and neck without evidence of vascular injury. CRITICAL RESULT: No. COMMUNICATION: Per this written report. Drafted by Terry Ramirez MD on 12/31/2024 1:00 AM Final report signed by Terry Ramirez MD on 12/31/2024 1:03 AM Fatmtaa Herbert IM CT PROCEDURES Final Result * CT Angio Head (12/31/2024 12:55 AM EDT) Anatomical Region Laterality Modality [place] Computed Tomogr aphy Impressions 12/31/2024 1:03 AM EDT 1. No acute intracranial abnormality. 2. Normal CTA of the head and neck without evidence of vascular injury. CRITICAL RESULT: No. COMMUNICATION: Per this written report. Drafted by Terry Ramirez MD on 12/31/2024 1:00 AM Final report signed by Terry Ramirez MD on 12/31/2024 1:03 AM Narrative 12/31/2024 1:03 AM EDT CLINICAL INDICATION: SA by hanging, posterior cervical neck pain TECHNIQUE: Routine contiguous axial CT images of the head were obtained without contrast administration. Contrast-enhanced CT angiogram of the head and neck was obtained after administration of intravenous iodinated contrast using 0.6 mm axial slice thickness with multiplanar reformations and maximum intensity projections. In addition, 3D images were created and reviewed. AI Utilization: Total DLP (Dose-Length Product): 3744.87 mGy.cm (accession [id number]), 3744.87 mGy.cm (accession [id number]), 3744.87 mGy.cm (accession [id number]). Please note: The reported value represents the total of one or more individual components during the CT acquisition on this date and at this time, and as such, the same value may appear in more than one CT report depending on the interpreting/reporting physicians. COMPARISON: None. FINDINGS: CT Head without: No acute intracranial abnormality. No evidence of acute hemorrhage or ischemia. No mass, mass effect, or midline displacement of structures. Normal ventricular size and configuration. Patent basal cisterns. No displaced or depressed calvarial fractures. The visualized paranasal sinuses and mastoid air cells are clear. CTA Head: There is normal vascular anatomy. There is no evidence of vascular injury, specifically no arterial stenosis, occlusion, dissection, or pseudoaneurysm. The intracranial venous structures are also fairly well opacified and appear unremarkable. CTA Neck: There is normal vascular anatomy. There is no evidence of vascular injury, specifically no arterial stenosis, occlusion, dissection, or pseudoaneurysm. There is 0% stenosis of the ICA origins by NASCET criteria. Procedure Note Terry Ramirez MD - 12/31/2024 CLINICAL INDICATION: SA by hanging, posterior cervical neck pain TECHNIQUE: Routine contiguous axial CT images of the head were obtained withoutcontrast administration. Contrast-enhanced CT angiogram of the head and neck was obtained afteradministration of intravenous iodinated contrast using 0.6 mm axial slicethickness with multiplanar reformations and maximum intensity projections.In addition, 3D images were created and reviewed. AI Utilization: Total DLP (Dose-Length Product): 3744.87 mGy.cm (accession [id number]),3744.87 mGy.cm (accession [id number]), 3744.87 mGy.cm (accession [id number]).Please note: The reported value represents the total of one or moreindividual components during the CT acquisition on this date and at thistime, and as such, the same value may appear in more than one CT reportdepending on the interpreting/reporting physicians. COMPARISON: None. FINDINGS: CT Head without: No acute intracranial abnormality. No evidence of acute hemorrhage orischemia. No mass, mass effect, or midline displacement of structures.Normal ventricular size and configuration. Patent basal cisterns. No displaced or depressed calvarial fractures. The visualized paranasalsinuses and mastoid air cells are clear. CTA Head: There is normal vascular anatomy. There is no evidence of vascular injury,specifically no arterial stenosis, occlusion, dissection, orpseudoaneurysm. The intracranial venous structures are also fairly wellopacified and appear unremarkable. CTA Neck: There is normal vascular anatomy. There is no evidence of vascular injury,specifically no arterial stenosis, occlusion, dissection, orpseudoaneurysm. There is 0% stenosis of the ICA origins by NASCETcriteria. IMPRESSION: 1. No acute intracranial abnormality. 2. Normal CTA of the head and neck without evidence of vascular injury. CRITICAL RESULT: No. COMMUNICATION: Per this written report. Drafted by Terry Ramirez MD on 12/31/2024 1:00 AM Final report signed by Terry Ramirez MD on 12/31/2024 1:03 AM Result Nicole Herbert IMG CT PROCEDURES Final Result * ED HIV 1/2 Antibody/Antigen Screen w/Reflex to HIV 1/2 Differentiation (12/30/2024 11:03 PM EDT) Pathologist [facility] HIV 1 & 2 Antibody/Antigen Screen Non Reactive Non Reactive 12/31/2024 12:12 AM EDT [facility] Comment:Screening for HIV 1 & 2 antibodies, and P24 antigen is NONREACTIVE. No confirmatory testing is required. Blood Venous blood specimen / Unknown Venipuncture / Unknown 12/30/2024 11:03 PM EDT 12/30/2024 11:30 PM EDT Result Nicole Herbert LAB BLOOD ORDERABLES Final Resul t Performing Organization Address City/[facility]/ZIP Co de Phone Number [facility] [address] [place] [address] * Hepatitis C Antibody - ED (12/30/2024 11:03 PM EDT) Pathologist [facility] Hepatitis C Antibody Negative Negative 12/31/2024 12:12 AM EDT [facility] Blood Venous blood specimen / Unknown Venipuncture / Unknown 12/30/2024 11:03 PM EDT 12/30/2024 11:30 PM EDT Result Nicole Herbert LAB BLOOD ORDERABLES Final Resul t Performing Organization Address City/[facility]/ZIP Co de Phone Number [facility] [address] [place] [address] * PT-INR (12/30/2024 11:03 PM EDT) Pathologist [facility] Prothrombin Time 13.9 12.0 - 14.3 sec 12/30/2024 11:37 PM EDT [facility] INR 1.1 0.9 - 1.1 12/30/2024 11:37 PM EDT [facility] Blood Venous blood specimen / Unknown Venipuncture / Unknown 12/30/2024 11:03 PM EDT 12/30/2024 11:15 PM EDT Narrative [facility] - 12/30/2024 11:37 PM EDT OPTIMAL INR RANGES FOR PATIENT ON ORAL ANTICOAGULANT THERAPY Prevention of venous thromboembolism INR 2.0 to 3.0 In patients with heart disease: Atrial fibrillation INR 2.0 to 3.0 Valvular heart disease INR 2.0 to 3.0 Tissue heart valves INR 2.0 to 3.0 Mechanical prosthetic valves INR 2.5 to 3.5 Prevention of recurrent TN INR 2.5 to 3.5 us Fatmata Herbert LAB BLOOD ORDERABLES Final Resul t [facility] [address] [place] [address] * (ABNORMAL) CBC w/diff (12/30/2024 11:03 PM EDT) WBC Count 8.37 3.70 - 10.30 10*3/uL LAB HEMATOLOGY METHOD 12/30/2024 11:48 PM EDT [facility] RBC Count 5.27 4.60 - 6.10 10*6/uL LAB HEMATOLOGY METHOD 12/30/2024 11:48 PM EDT [facility] HGB 16.5 13.7 - 17.5 g/dL LAB HEMATOLOGY METHOD 12/30/2024 11:48 PM EDT [facility] HCT 44.8 40.0 - 51.0 % LAB HEMATOLOGY METHOD 12/30/2024 11:48 PM EDT [facility] Platelet Count 259 155 - 369 10*3/uL LAB HEMATOLOGY METHOD 12/30/2024 11:48 PM EDT [facility] MCV 85 79 - 98 fL LAB HEMATOLOGY METHOD 12/30/2024 11:48 PM EDT [facility] MCH 31.3 26.0 - 32.0 pg LAB HEMATOLOGY METHOD 12/30/2024 11:48 PM EDT [facility] MCHC 36.8(H) 30.7 - 35.5 g/dL LAB HEMATOLOGY METHOD 12/30/2024 11:48 PM EDT [facility] RDW 11.9 11.5 - 14.5 % LAB HEMATOLOGY METHOD 12/30/2024 11:48 PM EDT [facility] MPV 9.6 8.8 - 12.5 fL LAB HEMATOLOGY METHOD 12/30/2024 11:48 PM EDT [facility] nRBC 0.0 <=0.0 per 100 WBCs LAB HEMATOLOGY METHOD 12/30/2024 11:48 PM EDT [facility] Differential Type Automated LAB HEMATOLOGY METHOD 12/30/2024 11:48 PM EDT [facility] Neutrophils % 72 % LAB HEMATOLOGY METHOD 12/30/2024 11:48 PM EDT [facility] Lymphocytes % 19 % LAB HEMATOLOGY METHOD 12/30/2024 11:48 PM EDT [facility] Monocytes % 8 % LAB HEMATOLOGY METHOD 12/30/2024 11:48 PM EDT [facility] Eosinophils % 1 % LAB HEMATOLOGY METHOD 12/30/2024 11:48 PM EDT [facility] Basophils % 0 % LAB HEMATOLOGY METHOD 12/30/2024 11:48 PM EDT [facility] Immature Granulocytes % 0 % LAB HEMATOLOGY METHOD 12/30/2024 11:48 PM EDT [facility] Neutrophils Absolute 6.04 1.60 - 6.10 10*3/uL LAB HEMATOLOGY METHOD 12/30/2024 11:48 PM EDT [facility] Lymphocytes Absolute 1.55 1.20 - 3.90 10*3/uL LAB HEMATOLOGY METHOD 12/30/2024 11:48 PM EDT [facility] Monocytes Absolute 0.70 0.30 - 0.90 10*3/uL LAB HEMATOLOGY METHOD 12/30/2024 11:48 PM EDT [facility] Eosinophils Absolute 0.04 0.00 - 0.50 10*3/uL LAB HEMATOLOGY METHOD 12/30/2024 11:48 PM EDT [facility] Basophils Absolute 0.03 0.00 - 0.10 10*3/uL LAB HEMATOLOGY METHOD 12/30/2024 11:48 PM EDT [facility] Immature Granulocytes Absolute 0.01 0.00 - 0.06 10*3/uL LAB HEMATOLOGY METHOD 12/30/2024 11:48 PM EDT [facility] Blood Venous blood specimen / Unknown Venipuncture / Unknown 12/30/2024 11:03 PM EDT 12/30/2024 11:43 PM EDT Narrative [facility] - 12/30/2024 11:48 PM EDT Therapeutic decision making should be based on absolute values, rather than percentages. us Fatmata Herbert LAB BLOOD ORDERABLES Final Resul t Performing Organization Address City/[facility]/ZIP Co de Phone Number [facility] [address] [place] [address] * Type and screen (12/30/2024 11:03 PM EDT) ABO/Rh A Positive 12/30/2024 10:43 PM EDT BLOOD BANK Antibody Screen Negative 12/30/2024 10:43 PM EDT BLO[facility]ANK Specimen Expiration 01/02/2025 23:59 12/30/2024 10:43 PM EDT BLOOD BANK Blood Venous blood specimen / Unknown Venipuncture / Unknown 12/30/2024 11:03 PM EDT 12/30/2024 11:15 PM EDT us Fatmata ALVAREZ BLOOD BANK TEST ORDERABLES F inal Result Performing Organization Address [facility]/ZIP Co de Phone Number BLOOD BANK [address] [place] [address], [place] * (ABNORMAL) CMP (12/30/2024 11:03 PM EDT) Glucose, Plasma 86 74 - 99 mg/dL 12/30/2024 11:42 PM EDT [facility] BUN, Plasma 16 7 - 21 mg/dL 12/30/2024 11:42 PM EDT [facility] Creatinine, Plasma 0.98 0.70 - 1.20 mg/dL 12/30/2024 11:42 PM EDT [facility] BUN/Creatinine Ratio 16 12/30/2024 11:42 PM EDT [facility] Sodium, Plasma 139 136 - 145 mmol/L 12/30/2024 11:42 PM EDT [facility] Potassium, Plasma 3.3(L) 3.6 - 4.9 mmol/L 12/30/2024 11:42 PM EDT [facility] Chloride, Plasma 105 97 - 107 mmol/L 12/30/2024 11:42 PM EDT [facility] CO2, Plasma 18(L) 22 - 29 mmol/L 12/30/2024 11:42 PM EDT [facility] Anion Gap 16 6 - 16 mmol/L 12/30/2024 11:42 PM EDT [facility] Total Calcium, Plasma 9.3 8.9 - 10.2 mg/dL 12/30/2024 11:42 PM EDT [facility] Total Protein 6.9 6.3 - 7.9 g/dL 12/30/2024 11:42 PM EDT [facility] Albumin, Plasma 4.3 3.5 - 5.2 g/dL 12/30/2024 11:42 PM EDT [facility] AST, Plasma 31 10 - 50 U/L 12/30/2024 11:42 PM EDT [facility] ALT, Plasma 27 10 - 50 U/L 12/30/2024 11:42 PM EDT [facility] Alkaline Phosphatase, Plasma 74 40 - 115 U/L 12/30/2024 11:42 PM EDT [facility] Total Bilirubin, Plasma 1.1 0.2 - 1.1 mg/dL 12/30/2024 11:42 PM EDT [facility] eGFRcr 95.7 mL/min/1.7 3m*2 12/30/2024 11:42 PM EDT [facility] Comment:Reported eGFRcr in m L/min/1.73m2 is based the CKD-EPI 2020 equation that does not use a race coefficient. Blood Venous blood specimen / Unknown Venipuncture / Unknown 12/30/2024 11:03 PM EDT 12/30/2024 11:15 PM EDT us Fatmata Herbert LAB BLOOD ORDERABLES Final Resul t [facility] [address] [place] [address] * CT OUTSIDE IMAGES (12/30/2024 6:31 PM EDT) Anatomical Region Laterality Modality Computed Tomogra phy 12/30/2024 6:31 PM EDT us External Provider IMG CT PROCEDURES Final Result from Last 3 Months Insurance [facility] MEDICAID Care Teams Physician Allergist Immunologist Relationship Specialty Start Date End Date Kelechi So MD [address] [place] [id number] PCP - General 10/15/20
--- OUTSIDE RECORDS SUMMARY | 2025-03-05 22:01 | XMS_ITS | Encounter Summary ---
Author Organization [facility] Address [address] [place] [address] Care Team Providers Care Plaster Die Maker Name Role Phone Kelechi So MD Primary Care Provider [phone] Encounter Details Date Type Department Care Team (Late st Contact Info) Description 10/24/2020 Orders Only External Location [address] [place] [address] Lupe Grubbs MD [address] [place] [address] Social History Tobacco Use Types [...] Associated Diagnosis Comments CT OUTSIDE IMAGES 10/24/2020 7:46 PM EDT documented in this encounter Results * CT OUTSIDE IMAGES (10/24/2020 7:46 PM EDT) Anatomical Region Laterality Modality Computed Tomogra phy 10/24/2020 7:46 PM EDT us Lupe Grubbs MD IMG CT PROCEDURES Final Result documented in this encounter Visit Diagnoses Not on filedocumented in this encounter Care Teams Plaster Die Maker Relationship Specialty Start Date End Date Kelechi So MD [address] [place] [address] PCP - General 10/15/20 documented as of this encounter
--- NOTE | 2025-03-05 22:02 | CT_ITS ---
PROCEDURE INFORMATION: Exam: CTA Chest With Contrast Exam date and time: 03/05/2025 11:05 PM Age: 49 years old Clinical indication: Injury or trauma; Fall; Additional info: Fall from 10 feet TECHNIQUE: Imaging protocol: Computed tomographic angiography of the chest with contrast. Exam focused on the arteries. 3D rendering (Not supervised by radiologist): MIP and/or 3D reconstructed images were created by the technologist. Radiation optimization: All CT scans at this facility use at least one of these dose optimization techniques: automated exposure control; mA and/or kV adjustment per patient size (includes targeted exams where dose is matched to clinical indication); or iterative reconstruction. Contrast material: ISOVUE; Contrast volume: 80 ml; Contrast route: INTRAVENOUS (IV); COMPARISON: CR XR CHEST PORTABLE 03/05/2025 10:37 PM FINDINGS: Pulmonary arteries: No pulmonary emboli. Aorta: Unremarkable. No aortic aneurysm. No aortic dissection. Lungs: Left lower lobar calcified nodule. No consolidation. No masses. Pleural spaces: Unremarkable. No pneumothorax. No pleural effusion. Heart: Unremarkable. No cardiomegaly. No pericardial effusion. Lymph nodes: Calcified left perihilar lymph nodes. No enlarged lymph nodes. Bones/joints: Unremarkable. No acute fracture. Soft tissues: Unremarkable. IMPRESSION: No acute findings.
--- NOTE | 2025-03-05 22:02 | CT_ITS ---
PROCEDURE INFORMATION: Exam: CT Head Without Contrast Exam date and time: 03/05/2025 10:49 PM Age: 49 years old Clinical indication: Injury or trauma; Fall TECHNIQUE: Imaging protocol: Computed tomography of the head without contrast. Radiation optimization: All CT scans at this facility use at least one of these dose optimization techniques: automated exposure control; mA and/or kV adjustment per patient size (includes targeted exams where dose is matched to clinical indication); or iterative reconstruction. COMPARISON: MR HEAD/BRAIN WO/W CON 12/25/2022 8:59 AM FINDINGS: Brain: No evidence for intracranial hemorrhage, mass lesions or acute stroke. Cerebral ventricles: No ventriculomegaly. Pituitary gland and sella: Negative Paranasal sinuses: Visualized sinuses are unremarkable. No fluid levels. Mastoid air cells: Visualized mastoid air cells are well aerated. Orbital cavities: Negative. Bones: Unremarkable. No acute fracture. Soft tissues: Unremarkable. Vasculature: Negative. Other findings: Motion artifact degrades images. IMPRESSION: No evidence for intracranial hemorrhage, mass lesions or acute stroke.
--- NOTE | 2025-03-05 22:02 | CT_ITS ---
PROCEDURE INFORMATION: Exam: CT Lumbar Spine Without Contrast Exam date and time: 03/05/2025 10:56 PM Age: 49 years old Clinical indication: Injury or trauma; Fall; Additional info: Fall from 10 feet TECHNIQUE: Imaging protocol: Computed tomography of the lumbar spine without contrast. Radiation optimization: All CT scans at this facility use at least one of these dose optimization techniques: automated exposure control; mA and/or kV adjustment per patient size (includes targeted exams where dose is matched to clinical indication); or iterative reconstruction. COMPARISON: MR LUMBAR SPINE WO CON 10/05/2022 2:23 PM FINDINGS: Bones/joints: No acute fracture. Mild chronic L1 vertebral body height loss. No acute height loss. No bony retropulsion. Normal alignment. Soft tissues: Unremarkable. IMPRESSION: No acute findings identified.
--- NOTE | 2025-03-05 22:02 | CT_ITS ---
PROCEDURE INFORMATION: Exam: CT Thoracic Spine Without Contrast Exam date and time: 03/05/2025 10:53 PM Age: 49 years old Clinical indication: Injury or trauma; Fall; Additional info: Fall from 10 feet TECHNIQUE: Imaging protocol: Computed tomography of the thoracic spine without contrast. Radiation optimization: All CT scans at this facility use at least one of these dose optimization techniques: automated exposure control; mA and/or kV adjustment per patient size (includes targeted exams where dose is matched to clinical indication); or iterative reconstruction. COMPARISON: MR THORACIC SPINE WO CON 10/17/2022 3:44 PM FINDINGS: Bones/joints: No acute fracture. Normal alignment. Soft tissues: Unremarkable. IMPRESSION: No acute thoracic spine findings identified.
--- NOTE | 2025-03-05 22:02 | XR_ITS ---
PROCEDURE INFORMATION: Exam: XR Right Humerus Exam date and time: 03/05/2025 10:37 PM Age: 49 years old Clinical indication: Pain; Upper arm; Right; Additional info: Tenderness S/P fall TECHNIQUE: Imaging protocol: Radiologic exam of the right humerus. Views: 2 or more views. COMPARISON: CR XR SHOULDER RT MIN 2V 03/05/2025 10:37 PM FINDINGS: Bones/joints: No fracture. Normal alignment. Soft tissues: Unremarkable. IMPRESSION: No acute findings.
--- NOTE | 2025-03-05 22:02 | XR_ITS ---
PROCEDURE INFORMATION: Exam: XR Right Elbow Exam date and time: 03/05/2025 10:37 PM Age: 49 years old Clinical indication: Pain; Elbow; Right; Additional info: Tenderness S/P fall TECHNIQUE: Imaging protocol: Radiologic exam of the right elbow. Views: 3 or more views. COMPARISON: CR XR SHOULDER RT MIN 2V 03/05/2025 10:37 PM FINDINGS: Bones/joints: Normal. Soft tissues: Normal. IMPRESSION: No acute findings.
--- NOTE | 2025-03-05 22:02 | CT_ITS ---
PROCEDURE INFORMATION: Exam: CT Cervical Spine Without Contrast Exam date and time: 03/05/2025 10:51 PM Age: 49 years old Clinical indication: Injury or trauma; Fall; Additional info: Fall from 10 feet TECHNIQUE: Imaging protocol: Computed tomography of the cervical spine without contrast. Radiation optimization: All CT scans at this facility use at least one of these dose optimization techniques: automated exposure control; mA and/or kV adjustment per patient size (includes targeted exams where dose is matched to clinical indication); or iterative reconstruction. COMPARISON: MR CERVICAL SPINE WO CON 10/05/2022 2:23 PM FINDINGS: Bones: Spinal alignment is normal. 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 No fracture or bone destruction. Mild disc space narrowing at C5-C6 and C6-C7 levels with posterior disc osteophyte complex. Lungs: Lung apices are normal. Soft tissues: Unremarkable. IMPRESSION: 1. Spinal alignment is normal. 2. 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 3. No fracture or bone destruction 4. Mild disc space narrowing at C5-C6 and C6-C7 levels with posterior disc osteophyte complex.
--- NOTE | 2025-03-05 22:02 | CT_ITS ---
PROCEDURE INFORMATION: Exam: CTA Abdomen and Pelvis With Contrast Exam date and time: 03/05/2025 11:05 PM Age: 49 years old Clinical indication: Injury or trauma; Fall; Blunt trauma; Lower abdominal or back area; Bilateral; Additional info: Fall from 10 feet TECHNIQUE: Imaging protocol: Computed tomographic angiography of the abdomen and pelvis with contrast. Exam focused on the arteries. 3D rendering (Not supervised by radiologist): MIP and/or 3D reconstructed images were created by the technologist. Radiation optimization: All CT scans at this facility use at least one of these dose optimization techniques: automated exposure control; mA and/or kV adjustment per patient size (includes targeted exams where dose is matched to clinical indication); or iterative reconstruction. Contrast material: ISO 370; Contrast volume: 80 ml; Contrast route: INTRAVENOUS (IV); COMPARISON: CT ABDOMEN PELVIS W CON 01/29/2021 10:59 PM FINDINGS: Aorta: No aortic aneurysm. No aortic dissection. Celiac and mesenteric arteries: No occlusion or significant stenosis. Renal arteries: No occlusion or significant stenosis. Right iliac arteries: No occlusion or significant stenosis. Left iliac arteries: No occlusion or significant stenosis. Liver: No mass. Gallbladder and biliary ducts: Unremarkable. No calcified stones. No ductal dilation. Pancreas: Unremarkable. No mass. No ductal dilation. Spleen: Unremarkable. No splenomegaly. Adrenal glands: Unremarkable. No mass. Kidneys and ureters: Similar bilateral renal cysts. No solid mass. No hydronephrosis. Stomach and bowel: Unremarkable. No obstruction. No mucosal thickening. Appendix: Not visualized. Intraperitoneal space: Nonobstructive pattern. Lymph nodes: Unremarkable. No enlarged lymph nodes. Urinary bladder: Unremarkable. No mass. Reproductive: Unremarkable as visualized. Bones/joints: No acute fracture. Soft tissues: Unremarkable. IMPRESSION: 1. No acute traumatic findings identified. 2. Unremarkable CTA.
--- NOTE | 2025-03-05 22:02 | XR_ITS ---
PROCEDURE INFORMATION: Exam: XR Right Shoulder Exam date and time: 03/05/2025 10:37 PM Age: 49 years old Clinical indication: Pain; Shoulder; Right; Additional info: Tenderness S/P fall TECHNIQUE: Imaging protocol: Radiologic exam of the right shoulder. Views: 2 or more views. COMPARISON: CR XR HUMERUS RT 03/05/2025 10:37 PM FINDINGS: Bones/joints: No fracture. Normal alignment. Soft tissues: Unremarkable. IMPRESSION: No acute findings.
--- NOTE | 2025-03-05 22:02 | XR_ITS ---
PROCEDURE INFORMATION: Exam: XR Chest Exam date and time: 03/05/2025 10:37 PM Age: 49 years old Clinical indication: Pain; Other: Fall; Additional info: Right shoulder pain TECHNIQUE: Imaging protocol: Radiologic exam of the chest. Views: 1 view. COMPARISON: CR XR CHEST 2V 04/09/2023 3:36 PM FINDINGS: Lungs: Unremarkable. No consolidation. Pleural spaces: Unremarkable. No pleural effusion. No pneumothorax. Heart/Mediastinum: Unremarkable. No cardiomegaly. Bones/joints: Unremarkable. IMPRESSION: No acute findings.
--- OUTSIDE RECORDS SUMMARY | 2025-03-05 22:02 | XMS_ITS | Data Portability ---
Author Organization [facility] [place] Address [address] [place] [address] Assessment No assessment recorded. Plan of Treatment Reminders Order Date Submit Date Provider Last Modified By Organization Details Last Modified Time Details Appointments OV EST 15 2025 02:00P Apryl Mead Jr, MD Not available Not available Not available Lab testoster one, free + total, serum [address] [facility] (Add On Labs Only), [address] [place] [address] [place], [address], 01/15/2025 07:52:08 CBC [address] [facility] (Add On Labs Only), [address] [place] [address] [place], [address], 01/15/2025 07:52:08 PSA, serum or plasma [address] [facility] (Add On Labs Only), [address] [place] [address] [place], [address], 01/15/2025 07:52:08 CBC [address] (Lab Registration) , [facility], [address], 07/17/2024 08:34:49 testoster one, free, serum 2024 025 [facility] (Lab Registration) , [facility] [place], [address], 07/21/2024 05:08:34 testoster one, total, serum 2024 025 [facility] (Lab Registration) , [address] [place], [address], 07/17/2024 11:11:12 CBC [address] (Lab Registration) , [address] [place], [address], 01/04/2024 08:48:41 testoster one, free, serum 2023 024 [facility] (Lab Registration) , [address] [place], [address], 01/06/2024 14:10:07 PSA, serum or plasma [address] (Lab Registration) , [address], [address], 01/04/2024 08:48:41 testoster one, free + total, serum [address] (Lab Registration) , [address], [address], 06/20/2023 07:10:39 CBC 2023 024 [facility] (Lab Registration) , [address] [place], [address], 06/13/2023 16:00:47 testoster one, free + total, serum 2022 023 [facility] (Lab Registration) , [address] [place] [address] [place], [address], 12/03/2022 06:42:03 CBC [address] [facility] (Lab Registration) , [address] [place] [address] [place], [address], 12/04/2022 10:51:55 PSA, serum or plasma 2022 023 [facility] (Lab Registration) , [address] [place] [address] [place], [address], 11/28/2022 06:44:22 Referral None recorded. Procedures None recorded. Surgeries None recorded. Imaging None recorded. Medication Orders testoster one cypionate 200 mg/mL intramusc ular oil 2024 025 [facility], [facility], [address], [place], [address], 01/14/2025 15:53:06 anastrozo le 1 mg tablet 2024 025 [facility], [address] [place] [address], [facility], [place], [address], 01/14/2025 15:53:06 testoster one cypionate 200 mg/mL intramusc ular oil 2024 025 [facility], [address] [place] [address], [address], [place], [address], 07/16/2024 13:48:54 anastrozo le 1 mg tablet 2024 025 [facility], [address] [place] [address], [address], [place], [address], 07/16/2024 13:48:52 testoster one cypionate 200 mg/mL intramusc ular oil 2023 024 [facility], [address] [place] [address], [address], [place], [address], 01/02/2024 13:13:19 anastrozo le 1 mg tablet 2023 024 [facility], [address] [place] [address], [address], [place], [address], 01/09/2024 10:27:19 testoster one cypionate 200 mg/mL intramusc ular oil 2023 024 [facility], [address] [place] [address], [facility], [place], [address], 06/13/2023 13:18:45 anastrozo le 1 mg tablet 2023 024 [facility], [address] [place] [address], [facility] 2, [place], [address], 06/13/2023 13:18:46 testoster one cypionate 200 mg/mL intramusc ular oil 2022 023 [facility], [address] [place] [address] 2, [place], [address], 11/27/2022 14:43:19 anastrozo le 1 mg tablet 2022 023 [facility], [address] [place] [address] 2, [place], [address], 11/27/2022 15:13:41 Patient TargetsNo targets recorded. Patient InstructionsNo instructions recorded. Reason for Referral None Reported. Results Created Date Observation Date Name Description Value Unit Range Abnormal Flag Note LastModifiedBy Organization Detail LastModifiedTime 11/28/1911/27/2022 CBC NO DIFF (HEMO GRAM) WBC 5.21 K/uL 4.5-11 .5 Not Available [facility] (Pre-Op Clinic) [address] [place] [address] [place], [address], 11/27/2022 19:26:14 11/28/19 23 11/27/2022 CBC NO DIFF (HEMO GRAM) RBC 5.04 M/uL 4.0-5. 4 Not Available [facility] (Pre-Op Clinic) [address] [place] [address] [place], [address], 11/27/2022 19:26:14 11/28/19 23 11/27/2022 CBC NO DIFF (HEMO GRAM) HGB 15.5 g/dL 14.0-1 8.0 Not Available [facility] (Pre-Op Clinic) [address] [place] [address] [place], [address], 11/27/2022 19:26:14 11/28/19 23 11/27/2022 CBC NO DIFF (HEMO GRAM) HCT 44.2 % 40-54 Not Available [facility] (Pre-Op Clinic) [address] [place] [address] [place], [address], 11/27/2022 19:26:14 11/28/19 23 11/27/2022 CBC NO DIFF (HEMO GRAM) MCV 87.7 fL 80.0-1 00.0 Not Available [facility] (Pre-Op Clinic) [address] [place] [address] [place], [address], 11/27/2022 19:26:14 11/28/19 23 11/27/2022 CBC NO DIFF (HEMO GRAM) MCH 30.8 pg 26.0-3 2.0 Not Available [facility] (Pre-Op Clinic) [address] [place] [address] [place], [address], 11/27/2022 19:26:14 11/28/1911/27/2022 CBC NO DIFF (HEMO GRAM) MCHC 35.1 g/dL 32.0-3 6.0 Not Available [facility] (Pre-Op Clinic) [address] [place] [address] [place], [address], 11/27/2022 19:26:14 11/28/19 23 11/27/2022 CBC NO DIFF (HEMO GRAM) RDW 12.4 % 11.5-1 4.5 Not Available [facility] (Pre-Op Clinic) [address] [place] [address] [place], [address], 11/27/2022 19:26:14 11/28/19 23 11/27/2022 CBC NO DIFF (HEMO GRAM) platelet count 231 K/uL 142-42 4 Not Available [facility] (Pre-Op Clinic) [address] [place] [address] [place], [address], 11/27/2022 19:26:14 11/28/19 23 11/27/2022 CBC NO DIFF (HEMO GRAM) MPV 10.1 fL 6.8-10 .2 Not Available [facility] (Pre-Op Clinic) [address] [place] [address] [place], [address], 11/27/2022 19:26:14 11/28/19 23 11/27/2022 CBC NO DIFF (HEMO GRAM) note Unles s other darby noted testi ng perfo rmed at: [facility] [address] [place] [address] Ascencion case MD Not Available [facility] (Pre-Op Clinic) [address] [place] [address] [place], [address], 11/27/2022 19:26:14 11/28/19 23 11/27/2022 PROST ATE SPECI FIC AG (PSA) PSA 0.86 NG/mL 0.00-4 .00 Not Available [facility] (Pre-Op Clinic) [address] [place] [address] [place], [address], 11/27/2022 20:39:49 11/28/19 23 11/27/2022 PROST ATE SPECI FIC AG (PSA) note Unles s other darby noted testi ng perfo rmed at: [facility] [address] [place] [address] Ascencion case MD Not Available [facility] (Pre-Op Clinic) [address] [place] [address] [place], [address], 11/27/2022 20:39:49 11/28/19 23 11/27/2022 TESTO STERO NE, FREE AND TOTAL note Unles s other darby noted testi ng perfo rmed at: [facility] [address] [place] [address] Ascencion case MD Not Available [facility] (Pre-Op Clinic) [address] [place] [address] [place], [address], 12/03/2022 06:42:03 11/28/19 23 12/03/2022 TESTO STERO NE, FREE AND TOTAL testosterone , total 220 NG/dL 264-91 6 low Adult male refer ence inter marcos is based on a popul ation of healt hy non[place] males (BMI <30) betwe en 19 and 39 years old. Zina collado et.al . EM 2017, 102;1 161-1 173. PMID: 56350 103. Adult male refer ence inter marcos is based on a popul ation of healt hy [place] males (BMI <30) betwe en 19 and 39 years old. Zina collado et.al . EM 2017, 102;1 161-1 173. PMID: 47732 103. Not Available [facility] (Pre-Op Clinic) [address] [place] [address] [place], [address], 12/03/2022 06:42:03 11/28/19 23 12/03/2022 TESTO STERO NE, FREE AND TOTAL testosterone , free (direct) 1.6 pg/mL 6.8-21 .5 low Perfo rmed at: CB [facility] n [address] [place] [address] Lab Direc tor: Obdulio hansen PhD, Phone : [phone] Perfo rmed at: - [facility] [address] [address] Lab Direc tor: Josseline rust MD, Phone : [phone] Perfo rmed at: [facility] rp [facility] n [address] [place] [address] Lab Direc tor: Obdulio hansen PhD, Phone : [phone] Perfo rmed at: - [facility] [address] [address] Lab Direc tor: Josseline rust MD, Phone : [phone] Not Available [facility] (Pre-Op Clinic) [address] [place] [address] [place], [address], 12/03/2022 06:42:03 06/13/19 24 06/13/2023 CBC AUTO NO DIFF (HEMO GRAM) WBC 5.5 10 4.5-11 .5 Not Available [facility] (Lab Registration) [address] [place], [address], 06/13/2023 16:00:47 06/13/19 24 06/13/2023 CBC AUTO NO DIFF (HEMO GRAM) RBC 5.47 10 4.25-5 .57 Not Available [facility] (Lab Registration) [address] [place], [address], 06/13/2023 16:00:47 06/13/19 24 06/13/2023 CBC AUTO NO DIFF (HEMO GRAM) HGB 16.9 g/dL 13.5-1 7.2 Not Available [facility] (Lab Registration) [address] [place], [address], 06/13/2023 16:00:47 06/13/19 24 06/13/2023 CBC AUTO NO DIFF (HEMO GRAM) HCT 48.8 % 42.0-5 2.0 Not Available [facility] (Lab Registration) [address] [place], [address], 06/13/2023 16:00:47 06/13/19 24 06/13/2023 CBC AUTO NO DIFF (HEMO GRAM) MCV 89.2 fL 80-95 Not Available [facility] (Lab Registration) [address] [place], [address], 06/13/2023 16:00:47 06/13/19 24 06/13/2023 CBC AUTO NO DIFF (HEMO GRAM) MCH 30.9 pg 27.0-3 4.0 Not Available [facility] (Lab Registration) [address] [place], [address], 06/13/2023 16:00:47 06/13/19 24 06/13/2023 CBC AUTO NO DIFF (HEMO GRAM) MCHC 34.6 g/dL 32.0-3 6.0 Not Available [facility] (Lab Registration) [address], [place], [address], 06/13/2023 16:00:47 06/13/19 24 06/13/2023 CBC AUTO NO DIFF (HEMO GRAM) platelet count 165 10 150-45 0 Not Available [facility] (Lab Registration) [address] [place], [address], 06/13/2023 16:00:47 06/13/19 24 06/13/2023 CBC AUTO NO DIFF (HEMO GRAM) RDW 12.5 % 12.3-1 5.1 Not Available [facility] (Lab Registration) [address] [place], [address], 06/13/2023 16:00:47 06/13/19 24 06/13/2023 CBC AUTO NO DIFF (HEMO GRAM) MPV 11.5 fL 7.4-10 .4 high Not Available [facility] (Lab Registration) [address] [place], [address], 06/13/2023 16:00:47 06/13/19 24 06/13/2023 CBC AUTO NO DIFF (HEMO GRAM) note Unles s other darby noted testi ng perfo rmed at: [facility] [address] [place] [address] [phone] Ascencion case MD CLIA: [id number] Not Available [facility] (Lab Registration) [address] [place], [address], 06/13/2023 16:00:47 06/13/19 24 06/13/2023 TESTO STERO NE TOTAL note Unles s other darby noted testi ng perfo rmed at: [facility] [address] [place] [phone] Ascencion case MD CLIA: [id number] Not Available [facility] (Lab Registration) [address] , [place], [address], 06/14/2023 12:15:19 06/13/19 24 06/14/2023 TESTO STERO NE TOTAL testosterone , serum 1150 NG/dL 264-91 6 high Adult male refer ence inter marcos is based on a popul ation of healt hy non[place] males (BMI <30) betwe en 19 and 39 years old. Zina collado et.al . JCEM 2017, 102;1 161-1 173. PMID: 37887 103. Perfo rmed at: [facility] [address] [facility], [place] [address] Lab Direc tor: Obdulio hansen PhD, Phone : [phone] Not Available [facility] (Lab Registration) [address] , [place], [address], 06/14/2023 12:15:19 06/13/19 24 06/13/2023 TESTO STERO NE FREE note Unles s other darby noted testi ng perfo rmed at: [facility] [address] [place] [address] [phone] Ascencion case MD CLIA: [id number] Not Available [facility] (Lab Registration) [address] , [place], [address], 06/23/2023 02:10:19 06/13/19 24 06/23/2023 TESTO STERO NE FREE free testosterone (direct) 21.1 pg/mL 6.8-21 .5 Perfo rmed at: [facility] rp [place] [address] [facility] , [place] [address] Lab Direc tor: Josseline rust MD, Phone : [phone] Not Available [facility] (Lab Registration) [address] [place], [address], 06/23/2023 02:10:19 01/02/20 24 01/02/2024 CBC AUTO NO DIFF (HEMO GRAM) WBC 5.5 10 4.5-11 .5 Not Available [facility] (Lab Registration) [address] [place], [address], 01/02/2024 17:14:38 01/02/20 24 01/02/2024 CBC AUTO NO DIFF (HEMO GRAM) RBC 5.21 10 4.25-5 .57 Not Available [facility] (Lab Registration) [address] [place], [address], 01/02/2024 17:14:38 01/02/20 24 01/02/2024 CBC AUTO NO DIFF (HEMO GRAM) HGB 16.5 g/dL 13.5-1 7.2 Not Available [facility] (Lab Registration) [address] [place], [address], 01/02/2024 17:14:38 01/02/20 24 01/02/2024 CBC AUTO NO DIFF (HEMO GRAM) HCT 48.3 % 42.0-5 2.0 Not Available [facility] (Lab Registration) [address] [place], [address], 01/02/2024 17:14:38 01/02/20 24 01/02/2024 CBC AUTO NO DIFF (HEMO GRAM) MCV 92.7 fL 80-95 Not Available [facility] (Lab Registration) [address] [place], [address], 01/02/2024 17:14:38 01/02/20 24 01/02/2024 CBC AUTO NO DIFF (HEMO GRAM) MCH 31.7 pg 27.0-3 4.0 Not Available [facility] (Lab Registration) [address] [place], [address], 01/02/2024 17:14:38 01/02/20 24 01/02/2024 CBC AUTO NO DIFF (HEMO GRAM) MCHC 34.2 g/dL 32.0-3 6.0 Not Available [facility] (Lab Registration) [address], [place], [address], 01/02/2024 17:14:38 01/02/20 24 01/02/2024 CBC AUTO NO DIFF (HEMO GRAM) platelet count 214 10 150-45 0 Not Available [facility] (Lab Registration) [address] [place], [address], 01/02/2024 17:14:38 01/02/20 24 01/02/2024 CBC AUTO NO DIFF (HEMO GRAM) RDW 12.9 % 12.3-1 5.1 Not Available [facility] (Lab Registration) [address], [place], [address], 01/02/2024 17:14:38 01/02/20 24 01/02/2024 CBC AUTO NO DIFF (HEMO GRAM) MPV 10.8 fL 7.4-10 .4 high Not Available [facility] (Lab Registration) [address], [place], [address], 01/02/2024 17:14:38 01/02/20 24 01/02/2024 CBC AUTO NO DIFF (HEMO GRAM) note Unles s other darby noted testi ng perfo rmed at: [facility] [address] [place] [address] [phone] Ascencion case MD CLIA: [id number] Not Available [facility] (Lab Registration) [address] [place], [address], 01/02/2024 17:14:38 01/02/20 24 01/02/2024 PROST ATE SPECI FIC AG (PSA) prostate specific Ag (PSA) 1.00 NG/mL 0.0-4. 0 Not Available [facility] (Lab Registration) [address] [place], [address], 01/02/2024 17:44:10 01/02/20 24 01/02/2024 PROST ATE SPECI FIC AG (PSA) note Unles s other darby noted testi ng perfo rmed at: [facility] [address] [place] [address] [phone] Ascencion case MD CLIA: [id number] Not Available [facility] (Lab Registration) [address] [place], [address], 01/02/2024 17:44:10 01/02/20 24 01/02/2024 TESTO STERO NE FREE note Unles s other darby noted testi ng perfo rmed at: [facility] [address] [place] [address] [phone] Ascencion case MD CLIA: [id number] Not Available [facility] (Lab Registration) [address] [place], [address], 01/06/2024 14:10:07 01/02/20 24 01/06/2024 TESTO STERO NE FREE free testosterone (direct) 8.7 pg/mL 6.8-21 .5 [facility] [place] [address] [facility] , [place] [address] Lab Direc tor: Josseline rust MD, Phone : [phone] SENT TO REFER ENCE LAB Not Available [facility] (Lab Registration) [address] [place], [address], 01/06/2024 14:10:07 07/16/19 25 07/16/2024 CBC AUTO NO DIFF (HEMO GRAM) WBC 12.1 10 4.5-11 .5 high Not Available [facility] (Lab Registration) [address] [place], [address], 07/16/2024 16:03:59 07/16/19 25 07/16/2024 CBC AUTO NO DIFF (HEMO GRAM) RBC 5.22 10 4.25-5 .57 Not Available [facility] (Lab Registration) [address] [place], [address], 07/16/2024 16:03:59 07/16/19 25 07/16/2024 CBC AUTO NO DIFF (HEMO GRAM) HGB 16.3 g/dL 13.5-1 7.2 Not Available [facility] (Lab Registration) [address] [place], [address], 07/16/2024 16:03:59 07/16/19 25 07/16/2024 CBC AUTO NO DIFF (HEMO GRAM) HCT 47.5 % 42.0-5 2.0 Not Available [facility] (Lab Registration) [address] [place], [address], 07/16/2024 16:03:59 07/16/19 25 07/16/2024 CBC AUTO NO DIFF (HEMO GRAM) MCV 91.0 fL 80-95 Not Available [facility] (Lab Registration) [address] [place], [address], 07/16/2024 16:03:59 07/16/19 25 07/16/2024 CBC AUTO NO DIFF (HEMO GRAM) MCH 31.2 pg 27.0-3 4.0 Not Available [facility] (Lab Registration) [address] [place], [address], 07/16/2024 16:03:59 07/16/19 25 07/16/2024 CBC AUTO NO DIFF (HEMO GRAM) MCHC 34.3 g/dL 32.0-3 6.0 Not Available [facility] (Lab Registration) [address] [place], [address], 07/16/2024 16:03:59 07/16/19 25 07/16/2024 CBC AUTO NO DIFF (HEMO GRAM) platelet count 204 10 150-45 0 Not Available [facility] (Lab Registration) [address] [place], [address], 07/16/2024 16:03:59 07/16/19 25 07/16/2024 CBC AUTO NO DIFF (HEMO GRAM) RDW 12.6 % 12.3-1 5.1 Not Available [facility] (Lab Registration) [address] , [place], [address], 07/16/2024 16:03:59 07/16/19 25 07/16/2024 CBC AUTO NO DIFF (HEMO GRAM) MPV 10.1 fL 7.4-10 .4 Not Available [facility] (Lab Registration) [address] , [place], [address], 07/16/2024 16:03:59 07/16/19 25 07/16/2024 CBC AUTO NO DIFF (HEMO GRAM) note Unles s other darby noted testi ng perfo rmed at: [facility] [address] [place] [address] [phone] Ascencion case MD CLIA: [id number] Not Available [facility] (Lab Registration) [address] , [place], [address], 07/16/2024 16:03:59 07/16/19 25 07/16/2024 TESTO STERO NE TOTAL note Unles s other darby noted testi ng perfo rmed at: [facility] [address] [place] [address] [phone] Ascencion case MD CLIA: [id number] Not Available [facility] (Lab Registration) [address] , [place], [address], 07/17/2024 11:11:12 07/16/19 25 07/17/2024 TESTO STERO NE TOTAL testosterone , serum 264 NG/dL 264-91 6 Adult male refer ence inter marcos is based on a popul ation of healt hy non[place] males (BMI <30) betwe en 19 and 39 years old. Zina collado et.al . JCEM 2017, 102;1 161-1 173. PMID: 23525 103. Perfo rmed at: [facility] n [address] [facility], [place] [address] Lab Direc tor: Obdulio hansen PhD, Phone : [phone] Not Available [facility] (Lab Registration) [address] [place], [address], 07/17/2024 11:11:12 07/16/19 25 07/16/2024 TESTO STERO NE FREE note Unles s other darby noted testi ng perfo rmed at: [facility] [address] [place] [address] [phone] Ascencion case MD CLIA: [id number] Not Available [facility] (Lab Registration) [address] [place], [address], 07/21/2024 05:08:34 07/16/19 25 07/21/2024 TESTO STERO NE FREE free testosterone (direct) 5.9 pg/mL 6.8-21 .5 low Perfo rmed at: [facility] [place] [address] [facility] [place] [address] Lab Direc tor: Josseline rust MD, Phone : [phone] SENT TO REFER ENCE LAB Not Available [facility] (Lab Registration) [address] [place], [address], 07/21/2024 05:08:34 01/15/20 25 01/14/2025 CBC AUTO NO DIFF (HEMO GRAM) WBC 5.5 10 4.5-11 .5 Not Available [facility] (Lab Registration) [address] [place], [address], 01/14/2025 16:22:26 01/15/20 25 01/14/2025 CBC AUTO NO DIFF (HEMO GRAM) RBC 5.30 10 4.25-5 .57 Not Available [facility] (Lab Registration) [address] [place], [address], 01/14/2025 16:22:26 01/15/20 25 01/14/2025 CBC AUTO NO DIFF (HEMO GRAM) HGB 16.6 g/dL 13.5-1 7.2 Not Available [facility] (Lab Registration) [address] [place], [address], 01/14/2025 16:22:26 01/15/20 25 01/14/2025 CBC AUTO NO DIFF (HEMO GRAM) HCT 46.6 % 42.0-5 2.0 Not Available [facility] (Lab Registration) [address] [place], [address], 01/14/2025 16:22:26 01/15/20 25 01/14/2025 CBC AUTO NO DIFF (HEMO GRAM) MCV 87.9 fL 80-95 Not Available [facility] (Lab Registration) [address] [place], [address], 01/14/2025 16:22:26 01/15/20 25 01/14/2025 CBC AUTO NO DIFF (HEMO GRAM) MCH 31.3 pg 27.0-3 4.0 Not Available [facility] (Lab Registration) [address] [place], [address], 01/14/2025 16:22:26 01/15/20 25 01/14/2025 CBC AUTO NO DIFF (HEMO GRAM) MCHC 35.6 g/dL 32.0-3 6.0 Not Available [facility] (Lab Registration) [address] [place], [address], 01/14/2025 16:22:26 01/15/20 25 01/14/2025 CBC AUTO NO DIFF (HEMO GRAM) platelet count 193 10 150-45 0 Not Available [facility] (Lab Registration) [address] [place], [address], 01/14/2025 16:22:26 01/15/20 25 01/14/2025 CBC AUTO NO DIFF (HEMO GRAM) RDW 12.0 % 12.3-1 5.1 low Not Available [facility] (Lab Registration) [address], [place], [address], 01/14/2025 16:22:26 01/15/20 25 01/14/2025 CBC AUTO NO DIFF (HEMO GRAM) MPV 10.5 fL 7.4-10 .4 high Not Available [facility] (Lab Registration) [address] [place], [address], 01/14/2025 16:22:26 01/15/20 25 01/14/2025 CBC AUTO NO DIFF (HEMO GRAM) note Unles s other darby noted testi ng perfo rmed at: [facility] [address] [place] [phone] Ascencion case MD CLIA: [id number] Not Available [facility] (Lab Registration) [address] [place], [address], 01/14/2025 16:22:26 01/15/20 25 01/14/2025 PROST ATE SPECI FIC AG (PSA) prostate specific Ag (PSA) 0.97 NG/mL 0.0-4. 0 Not Available [facility] (Lab Registration) [address] [place], [address], 01/14/2025 16:56:29 01/15/20 25 01/14/2025 PROST ATE SPECI FIC AG (PSA) note Unles s other darby noted testi ng perfo rmed at: [facility] [address] [place] [address] [phone] [id number] [phone] Ascencion case MD CLIA: [id number] Not Available [facility] (Lab Registration) [address] [place] [place], [address], 01/14/2025 16:56:29 01/15/20 25 01/14/2025 TESTO STERO NE FREE/ TOT EQUIL IB note Unles s other darby noted testi ng perfo rmed at: [facility] [address] [place] [address] [phone] Ascencion case MD CLIA: [id number] Not Available [facility] (Lab Registration) [address] , [place], [address], 01/20/2025 09:13:52 01/15/2001/20/2025 TESTO STERO NE FREE/ TOT EQUIL IB testosterone , serum 1254.4 NG/dL 264.0- 916.0 high This [facility] LC/MS -MS metho d is curre ntly certi fied by the CDC Hormo ne Stand ardiz ation Progr am (HoSt ). Adult male refer ence inter marcos is based on a popul ation of healt hy [place] males (BMI <30) betwe en 19 and 39 years old. Zina collado, et.al . JCEM 2017, 102;1 161-1 173. PMID: 75707 103. Not Available [facility] (Lab Registration) [address], [place], [address], 01/20/2025 09:13:52 01/15/2001/20/2025 TESTO STERO NE FREE/ TOT EQUIL IB testosterone , free 70.62 NG/dL 5.00-2 1.00 high Not Available [facility] (Lab Registration) [address], [place], [address], 01/20/2025 09:13:52 01/15/2001/20/2025 TESTO STERO NE FREE/ TOT EQUIL IB % free PSA 5.63 % 1.50-4 .20 high Perfo rmed at: - [facility] [place] [address] , [place] [address] Lab Direc tor: Josseline rust MD, Phone : [phone] SENT TO REFER ENCE LAB Not Available [facility] (Lab Registration) [address], [place], [address], 01/20/2025 09:13:52 Result Notes None recorded. Medical Equipment None Reported. Allergies No known drug allergies Medications Name Sig Start Date Stop Date Status Note LastModified by Organization Details LastModified Time BD Luer-Marichuy Syringe 3 mL 23 x 1 DIRECTED WEEKLY 2024 active Not Available Not Available Not Avai lable cyclobenzapr ine 10 mg tablet active Not Available Not Available Not Available anastrozole 1 mg tablet Take 0.5 tablets twice a week by oral route. 2024 active Not Available Not Available Not Avai lable promethazine -DM 6.25 mg-15 mg/5 mL oral [...] 1 mL every week by intramuscul ar route for 28 days. 2024 active Not Available Not Available Not Avai lable methylpredni solone 4 mg tablets in a [...] Updated DateTime 06/13/2023 180.34 cm 27.9 kg/m2 36314.47 g 98.2 [degF] Gricelda DHILLON [facility] & [place] 06/13/2023 10:55:08 Date Recorded Body height Body mass index (BMI) Body weight Body temperature Provider Name and Address Organization Details Last Updated DateTime 07/16/2024 180.34 cm 27.9 kg/m2 76299.47 g 98.3 [degF] Desiree Tobin [place] - [place] [facility] & [place] 07/16/2024 12:58:23 Date Recorded Body height Body mass index (BMI) Body weight Body temperature Provider Name and Address Organization Details Last Updated DateTime 01/02/2024 180.34 cm 27.9 kg/m2 30001.47 g 98.3 [degF] Gricelda Means [facility] & [place] 01/02/2024 10:09:54 Date Recorded Body height Body mass index (BMI) Body weight Provider Name and Address Organization Details Last Updated DateTime 01/14/2025 180.34 cm 27.9 kg/m2 31909.47 g Yakelin Atkins [facility] & [place] 01/14/2025 13:37:28 Social History None recorded. Functional Status Question Answer Note LastModified by Organization D etails LastModified Time What is your level of alcohol consumption? None [email or web address] Information not available 04/24/2022 Mental Status None recorded. 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 He has been on intramuscu lar testostero ne for some time with good results. He continues on testostero ne 200 mg weekly. He is also on anastrozol e 0.5 mg twice a week. 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 He has been on intramuscu lar testostero ne for some time with good results. He continues on testostero ne 200 mg weekly. He is also on anastrozol e 0.5 mg twice a week. we will obtain surveillan ce studies today and refill his meds. Hypogonadism 56132049 E2 9.1 see above [id number] Tra Mead Jr, MD [facility] [address] [phone] 06/13/2023 10:54:02 06/13/2023 11:25:35 Deficiency of testosterone biosynthesis 86043543 E29.1 patient with history of testostero ne deficiency . He has been on intramuscu lar testostero ne for some time with good results. He continues on testostero ne 200 mg weekly. He is also on anastrozol e 0.5 mg twice a week. we will obtain surveillan ce studies today and refill his meds. [id number] Tra Mead Jr, MD [address] [address] 01/02/2024 09:58:34 01/02/2024 10:33:23 Deficiency of testosterone biosynthesis 18694838 E29.1 patient with history of testostero ne deficiency . He has been on intramuscu lar testostero ne for some time with good results. He continues on testostero ne 200 mg weekly. He is also on anastrozol e 0.5 mg twice a week. we will obtain surveillan ce studies today and refill his meds. Screening for malignant neoplasm of prostate 670153024 Z12.5 PSA today for screening purposes. [id number] [facility] Jr[facility] [address] [phone] 07/16/2024 12:55:14 07/16/2024 14:10:49 Deficiency of testosterone biosynthesis 45242689 E29.1 patient with history of testostero ne deficiency . He has been on intramuscu lar testostero ne for some time with good results. He continues on testostero ne 200 mg weekly. He is also on anastrozol e 0.5 mg twice a week. we will obtain surveillan ce studies today and refill his meds. Screening for malignant neoplasm of prostate 355657220 Z12.5 PSA in December 2023 was 1.0. Patient reassured and we will repeat in December 2024. [id number] Tra Mead Jr, MD [facility] [address] [phone] 01/14/2025 13:27:41 01/14/2025 15:22:59 Hypotestosteronism [id number] 104 E34.9 [id number] Patient with history of testostero ne deficiency . He continues to do well on testostero ne cypionate 200 mg weekly. He is also on anastrozol e 0.5 mg twice a week. We will check surveillan ce labs today and refill meds. His last injection was yesterday so expect his levels to be a little high. Screening for malignant neoplasm of prostate 402787868 Z12.5 [id number] PSA in December 2023 was 1.0. We will repeat today. Health Concerns Section Related Observation LastModified by Organization Detai ls LastModified Time None Recorded Concern Status LastModified by Organization Details LastModified Time None Recorded Advance Directives Directive None Recorded Payers Insurance Date Sequence Insurance Name Policy Number Policy Lewis Covered Member ID Lewis Member ID Guarantor Name 03/21/2022 SLIDING FEE SCHEDULE - DISCOUNT Kanu Wesley 01/14/2025 1 [place] [id number] Kanu Wesley [id number] Kanu Wesley 01/29/2025 [facility] [place] [employer] Kanu Wesley [id number] Kanu Wesley 01/14/2025 1 [facility] Kanu Wesley [id number] Kanu Wesley 04/24/2022 SLIDING FEE SCHEDULE - DISCOUNT Kanu Wesley Notes Date Note Type Note Provider Name and Address Organization Details Recorded Time 11/27/2022 text/html ROS as noted in the HPI patient is a 47-year-old white male with [...] new urologic problems. Tra Mead Jr, MD [address] [place] [address], [address], [address], [facility] [place] 11/27/2022 15:05:21 06/13/2023 text/html ROS as noted in the HPI Patient is a 48-year-old white male with [...] hemoglobin was 15.5. Tra Mead Jr, MD [address] [place] [address], [address], [place], [address], [facility] & [place] 06/13/2023 13:18:37 01/02/2024 text/html ROS as noted in the HPI 48 yo male with h/o T deficiency. He returns for 6 mo check today. He states he continues to benefit from the T. He takes 200 mg/week and anastrozole. T levels at last visit were 1150/21. Hb was 16.9. His last injection was 1 week ago. Tra Mead Jr, MD [address] [place] [address], [address], [place], [address], [facility] - [facility] & [place] 01/09/2024 10:18:37 07/16/2024 text/html ROS as noted in the HPI patient is 49-year-old white male with history of testosterone deficiency. Returns today in routine six-month follow-up. He continues on 200 mg of testosterone cypionate weekly as well as anastrozole twice a week. He states continues to benefit from testosterone replacement. He does have some chronic pain which he attributes to improvement from the testosterone as well. Tra Mead Jr, MD [address] [place] [address], [address], [place], [address], [facility] & [place] 07/16/2024 16:10:18 01/14/2025 text/html ROS as noted in the HPI Patient is 49 year white male with history of testosterone deficiency. He returns for routine six-month visit today. He continues to do very well on testosterone cypionate 200 mg weekly. He states great benefit from the injections. He is also on anastrozole. Hemoglobin within normal limits. Tra Mead Jr, MD [address] [place] [address], [address], [place], [address], [facility] & [place] 01/28/2025 13:22:07
--- OUTSIDE RECORDS SUMMARY | 2025-03-05 22:02 | XMS_ITS | Clinical Summary ---
Author Organization [facility] Address [address] [place] [address] Care Team Providers Care Sign Shop Supervisor Name Role Phone Kelechi So MD Primary Care Provider [phone] Allergies No known active allergies Medications * This document contains information received from the source organization and may not represent a complete record from that organization. anastrozole (ARIMIDEX) 1 MG tablet 11/27/2022 Active buPROPion XL (WELLBUTRIN XL) 300 MG 24 hr tablet 01/08/2023 Active Diclofenac Sodium (VOLTAREN) 1 % gel gel 11/01/2022 Active gabapentin (NEURONTIN) 800 MG tablet 12/17/2022 Active HYDROcodone-acetam inophen (NORCO) 10-325 MG per tablet 12/17/2022 Active ketorolac (TORADOL) 10 MG tablet 09/25/2022 Active methocarbamol (ROBAXIN) 750 MG tablet 12/17/2022 Active omeprazole (priLOSEC) 20 MG capsule 01/08/2023 Active naloxone (NARCAN) 4 MG/0.1ML nasal spray 11/17/2022 Active Testosterone Cypionate (DEPOTESTOTERONE CYPIONATE) 200 MG/ML injection 01/08/2023 Act les QUEtiapine (SEROquel) 400 MG tablet 12/09/2022 Active SM Lorata-dine D 10-240 MG per 24 hr tablet 12/01/2022 Active Active Problems Problem Noted Date Diagnosed Date Acute midline thoracic back pain 01/09/2023 Social History Tobacco Use Types Packs/Day Years Used Date Smoking Tobacco: Never Tobacco Cessation:Counseling Given: Not Answered Alcohol Use Standard Drinks/Week Comments Never 0 (1 standard drink = 0.6 oz pur e alcohol) Abuse Screen Answer Date Recorded Unsafe at Home or Work/School Not on file Feels Threatened by Someone? Not on file 02/2023 Does Anyone Keep You from Co ntacting Others or Doint Things Outside the Home? Not on file 03/12/2023 Physical Sign of Abuse Present Not on file 1 Housing Stability Answer Date Recorded Current Living Arrangements Not on file 02/2023 Potentially Unsafe Housing Conditions Not on mayda e 03/12/2023 Family and Community Support Answer Lee e Recorded Help with Day-to-Day Activities Not on file 03/12/2023 Lonely or Isolated Not on file 03/12/2023 Employment Answer Date Recorded Do you want help finding or keeping work or a kristin b? Not on file 03/12/2023 Disabilities Answer Date Recorded Concentrating, Remembering, or Making Decisions Difficulty Not on file 03/12/2023 Doing Errands Independently Difficulty Not on fi le 03/12/2023 Education Answer Date Recorded Help with school or training? Not on file Preferred Language Not on file 03/12/2023 Sex and Gender Information Value Date Recorded Sex Assigned at Not on file Legal Sex Male 8:04 PM EDT Gender Identity Not on file Sexual Orientation Not on file Last Filed Vital Signs Vital Sign Reading Time Taken Comments Blood Pressure - - Pulse - - Temperature - - Respiratory Rate 17 01/09/2023 10:1 2 AM EDT Oxygen Saturation - - Inhaled Oxygen Concentration - - Weight 91.1 kg (200 lb 12.8 oz) 023 10:12 AM EDT Height 180.3 cm (5' 11 ) 01/09/2023 10: 12 AM EDT Body Mass Index 28.01 01/09/2023 10:12 AM EDT Plan of Treatment Health Maintenance Due Date Last Done Comments ANNUAL PHYSICAL 01/05/2020 HEPATITIS C SCREENING 01/05/2020 COLOGUARD 2022 COLON CANCER SCREENING 5 YEA R SIGMOIDOSCOPY 2022 COLONOSCOPY 2022 COLORECTAL CANCER SCREENING 2022 CT COLONOGRAPHY 2022 FECAL OCCULT BLOOD TEST 2022 FIT Testing (1 year) 2022 INFLUENZA VACCINE 01/02/2025 TDAP/TD VACCINES (3 - Td or Tdap) 04/06/2030 04/06/2020, 12/17/2014 Pneumococcal Vaccine 0-49 Aged Out No longer eligible based on patient's age to complete this topic [place] [place] [id number] [employer] Care Teams Sign Shop Supervisor Relationship Specialty Start Date End Date Kelechi So MD [address] [place] [address] PCP - General Emergency Medicine 12/25/22
--- OUTSIDE RECORDS SUMMARY | 2025-03-05 22:02 | XMS_ITS | Encounter Summary ---
Author Organization [facility] Address [address] [place] [address] Care Team Providers Care Paperboard Box Maker Name Role Phone Kelechi So MD Primary Care Provider [phone] Encounter Details Date Type Department Care Team (Late st Contact Info) Description 10/24/2020 Orders Only External Location [address] [place] [address] uLpe Grubbs MD [address] [place] [address] Social History Tobacco Use Types [...] Associated Diagnosis Comments CT OUTSIDE IMAGES 10/24/2020 7:40 PM EDT documented in this encounter Results * CT OUTSIDE IMAGES (10/24/2020 7:40 PM EDT) Anatomical Region Laterality Modality Computed Tomogra phy 10/24/2020 7:40 PM EDT us Lupe Grubbs MD IMG CT PROCEDURES Final Result documented in this encounter Visit Diagnoses Not on filedocumented in this encounter Care Teams Paperboard Box Maker Relationship Specialty Start Date End Date Kelechi So MD [address] [place] [address] PCP - General 10/15/20 documented as of this encounter
--- OUTSIDE RECORDS SUMMARY | 2025-03-05 22:02 | XMS_ITS | Continuity of Care Document ---
Author Organization [facility] Address [address] [place] [address] Assessment No assessment recorded. Plan of Treatment Reminders Order Date Submit Date Provider Last Modified By Organization Details Last Modified Time Details Appointments OV EST 15 2025 02:00P M Tra Mead Jr, MD Not available Not available Not available Lab testoster one, free + total, serum [address] [facility] ([facility] Only), [address] [place] [address] [place], [address], 01/15/2025 07:52:08 CBC [address] [facility] ([facility]), [address] [place] [address] [place], [address], 01/15/2025 07:52:08 PSA, serum or plasma [address] [facility] ([facility] Only), [address] [place] [address] [place], [address], 01/15/2025 07:52:08 Referral None recorded. Procedures None recorded. Surgeries None recorded. Imaging None recorded. Medication Orders testoster one cypionate 200 mg/mL intramusc ular oil 2024 025 [facility], [address], [address], [place], [address], 01/14/2025 15:53:06 anastrozo le 1 mg tablet [address] [place] [address], [address], [address], [place], [address], 01/14/2025 15:53:06 Patient TargetsNo targets recorded. Patient InstructionsNo instructions recorded. Reason for Referral None Reported. Results Created Date Observation Date Name Description Value Unit Range Abnormal Flag Note LastModifiedBy Organization Detail LastModifiedTime 01/15/2001/14/2025 CBC AUTO NO DIFF (HEMO GRAM) WBC 5.5 10 4.5-11 .5 Not Available [facility] (Lab Registration) [address] [place], [address], 01/14/2025 16:22:26 01/15/20 25 01/14/2025 CBC AUTO NO DIFF (HEMO GRAM) RBC 5.30 10 4.25-5 .57 Not Available [facility] (Lab Registration) [address] [place], [address], 01/14/2025 16:22:26 01/15/20 25 01/14/2025 CBC AUTO NO DIFF (HEMO GRAM) HGB 16.6 g/dL 13.5-1 7.2 Not Available [facility] (Lab Registration) [address] [place], [address], 01/14/2025 16:22:26 01/15/20 25 01/14/2025 CBC AUTO NO DIFF (HEMO GRAM) HCT 46.6 % 42.0-5 2.0 Not Available [facility] (Lab Registration) [address] [place], [address], 01/14/2025 16:22:26 01/15/20 25 01/14/2025 CBC AUTO NO DIFF (HEMO GRAM) MCV 87.9 fL 80-95 Not Available [facility] (Lab Registration) [address] [place], [address], 01/14/2025 16:22:26 01/15/20 25 01/14/2025 CBC AUTO NO DIFF (HEMO GRAM) MCH 31.3 pg 27.0-3 4.0 Not Available [facility] (Lab Registration) [address] [place], [address], 01/14/2025 16:22:26 01/15/20 25 01/14/2025 CBC AUTO NO DIFF (HEMO GRAM) MCHC 35.6 g/dL 32.0-3 6.0 Not Available [facility] (Lab Registration) [address] [place], [address], 01/14/2025 16:22:26 01/15/20 25 01/14/2025 CBC AUTO NO DIFF (HEMO GRAM) platelet count 193 10 150-45 0 Not Available [facility] (Lab Registration) [address] [place], [address], 01/14/2025 16:22:26 01/15/20 25 01/14/2025 CBC AUTO NO DIFF (HEMO GRAM) RDW 12.0 % 12.3-1 5.1 low Not Available [facility] (Lab Registration) [address] [place], [address], 01/14/2025 16:22:26 01/15/20 25 01/14/2025 CBC AUTO NO DIFF (HEMO GRAM) MPV 10.5 fL 7.4-10 .4 high Not Available [facility] (Lab Registration) [address] [place], [address], 01/14/2025 16:22:26 01/15/20 25 01/14/2025 CBC AUTO NO DIFF (HEMO GRAM) note Unles s other darby noted testi ng perfo rmed at: [facility] [address] [place] [address] [phone] Ascencion case MD CLIA: [id number] Not Available [facility] (Lab Registration) [address] [place], [address], 01/14/2025 16:22:26 01/15/20 25 01/14/2025 PROST ATE SPECI FIC AG (PSA) prostate specific Ag (PSA) 0.97 NG/mL 0.0-4. 0 Not Available [facility] (Lab Registration) [address] [place], [address], 01/14/2025 16:56:29 01/15/20 25 01/14/2025 PROST ATE SPECI FIC AG (PSA) note Unles s other darby noted testi ng perfo rmed at: [facility] [address] [place], [place] [id number] [phone] Ascencion case MD CLIA: [id number] Not Available [facility] (Lab Registration) [address] [place], [address], 01/14/2025 16:56:29 01/15/20 25 01/14/2025 TESTO STERO NE FREE/ TOT EQUIL IB note Unles s other darby noted testi ng perfo rmed at: [facility] [address] [place] [address] [phone] Ascencion case MD CLIA: [id number] Not Available [facility] (Lab Registration) [address] [place], [address], 01/20/2025 09:13:52 01/15/2001/20/2025 TESTO STERO NE FREE/ [...] . JCEM 2017, 102;1 161-1 173. PMID: 44039 103. Not Available [facility] (Lab Registration) [address] [place], [address], 01/20/2025 09:13:52 01/15/20 25 01/20/2025 TESTO STERO NE FREE/ TOT EQUIL IB testosterone , free 70.62 NG/dL 5.00-2 1.00 high Not Available [facility] (Lab Registration) [address], [place], [address], 01/20/2025 09:13:52 01/15/20 25 01/20/2025 TESTO STERO NE FREE/ TOT EQUIL IB % free PSA 5.63 % 1.50-4 .20 high Perfo rmed at: - [facility] [place] [address] , [place] [address] Lab Direc tor: Josseline rust MD, Phone : [phone] SENT TO [facility]FER [facility] Not Available [facility] (Lab Registration) [address], [place], [address], 01/20/2025 09:13:52 Result Notes None recorded. Medical [...] Updated DateTime 01/14/2025 180.34 cm 27.9 kg/m2 [address] [facility] [place] 01/14/2025 13:37:28 Social History None recorded. Functional Status Question Answer Note LastModified by Organization D etails LastModified Time What is your level of alcohol consumption? None Information not available 04/24/2022 Mental Status None recorded. Family History Nothing Reported Notes:mother alive father de ceased brother alive sister alive Medical History Condition Response Depression Y Past Encounters Encounter ID Performer Location Encounter Start Date Encounter Closed Date Diagnosis/Indication Diagnosis SNOMED-CT Code Diagnosis ICD10 Code Diagnosis IMO Codes Diagnosis Note [id number] Tra Mead Jr, MD [facility] [address] [address] 01/14/2025 13:27:41 01/14/2025 15:22:59 Hypotestosteronism 8194529513 104 E34.9 [id number] Patient with history of testostero ne deficiency . He continues to do well on testostero ne cypionate 200 mg weekly. He is also on anastrozol e 0.5 mg twice a week. We will check surveillan ce labs today and refill meds. His last injection was yesterday so expect his levels to be a little high. Screening for malignant neoplasm of prostate [id number] Z12.5 338294 PSA in December 2023 was 1.0. We will repeat today. Health Concerns Section Related Observation LastModified by Organization Detai ls LastModified Time None Recorded Concern Status LastModified by Organization Details LastModified Time None Recorded Payers Encounter Date Sequence Insurance Name Policy Number Policy Lewis Covered Member ID Lewis Member ID Guarantor Name 01/14/2025 1 [facility] Kanu Wesley [id number] Kanu Wesley Notes Date Note Type Note Provider Name and Address Organization Details Recorded Time 01/14/2025 text/html ROS as noted in the HPI Patient is 49 year white male with history of testosterone deficiency. He returns for routine six-month visit today. He continues to do very well on testosterone cypionate 200 mg weekly. He states great benefit from the injections. He is also on anastrozole. Hemoglobin within normal limits. Tra Mead Jr, MD [address] [place] [address], [address], [place], [address], [place] - [facility] [place] & [place] 01/28/2025 13:22:07
--- OUTSIDE RECORDS SUMMARY | 2025-03-05 22:02 | XMS_ITS | Encounter Summary ---
Author Organization [facility] Address [address] [place] [address] Care Team Providers Care Blood Tester Name Role Phone Kelechi So MD Primary Care Provider [phone] Encounter Details Date Type Department Care Team (Late st Contact Info) Description 10/24/2020 Orders Only External Location [address] [place] [address] Provider, External Social History Tobacco Use Types [...] Procedure Name Priority Date/Time Associated Diagnosis Comments XR OUTSIDE IMAGES 10/24/2020 9:50 PM EDT documented in this encounter Results * XR OUTSIDE IMAGES (10/24/2020 9:50 PM EDT) Anatomical Region Laterality Modality Radiographic Gabriela ging 10/24/2020 9:50 PM EDT External Provider IMG XR PROCEDURES Final Result documented in this encounter Visit Diagnoses Not on filedocumented in this encounter Care Teams Blood Tester Relationship Specialty Start Date End Date Kelechi So MD [address] [place] [address] PCP - General 10/15/20 documented as of this encounter
--- OUTSIDE RECORDS SUMMARY | 2025-03-05 22:02 | XMS_ITS | Encounter Summary ---
Author Organization [facility] Address [address] [place] [address] Care Team Providers Care Crane Operator Cab Name Role Phone Kelechi So MD Primary Care Provider [phone] Encounter Details Date Type Department Care Team (Late st Contact Info) Description 10/24/2020 Orders Only External Location [address] [place] [address] Lupe Grubbs MD [address] [place] [address] Social History Tobacco Use Types [...] Associated Diagnosis Comments CT OUTSIDE IMAGES 10/24/2020 7:42 PM EDT documented in this encounter Results * CT OUTSIDE IMAGES (10/24/2020 7:42 PM EDT) Anatomical Region Laterality Modality Computed Tomogra phy 10/24/2020 7:42 PM EDT us Lupe Grubbs MD IMG CT PROCEDURES Final Result documented in this encounter Visit Diagnoses Not on filedocumented in this encounter Care Teams Crane Operator Cab Relationship Specialty Start Date End Date Kelechi So MD [address] [place] [address] PCP - General 10/15/20 documented as of this encounter
--- NOTE | 2025-03-05 22:16 | HMH.EDGENADL ---
Discharge Plan Disposition Patient Disposition: Home, Self-Care Prescriptions Prescriptions: No Action hydrocodone-acetaminophen 10-325 mg tablet 1 tab PO Q6H PRN ketoconazole 2 % cream 1 applic topical BID Qty: 30 0RF azithromycin [Zithromax Z-Chema] 250 mg tablet 250 mg PO QDAY Qty: 6 0RF Rx Instructions: Take 2 pills the first day and then one tablet per day albuterol sulfate [Ventolin HFA] 90 mcg/actuation HFA aerosol inhaler 2 puff inhalation Q4-6H PRN (Reason: shortness of breath or wheezing) Qty: 8.5 0RF loratadine 10 mg tablet 10 mg PO DAILY Qty: 30 0RF tizanidine 4 mg capsule 4 mg PO HS PRN mupirocin 2 % ointment 1 applic topical TID Qty: 22 0RF tadalafil 20 mg tablet 20 mg PO DAILY PRN (Reason: sexual activity) Qty: 30 2RF bupropion HCl 300 mg tablet extended release 24 hr See Rx Instructions .ROUTE .COMPLEX Qty: 90 2RF Dose Instruction: TAKE 1 TABLET BY MOUTH ONCE DAILY FOR DEPRESSION WITH 150MG TABLET TO EQUAL 450MG DAILY Rx Instructions: TAKE 1 TABLET BY MOUTH ONCE DAILY FOR DEPRESSION WITH 150MG TABLET TO EQUAL 450MG DAILY omeprazole 40 mg capsule,delayed release(DR/EC) 40 mg PO DAILY Qty: 90 2RF quetiapine 400 mg tablet See Rx Instructions .ROUTE .COMPLEX Qty: 90 2RF Dose Instruction: TAKE 1 TABLET BY MOUTH ONCE DAILY Rx Instructions: TAKE 1 TABLET BY MOUTH ONCE DAILY terbinafine HCl 250 mg tablet 250 mg PO DAILY Qty: 30 2RF ziprasidone HCl [Geodon] 20 mg capsule 20 mg PO BID Qty: 60 0RF Rx Instructions: give with food (meal/snack) anastrozole 1 mg tablet 1 mg PO DAILY (DME) BD Luer-Marichuy Syringe 3 mL 23 x 1 syringe MISCELLANEOUS gabapentin 800 mg tablet 800 mg PO DAILY testosterone cypionate 200 mg/mL oil 200 mg IM MONTHLY acyclovir 400 mg tablet 400 mg PO TID 7 Days Qty: 21 0RF mupirocin 2 % ointment 1 applic topical TID 7 Days Qty: 22 2RF Referrals Follow up/Referrals: Russell Baker APRN [Primary Care Provider, Family Practice] - See instructions Bo Ibarra DO [Staff Physician, Orthopedics] - See instructions Clinical Impressions Clinical Impression: Pain in right shoulder Qualifiers: Chronicity: acute Qualified Code(s): M25.511 - Pain in right shoulder Print Language Print Language: Macedonian Discharge ED Provider: Madelin Perez General Adult HPI General Chief complaint: Extremity Injury, Upper Stated complaint: AO 10-1 fell ten feet on right shoulder Time Seen by Provider: 03/05/25 21:48 Mode of Arrival: Ambulatory Description of Symptoms (Recalled from ER Triage Doc. by RN): Patient states he fell from a 10ft balconey onto his right shoulder. Denies any other injuuries. States he tucked and rolled onto his right shoulder. Right shoulder does not have any obvious deformaties. Normal PMS in extremety. Denies any N&V. States he took his perscribed hydrocodone prior to arrival. History of Present Illness HPI narrative: Patient is a 49-year-old gentleman who presented to the emergency department with right shoulder pain. Patient states that he fell about 10 feet yesterday. Patient is having significant pain in his right shoulder states that he is unable to move it as normal. Patient states that he did not come in yesterday because he thought it was likely muscular in nature. Patient states he did not hit his head did not lose consciousness. Patient states that he took gabapentin and hydrocodone prior to arrival. Patient denies any new back pain. Patient denies any chest pain or abdominal pain. Patient denies any other lower extremity symptoms. Patient states that he does not drink alcohol. Patient denies any drug use. Related Data Home Medications ?Medication ?Instructions ?Recorded ?Confirmed anastrozole 1 mg tablet 1 mg PO DAILY 01/29/24 12/12/24 gabapentin 800 mg tablet 800 mg PO DAILY 01/29/24 12/12/24 syringe with needle 3 mL 23 x 1 01/29/24 12/12/24 (BD Luer-Marichuy Syringe) testosterone cypionate 200 mg/mL 200 mg IM MONTHLY 01/29/24 12/12/24 intramuscular oil tizanidine 4 mg capsule 4 mg PO HS PRN 03/11/24 12/12/24 hydrocodone 10 mg-acetaminophen 1 tab PO Q6H PRN 06/25/24 12/12/24 325 mg tablet Previous Rx's ?Medication ?Instructions ?Recorded tadalafil 20 mg tablet 20 mg PO DAILY PRN sexual activity 05/30/24 #30 tabs acyclovir 400 mg tablet 400 mg PO TID 7 days #21 tabs 06/19/24 mupirocin 2 % topical ointment 1 applic topical TID 7 days #22 06/19/24 grams bupropion HCl 300 mg 24 hr tablet, See Rx Instructions .Route 06/27/24 extended release .COMPLEX #90 tabs omeprazole 40 mg capsule,delayed 40 mg PO DAILY #90 caps 06/27/24 release quetiapine 400 mg tablet See Rx Instructions .Route 06/27/24 .COMPLEX #90 tabs ketoconazole 2 % topical cream 1 applic topical BID #30 grams 07/01/24 terbinafine HCl 250 mg tablet 250 mg PO DAILY #30 tabs 07/29/24 mupirocin 2 % topical ointment 1 applic topical TID #22 grams 10/07/24 ziprasidone HCl 20 mg capsule 20 mg PO BID #60 caps 12/01/24 (Geodon) albuterol sulfate 90 mcg/actuation 2 puff inhalation Q4-6H PRN 12/12/24 aerosol inhaler (Ventolin HFA) shortness of breath or wheezing #8.5 grams azithromycin 250 mg tablet 250 mg PO QDAY #6 tabs 12/12/24 (Zithromax Z-Chema) loratadine 10 mg tablet 10 mg PO DAILY #30 tabs 12/12/24 Allergies Allergy/AdvReac Type Severity Reaction Status Date / Time Sulfa (Sulfonamide Allergy Severe low WBCs Verified 12/12/24 13:51 Antibiotics) [facility] Disclaimer: The information contained in this section may have been updated after the patient was seen, as this information can be updated by other users. Medical History History of gastroesophageal reflux (GERD) Family History Other Cancer FHx: mental illness Heart attack Stroke Social History Smoking Status: Never smoker alcohol intake: never substance use type: denies use current occupational status: unemployed Travel in the last 8 weeks?: None household members: significant other housing: house marital status: single current occupational exposures/hazards: No caffeine: Yes Have you lived/traveled outside [place] in past 30 days?: No Contact w/someone who lives/traveled outside [place] past 30 days?: No Exposure to someone with infectious disease in past 14 days?: No Do you have a fever (greater than 100.4 F or 38 C)?: No Have you tested positive for COVID-19?: No Exposed to someone with COVID-19 in past 14 days?: No Do you have a sore throat?: No Do you have a cough?: No Do you have any weakness?: No Do you have any diarrhea?: No Are you experiencing any unusual bleeding?: No Do you have any muscle aches/pain?: No Do you have any abdominal pain?: No Are you experiencing loss of taste or smell?: No Other Medical History Have you received the Flu Vaccine for this season: No Have you received the Pneumonia Vaccine: No ROS Obtained: Yes All systems reviewed & no additional complaints except as documented and Yes Systems reviewed as appropriate & no additional complaints except as documented Physical Exam General General appearance: alert, in no apparent distress and other (diaphoretic ) Head Head exam: atraumatic, normocephalic and normal inspection Eye Eye exam: Present normal appearance, PERRL and EOMI; Absent scleral icterus ENT ENT exam: Present normal exam and normal external ear exam Neck Neck exam: Present normal inspection, full ROM and other (no midline cervical spine tenderness); Absent tenderness Chest Chest inspection: Present normal inspection and symmetric chest wall rise Respiratory Respiratory exam: Present normal lung sounds bilaterally; Absent respiratory distress or wheezes Cardiovascular Cardiovascular exam: Present regular rate, tachycardia and normal heart sounds Abdominal Exam Abdominal exam: Present soft and distention; Absent tenderness, guarding or rebound Extremities Exam Extremities exam: Present normal inspection and other (R shoulder with limited movement, unable to fully cross arm to left shoulder) Back Exam Back exam: Present normal inspection and full ROM Neurological Exam Neurological exam: Present alert and oriented X3 Psychiatric Psychiatric exam: Present normal affect and normal mood Skin Skin exam: Present warm and dry Medical Decision Making Medical Records Medical records reviewed: Yes I reviewed the patient's medical records. Screening: Per USPSTF and CDC recommendations, given the prevalence of disease in our region, it is our hospital?s policy to screen for HIV and viral Hepatitis for all patients aged 18 and over and those with ongoing risk factors. Denis Inquiry Pt receiving controlled substance: No Vital Signs: 03/05/25 21:48 03/05/25 21:55 03/05/25 22:01 Temperature 98.7 F 98.6 F Temperature Source Oral Pulse Rate 120 H 120 H Pulse Rate [Right] 123 H Respiratory Rate 17 18 Blood Pressure 194/106 H 206/112 H Blood Pressure [Right Arm] 178/111 H Blood Pressure Mean [Right Arm] 133 02 Sat by Pulse Oximetry 97 97 Oxygen Delivery Method Room Air Room Air 03/05/25 23:19 03/06/25 00:06 03/06/25 00:09 Temperature 98.6 F 98.6 F Temperature Source Pulse Rate 108 H 111 H 96 H Pulse Rate [Right] Respiratory Rate 16 16 16 Blood Pressure 143/80 H 140/64 140/94 H Blood Pressure [Right Arm] Blood Pressure Mean [Right Arm] 02 Sat by Pulse Oximetry 96 96 Oxygen Delivery Method Room Air Room Air Lab Data Lab results reviewed: Yes I reviewed the patient's lab results. Lab Results 03/05/25 22:21: WBC 19.5 H, RBC 5.35, Hgb 16.9, Hct 48.0, MCV 89.7, MCH 31.6 H, MCHC 35.2, RDW 12.6, Plt Count 241, MPV 9.5, Neut % (Auto) 84.6 H, Lymph % (Auto) 5.2 L, [place] % (Auto) 6.6, Eos % (Auto) 0.0 L, Baso % (Auto) 0.3, Neut # (Auto) 16.5 H, Lymph # (Auto) 1.0, [place] # (Auto) 1.3 H, Eos # (Auto) 0.0, Baso # (Auto) 0.1, Total Counted 100, Neutrophils % (Manual) 90 H, Lymphocytes % (Manual) 3 L, Monocytes % (Manual) 7, Platelet Estimate Normal, Polychromasia 1+, Poikilocytosis 1+, Anisocytosis 1+, Microcytosis 1+, Macrocytosis 1+, Target Cells 1+, Tear Drop Cells 1+, PT 10.9, INR 0.98, APTT 24.5, Sodium 137, Potassium 4.5, Chloride 104, Carbon Dioxide 24, Anion Gap 13.5, BUN 32 H, Creatinine 0.90, Estimated Creat Clear 143, Estimated GFR 90, Est GFR ( Amer) 109, Glucose 138 H, Calcium 8.9, Total Bilirubin 0.9, AST 56, ALT 85 H, Alkaline Phosphatase 79, Total Protein 6.4, Albumin 4.1, Globulin 2.3, Albumin/Globulin Ratio 1.8, Lipase 110 03/05/25 23:10: Lactate 2.4 H 03/05/25 22:21 03/05/25 22:21 Orders (Tests/Meds): ED MEDICATIONS Discontinued Medications Generic Name Dose Route Start Last Admin Trade Name Freq PRN Reason Stop Dose Admin Diazepam 2 mg 03/05/25 22:05 03/05/25 22:29 Diazepam 10mg/2ml Syringe IV 03/05/25 22:06 2 mg ONCE ONE Administration Sodium Chloride 1,000 mls @ 999 mls/hr 03/05/25 22:06 03/06/25 00:08 Sod Chlor 0.9% 1000ml Bag IV 03/05/25 23:06 Infused .Q1H1M ONE Infusion Iopamidol 80 ml 03/05/25 23:09 03/05/25 23:10 Iopamidol-370 (76%);100ml Bottle IV 03/05/25 23:10 80 ml ONCE ONE Administration Sodium Chloride 50 ml 03/05/25 23:09 03/05/25 23:09 0.9 % Sodium Chloride 50 Ml Vial IV 03/05/25 23:10 50 ml ONCE ONE Administration Sodium Chloride 10 ml 03/05/25 23:09 03/05/25 23:09 Sodium Chloride 0.9% 10ml Syr (Rad Only) IV 03/05/25 23:10 10 ml ONCE ONE Administration ORDERS Category Date Time Status CT angio abd/pel - TRAUMA Stat Cat Scan 03/05/25 22:[address] cervical spine wo con Stat Cat Scan 03/05/25 22:[address] head/brain wo con Stat Cat Scan 03/05/25 22:[address] lumbar spine wo con Stat Cat Scan 03/05/25 22:[address] shoulder RT wo con Stat Cat Scan 03/05/25 22:[address] thoracic spine wo con Stat Cat Scan 03/05/25 22:02 Completed CTA Chest [CT angio chest - dissection] Stat Cat Scan 03/05/25 22:02 Completed CXR --portable [XR chest portable] Stat Exams 03/05/25 22:02 Completed Elbow XR right minimum 3 views [XR elbow RT min 3V] Exams 03/05/25 22:02 Completed Stat Humerus XR right [XR humerus RT] Stat Exams 03/05/25 22:02 Completed Shoulder XR right miminum 2 views [XR shoulder RT min Exams 03/05/25 22:02 Completed 2V] Stat CBC w/Auto Diff [Complete Blood Count Auto Diff] Stat Lab 03/05/25 22:21 Completed CMP [Comprehensive Metabolic Panel] Stat Lab 03/05/25 22:21 Completed Lactic Acid Stat Lab 03/05/25 23:10 Completed Lipase Stat Lab 03/05/25 22:21 Completed PT/PTT Stat Lab 03/05/25 22:21 Completed Prothrombin Time INR Stat Lab 03/05/25 22:21 Completed Medical Decision Narrative: Patient is a 49-year-old male who presented to the emergency department after a fall down 10 feet yesterday here with right shoulder pain. Arrival, patient was tachycardic hypertensive but vital signs were otherwise unremarkable. Differential includes but not limited to: Fracture, dislocation, sprain, strain, intracranial pathology, intrathoracic pathology, intra-abdominal pathology, amongst others. EKG was reviewed and interpreted by myself and showed sinus tachycardia without acute ST or T wave changes concerning for ischemia. Patient's labs were reviewed and interpreted by myself: CBC showed a leukocytosis of 19 but hemoglobin was stable. CMP was unremarkable. INR was normal. Lipase normal. Chest x-ray and right upper extremity x-rays were reviewed and interpreted by myself and showed no acute bony pathology. CT head, CT cervical spine, CT thoracic spine, CT lumbar spine as well as CT of the chest and abdomen with no acute pathology. On reevaluation, patient's tachycardia had resolved and patient's blood pressure was significantly improved after some Valium. Patient did not want any other pain medications therefore patient was given muscle relaxer for comfort. At this time, patient was sent home in a sling for comfort of his right upper extremity. Patient was otherwise discharged home in stable condition with outpatient follow-up with Dr. Ibarra. Critical Care Critical Care Time Critical Care Time: No
[2025-03-05 22:28] LABS: Hematocrit 48.0 % (42.0-52.0); Hemoglobin 16.9 g/dL (14.1-18.0); Immature Granulocytes % 3.3 %; Mean Corpuscular HGB Conc 35.2 g/dL (31.8-35.4); Mean Corpuscular Hemoglobin 31.6 pg (27.0-31.2); Mean Corpuscular Volume 89.7 fl (80-94); Nucleated Red Blood Cells % 0 %; Platelet Count 241 K/mm3 (142-424); Red Blood Count 5.35 M/mm3 (4.60-6.20); Red Cell Distribution Width-SD 41.5 fL; White Blood Count 19.5 K/mm3 (4.8-10.8)
[2025-03-05] MEDS: diazePAM 10MG/2ML SYRINGE 2 MG IV (22:29)
[2025-03-05] MEDS: 0.9 % SODIUM CHLORIDE 1000ML 1,000 ML 999 ML IV (22:30)
[2025-03-05 22:40] LABS: Alanine Aminotransferase 85 U/L (12-78); Albumin Level 4.1 g/dl (3.5-5.0); Albumin/Globulin Ratio 1.8 (1.1-1.8); Alkaline Phosphatase 79 U/L (38-126); Anion Gap 13.5 mEq/L (5-15); Aspartate Amino Transferase 56 U/L (17-59); Bilirubin,Total 0.9 mg/dl (0.2-1.3); Blood Urea Nitrogen 32 mg/dl (9-20); Calcium 8.9 mg/dl (8.4-10.2); Carbon Dioxide 24 mmol/L (22.0-30.0); Chloride 104 mmol/L (98-107); Creatinine Clearance Estimated 143 mL/min (50-200); Creatinine,Serum 0.90 mg/dl (0.66-1.25); Estimated Glomerular Filt Rate 90 ml/min (>60); GFR (African American) 109 ML/MIN (>60); Globulin 2.3 g/dL (1.3-3.2); Glucose 138 mg/dl (74-100); Lipase 110 U/L (23-300); Potassium 4.5 mmoL/L (3.5-5.1); Sodium 137 mmol/L (136-145); Total Protein,Serum 6.4 g/dl (6.3-8.2)
--- NOTE | 2025-03-05 22:56 | CT_ITS ---
PROCEDURE INFORMATION: Exam: CT Right Upper Extremity Without Contrast, Shoulder Exam date and time: 03/05/2025 11:01 PM Age: 49 years old Clinical indication: Pain; Shoulder; Right; Additional info: Shoulder pain TECHNIQUE: Imaging protocol: Computed tomography of the right upper extremity without contrast. Exam focused on the shoulder. Radiation optimization: All CT scans at this facility use at least one of these dose optimization techniques: automated exposure control; mA and/or kV adjustment per patient size (includes targeted exams where dose is matched to clinical indication); or iterative reconstruction. COMPARISON: CR XR SHOULDER RT MIN 2V 03/05/2025 10:37 PM FINDINGS: Bones/joints: Normal. No acute fracture or dislocation. Soft tissues: Normal. IMPRESSION: No acute findings identified.
[2025-03-05 23:01] LABS: Activated Partial Thrombo Time 24.5 seconds (22.8-30.6); INR 0.98 (0.9-1.1); Prothrombin Time 10.9 seconds (10.1-12.5)
[2025-03-05 23:07] LABS: Anisocytosis 1+; Macrocytosis 1+; Microcytosis 1+; Poikilocytosis 1+; Total Cells Counted 100
[2025-03-05 23:08] LABS: Polychromasia 1+; Tear Drop Cells 1+
[2025-03-05 23:09] LABS: Target Cells 1+
[2025-03-05] MEDS: 0.9 % SODIUM CHLORIDE 50 ML VIAL IV (23:09)
[2025-03-05] MEDS: SODIUM CHLORIDE 0.9% 10ML SYR (RAD ONLY) 10 ML IV (23:09)
[2025-03-05] MEDS: IOPAMIDOL-370 (76%);100ML BOTTLE 80 ML IV (23:10)
[2025-03-05 23:19] VITALS: BP 143/80; PULSE 108; RESP 16; TEMP 37; O2SAT 96
[2025-03-06 00:06] VITALS: BP 140/64; PULSE 111; RESP 16; O2SAT 96
[2025-03-06 00:09] VITALS: BP 140/94; PULSE 96; RESP 16; TEMP 37; O2SAT 95
[2025-03-06 03:15] LABS: Reflex Lactic Add Lactic Reflex
== END 2025-03-06 00:15 | disposition home or self-care (01) ==
PROVIDERS: Emergency Provider Student in an Organized Health Care Education/Training Program; PCP Nurse Practitioner Family
DX: M25.511 Pain in right shoulder (principal); R00.0 Tachycardia, unspecified; W11.XXXA Fall on and from ladder, initial encounter
CPT/HCPCS: 70450; 71045; 71275; 72125; 72128; 72131; 73030; 73060; 73080; 73200; 74174; 80053; 83605; 83690; 85007; 85025; 85610; 85730; 93005; 96361; 96374; 99285; J3360; J7030; Q9967